=== PATIENT | female | born 2000 | race Caucasian/White ===

== ENCOUNTER 2022-01-11 17:35 | Inpatient (IN) | payer BC, SELFPAY ==
--- NOTE | ~2022-01-11 | XR_ITS ---
EXAMINATION: XR CHEST CLINICAL INFORMATION: Leukocytosis. Manic. Rule out pneumonia. COMPARISON: None TECHNIQUE: Frontal view of the chest was obtained. FINDINGS: Bilateral nipple piercing. The lungs are well expanded. There is no focal consolidation, edema, or effusion. No pneumothorax. The cardiomediastinal silhouette is within normal limits. No acute osseous abnormality. XR/XR chest 1V IMPRESSION: Clear lungs.
--- NOTE | ~2022-01-11 | CT_ITS ---
EXAMINATION: CT HEAD WITHOUT CONTRAST CLINICAL INFORMATION: Sudden onset of altered mental status. COMPARISON: None. TECHNIQUE: Contiguous axial imaging was performed from the skull base to vertex without intravenous contrast. This CT examination was performed using dose optimization techniques as appropriate, variously including the following: * Automated exposure control * Adjustment of mA and/or kV according to patient size (this includes techniques or standardized protocols for targeted exams where dose is matched to indication/reason for exam; i.e. extremities or head) Use of iterative reconstruction technique DLP: 708 mGy-cm. FINDINGS: There is no evidence of acute intracranial hemorrhage or territorial infarction. No abnormal mass effect or midline shift is seen. Cox to white matter differentiation is well preserved. No extra-axial fluid collections are identified. No hydrocephalus. Somewhat prominent cisterna magna, likely variant anatomy. No significant volume loss. There is no abnormal attenuation within the brain parenchyma. The osseous structures and soft tissues are normal. The mastoid air cells and visualized portions of the paranasal sinuses are well aerated. CT/CT head/brain wo con IMPRESSION: No acute intracranial pathology.
--- NOTE | ~2022-01-11 | MR_ITS ---
EXAMINATION: MR BRAIN WITHOUT AND WITH CONTRAST CLINICAL INFORMATION: Mental status changes. COMPARISON: CT head from 01/12/2022. TECHNIQUE: MRI of the brain was obtained using routine sequences without and following the administration of 5 mL of Gadavist intravenous contrast. FINDINGS: No focal restricted diffusion is demonstrated to suggest acute or subacute cerebral ischemia. No evidence of acute or chronic hemorrhagic products on heme-sensitive imaging. Normal parenchymal signal characteristics. The ventricles are normal in morphology and size. No midline shift. The pituitary gland is within normal limits for patient's gender and age. The suprasellar cistern remains widely patent. Normal positioning of the cerebellar tonsils. Mild prominence of the CSF space posterior to the left cerebellar hemisphere. No additional abnormal mass effect. Normal arterial and venous vascular flow voids are present. No abnormal contrast enhancement. Normal, homogeneous marrow signal. Mild mucosal thickening of the paranasal sinuses. No signal abnormalities within the mastoids. MR/MR head/brain wo/w con IMPRESSION: 1. No acute intracranial abnormalities. No abnormal intracranial enhancement. 2. No MRI abnormalities to explain the patient's symptoms.
--- NOTE | 2022-01-11 17:51 | ED.PSYCH ---
HPI - Psych General Chief Complaint: Psychiatric Symptoms <ROMEO Villa - Last Filed: 01/12/22 04:40> Stated Complaint: Psych Eval <ROMEO Villa - Last Filed: 01/12/22 04:40> Time Seen by Provider: 01/11/22 17:47 <ROMEO Villa Last Filed: 01/12/22 04:40> Source: patient and EMS <ROMEO Villa Last Filed: 01/12/22 04:40> Mode of arrival: ambulatory <ROMEO Villa Last Filed: 01/12/22 04:40> Limitations: no limitations <ROMEO Villa Last Filed: 01/12/22 04:40> History of Present Illness HPI Narrative: This is a 21-year-old female a known medical history presenting to the emergency department with complaints of suicidal ideation she was brought in via ambulance on a Section 12. Patient tells me I stopped caring for myself , patient tells me she has been like this for the past month however she has had trouble her entire life. Denies visual, auditory and tactile hallucinations. Admits suicidal ideation with no specific plan denies homicidal ideation. Tells me she is not taking her medications as prescribed and she has been lying to people telling them that she has been taking them. She tells me today she finally realized she needs a lot of help. She tells me she lives at home with her mother, father and siblings. She tells me she feels safe at home. She is very blunt with her responses and tells me that she is tired and does not want to talk right now. Denies medical complaints <ROMEO Villa - Last Filed: 01/12/22 04:40> MD complaint: suicidal ideation <ROMEO Villa Last Filed: 01/12/22 04:40> Onset (ago): month(s) (1) <ROMEO Villa Last Filed: 01/12/22 04:40> Duration: constant <ROMEO Villa Last Filed: 01/12/22 04:40> History of same: Yes <ROMEO Villa Last Filed: 01/12/22 04:40> Relieving factors: none <ROMEO Villa Last Filed: 01/12/22 04:40> Exacerbating factors: none <ROMEO Villa Last Filed: 01/12/22 04:40> Associated psychiatric symptoms: none <ROMEO Villa Last Filed: 01/12/22 04:40> Associated symptoms: denies other symptoms <ROMEO Villa Last Filed: 01/12/22 04:40> Treatments prior to arrival: none <ROMEO Villa Last Filed: 01/12/22 04:40> If self harm: admits thoughts of self harm <ROMEO Villa Last Filed: 01/12/22 04:40> Related Data Home Medications: Home Medications Medication Instructions Recorded Confirmed citalopram 20 mg tablet 1 tab PO DAILY 01/11/22 01/11/22 <ROMEO Villa Last Filed: 01/12/22 04:40> Allergies/Adverse Reactions: Allergies Allergy/AdvReac Type Severity Reaction Status Date / Time amoxicillin AdvReac Intermediate Rash Verified 01/11/22 21:42 fluoxetine [From Prozac] AdvReac Depression Verified 01/11/22 21:43 <ROMEO Villa Last Filed: 01/12/22 04:40> Review of Systems Review of Systems: Constitutional : No Fever, No Chills ENT/Mouth : No sore throat, No Rhinorrhea Eyes: No Eye Pain, No Swelling, No Redness Cardiovascular : No Chest Pain, No SOB Respiratory : No Cough, No Sputum Gastrointestinal : No Nausea, No Vomiting, No Diarrhea, No abdominal Pain Genitourinary : No Dysuria, No Hematuria Musculoskeletal : No joint pain, No Myalgias, No Joint Swelling Skin : No Skin Lesions, No rash Neuro : No Weakness, No Numbness, +headache Psych : No Anxiety, No Depression, No SI/HI/AH/VH All other systems reviewed and are negative <ROMEO Villa Last Filed: 01/12/22 04:40> Yes all other systems are reviewed and are negative <ROMEO Villa - Last Filed: 01/12/22 04:40> [facility] Past Medical History Attestation statement: The following information was validated with the patient. <ROMEO Villa - Last Filed: 01/12/22 04:40> Source: old records reviewed and nursing notes reviewed <ROMEO Villa - Last Filed: 01/12/22 04:40> Social History Social History: Social History Advance Directives: No Advance Directives Information Provided: No <ROMEO Villa - Last Filed: 01/12/22 04:40> Physical Exam Vital Signs: Vital Signs: Last Vital Signs Temp 98.2 F 01/12/22 05:04 Pulse 107 H 01/12/22 05:04 Resp 16 01/12/22 05:04 BP 132/89 01/12/22 05:04 Pulse Ox 100 01/12/22 05:04 BMI result Body Mass Index 20.1 Vital signs stable <ROMEO Villa - Last Filed: 01/12/22 04:40> Appearance: Alert.? Oriented X3.? No acute distress.? Head: Normocephalic, atraumatic, no step-offs or deformities Eyes: Pupils equal, round and reactive to light.?+ yellow/green purulent discharge eyes bilaterally and slight conjunctival injection ENT: Pharynx normal.? Neck: Normal inspection.? Neck supple.? CVS: Normal heart rate and rhythm.? Pulses normal.? Respiratory: No respiratory distress.? Breath sounds normal.? Abdomen: Soft and nontender.? Skin: Skin warm and dry.? Normal skin color.? Normal skin turgor.? Extremities: No lower extremity edema.? No calf ttp. 5/5 strength to bilateral upper and lower extremities Neuro: Oriented X 3.? No motor deficit.? No sensory deficit. CN 2-12 intact <ROMEO Villa - Last Filed: 01/12/22 04:40> Course Reevaluation(s) Reevaluation #1: Spoke to Care Team Natasha, patient was evaluated in the community by the behavioral health team. Patient has had previous suicide attempts by hanging within the past year so, patient high risk patient therefore she will be an inpatient bed search. The patient's only known medical history is anxiety. No known history of bipolar disorder schizophrenia. Patient noted to have a slightly elevated leukocytosis, no acute electrolyte abnormalities requiring intervention. Patient's bilirubin noted to be slightly elevated however no pain to palpation with abdomen. Patient is COVID negative. Toxicology pending, urine pending. <ROMEO Villa - Last Filed: 01/12/22 04:40> Time: 18:30 <ROMEO Villa - Last Filed: 01/12/22 04:40> Reevaluation #2: Patient speaking and not making sense,the care team also concerned about the rapidity of onset of psychiatric symptoms. Patient also having urinary incontinence and headache. Patient appears altered and not making sense. She tells me that she has been having headache over the past week and then she tells me that she has been having tension headaches her whole life. When I asked her if she is having right now she says not at this moment. No meningeal signs however history, physical and elevated white blood cell count concerning for meningitis/encephalitis. Although patient does appear to have a UTI by rapid urinalysis I still feel as though this presentation is abnormal for 21-year-old female must rule out other etiologies such as meningitis, encephalitis discussed this with my attending who agrees. Noted to have an elevated leukocytosis new onset neuro sx, for this reason encephalitis and meningitis are on the differential. Head CT is negative, no signs of intra cranial pressure. Discussed this case with my attending who recommends lumbar puncture as this is new in onset patient has no history of bipolar disorder, schizophrenia she is having episodes of incontinence & [place] and she is not making sense when she speaks. <ROMEO Villa Last Filed: 01/12/22 04:40> Time: 03:04 <ROMEO Villa - Last Filed: 01/12/22 04:40> Reevaluation #3: A lumbar puncture was successfully performed by myself w/Dr. Jeffries supervising. Patient tolerated procedure well. No complications. Patient gave verbal consent for the procedure although she is altered she she was made aware of the procedure I explained to her asked her if she had any questions, and answer them is appropriately After the procedure pressure was applied to the area for 2-3 minutes and she was laid flat on her back educated her and her nurse that she is to remain in a supine position without movement for about an hour. Patient did not report any numbness or tingling to the lower extremities, does not report headache, dizziness or vision changes. Will continue to monitor. Will prophylactically tx for viral and bacterial meningitis. <ROMEO Villa - Last Filed: 01/12/22 04:40> Time: 03:55 <ROMEO Villa - Last Filed: 01/12/22 04:40> Additional Reevaluation(s): 0423 Spoke to patient's mother Pattie who is patient's primary contact who gave me an abundant amount of information about this patient. She tells me that her daughter has no history of medication abuse. She currently has a girlfriend no known history of STDs. She does tell me that about a week and a half ago Divya had a significant upper respiratory infection with a productive cough of sputum, she had a T-max of 99.8 degrees at the time and tested negative for COVID. She was not evaluated by a medical professional at bedtime however mom says that it was significant so she wanted her to be evaluated. Divya has never had history is of urinary incontinence she does not have a history of UTIs. She is currently getting treated for an avulsion fracture of the left ankle she was seen at [facility] for this and she is to follow up with [facility]. Mom tells me that on 01/08 she noted that Divya use getting easily overwhelmed. She spoke to patient's PCP. The next day she called and [facility] at the time plan was for her to go to partial therapy for anxiety. At that time mom did not know any bizarre behavior. The next day on 01/10 she seemed high off life and seemed to be in a good mood she saw her therapist who met with her that day and noted nothing wrong with her clinically. On 01/11 is when mother noted that Divya seemed forgetful and at times had grandiose language per mother. She says that Divya had a full conversation with her father and she kept forgetting what her and her father talked about. On that day Divya also sent 58 text messages to her girlfriend and seemed like she was not making sense from time to time. She also mentions to me she has no history of migraine headaches or tension type headaches so her having a headache is unusual in not common for her. Mother is aware that a lumbar puncture was done she agrees with treatment plan. She was made aware of plan in tells me that she is shocked of this change in behavior suddenly, this is unlike her daughter and she reaffirms that daughter has no history of schizophrenia, bipolar disorder her only diagnosis is anxiety for which she takes Celexa for. 0435 Patient not complaining of headache, dizziness or vision changes. Patient will be admitted to the hospitalist team for further evaluation. CSF fluid pending. <ROMEO Villa - Last Filed: 01/12/22 04:40> MDM - Psych MDM Narrative Medical decision making narrative: 7710 21-year-old female presents with suicidal ideation x1 month on a Section 12 via EMS. Reports not taking her psychiatric medications. Unsure of her medical history. Physical examination significant for purulent eye discharge bilaterally, an abundant amount of discharge that is yellow/green is noted. Some conjunctival injection is also appreciated. Lungs clear. Regular rate and rhythm. Abdomen soft nontender nondistended. Neuro exam nonfocal. Patient is very soft-spoken. Plan at this time is medical clearance. I will obtain a wound culture of patient's patient's eye discharge to ensure this is not gonococcal conjunctivitis. I will also give patient erythromycin ointment to bilateral eyes. <ROMEO Villa - Last Filed: 01/12/22 04:40> Medical Records Attestation: I reviewed the patient's medical records. <ROMEO Villa Last Filed: 01/12/22 04:40> Lab Data Attestation: I reviewed the patient's lab results. <ROMEO Villa Last Filed: 01/12/22 04:40> Result diagrams: : 01/12/22 02:09 01/11/22 19:13 <ROMEO Villa Last Filed: 01/12/22 04:40> Labs: Lab Results 01/11/22 01/11/22 01/11/22 Range/Units 17:54 17:54 17:54 WBC 14.9 H (4.8-10.8) X10*3/uL RBC 5.20 (4.20-5.50) X10*6/uL Hgb 14.2 (12.0-16.0) g/dl Hct 41.9 (37.0-47.0) % MCV 80.6 (80.0-98.0) fL MCH 27.3 (27.0-33.0) pg MCHC 33.9 (31.0-35.0) g/dl RDW 14.7 (11.0-16.0) % Plt Count 348 (160-400) X10*3/uL MPV 11.4 (9.4-12.3) fL Immature Gran % (Auto) 0.4 (0.0-0.4) % Neut % (Auto) 81.7 H (45-73) % Lymph % (Auto) 10.0 L (20-40) % [place] % (Auto) 7.5 (2-11) % Eos % (Auto) 0.1 (0-4) % Baso % (Auto) 0.3 (0-2) % Lymph # (Auto) 1.5 (1.2-4.9) X10*3/uL [place] # (Auto) 1.1 (0.1-1.2) X10*3/uL Eos # (Auto) 0.0 (0.0-0.4) X10*3/uL Baso # (Auto) 0.0 (0.0-0.2) X10*3/uL Abs Immat Gran (auto) 0.06 H (0.00-0.03) X10*3/uL Absolute Neuts (auto) 12.1 H (2.0-8.3) x10*3/uL Absolute Nucleated RBC 0.000 (0.0-0.012) X10*3/uL Nucleated RBC % (auto) 0.0 (0.0-0.2) /100WBC Sodium Potassium Chloride Carbon Dioxide Anion Gap BUN Creatinine Estim Creat Clear Calc Estimated GFR Random Glucose Calcium Magnesium Total Bilirubin AST ALT Alkaline Phosphatase Total Protein Albumin Urine Color Urine Appearance Urine pH (5.0-8.0) Ur Specific [place] (1.005-1.025) Urine Protein (NEG-TRACE) MG/DL Urine Glucose (UA) (NEG) MG/DL Urine Ketones (NEG) MG/DL Urine Blood (NEG) Urine Nitrite (NEG) Ur Leukocyte Esterase (NEG) Urine RBC (0) /HPF Urine WBC (0-4) /HPF Urine WBC Clumps Ur Squamous Epith Cells /LPF Urine Bacteria /LPF Urine Test (NEGATIVE) CSF Tube Number CSF Volume ML CSF Appearance CSF Color CSF WBC MM*3 CSF RBC MM*3 CSF Lymphocytes % CSF Appearance (b) CSF Glucose mg/dL CSF Total Protein (15-45) mg/dL CSF Lyme IgG (Immblot) CSF Lyme IgG Bands Det CSF Lyme IgM (Immblot) CSF Lyme IgM Bands Det Salicylates (15-30) mg/dL Urine Opiates Screen (Not Detect) Urine Fentanyl Screen (Not Detect) Acetaminophen (<30) mcg/mL Ur Barbiturates Screen (Not Detect) Ur Phencyclidine Scrn (Not Detect) Ur Amphetamines Screen (Not Detect) U Benzodiazepines Scrn (Not Detect) Urine Cocaine Screen (Not Detect) U Marijuana (THC) Screen (Not Detect) Ethyl Alcohol < 10 mg/dL COVID-19 (VIGNESH) Negative (Negative) COVID-19 Clin Com See Note 01/11/22 01/11/22 01/11/22 Range/Units 19:13 19:13 20:40 WBC (4.8-10.8) X10*3/uL RBC (4.20-5.50) X10*6/uL Hgb (12.0-16.0) g/dl Hct (37.0-47.0) % MCV (80.0-98.0) fL MCH (27.0-33.0) pg MCHC (31.0-35.0) g/dl RDW (11.0-16.0) % Plt Count (160-400) X10*3/uL MPV (9.4-12.3) fL Immature Gran % (Auto) (0.0-0.4) % Neut % (Auto) (45-73) % Lymph % (Auto) (20-40) % [place] % (Auto) (2-11) % Eos % (Auto) (0-4) % Baso % (Auto) (0-2) % Lymph # (Auto) (1.2-4.9) X10*3/uL [place] # (Auto) (0.1-1.2) X10*3/uL Eos # (Auto) (0.0-0.4) X10*3/uL Baso # (Auto) (0.0-0.2) X10*3/uL Abs Immat Gran (auto) (0.00-0.03) X10*3/uL Absolute Neuts (auto) (2.0-8.3) x10*3/uL Absolute Nucleated RBC (0.0-0.012) X10*3/uL Nucleated RBC % (auto) (0.0-0.2) /100WBC Sodium Cancelled 138 Potassium Cancelled 4.0 Chloride Cancelled 101 Carbon Dioxide Cancelled 26 Anion Gap Cancelled 15 BUN Cancelled 14 Creatinine Cancelled 0.80 Estim Creat Clear Calc Cancelled 89.3 Estimated GFR Cancelled > 60 Random Glucose Cancelled 158 H Calcium Cancelled 9.9 Magnesium Cancelled 2.0 Total Bilirubin Cancelled 1.2 H AST Cancelled 15 ALT Cancelled 12 Alkaline Phosphatase Cancelled 50 Total Protein Cancelled 8.0 Albumin Cancelled 4.5 Urine Color YELLOW Urine Appearance CLOUDY Urine pH 6.0 (5.0-8.0) Ur Specific [place] 1.015 (1.005-1.025) Urine Protein NEG (NEG-TRACE) MG/DL Urine Glucose (UA) NEG (NEG) MG/DL Urine Ketones NEG (NEG) MG/DL Urine Blood 1+ H (NEG) Urine Nitrite POS H (NEG) Ur Leukocyte Esterase 2+ H (NEG) Urine RBC 1-4 (0) /HPF Urine WBC 76-150 H (0-4) /HPF Urine WBC Clumps NOTED Ur Squamous Epith Cells 4+ /LPF Urine Bacteria 4+ /LPF Urine Test (NEGATIVE) CSF Tube Number CSF Volume ML CSF Appearance CSF Color CSF WBC MM*3 CSF RBC MM*3 CSF Lymphocytes % CSF Appearance (b) CSF Glucose mg/dL CSF Total Protein (15-45) mg/dL CSF Lyme IgG (Immblot) CSF Lyme IgG Bands Det CSF Lyme IgM (Immblot) CSF Lyme IgM Bands Det Salicylates (15-30) mg/dL Urine Opiates Screen (Not Detect) Urine Fentanyl Screen (Not Detect) Acetaminophen (<30) mcg/mL Ur Barbiturates Screen (Not Detect) Ur Phencyclidine Scrn (Not Detect) Ur Amphetamines Screen (Not Detect) U Benzodiazepines Scrn (Not Detect) Urine Cocaine Screen (Not Detect) U Marijuana (THC) Screen (Not Detect) Ethyl Alcohol mg/dL COVID-19 (VIGNESH) (Negative) COVID-19 Clin Com 01/11/22 01/11/22 01/12/22 Range/Units 20:40 20:40 02:09 WBC 12.7 H (4.8-10.8) X10*3/uL RBC 4.98 (4.20-5.50) X10*6/uL Hgb 13.5 (12.0-16.0) g/dl Hct 40.3 (37.0-47.0) % MCV 80.9 (80.0-98.0) fL MCH 27.1 (27.0-33.0) pg MCHC 33.5 (31.0-35.0) g/dl RDW 14.6 (11.0-16.0) % Plt Count 395 (160-400) X10*3/uL MPV 10.6 (9.4-12.3) fL Immature Gran % (Auto) 0.5 H (0.0-0.4) % Neut % (Auto) 74.6 H (45-73) % Lymph % (Auto) 15.9 L (20-40) % [place] % (Auto) 8.4 (2-11) % Eos % (Auto) 0.3 (0-4) % Baso % (Auto) 0.3 (0-2) % Lymph # (Auto) 2.0 (1.2-4.9) X10*3/uL [place] # (Auto) 1.1 (0.1-1.2) X10*3/uL Eos # (Auto) 0.0 (0.0-0.4) X10*3/uL Baso # (Auto) 0.0 (0.0-0.2) X10*3/uL Abs Immat Gran (auto) 0.07 H (0.00-0.03) X10*3/uL Absolute Neuts (auto) 9.5 H (2.0-8.3) x10*3/uL Absolute Nucleated RBC 0.000 (0.0-0.012) X10*3/uL Nucleated RBC % (auto) 0.0 (0.0-0.2) /100WBC Sodium Potassium Chloride Carbon Dioxide Anion Gap BUN Creatinine Estim Creat Clear Calc Estimated GFR Random Glucose Calcium Magnesium Total Bilirubin AST ALT Alkaline Phosphatase Total Protein Albumin Urine Color Urine Appearance Urine pH (5.0-8.0) Ur Specific [place] (1.005-1.025) Urine Protein (NEG-TRACE) MG/DL Urine Glucose (UA) (NEG) MG/DL Urine Ketones (NEG) MG/DL Urine Blood (NEG) Urine Nitrite (NEG) Ur Leukocyte Esterase (NEG) Urine RBC (0) /HPF Urine WBC (0-4) /HPF Urine WBC Clumps Ur Squamous Epith Cells /LPF Urine Bacteria /LPF Urine Test NEGATIVE (NEGATIVE) CSF Tube Number CSF Volume ML CSF Appearance CSF Color CSF WBC MM*3 CSF RBC MM*3 CSF Lymphocytes % CSF Appearance (b) CSF Glucose mg/dL CSF Total Protein (15-45) mg/dL CSF Lyme IgG (Immblot) CSF Lyme IgG Bands Det CSF Lyme IgM (Immblot) CSF Lyme IgM Bands Det Salicylates (15-30) mg/dL Urine Opiates Screen Not Detected (Not Detect) Urine Fentanyl Screen Not Detected (Not Detect) Acetaminophen (<30) mcg/mL Ur Barbiturates Screen Not Detected (Not Detect) Ur Phencyclidine Scrn Not Detected (Not Detect) Ur Amphetamines Screen Not Detected (Not Detect) U Benzodiazepines Scrn Not Detected (Not Detect) Urine Cocaine Screen Not Detected (Not Detect) U Marijuana (THC) Screen Not Detected (Not Detect) Ethyl Alcohol mg/dL COVID-19 (VIGNESH) (Negative) COVID-19 Clin Com 01/12/22 01/12/22 01/12/22 Range/Units 03:57 03:57 03:57 WBC (4.8-10.8) X10*3/uL RBC (4.20-5.50) X10*6/uL Hgb (12.0-16.0) g/dl Hct (37.0-47.0) % MCV (80.0-98.0) fL MCH (27.0-33.0) pg MCHC (31.0-35.0) g/dl RDW (11.0-16.0) % Plt Count (160-400) X10*3/uL MPV (9.4-12.3) fL Immature Gran % (Auto) (0.0-0.4) % Neut % (Auto) (45-73) % Lymph % (Auto) (20-40) % [place] % (Auto) (2-11) % Eos % (Auto) (0-4) % Baso % (Auto) (0-2) % Lymph # (Auto) (1.2-4.9) X10*3/uL [place] # (Auto) (0.1-1.2) X10*3/uL Eos # (Auto) (0.0-0.4) X10*3/uL Baso # (Auto) (0.0-0.2) X10*3/uL Abs Immat Gran (auto) (0.00-0.03) X10*3/uL Absolute Neuts (auto) (2.0-8.3) x10*3/uL Absolute Nucleated RBC (0.0-0.012) X10*3/uL Nucleated RBC % (auto) (0.0-0.2) /100WBC Sodium Potassium Chloride Carbon Dioxide Anion Gap BUN Creatinine Estim Creat Clear Calc Estimated GFR Random Glucose Calcium Magnesium Total Bilirubin AST ALT Alkaline Phosphatase Total Protein Albumin Urine Color Urine Appearance Urine pH (5.0-8.0) Ur Specific [place] (1.005-1.025) Urine Protein (NEG-TRACE) MG/DL Urine Glucose (UA) (NEG) MG/DL Urine Ketones (NEG) MG/DL Urine Blood (NEG) Urine Nitrite (NEG) Ur Leukocyte Esterase (NEG) Urine RBC (0) /HPF Urine WBC (0-4) /HPF Urine WBC Clumps Ur Squamous Epith Cells /LPF Urine Bacteria /LPF Urine Test (NEGATIVE) CSF Tube Number 2 4 CSF Volume 1.0 ML CSF Appearance CLEAR CSF Color COLORLESS CSF WBC 3 MM*3 CSF RBC 1 MM*3 CSF Lymphocytes 100 % CSF Appearance (b) Clear, Colorless CSF Glucose 71 mg/dL CSF Total Protein 24.0 (15-45) mg/dL CSF Lyme IgG (Immblot) Cancelled CSF Lyme IgG Bands Det Cancelled CSF Lyme IgM (Immblot) Cancelled CSF Lyme IgM Bands Det Cancelled Salicylates (15-30) mg/dL Urine Opiates Screen (Not Detect) Urine Fentanyl Screen (Not Detect) Acetaminophen (<30) mcg/mL Ur Barbiturates Screen (Not Detect) Ur Phencyclidine Scrn (Not Detect) Ur Amphetamines Screen (Not Detect) U Benzodiazepines Scrn (Not Detect) Urine Cocaine Screen (Not Detect) U Marijuana (THC) Screen (Not Detect) Ethyl Alcohol mg/dL COVID-19 (VIGNESH) (Negative) COVID-19 Clin Com 01/12/22 Range/Units 03:59 WBC (4.8-10.8) X10*3/uL RBC (4.20-5.50) X10*6/uL Hgb (12.0-16.0) g/dl Hct (37.0-47.0) % MCV (80.0-98.0) fL MCH (27.0-33.0) pg MCHC (31.0-35.0) g/dl RDW (11.0-16.0) % Plt Count (160-400) X10*3/uL MPV (9.4-12.3) fL Immature Gran % (Auto) (0.0-0.4) % Neut % (Auto) (45-73) % Lymph % (Auto) (20-40) % [place] % (Auto) (2-11) % Eos % (Auto) (0-4) % Baso % (Auto) (0-2) % Lymph # (Auto) (1.2-4.9) X10*3/uL [place] # (Auto) (0.1-1.2) X10*3/uL Eos # (Auto) (0.0-0.4) X10*3/uL Baso # (Auto) (0.0-0.2) X10*3/uL Abs Immat Gran (auto) (0.00-0.03) X10*3/uL Absolute Neuts (auto) (2.0-8.3) x10*3/uL Absolute Nucleated RBC (0.0-0.012) X10*3/uL Nucleated RBC % (auto) (0.0-0.2) /100WBC Sodium Potassium Chloride Carbon Dioxide Anion Gap BUN Creatinine Estim Creat Clear Calc Estimated GFR Random Glucose Calcium Magnesium Total Bilirubin AST ALT Alkaline Phosphatase Total Protein Albumin Urine Color Urine Appearance Urine pH (5.0-8.0) Ur Specific [place] (1.005-1.025) Urine Protein (NEG-TRACE) MG/DL Urine Glucose (UA) (NEG) MG/DL Urine Ketones (NEG) MG/DL Urine Blood (NEG) Urine Nitrite (NEG) Ur Leukocyte Esterase (NEG) Urine RBC (0) /HPF Urine WBC (0-4) /HPF Urine WBC Clumps Ur Squamous Epith Cells /LPF Urine Bacteria /LPF Urine Test (NEGATIVE) CSF Tube Number CSF Volume ML CSF Appearance CSF Color CSF WBC MM*3 CSF RBC MM*3 CSF Lymphocytes % CSF Appearance (b) CSF Glucose mg/dL CSF Total Protein (15-45) mg/dL CSF Lyme IgG (Immblot) CSF Lyme IgG Bands Det CSF Lyme IgM (Immblot) CSF Lyme IgM Bands Det Salicylates < 5.0 L (15-30) mg/dL Urine Opiates Screen (Not Detect) Urine Fentanyl Screen (Not Detect) Acetaminophen < 1 (<30) mcg/mL Ur Barbiturates Screen (Not Detect) Ur Phencyclidine Scrn (Not Detect) Ur Amphetamines Screen (Not Detect) U Benzodiazepines Scrn (Not Detect) Urine Cocaine Screen (Not Detect) U Marijuana (THC) Screen (Not Detect) Ethyl Alcohol mg/dL COVID-19 (VIGNESH) (Negative) COVID-19 Clin Com <ROMEO Villa - Last Filed: 01/12/22 04:40> Critical Care Time Critical Care Time Critical Care Time: No <ROMEO Villa Last Filed: 01/12/22 04:40> Discharge Plan Discharge Clinical Impression: Altered mental status, Depression, Suicidal ideation, UTI (urinary tract infection) <ROMEO Villa Last Filed: 01/12/22 04:40> Patient Disposition: Admitted As Inpatient <ROMEO Villa - Last Filed: 01/12/22 04:40>
[2022-01-11 18:03] LABS: MANUAL DIFF FLAG NO
[2022-01-11 18:15] LABS: Ethanol < 10 mg/dL
[2022-01-11 18:18] LABS: Basophils Percent Auto 0.3 % (0-2); Eosinophils Percent Auto 0.1 % (0-4); Hematocrit 41.9 % (37.0-47.0); Hemoglobin 14.2 g/dl (12.0-16.0); Imm Gran Abs Auto 0.06 X10*3/uL (0.00-0.03); Imm Gran Pct Auto 0.4 % (0.0-0.4); Lymphocytes Absolute Auto 1.5 X10*3/uL (1.2-4.9); Mean Corpuscular HGB Conc 33.9 g/dl (31.0-35.0); Mean Corpuscular Hemoglobin 27.3 pg (27.0-33.0); Mean Corpuscular Volume 80.6 fL (80.0-98.0); Mean Platelet Volume 11.4 fL (9.4-12.3); Monocytes Absolute Auto 1.1 X10*3/uL (0.1-1.2); Monocytes Percent Auto 7.5 % (2-11); Neutrophils Absolute Auto 12.1 x10*3/uL (2.0-8.3); Neutrophils Percent Auto 81.7 % (45-73); Platelet Count 348 X10*3/uL (160-400); Red Cell Distribution Width 14.7 % (11.0-16.0); White Blood Count 14.9 X10*3/uL (4.8-10.8)
[2022-01-11 18:19] VITALS: BP 134/97; PULSE 102; RESP 18; TEMP 36.7; O2SAT 98; BMI 20.1
--- NOTE | 2022-01-11 18:19 | MHC.CARE ---
Pt was evaluated by [facility] prior to arrival to the ED for new onset of psychosis/jimmy symptoms marked by disorganized thought process, grandiosity, adventist preoccupation, and she disclosed a recent suicide attempt via hanging while she was in her dorm room at [employer]. She also expressed that she has been having intrusive thoughts about harming her family and is afraid that she might do so. She does not present with any aggression nor does she have a history of aggressive behavior. She lives with her parents, whom are very supportive. All above information was provided by the [facility] rewind operator that completed the pt's evaluation at her home. Pt will be presented for admission to [facility] or [facility].
[2022-01-11 18:37] LABS: COVID-19 Test Negative (Negative)
[2022-01-11 19:41] LABS: Alanine Aminotransferase 12 U/L (0-31); Albumin Level 4.5 g/dL (3.5-5.0); Alkaline Phosphatase 50 U/L (39-117); Anion Gap 15 (12-20); Aspartate Amino Transferase 15 U/L (5-31); Bilirubin Total 1.2 mg/dL (0.0-1.0); Blood Urea Nitrogen 14 mg/dL (9-16); Calcium 9.9 mg/dL (8.4-10.2); Carbon Dioxide 26 mmol/L (22-29); Chloride 101 mmol/L (96-108); Creatinine Clr Calc Pharmacy 89.3; Estimated Glomerular Filt Rate > 60; Glucose Random 158 mg/dL (60-115); Sodium 138 mmol/L (135-145)
[2022-01-11] MEDS: Erythromycin Base 0.5% Oph Oin 1 GM TUBE 1 CM EYE-BOTH (20:38)
[2022-01-11 20:48] LABS: Appearance Urine CLOUDY; Color Urine YELLOW; Glucose Urine UA NEG (NEG); Leukocyte Esterase Urine 2+ (NEG); Nitrite Urine POS (NEG); Specific Gravity - Urine 1.015 (1.005-1.025); UACC Culture Trigger YES; Urine Blood 1+ (NEG); Urine Ketones NEG (NEG); Urine Protein NEG (NEG-TRACE)
[2022-01-11 20:53] LABS: UPreg QC Valid YES; Urine Pregnancy NEGATIVE (NEGATIVE)
[2022-01-11 21:00] LABS: Bacteria Urine 4+ /LPF; Squamous Epithelial Cell Urine 4+ /LPF; WBC Clumps Urine NOTED
[2022-01-11 21:08] LABS: Amphetamine Screen Urine Not Detected (Not Detect); Barbiturates, Urine Not Detected (Not Detect); Benzodiazepines Screen Urine Not Detected (Not Detect); Cannabinoid Screen Urine Not Detected (Not Detect); Cocaine Screen Urine Not Detected (Not Detect); Fentanyl, urine Not Detected (Not Detect); Opiate Screen Urine Not Detected (Not Detect); Phencyclidine Screen Urine Not Detected (Not Detect)
[2022-01-12 02:14] LABS: MANUAL DIFF FLAG NO
[2022-01-12 02:15] LABS: Basophils Percent Auto 0.3 % (0-2); Eosinophils Percent Auto 0.3 % (0-4); Hematocrit 40.3 % (37.0-47.0); Hemoglobin 13.5 g/dl (12.0-16.0); Imm Gran Abs Auto 0.07 X10*3/uL (0.00-0.03); Imm Gran Pct Auto 0.5 % (0.0-0.4); Lymphocytes Percent Auto 15.9 % (20-40); Mean Corpuscular HGB Conc 33.5 g/dl (31.0-35.0); Mean Corpuscular Hemoglobin 27.1 pg (27.0-33.0); Mean Corpuscular Volume 80.9 fL (80.0-98.0); Mean Platelet Volume 10.6 fL (9.4-12.3); Monocytes Absolute Auto 1.1 X10*3/uL (0.1-1.2); Monocytes Percent Auto 8.4 % (2-11); Neutrophils Absolute Auto 9.5 x10*3/uL (2.0-8.3); Neutrophils Percent Auto 74.6 % (45-73); Platelet Count 395 X10*3/uL (160-400); Red Blood Count 4.98 X10*6/uL (4.20-5.50); Red Cell Distribution Width 14.6 % (11.0-16.0); White Blood Count 12.7 X10*3/uL (4.8-10.8)
[2022-01-12 02:25] VITALS: BP 132/84; PULSE 83; RESP 14; TEMP 36.8; O2SAT 98
[2022-01-12 04:26] LABS: CSF Appearance Clear, Colorless; CSF Tube # 2
[2022-01-12 04:36] LABS: Acetaminophen LAB < 1 mcg/mL (<30); Salicylate < 5.0 mg/dL (15-30)
[2022-01-12 04:37] LABS: Glucose CSF 71 mg/dL
[2022-01-12 05:04] VITALS: BP 132/89; PULSE 107; RESP 16; TEMP 36.8; O2SAT 100
[2022-01-12 05:04] LABS: Appearance CSF CLEAR; CSF Tube # 4; Color CSF COLORLESS; Red Blood Cell CSF 1 MM*3; White Blood Cell CSF 3 MM*3
[2022-01-12 05:05] LABS: Lymphocytes CSF 100 %
[2022-01-12] MEDS: Lidocaine HCl 2 % MPF 5 ML VIAL SUBCUT (05:20)
[2022-01-12] MEDS: LORazepam 0.5 MG TABLET PO (05:20)
[2022-01-12] MEDS: cefTRIAXone sodium 2 GM in 0.9 % Sodium Chloride 50 ML IV (05:39)
--- NOTE | 2022-01-12 06:43 | P.HPHOSP_ITS ---
History of Present Illness Date of Service: 01/12/22 Chief Complaint: Altered mental status 21-year-old female with a past medical history of anxiety/depression presented to the hospital with a chief complaint of altered mental status. Patient is alert and awake at the time of my interview, has tangential thoughts, unable to redirect; tells her name but goes back to talking about the world, old problems, not answering my questions appropriately. Spoke to the patient's mother Pattie who mentioned that since patient came back from the school on December 31 she has been having upper respiratory symptoms cough and sputum production along with profuse sweating; she felt fine few days later around 12 she started to be a came altered and talking erratically; and expressed ideas of suicide. Also patient's mother called the crisis team and for the past 1 day she became more words/altered hence subsequently sent to the ER for further evaluation. Patient's mother does not think patient took extra doses of her citalopram. Patient filled in citalopram 30 tablets on December 06 and she still has 14 tablets left. And does not think patient overdosed on any medications. Denies any fevers chills. Denies any falls or trauma. Denies complaining of any chest pain or palpitations. Review of all other systems is negative except mentioned above ER course: Per ER team patient on presentation noted to be altered concern for psychiatric crisis-call crisis team; later patient was noted to be more confused; on also reported headaches and suicide ideation. On observation was placed. On labs noted to have abnormal urinalysis consistent UTI. ER team also did an LP given concerns for encephalitis/meningitis. Empirically started on vancomycin, ceftriaxone, acyclovir. Admitted to the hospital for further management. Patient also noted to have conjunctivitis-given erythromycin. [facility] Social History Advance Directives: No Advance Directives Information Provided: No Meds Allergies Allergy/AdvReac Type Severity Reaction Status Date / Time amoxicillin AdvReac Intermediate Rash Verified 01/11/22 21:42 fluoxetine [From Prozac] AdvReac Depression Verified 01/11/22 21:43 Active Medications: Current Medications Erythromycin (Erythromycin Base 0.5% Oph Oin 1 Gm Tube) 1 cm EYE-BOTH BID JOHANNA Last Admin: 01/11/22 20:38 Dose: 1 cm Documented by: Escitalopram Oxalate (Escitalopram Oxalate 10 Mg Tablet) 10 mg PO DAILY [facility] Acyclovir Sodium 500 mg/ (Sodium Chloride) 110 mls @ 110 mls/hr IV Q8H [facility] Last Admin: 01/12/22 06:10 Dose: 110 mls/hr Documented by: Dextrose/Sodium Chloride (D51/2ns) 1,000 mls @ 100 mls/hr IVCONT .Q10H [facility] Melatonin (Melatonin 3 Mg Tablet) 6 mg PO BEDTIME PRN PRN Reason: Insomnia Pharmacy Consult (Consult Rx Perform Med Rec) 1 each MISCELLANE ONCE PRN PRN Reason: Consult order Senna (Sennosides 8.6 Mg Tablet) 17.2 mg PO BEDTIME PRN PRN Reason: Constipation Sodium Chloride (0.9 % Sodium Chloride Flush 3 Ml Syringe) 3 ml IVFLUSH QSHIFT [facility] Home Medications Medication Instructions Recorded Confirmed Last Taken Type citalopram 20 mg tablet 1 tab PO DAILY 01/11/22 01/11/22 Unknown History Physical Exam Vital Signs and Narrative: Vital Signs: Last Vital Signs Temp 98.2 F 01/12/22 05:04 Pulse 107 H 01/12/22 05:04 Resp 16 01/12/22 05:04 BP 132/89 01/12/22 05:04 Pulse Ox 100 01/12/22 05:04 BMI result Body Mass Index 20.1 Gen: Appears be in no acute distress HEENT: NCAT, Moist mucosa. Pulmonary: Vesicular breath sounds, fair air entry CVS: Normal S1-S2 Abdomen: BS+, Soft, Nontender Extremities: Warm well perfused Neuro: Alert and awake. Oriented x2. Grossly nonfocal. Results Labs CBC and Chem 7: 01/12/22 02:09 01/11/22 19:13 Labs: Laboratory Results - last 24 hr 01/11/22 01/11/22 01/11/22 17:54 17:54 17:54 MCV 80.6 MCH 27.3 MCHC 33.9 RDW 14.7 Plt Count 348 MPV 11.4 Immature Gran % (Auto) 0.4 Neut % (Auto) 81.7 H Lymph % (Auto) 10.0 L [place] % (Auto) 7.5 Eos % (Auto) 0.1 Baso % (Auto) 0.3 Lymph # (Auto) 1.5 [place] # (Auto) 1.1 Eos # (Auto) 0.0 Baso # (Auto) 0.0 Abs Immat Gran (auto) 0.06 H Absolute Neuts (auto) 12.1 H Absolute Nucleated RBC 0.000 Nucleated RBC % (auto) 0.0 Anion Gap Estim Creat Clear Calc Estimated GFR Random Glucose Calcium Magnesium Total Bilirubin AST ALT Alkaline Phosphatase Total Protein Albumin Urine Color Urine Appearance Urine pH Ur Specific [place] Urine Protein Urine Glucose (UA) Urine Ketones Urine Blood Urine Nitrite Ur Leukocyte Esterase Urine RBC Urine WBC Urine WBC Clumps Ur Squamous Epith Cells Urine Bacteria Urine Test CSF Tube Number CSF Volume CSF Appearance CSF Color CSF WBC CSF RBC CSF Lymphocytes CSF Appearance (b) CSF Glucose CSF Total Protein CSF Lyme IgG (Immblot) CSF Lyme IgG Bands Det CSF Lyme IgM (Immblot) CSF Lyme IgM Bands Det Salicylates Urine Opiates Screen Urine Fentanyl Screen Acetaminophen Ur Barbiturates Screen Ur Phencyclidine Scrn Ur Amphetamines Screen U Benzodiazepines Scrn Urine Cocaine Screen U Marijuana (THC) Screen Ethyl Alcohol < 10 COVID-19 (VIGNESH) Negative COVID-19 Clin Com See Note 01/11/22 01/11/22 01/11/22 19:13 19:13 20:40 MCV MCH MCHC RDW Plt Count MPV Immature Gran % (Auto) Neut % (Auto) Lymph % (Auto) [place] % (Auto) Eos % (Auto) Baso % (Auto) Lymph # (Auto) [place] # (Auto) Eos # (Auto) Baso # (Auto) Abs Immat Gran (auto) Absolute Neuts (auto) Absolute Nucleated RBC Nucleated RBC % (auto) Anion Gap Cancelled 15 Estim Creat Clear Calc Cancelled 89.3 Estimated GFR Cancelled > 60 Random Glucose Cancelled 158 H Calcium Cancelled 9.9 Magnesium Cancelled 2.0 Total Bilirubin Cancelled 1.2 H AST Cancelled 15 ALT Cancelled 12 Alkaline Phosphatase Cancelled 50 Total Protein Cancelled 8.0 Albumin Cancelled 4.5 Urine Color YELLOW Urine Appearance CLOUDY Urine pH 6.0 Ur Specific [place] 1.015 Urine Protein NEG Urine Glucose (UA) NEG Urine Ketones NEG Urine Blood 1+ H Urine Nitrite POS H Ur Leukocyte Esterase 2+ H Urine RBC 1-4 Urine WBC 76-150 H Urine WBC Clumps NOTED Ur Squamous Epith Cells 4+ Urine Bacteria 4+ Urine Test CSF Tube Number CSF Volume CSF Appearance CSF Color CSF WBC CSF RBC CSF Lymphocytes CSF Appearance (b) CSF Glucose CSF Total Protein CSF Lyme IgG (Immblot) CSF Lyme IgG Bands Det CSF Lyme IgM (Immblot) CSF Lyme IgM Bands Det Salicylates Urine Opiates Screen Urine Fentanyl Screen Acetaminophen Ur Barbiturates Screen Ur Phencyclidine Scrn Ur Amphetamines Screen U Benzodiazepines Scrn Urine Cocaine Screen U Marijuana (THC) Screen Ethyl Alcohol COVID-19 (VIGNESH) COVID-19 [employer] Com 01/11/22 01/11/22 01/12/22 20:40 20:40 02:09 MCV 80.9 MCH 27.1 MCHC 33.5 RDW 14.6 Plt Count 395 MPV 10.6 Immature Gran % (Auto) 0.5 H Neut % (Auto) 74.6 H Lymph % (Auto) 15.9 L [place] % (Auto) 8.4 Eos % (Auto) 0.3 Baso % (Auto) 0.3 Lymph # (Auto) 2.0 [place] # (Auto) 1.1 Eos # (Auto) 0.0 Baso # (Auto) 0.0 Abs Immat Gran (auto) 0.07 H Absolute Neuts (auto) 9.5 H Absolute Nucleated RBC 0.000 Nucleated RBC % (auto) 0.0 Anion Gap Estim Creat Clear Calc Estimated GFR Random Glucose Calcium Magnesium Total Bilirubin AST ALT Alkaline Phosphatase Total Protein Albumin Urine Color Urine Appearance Urine pH Ur Specific [place] Urine Protein Urine Glucose (UA) Urine Ketones Urine Blood Urine Nitrite Ur Leukocyte Esterase Urine RBC Urine WBC Urine WBC Clumps Ur Squamous Epith Cells Urine Bacteria Urine Test NEGATIVE CSF Tube Number CSF Volume CSF Appearance CSF Color CSF WBC CSF RBC CSF Lymphocytes CSF Appearance (b) CSF Glucose CSF Total Protein CSF Lyme IgG (Immblot) CSF Lyme IgG Bands Det CSF Lyme IgM (Immblot) CSF Lyme IgM Bands Det Salicylates Urine Opiates Screen Not Detected Urine Fentanyl Screen Not Detected Acetaminophen Ur Barbiturates Screen Not Detected Ur Phencyclidine Scrn Not Detected Ur Amphetamines Screen Not Detected U Benzodiazepines Scrn Not Detected Urine Cocaine Screen Not Detected U Marijuana (THC) Screen Not Detected Ethyl Alcohol COVID-19 (VIGNESH) COVID-19 [employer] Com 01/12/22 01/12/22 01/12/22 03:57 03:57 03:57 MCV MCH MCHC RDW Plt Count MPV Immature Gran % (Auto) Neut % (Auto) Lymph % (Auto) [place] % (Auto) Eos % (Auto) Baso % (Auto) Lymph # (Auto) [place] # (Auto) Eos # (Auto) Baso # (Auto) Abs Immat Gran (auto) Absolute Neuts (auto) Absolute Nucleated RBC Nucleated RBC % (auto) Anion Gap Estim Creat Clear Calc Estimated GFR Random Glucose Calcium Magnesium Total Bilirubin AST ALT Alkaline Phosphatase Total Protein Albumin Urine Color Urine Appearance Urine pH Ur Specific [place] Urine Protein Urine Glucose (UA) Urine Ketones Urine Blood Urine Nitrite Ur Leukocyte Esterase Urine RBC Urine WBC Urine WBC Clumps Ur Squamous Epith Cells Urine Bacteria Urine Test CSF Tube Number 2 4 CSF Volume 1.0 CSF Appearance CLEAR CSF Color COLORLESS CSF WBC 3 CSF RBC 1 CSF Lymphocytes 100 CSF Appearance (b) Clear, Colorless CSF Glucose 71 CSF Total Protein 24.0 CSF Lyme IgG (Immblot) Cancelled CSF Lyme IgG Bands Det Cancelled CSF Lyme IgM (Immblot) Cancelled CSF Lyme IgM Bands Det Cancelled Salicylates Urine Opiates Screen Urine Fentanyl Screen Acetaminophen Ur Barbiturates Screen Ur Phencyclidine Scrn Ur Amphetamines Screen U Benzodiazepines Scrn Urine Cocaine Screen U Marijuana (THC) Screen Ethyl Alcohol COVID-19 (VIGNESH) COVID-19 Clin Com 01/12/22 03:59 MCV MCH MCHC RDW Plt Count MPV Immature Gran % (Auto) Neut % (Auto) Lymph % (Auto) [place] % (Auto) Eos % (Auto) Baso % (Auto) Lymph # (Auto) [place] # (Auto) Eos # (Auto) Baso # (Auto) Abs Immat Gran (auto) Absolute Neuts (auto) Absolute Nucleated RBC Nucleated RBC % (auto) Anion Gap Estim Creat Clear Calc Estimated GFR Random Glucose Calcium Magnesium Total Bilirubin AST ALT Alkaline Phosphatase Total Protein Albumin Urine Color Urine Appearance Urine pH Ur Specific [place] Urine Protein Urine Glucose (UA) Urine Ketones Urine Blood Urine Nitrite Ur Leukocyte Esterase Urine RBC Urine WBC Urine WBC Clumps Ur Squamous Epith Cells Urine Bacteria Urine Test CSF Tube Number CSF Volume CSF Appearance CSF Color CSF WBC CSF RBC CSF Lymphocytes CSF Appearance (b) CSF Glucose CSF Total Protein CSF Lyme IgG (Immblot) CSF Lyme IgG Bands Det CSF Lyme IgM (Immblot) CSF Lyme IgM Bands Det Salicylates < 5.0 L Urine Opiates Screen Urine Fentanyl Screen Acetaminophen < 1 Ur Barbiturates Screen Ur Phencyclidine Scrn Ur Amphetamines Screen U Benzodiazepines Scrn Urine Cocaine Screen U Marijuana (THC) Screen Ethyl Alcohol COVID-19 (VIGNESH) COVID-19 Clin Com Imaging Radiologist's Impressions: Impressions Chest X-Ray 01/12/22 01:00 IMPRESSION: Clear lungs. Head CT 01/12/22 02:25 IMPRESSION: No acute intracranial pathology. Assessment and Plan (1) Altered mental status: Status: Acute (2) UTI (urinary tract infection): Status: Acute Plan 21-year-old female with a past medical history of anxiety, depression presented to the hospital with a chief complaint of altered mental status/SI. Altered mental status: Reportedly patient had viral prodrome about a week ago. Question encephalitis. Patient reported headaches. LP was done-results pending Empirically covered for covered with vancomycin/ceftriaxone/acyclovir. Will obtain TSH, folate, B12, RPR, Lyme titers. Viral culture added to the CSF. Id consult and Neurology consult for further recommendations Patient on citalopram at home-serotonin syndrome in the differential. Will hold citalopram for now. Ativan p.r.n. for agitation Conjunctivitis: Continue erythromycin. Suicidal ideation: Patient initially expressed suicidal ideation to the ER team. Suicide precautions. Wound observation. Psychiatric consult. UTI: Patient on ceftriaxone(patient received ceftriaxone in the ER and tolerated well) DVT prophylaxis: SCD boots Code status: Full code Quality Stroke Does the patient have a stroke diagnosis?: No VTE Prior VTE?: No VTE Risk Level:: Medical - moderate - high VTE Device Contraindication: N/A - Device Ordered VTE Drug Contraindication: Treatment Not Indicated
[2022-01-12] MEDS: 0.9 % Sodium Chloride Flush 3 ML SYRINGE IVFLUSH (07:15)
[2022-01-12] MEDS: vancomycin HCL 750 MG in 0.9 % Sodium Chloride 250 ML 265 MG IV (07:15)
--- NOTE | 2022-01-12 07:48 | PHA.MEDREC ---
Pharmacy Consult ? Medication Reconciliation Pharmacy has reviewed the medication reconciliation completed by Destinee. Roselyn Cantu, ShreeD
[2022-01-12] MEDS: Dextrose 5 % and 0.45 % NaCl 1,000 ML 100 ML IVCONT ×2 (09:01→18:29)
[2022-01-12] MEDS: Erythromycin Base 0.5% Oph Oin 1 GM TUBE 1 CM EYE-BOTH (09:15)
--- NOTE | 2022-01-12 09:24 | PC.NURSE ---
Pt disorganized, rapid speech. Denies SI or HI at this time. Tachy on tele 115, temp 99.1 Mother now at bedside and updated with plan thus far Lexapro held d/t h and p stating SSRI will be held at this time.
[2022-01-12 10:08] LABS: Cryptococcus neoformans/gattii Not Detected (Not Detect.); Enterovirus Not Detected (Not Detect.); Escherichia coli K1 Not Detected (Not Detect.); Haemophilus influenzae Not Detected (Not Detect.); Herpes simplex virus 1 Not Detected (Not Detect.); Herpes simplex virus 2 Not Detected (Not Detect.); Human herpesvirus 6 Not Detected (Not Detect.); Human parechovirus Not Detected (Not Detect.)
[2022-01-12 10:09] LABS: Listeria monocytogenes Not Detected (Not Detect.); Neisseria meningitidis Not Detected (Not Detect.); Streptococcus agalactiae Not Detected (Not Detect.); Streptococcus pneumoniae Not Detected (Not Detect.); Varicella zoster virus Not Detected (Not Detect.)
[2022-01-12 10:23] LABS: Creatinine Clr Calc Pharmacy 111.5; Estimated Glomerular Filt Rate > 60
--- NOTE | 2022-01-12 10:33 | PC.NURSE ---
Pt seen by neuro and hospitalist. Plan for psych consult and MRI. (screening form completed with mom) Pt appears to be responding to internal stimuli per mom, nodding head with and saying yes or no when no one in room speaking to pt. Pt also stating names of people not around and talking to them.
--- NOTE | 2022-01-12 10:52 | PM.NEUROCN ---
History of Present Illness Data of Consult Service Date: 01/12/22 Primary Care Provider: Pattie Short MD [facility] Reason for consult: Change in mental status 21 years old woman who I was asked to see for change in mental status per history was obtained from reading the notes of last night, talking to her, but also talking to her mother. Apparently she was not known to have any significant medical or psychological or psychiatric problem other than anxiety disorder, which her mother also suffered from. She was a student in [employer] and apparently was a good student doing well. On December 30 her family picked her up and noted that she was suffering from upper respiratory infection type of symptoms and mild fever. Soon she started to have behavioral symptoms resulting in helena confusion, making statements that did not make any sense, aggression, not able to sleep, suicidal ideation, and grandiose thoughts. With all that she came to emergency room yesterday and was being evaluated. There has been no significant change in her behavioral symptomatology. She had a noncontrast head CT that was reported okay and a lumbar puncture did not reveal any obvious abnormality. Her urinary analysis reveals signs of urinary tract infection and she was put on multiple antibiotics. There was no other obvious metabolic abnormality. Mother said that there was no history of drug use. There was no family history of psychotic disorder. Review of Systems Review of Systems: As in HPI and she was unable to provide any meaningful answers to questions. [facility] Social History Social History Alcohol intake: unknown Patient Tobacco Use Status: Tobacco use Unknown Use of substances other than those prescribed or required for medical reasons: Unknown Advance Directives: No Advance Directives Information Provided: No Meds Allergies Allergy/AdvReac Type Severity Reaction Status Date / Time amoxicillin AdvReac Intermediate Rash Verified 01/11/22 21:42 fluoxetine [From Prozac] AdvReac Depression Verified 01/11/22 21:43 Active Medications: Current Medications Erythromycin (Erythromycin Base 0.5% Oph Oin 1 Gm Tube) 1 cm EYE-BOTH BID [facility] Last Admin: 01/12/22 09:15 Dose: 1 cm Documented by: Escitalopram Oxalate (Escitalopram Oxalate 10 Mg Tablet) 10 mg PO DAILY [facility] Last Admin: 01/12/22 09:22 Dose: Not Given Documented by: Acyclovir Sodium 500 mg/ (Sodium Chloride) 110 mls @ 110 mls/hr IV Q8H [facility] Last Infusion: 01/12/22 07:14 Dose: Infused Documented by: Dextrose/Sodium Chloride (D51/2ns) 1,000 mls @ 100 mls/hr IVCONT .Q10H [facility] Last Admin: 01/12/22 09:01 Dose: 100 mls/hr Documented by: Vancomycin HCl 1,000 mg/ (Sodium Chloride) 270 mls @ 270 mls/hr IV Q12H [facility] Ceftriaxone Sodium 1 gm/ (Sodium Chloride) 50 mls @ 100 mls/hr IV Q24H [facility] Lorazepam (Lorazepam 2 Mg/Ml Vial) 0.5 mg IVPUSH Q8H PRN PRN Reason: agitation Melatonin (Melatonin 3 Mg Tablet) 6 mg PO BEDTIME PRN PRN Reason: Insomnia Pharmacy Consult (Consult Rx Perform Med Rec) 1 each MISCELLANE ONCE PRN PRN Reason: Consult order Pharmacy Consult (Consult Rx Vancomycin Dosing) 1 each MISCELLANE DAILY PRN PRN Reason: Consult order Senna (Sennosides 8.6 Mg Tablet) 17.2 mg PO BEDTIME PRN PRN Reason: Constipation Sodium Chloride (0.9 % Sodium Chloride Flush 3 Ml Syringe) 3 ml IVFLUSH QSHIFT [facility] Last Admin: 01/12/22 07:15 Dose: 3 ml Documented by: Home Medications Medication Instructions Recorded Confirmed Last Taken Type citalopram 20 mg tablet 1 tab PO DAILY 01/11/22 01/11/22 Unknown History Physical Exam Vital Signs: Vital Signs: Last Vital Signs Temp 98.2 F 01/12/22 05:04 Pulse 107 H 01/12/22 05:04 Resp 16 01/12/22 05:04 BP 132/89 01/12/22 05:04 Pulse Ox 100 01/12/22 05:04 BMI result Body Mass Index 20.1 Neuro: Other: Alert and awake and somewhat manic. She was able to comprehend but he voided giving ancestry most of the questions. She kept talking about somebody who was not there. Sometime she would look straighten my eyes and not blink and not answer any questions. When asked if she knew where she was, she did not when I had happened why she did not provide any answer. There was no obvious distress suggestive of physical pain. There was no obvious tremor or twitches or nystagmus. When I held her right hand, she preferred kept holding my hand. Face was symmetrical. There was mild asymmetry of both eye movements. Deep tendon reflexes were trace to 1+ with flexor plantars. At time she was talking and grandiose terms. Results Labs CBC & Chem 7: 01/12/22 02:09 01/12/22 10:00 Labs: Short CBC 01/11/22 01/12/22 Range/Units 17:54 02:09 WBC 14.9 H 12.7 H (4.8-10.8) X10*3/uL Hgb 14.2 13.5 (12.0-16.0) g/dl Hct 41.9 40.3 (37.0-47.0) % Plt Count 348 395 (160-400) X10*3/uL BMP 01/11/22 01/11/22 01/12/22 19:13 19:13 10:00 Sodium Cancelled 138 Potassium Cancelled 4.0 Chloride Cancelled 101 Carbon Dioxide Cancelled 26 BUN Cancelled 14 Creatinine Cancelled 0.80 0.64 Calcium Cancelled 9.9 Liver Function 01/11/22 01/11/22 Range/Units 19:13 19:13 Total Bilirubin Cancelled 1.2 H AST Cancelled 15 ALT Cancelled 12 Alkaline Phosphatase Cancelled 50 Albumin Cancelled 4.5 Urine 01/11/22 Range/Units 20:40 Urine Color YELLOW Urine Appearance CLOUDY Urine pH 6.0 (5.0-8.0) Ur Specific [place] 1.015 (1.005-1.025) Urine Protein NEG (NEG-TRACE) MG/DL Urine Glucose (UA) NEG (NEG) MG/DL Noncontrast head CT did not reveal any significant abnormality other than dilated cisterna magnum. CSF analysis so far was negative. UA was suggestive of UTI. Microbiology Microbiology Results: Microbiology 01/11/22 20:40 Urine clean catch - Urine laureano top Urine Culture - Preliminary Gram negative mely 01/12/22 03:57 Cerebrospinal Fluid Gram Stain - Final 01/12/22 03:57 Cerebrospinal Fluid CSF Examination - Final 01/12/22 03:57 Cerebrospinal Fluid Fluid Description - Final Assessment and Plan (1) Encephalopathy acute: Status: Acute 21 years old woman with previous history of anxiety disorder presented with relatively acute onset of a behavioral syndrome resulting in alteration of thought process, grandiose thoughts, and anxiety and depression. Physical examination did not reveal any significant abnormality other than mild eye movement abnormalities. Mental status examination suggested florid psychosis. Etiology was unclear. With no previous history of such illness or any family history of psychotic disorder, it would be important to rule out metabolic, toxic, infectious, genetic, rheumatological, and autoimmune causes of such illness. Many of these conditions have already been ruled out. I do not think UTI would explain her psychiatric symptomatology. I recommend decreasing antibiotic to cover only for UTI. There was no sign of infection affecting her brain or meninges at this time. I recommend obtaining an MRI of brain with and without contrast, sending autoimmune encephalitis/anti NMDA titer on CSF, and ruling out SLE. At the same time she required symptomatic treatment and for that she would probably do better on psychiatric floor with constant supervision and observation. A formal psychiatric consultation in that regard is recommended. Procedures Date of Service Date of Service: 01/12/22
--- NOTE | 2022-01-12 11:35 | PHA.PROG ---
Admission Date/Time: January 12, 2022 06:39 Indication: AMS, question encephalitis Weight in k kg Adjusted body weight in K.6 kg [place] body weight in K.1 kg Obesity Dosing Indication % IBW: N/A Serum Creatinine - Last 168 Hours 01/11/22 01/11/22 01/12/22 19:13 19:13 10:00 Creatinine Cancelled 0.80 0.64 Estimated CrCl and GFR - Last 168 Hours 01/11/22 01/11/22 01/12/22 19:13 19:13 10:00 Estim Creat Clear Calc Cancelled 89.3 111.5 Estimated GFR Cancelled > 60 > 60 Vancomycin Loading Dose: N/A Current Vancomycin Dosing Regimen: 1000 mg Q12H Date and Time for next Vancomycin Level to be drawn: 01/13 @ 1700 Pharmacist Comments on Vancomycin Plan: Frist dose given in the ED vancomycin 750 mg (15mg/kg). This is not an adequate loading dose for the patient. Will start maiteance dose vancomycin 1000 mg Q12H 01/12 @ 1900. Expected AUC 555 with a trough of 16.1 Trough to be drawn prior to 4th dose Pharmacy to monitor renal fucntion daily. Roselyn Cantu PharmD Vancomycin dosing will take advantage of [employer] as a clinical decision support tool that uses Bayesian modeling to calculate individual patient's pharmacokinetic parameters and forecast the patient's drug concentration time course with the target goal AUC 24 range of 400 - 600 mg/L/hr.
[2022-01-12 12:30] VITALS: BP 138/78; PULSE 84; RESP 13; TEMP 37.2; O2SAT 98
[2022-01-12 12:51] LABS: Syphilis Screen Nonreactive (Nonreactive)
--- NOTE | 2022-01-12 13:07 | MHC.CM.PN ---
per rounds pt will be seen by [facility]/crisis for possible inpt psych placement
--- NOTE | 2022-01-12 13:27 | PC.NURSE ---
Acyclovir started. Per mom and this RN pt appears more lucid, able to recall birthdays of self and mother. Per mom pt was able to follow commands in MRI. Less disorganized thoughts noted. Pt observer continues at bedside. HR 90-100
--- NOTE | 2022-01-12 14:00 | PC.NURSE ---
Psych at bedside for evaluation
[2022-01-12 14:02] LABS: Vitamin B12 447 pg/mL (200-900)
--- NOTE | 2022-01-12 14:39 | PM.PSYCN ---
History of Present Illness Date of Service: 01/12/2022 Chief Complaint: Altered Mental Status Reason for Consult: psychosis Requesting physician: Neeraj Castro Discussed with referring provider: Yes Sources of Information: patient interviewed, chart reviewed and crisis/core team assessment reviewed Additional Sources of Information: Mother present HPI Narrative: Patient is a 21-year-old female, PMH anxiety/ depression, presented to ED with chief complaint of AMS. She has had a history of depression and anxiety, and has been taking Celexa 20 mg daily for the past year, prescribed by her primary care provider. Patient sitting up in bed, Alert. Sitter present, mother present. Tox screen negative, has had workup including CT, LP, MRI, all noncontributory to current psychiatric sx. Upon interview patient appears manic. She reports that ?I am God. I am here to relieve every once pain ?. Patient distractible, disorganized, grandiose, with flight of ideas, and rapid, pressured speech. Nonsensical in nature, repeat reporting that ?the worm, I squished at ?. Patient denies any AH/VH, but mother reports that she has appear to be responding to internal stimuli today. Mother reports that patient has not slept for past 3 days. Most information obtained through chart review and speaking directly with mother, with patient's permission. Patient lives with parents and 2 sisters, both younger than her. She is a college student, in [place]. Her mother reports that she does not have a roommate in her dorm, but has a girlfriend on campus. Mom reports that patient came home on December 31 for mother's Day, had upper respiratory infection. Mom reports that she was mentally stable at that time, and was sleeping, eating and drinking normally. Patient had reported to parents several times that this semester has been extremely difficult for her, stressful. She had made several suicidal statements to her parents recently. When parents arrived, dorm room was disorganized. Patient had difficulty organizing move, unable to pack her belongings without assistance from parents. Upon inquiry, mother does not report any memory of patient experiencing in periods of jimmy or hypomania in her past. She states that her daughter has had bouts of depression, but had seemed to do well with Celexa. Although recently during this past week, she had called crisis due to SI statements, and had attempted to reach provider for medication dose increase. She reports that her daughter has appear disorganized, and easily overwhelmed, with increasing symptoms of jimmy and psychosis over past few days. Past Psychiatric History: Ongoing depression and anxiety for several years, receives Celexa from PCP. Has a therapist. Med trial: prozac (cried). Medical Evaluation Reviewed: Yes CT, LP, MRI completed, negative. Personal & Social History: Raised by both parents. Currently enrolled in college in [place]. Has 2 younger sisters, ages 17 and 15. Has girlfriend. Review of Systems Review of Systems A full review of systems was completed and was negative with the exception of pertinent positives noted in history of the presenting illness (HPI). Eyes: Reports no additional eye complaints Reports Normal hearing present Reports Normal hearing present Psych[facility]: [facility] Family History: Great grandmother (maternal) committed to psychiatric hospital. Paternal side of family: Distant cousin completed SI. Social History: Raised by both parents, has 2 sisters. Met developmental milestones. Graduated high school, current college student, majoring in [employer]. Substance History: None reported, tox screen negative Trauma History: Unknown Diagnostics Vital Signs (24Hr): Vital Signs - 24 hr 01/11/22 18:19 01/12/22 02:25 01/12/22 05:04 Temperature 98.1 F 98.2 F 98.2 F Pulse Rate 102 H 83 107 H Respiratory Rate 18 14 16 Blood Pressure 134/97 H 132/84 132/89 Pulse Oximetry 98 98 100 01/12/22 12:30 Temperature 98.9 F Pulse Rate 84 Respiratory Rate 13 Blood Pressure 138/78 Pulse Oximetry 98 BMI result Body Mass Index 20.1 Labs Results: 01/12/22 02:09 01/12/22 10:00 Labs: Laboratory Results - last 48 hr 01/11/22 01/11/22 01/11/22 17:54 17:54 17:54 WBC 14.9 H RBC 5.20 Hgb 14.2 Hct 41.9 MCV 80.6 MCH 27.3 MCHC 33.9 RDW 14.7 Plt Count 348 MPV 11.4 Immature Gran % (Auto) 0.4 Neut % (Auto) 81.7 H Lymph % (Auto) 10.0 L [place] % (Auto) 7.5 Eos % (Auto) 0.1 Baso % (Auto) 0.3 Lymph # (Auto) 1.5 [place] # (Auto) 1.1 Eos # (Auto) 0.0 Baso # (Auto) 0.0 Abs Immat Gran (auto) 0.06 H Absolute Neuts (auto) 12.1 H Absolute Nucleated RBC 0.000 Nucleated RBC % (auto) 0.0 Sodium Potassium Chloride Carbon Dioxide Anion Gap BUN Creatinine Estim Creat Clear Calc Estimated GFR Random Glucose Calcium Magnesium Total Bilirubin AST ALT Alkaline Phosphatase Total Protein Albumin Vitamin B12 Folate TSH Urine Color Urine Appearance Urine pH Ur Specific Mcdade Urine Protein Urine Glucose (UA) Urine Ketones Urine Blood Urine Nitrite Ur Leukocyte Esterase Urine RBC Urine WBC Urine WBC Clumps Ur Squamous Epith Cells Urine Bacteria Urine Test Fld Lyme DNA (PCR) CSF Tube Number CSF Volume CSF Appearance CSF Color CSF WBC CSF RBC CSF Lymphocytes CSF Appearance (b) CSF Glucose CSF Total Protein CSF Lyme IgG (Immblot) CSF Lyme IgG Bands Det CSF Lyme IgM (Immblot) CSF Lyme IgM Bands Det CSF C.neoform/gat PCR CSF CMV DNA (PCR) CSF Enterovirus (PCR) CSF E. coli K1 (PCR) CSF H. influenzae (PCR) CSF HSV I (PCR) CSF HSV II (PCR) CSF L.monocytogenes PCR CSF N. meningitidis PCR CSF Parechovirus (PCR) CSF S. agalactiae (PCR) CSF S. pneumoniae (PCR) CSF VZV (PCR) Salicylates Urine Opiates Screen Urine Fentanyl Screen Acetaminophen Ur Barbiturates Screen Ur Phencyclidine Scrn Ur Amphetamines Screen U Benzodiazepines Scrn Urine Cocaine Screen U Marijuana (THC) Screen Ethyl Alcohol < 10 T.pallidum Ab (EIA) Lyme Disease DNA (PCR) COVID-19 (VIGNESH) Negative COVID-19 Clin Com See Note Viral Specimen Source Viral Culture Comments HHV-6 (PCR) 01/11/22 01/11/22 01/11/22 19:13 19:13 20:40 WBC RBC Hgb Hct MCV MCH MCHC RDW Plt Count MPV Immature Gran % (Auto) Neut % (Auto) Lymph % (Auto) [place] % (Auto) Eos % (Auto) Baso % (Auto) Lymph # (Auto) [place] # (Auto) Eos # (Auto) Baso # (Auto) Abs Immat Gran (auto) Absolute Neuts (auto) Absolute Nucleated RBC Nucleated RBC % (auto) Sodium Cancelled 138 Potassium Cancelled 4.0 Chloride Cancelled 101 Carbon Dioxide Cancelled 26 Anion Gap Cancelled 15 BUN Cancelled 14 Creatinine Cancelled 0.80 Estim Creat Clear Calc Cancelled 89.3 Estimated GFR Cancelled > 60 Random Glucose Cancelled 158 H Calcium Cancelled 9.9 Magnesium Cancelled 2.0 Total Bilirubin Cancelled 1.2 H AST Cancelled 15 ALT Cancelled 12 Alkaline Phosphatase Cancelled 50 Total Protein Cancelled 8.0 Albumin Cancelled 4.5 Vitamin B12 Folate TSH Urine Color YELLOW Urine Appearance CLOUDY Urine pH 6.0 Ur Specific Mcdade 1.015 Urine Protein NEG Urine Glucose (UA) NEG Urine Ketones NEG Urine Blood 1+ H Urine Nitrite POS H Ur Leukocyte Esterase 2+ H Urine RBC 1-4 Urine WBC 76-150 H Urine WBC Clumps NOTED Ur Squamous Epith Cells 4+ Urine Bacteria 4+ Urine Test Fld Lyme DNA (PCR) CSF Tube Number CSF Volume CSF Appearance CSF Color CSF WBC CSF RBC CSF Lymphocytes CSF Appearance (b) CSF Glucose CSF Total Protein CSF Lyme IgG (Immblot) CSF Lyme IgG Bands Det CSF Lyme IgM (Immblot) CSF Lyme IgM Bands Det CSF C.neoform/gat PCR CSF CMV DNA (PCR) CSF Enterovirus (PCR) CSF E. coli K1 (PCR) CSF H. influenzae (PCR) CSF HSV I (PCR) CSF HSV II (PCR) CSF L.monocytogenes PCR CSF N. meningitidis PCR CSF Parechovirus (PCR) CSF S. agalactiae (PCR) CSF S. pneumoniae (PCR) CSF VZV (PCR) Salicylates Urine Opiates Screen Urine Fentanyl Screen Acetaminophen Ur Barbiturates Screen Ur Phencyclidine Scrn Ur Amphetamines Screen U Benzodiazepines Scrn Urine Cocaine Screen U Marijuana (THC) Screen Ethyl Alcohol T.pallidum Ab (EIA) Lyme Disease DNA (PCR) COVID-19 (VIGNESH) COVID-19 Clin Com Viral Specimen Source Viral Culture Comments HHV-6 (PCR) 01/11/22 01/11/22 01/12/22 20:40 20:40 02:09 WBC 12.7 H RBC 4.98 Hgb 13.5 Hct 40.3 MCV 80.9 MCH 27.1 MCHC 33.5 RDW 14.6 Plt Count 395 MPV 10.6 Immature Gran % (Auto) 0.5 H Neut % (Auto) 74.6 H Lymph % (Auto) 15.9 L [place] % (Auto) 8.4 Eos % (Auto) 0.3 Baso % (Auto) 0.3 Lymph # (Auto) 2.0 [place] # (Auto) 1.1 Eos # (Auto) 0.0 Baso # (Auto) 0.0 Abs Immat Gran (auto) 0.07 H Absolute Neuts (auto) 9.5 H Absolute Nucleated RBC 0.000 Nucleated RBC % (auto) 0.0 Sodium Potassium Chloride Carbon Dioxide Anion Gap BUN Creatinine Estim Creat Clear Calc Estimated GFR Random Glucose Calcium Magnesium Total Bilirubin AST ALT Alkaline Phosphatase Total Protein Albumin Vitamin B12 Folate TSH Urine Color Urine Appearance Urine pH Ur Specific Mcdade Urine Protein Urine Glucose (UA) Urine Ketones Urine Blood Urine Nitrite Ur Leukocyte Esterase Urine RBC Urine WBC Urine WBC Clumps Ur Squamous Epith Cells Urine Bacteria Urine Test NEGATIVE Fld Lyme DNA (PCR) CSF Tube Number CSF Volume CSF Appearance CSF Color CSF WBC CSF RBC CSF Lymphocytes CSF Appearance (b) CSF Glucose CSF Total Protein CSF Lyme IgG (Immblot) CSF Lyme IgG Bands Det CSF Lyme IgM (Immblot) CSF Lyme IgM Bands Det CSF C.neoform/gat PCR CSF CMV DNA (PCR) CSF Enterovirus (PCR) CSF E. coli K1 (PCR) CSF H. influenzae (PCR) CSF HSV I (PCR) CSF HSV II (PCR) CSF L.monocytogenes PCR CSF N. meningitidis PCR CSF Parechovirus (PCR) CSF S. agalactiae (PCR) CSF S. pneumoniae (PCR) CSF VZV (PCR) Salicylates Urine Opiates Screen Not Detected Urine Fentanyl Screen Not Detected Acetaminophen Ur Barbiturates Screen Not Detected Ur Phencyclidine Scrn Not Detected Ur Amphetamines Screen Not Detected U Benzodiazepines Scrn Not Detected Urine Cocaine Screen Not Detected U Marijuana (THC) Screen Not Detected Ethyl Alcohol T.pallidum Ab (EIA) Lyme Disease DNA (PCR) COVID-19 (VIGNESH) COVID-19 Clin Com Viral Specimen Source Viral Culture Comments HHV-6 (PCR) 01/12/22 01/12/22 01/12/22 03:57 03:57 03:57 WBC RBC Hgb Hct MCV MCH MCHC RDW Plt Count MPV Immature Gran % (Auto) Neut % (Auto) Lymph % (Auto) [place] % (Auto) Eos % (Auto) Baso % (Auto) Lymph # (Auto) [place] # (Auto) Eos # (Auto) Baso # (Auto) Abs Immat Gran (auto) Absolute Neuts (auto) Absolute Nucleated RBC Nucleated RBC % (auto) Sodium Potassium Chloride Carbon Dioxide Anion Gap BUN Creatinine Estim Creat Clear Calc Estimated GFR Random Glucose Calcium Magnesium Total Bilirubin AST ALT Alkaline Phosphatase Total Protein Albumin Vitamin B12 Folate TSH Urine Color Urine Appearance Urine pH Ur Specific Mcdade Urine Protein Urine Glucose (UA) Urine Ketones Urine Blood Urine Nitrite Ur Leukocyte Esterase Urine RBC Urine WBC Urine WBC Clumps Ur Squamous Epith Cells Urine Bacteria Urine Test Fld Lyme DNA (PCR) CSF Tube Number 2 4 CSF Volume 1.0 CSF Appearance CLEAR CSF Color COLORLESS CSF WBC 3 CSF RBC 1 CSF Lymphocytes 100 CSF Appearance (b) Clear, Colorless CSF Glucose 71 CSF Total Protein 24.0 CSF Lyme IgG (Immblot) Cancelled CSF Lyme IgG Bands Det Cancelled CSF Lyme IgM (Immblot) Cancelled CSF Lyme IgM Bands Det Cancelled CSF C.neoform/gat PCR CSF CMV DNA (PCR) CSF Enterovirus (PCR) CSF E. coli K1 (PCR) CSF H. influenzae (PCR) CSF HSV I (PCR) CSF HSV II (PCR) CSF L.monocytogenes PCR CSF N. meningitidis PCR CSF Parechovirus (PCR) CSF S. agalactiae (PCR) CSF S. pneumoniae (PCR) CSF VZV (PCR) Salicylates Urine Opiates Screen Urine Fentanyl Screen Acetaminophen Ur Barbiturates Screen Ur Phencyclidine Scrn Ur Amphetamines Screen U Benzodiazepines Scrn Urine Cocaine Screen U Marijuana (THC) Screen Ethyl Alcohol T.pallidum Ab (EIA) Lyme Disease DNA (PCR) COVID-19 (VIGNESH) COVID-19 Clin Com Viral Specimen Source Viral Culture Comments HHV-6 (PCR) 01/12/22 01/12/22 01/12/22 03:57 03:57 03:57 WBC RBC Hgb Hct MCV MCH MCHC RDW Plt Count MPV Immature Gran % (Auto) Neut % (Auto) Lymph % (Auto) [place] % (Auto) Eos % (Auto) Baso % (Auto) Lymph # (Auto) [place] # (Auto) Eos # (Auto) Baso # (Auto) Abs Immat Gran (auto) Absolute Neuts (auto) Absolute Nucleated RBC Nucleated RBC % (auto) Sodium Potassium Chloride Carbon Dioxide Anion Gap BUN Creatinine Estim Creat Clear Calc Estimated GFR Random Glucose Calcium Magnesium Total Bilirubin AST ALT Alkaline Phosphatase Total Protein Albumin Vitamin B12 Folate TSH Urine Color Urine Appearance Urine pH Ur Specific [place] Urine Protein Urine Glucose (UA) Urine Ketones Urine Blood Urine Nitrite Ur Leukocyte Esterase Urine RBC Urine WBC Urine WBC Clumps Ur Squamous Epith Cells Urine Bacteria Urine Test Fld Lyme DNA (PCR) Cancelled CSF Tube Number CSF Volume CSF Appearance CSF Color CSF WBC CSF RBC CSF Lymphocytes CSF Appearance (b) CSF Glucose CSF Total Protein CSF Lyme IgG (Immblot) CSF Lyme IgG Bands Det CSF Lyme IgM (Immblot) CSF Lyme IgM Bands Det CSF C.neoform/gat PCR Not Detected CSF CMV DNA (PCR) Not Detected CSF Enterovirus (PCR) Not Detected CSF E. coli K1 (PCR) Not Detected CSF H. influenzae (PCR) Not Detected CSF HSV I (PCR) Not Detected CSF HSV II (PCR) Not Detected CSF L.monocytogenes PCR Not Detected CSF N. meningitidis PCR Not Detected CSF Parechovirus (PCR) Not Detected CSF S. agalactiae (PCR) Not Detected CSF S. pneumoniae (PCR) Not Detected CSF VZV (PCR) Not Detected Salicylates Urine Opiates Screen Urine Fentanyl Screen Acetaminophen Ur Barbiturates Screen Ur Phencyclidine Scrn Ur Amphetamines Screen U Benzodiazepines Scrn Urine Cocaine Screen U Marijuana (THC) Screen Ethyl Alcohol T.pallidum Ab (EIA) Lyme Disease DNA (PCR) Cancelled COVID-19 (VIGNESH) COVID-19 Clin Com Viral Specimen Source Cancelled Viral Culture Comments Cancelled HHV-6 (PCR) Not Detected 01/12/22 01/12/22 01/12/22 03:59 03:59 03:59 WBC RBC Hgb Hct MCV MCH MCHC RDW Plt Count MPV Immature Gran % (Auto) Neut % (Auto) Lymph % (Auto) [place] % (Auto) Eos % (Auto) Baso % (Auto) Lymph # (Auto) [place] # (Auto) Eos # (Auto) Baso # (Auto) Abs Immat Gran (auto) Absolute Neuts (auto) Absolute Nucleated RBC Nucleated RBC % (auto) Sodium Potassium Chloride Carbon Dioxide Anion Gap BUN Creatinine Estim Creat Clear Calc Estimated GFR Random Glucose Calcium Magnesium Total Bilirubin AST ALT Alkaline Phosphatase Total Protein Albumin Vitamin B12 447 Folate 18.0 TSH 1.30 Urine Color Urine Appearance Urine pH Ur Specific Mcdade Urine Protein Urine Glucose (UA) Urine Ketones Urine Blood Urine Nitrite Ur Leukocyte Esterase Urine RBC Urine WBC Urine WBC Clumps Ur Squamous Epith Cells Urine Bacteria Urine Test Fld Lyme DNA (PCR) CSF Tube Number CSF Volume CSF Appearance CSF Color CSF WBC CSF RBC CSF Lymphocytes CSF Appearance (b) CSF Glucose CSF Total Protein CSF Lyme IgG (Immblot) CSF Lyme IgG Bands Det CSF Lyme IgM (Immblot) CSF Lyme IgM Bands Det CSF C.neoform/gat PCR CSF CMV DNA (PCR) CSF Enterovirus (PCR) CSF E. coli K1 (PCR) CSF H. influenzae (PCR) CSF HSV I (PCR) CSF HSV II (PCR) CSF L.monocytogenes PCR CSF N. meningitidis PCR CSF Parechovirus (PCR) CSF S. agalactiae (PCR) CSF S. pneumoniae (PCR) CSF VZV (PCR) Salicylates < 5.0 L Urine Opiates Screen Urine Fentanyl Screen Acetaminophen < 1 Ur Barbiturates Screen Ur Phencyclidine Scrn Ur Amphetamines Screen U Benzodiazepines Scrn Urine Cocaine Screen U Marijuana (THC) Screen Ethyl Alcohol T.pallidum Ab (EIA) Nonreactive Lyme Disease DNA (PCR) COVID-19 (VIGNESH) COVID-19 Clin Com Viral Specimen Source Viral Culture Comments HHV-6 (PCR) 01/12/22 10:00 WBC RBC Hgb Hct MCV MCH MCHC RDW Plt Count MPV Immature Gran % (Auto) Neut % (Auto) Lymph % (Auto) [place] % (Auto) Eos % (Auto) Baso % (Auto) Lymph # (Auto) [place] # (Auto) Eos # (Auto) Baso # (Auto) Abs Immat Gran (auto) Absolute Neuts (auto) Absolute Nucleated RBC Nucleated RBC % (auto) Sodium Potassium Chloride Carbon Dioxide Anion Gap BUN Creatinine 0.64 Estim Creat Clear Calc 111.5 Estimated GFR > 60 Random Glucose Calcium Magnesium Total Bilirubin AST ALT Alkaline Phosphatase Total Protein Albumin Vitamin B12 Folate TSH Urine Color Urine Appearance Urine pH Ur Specific [place] Urine Protein Urine Glucose (UA) Urine Ketones Urine Blood Urine Nitrite Ur Leukocyte Esterase Urine RBC Urine WBC Urine WBC Clumps Ur Squamous Epith Cells Urine Bacteria Urine Test Fld Lyme DNA (PCR) CSF Tube Number CSF Volume CSF Appearance CSF Color CSF WBC CSF RBC CSF Lymphocytes CSF Appearance (b) CSF Glucose CSF Total Protein CSF Lyme IgG (Immblot) CSF Lyme IgG Bands Det CSF Lyme IgM (Immblot) CSF Lyme IgM Bands Det CSF C.neoform/gat PCR CSF CMV DNA (PCR) CSF Enterovirus (PCR) CSF E. coli K1 (PCR) CSF H. influenzae (PCR) CSF HSV I (PCR) CSF HSV II (PCR) CSF L.monocytogenes PCR CSF N. meningitidis PCR CSF Parechovirus (PCR) CSF S. agalactiae (PCR) CSF S. pneumoniae (PCR) CSF VZV (PCR) Salicylates Urine Opiates Screen Urine Fentanyl Screen Acetaminophen Ur Barbiturates Screen Ur Phencyclidine Scrn Ur Amphetamines Screen U Benzodiazepines Scrn Urine Cocaine Screen U Marijuana (THC) Screen Ethyl Alcohol T.pallidum Ab (EIA) Lyme Disease DNA (PCR) COVID-19 (VIGNESH) COVID-19 Clin Com Viral Specimen Source Viral Culture Comments HHV-6 (PCR) Imaging Radiology Impressions: ITS Impressions Chest X-Ray 01/12/22 01:00 IMPRESSION: Clear lungs. Head CT 01/12/22 02:25 IMPRESSION: No acute intracranial pathology. Brain MRI 01/12/22 12:15 IMPRESSION: 1. No acute intracranial abnormalities. No abnormal intracranial enhancement. 2. No MRI abnormalities to explain the patient's symptoms. Mental Status Exam Mental Status Exam Narrative: Well-developed, well-nourished female, appears stated age. Sitting up in bed. Patient Appearance: Well Grooomed Patient Orientation: Person and Place Level of Consciousness: Awake Patient Behavior: Cooperative and Good Eye Contact Mood Description: Expansive Affect Description: Expansive (appears manic) Patient Cognition Impaired: No Ability to Follow Directions: Good Speech Pattern: Clear, Rambling, Rapid, Excessive and Pressured Memory Description: Intact Hallucinations: Auditory Delusions: Grandiose Perceptual Disturbances: Hallucinations Thought Process: Racing, Illogical and Distracted Thought Content: positive for Flight of Ideas, positive for Preoccupation (religiously), positive for Loose Associations and positive for Suicidal Ideation Depressive Symptoms: Increased Anxiety and Thoughts of /Suicide Judgement: Poor Medications Medications Current Medications Erythromycin (Erythromycin Base 0.5% Oph Oin 1 Gm Tube) 1 cm EYE-BOTH BID [facility] Last Admin: 01/12/22 09:15 Dose: 1 cm Documented by: Escitalopram Oxalate (Escitalopram Oxalate 10 Mg Tablet) 10 mg PO DAILY [facility] Last Admin: 01/12/22 09:22 Dose: Not Given Documented by: Acyclovir Sodium 500 mg/ (Sodium Chloride) 110 mls @ 110 mls/hr IV Q8H [facility] Last Admin: 01/12/22 13:23 Dose: 110 mls/hr Documented by: Dextrose/Sodium Chloride ([id number]) 1,000 mls @ 100 mls/hr IVCONT .Q10H [facility] Last Admin: 01/12/22 09:01 Dose: 100 mls/hr Documented by: Vancomycin HCl 1,000 mg/ (Sodium Chloride) 270 mls @ 270 mls/hr IV Q12H JOHANNA Ceftriaxone Sodium 1 gm/ (Sodium Chloride) 50 mls @ 100 mls/hr IV Q24H JOHANNA Lorazepam (Lorazepam 2 Mg/Ml Vial) 0.5 mg IVPUSH Q8H PRN PRN Reason: agitation Lorazepam (Lorazepam 1 Mg Tablet) 1 mg PO TID PRN PRN Reason: anxiety, agitation Melatonin (Melatonin 3 Mg Tablet) 6 mg PO BEDTIME PRN PRN Reason: Insomnia Pharmacy Consult (Consult Rx Perform Med Rec) 1 each MISCELLANE ONCE PRN PRN Reason: Consult order Pharmacy Consult (Consult Rx Vancomycin Dosing) 1 each MISCELLANE DAILY PRN PRN Reason: Consult order Risperidone (Risperidone 0.5 Mg Tablet) 0.5 mg PO BID JOHANNA Senna (Sennosides 8.6 Mg Tablet) 17.2 mg PO BEDTIME PRN PRN Reason: Constipation Sodium Chloride (0.9 % Sodium Chloride Flush 3 Ml Syringe) 3 ml IVFLUSH QSHIFT [facility] Last Admin: 01/12/22 07:15 Dose: 3 ml Documented by: Allergies Allergies Allergy/AdvReac Type Severity Reaction Status Date / Time amoxicillin AdvReac Intermediate Rash Verified 01/11/22 21:42 fluoxetine [From Prozac] AdvReac Depression Verified 01/11/22 21:43 Assessment & Plan Assessment & Plan (1) Suicidal ideation: Status: Acute Code(s): R45.851 - Suicidal ideations Assessment and Plan: Patient had reported to care team that she has been experiencing intrusive thoughts about harming her family. She also reported a recent suicide attempt via hanging while she was in her dorm room at [employer]. 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 Mother reports that patient has been suicidal recently. (2) Psychotic disorder with delusions: Status: Acute Code(s): F29 - Unspecified psychosis not due to a substance or known physiological condition Assessment and Plan: I was asked to meet with patient due to altered mental status, psychosis. Patient appears to be experiencing a manic episode at this time, with psychotic features. Mother reports diagnosis of depression and anxiety, but no history of bipolar disorder or psychosis. When asked if patient has ever had symptoms that would explain hypomanic episode, mother stated no, but that her daughter currently resides at college, so she cannot speak of her behavior over past semester. Patient has been receiving SSRI Celexa for past year. Mother reports increased stress recently in school, with disorganized thought, increased SI, hallucinations, grandiose behavior, no sleep past 3 days, flight of ideas, pressured speech. Patient is preoccupied religiously, states ?I am God. I am here to relieve everyone's pain ?. Patient has no history of substance use, and mother reports she is normally a healthy person. Plan Patient appears to be experiencing manic episode. She has had recent upper respiratory infection several weeks ago, which has since resolved. Multiple tests have been completed here with negative results. Tox screen negative. Differential diagnoses: Bipolar 1 disorder, brief psychotic episode. 1. Care team notified that patient will require inpatient level of care, as she is now medically cleared. 2. Start risperdal 0.5mg BID, start now. 3. Start lorazepam 1 mg t.i.d. p.r.n. for anxiety/agitation. I discussed my assessment and recommendations with provider Dr. Neeraj Castro, via telephone. I spent minutes with the patient and/or on the patient floor today, greater than?50% of which was spent counseling/coordinating care. Patient educated on: diagnosis, medication risk/benefits and therapeutic strategies Guardian/Caregiver educated on: diagnosis, medication risk/benefits and therapeutic strategies Informed Consent: understands (mother expressed understanding. )
[2022-01-12] MEDS: risperiDONE 0.5 MG TABLET PO (15:10)
--- NOTE | 2022-01-12 15:29 | P.DS_ITS ---
DS: Providers Provider Date of Service: 01/12/22 Date of admission: 01/12/22 06:39 Date of discharge: 01/12/22 Primary care physician: Pattie Short MD Consults: 01/11/22 17:48 BHN [Consult to Crisis] Stat Reason for consultation: si 01/12/22 06:39 Consult to Infectious Diseases Routine Consulting Provider: Lakia Doe Reason for consultation: AMS; ?encephalitis Consult to Neurology Routine Consulting Provider: [facility] Reason for consultation: AMS 01/12/22 06:49 Consult to Psychiatry Routine Consulting Provider: Psych Covering Reason for consultation: SI 01/12/22 11:45 Consult to Psychiatry Stat Consulting Provider: Psych Covering Reason for consultation: psychosis Has provider been notified: Yes DS: Diagnosis Discharge Diagnosis (1) Suicidal ideation: Status: Acute (2) Psychotic disorder with delusions: Status: Acute DS: Summary Hospital Course Hospital Course: 21 years old woman who I was asked to see for change in mental status per history was obtained from reading the notes of last night, talking to her, but also talking to her mother.? Apparently she was not known to have any significant medical or psychological or psychiatric problem other than anxiety disorder, which her mother also suffered from.? She was a student in [employer] and apparently was a good student doing well.? On December 30 her family picked her up and noted that she was suffering from upper respiratory infection type of symptoms and mild fever.? Soon she started to have behavioral symptoms resulting in helena confusion, making statements that did not make any sense, aggression, not able to sleep, suicidal ideation, and grandiose thoughts.? With all that she came to emergency room yesterday and was being evaluated.? There has been no significant change in her behavioral symptomatology.? She had a noncontrast head CT that was reported okay and a lumbar puncture did not reveal any obvious abnormality.? Her urinary analysis reveals signs of urinary tract infection and she was put on multiple antibiotics.? There was no other obvious metabolic abnormality.? Mother said that there was no history of drug use.? There was no family history of psychotic disorder. Hospital Course Seen by Neurology. Initial workup including a spinal tap in MRI failed to demonstrate any acute medical pathology to explain symptoms. Seen by Psychiatry who felt given patient's negative medical workup and presentation that this might be a manic episode as patient has not slept in 2 days. Medication recommended by psych implemented. Will transfer to inpatient psychiatry. Will continue to treat UTI with a course of oral Bactrim although other meds will D/C'd. At the time of discharge she is medically acceptable for transfer to psych Time Spent with Patient Time attestation: Total time spent providing and/or coordinating discharge services: Discharge coordination time: Greater than 30 minutes Quality: Safe Use of Opioids Does Pt have an Active Cancer Diagnosis on the Problem List?: No Quality: Stroke Does the patient have a stroke diagnosis?: No Physical Exam Vital Signs: Vital Signs: Last Vital Signs Temp 98.9 F 01/12/22 12:30 Pulse 84 01/12/22 12:30 Resp 13 01/12/22 12:30 BP 138/78 01/12/22 12:30 Pulse Ox 98 01/12/22 12:30 BMI result Body Mass Index 20.1 Const: Other: Awake alert speaking nonsensical Resp: Other: Clear to auscultation bilaterally no rales rhonchi or wheezes Cardio: Other: No S4; positive S1-S2; no S3 murmurs rubs gallops GI: Other: Soft nontender nondistended with normoactive bowel sounds Neuro: Other: Cranial nerves 2-12 grossly intact as tested. Motor is 5/5 all extremities. Sensation intact. Cognition is manic Extrem: Other: No edema bilaterally DS: Data Data Completed and Pending Labs on day of discharge: Laboratory Results - last 24 hr 01/11/22 01/11/22 01/11/22 17:54 17:54 17:54 WBC 14.9 H RBC 5.20 Hgb 14.2 Hct 41.9 MCV 80.6 MCH 27.3 MCHC 33.9 RDW 14.7 Plt Count 348 MPV 11.4 Immature Gran % (Auto) 0.4 Neut % (Auto) 81.7 H Lymph % (Auto) 10.0 L [place] % (Auto) 7.5 Eos % (Auto) 0.1 Baso % (Auto) 0.3 Lymph # (Auto) 1.5 [place] # (Auto) 1.1 Eos # (Auto) 0.0 Baso # (Auto) 0.0 Abs Immat Gran (auto) 0.06 H Absolute Neuts (auto) 12.1 H Absolute Nucleated RBC 0.000 Nucleated RBC % (auto) 0.0 Sodium Potassium Chloride Carbon Dioxide Anion Gap BUN Creatinine Estim Creat Clear Calc Estimated GFR Random Glucose Calcium Magnesium Total Bilirubin AST ALT Alkaline Phosphatase Total Protein Albumin Vitamin B12 Folate TSH Urine Color Urine Appearance Urine pH Ur Specific [place] Urine Protein Urine Glucose (UA) Urine Ketones Urine Blood Urine Nitrite Ur Leukocyte Esterase Urine RBC Urine WBC Urine WBC Clumps Ur Squamous Epith Cells Urine Bacteria Urine Test Fld Lyme DNA (PCR) CSF Tube Number CSF Volume CSF Appearance CSF Color CSF WBC CSF RBC CSF Lymphocytes CSF Appearance (b) CSF Glucose CSF Total Protein CSF Lyme IgG (Immblot) CSF Lyme IgG Bands Det CSF Lyme IgM (Immblot) CSF Lyme IgM Bands Det CSF C.neoform/gat PCR CSF CMV DNA (PCR) CSF Enterovirus (PCR) CSF E. coli K1 (PCR) CSF H. influenzae (PCR) CSF HSV I (PCR) CSF HSV II (PCR) CSF L.monocytogenes PCR CSF N. meningitidis PCR CSF Parechovirus (PCR) CSF S. agalactiae (PCR) CSF S. pneumoniae (PCR) CSF VZV (PCR) Salicylates Urine Opiates Screen Urine Fentanyl Screen Acetaminophen Ur Barbiturates Screen Ur Phencyclidine Scrn Ur Amphetamines Screen U Benzodiazepines Scrn Urine Cocaine Screen U Marijuana (THC) Screen Ethyl Alcohol < 10 T.pallidum Ab (EIA) Lyme Disease DNA (PCR) COVID-19 (VIGNESH) Negative COVID-19 Clin Com See Note Viral Specimen Source Viral Culture Comments HHV-6 (PCR) 01/11/22 01/11/22 01/11/22 19:13 19:13 20:40 WBC RBC Hgb Hct MCV MCH MCHC RDW Plt Count MPV Immature Gran % (Auto) Neut % (Auto) Lymph % (Auto) [place] % (Auto) Eos % (Auto) Baso % (Auto) Lymph # (Auto) [place] # (Auto) Eos # (Auto) Baso # (Auto) Abs Immat Gran (auto) Absolute Neuts (auto) Absolute Nucleated RBC Nucleated RBC % (auto) Sodium Cancelled 138 Potassium Cancelled 4.0 Chloride Cancelled 101 Carbon Dioxide Cancelled 26 Anion Gap Cancelled 15 BUN Cancelled 14 Creatinine Cancelled 0.80 Estim Creat Clear Calc Cancelled 89.3 Estimated GFR Cancelled > 60 Random Glucose Cancelled 158 H Calcium Cancelled 9.9 Magnesium Cancelled 2.0 Total Bilirubin Cancelled 1.2 H AST Cancelled 15 ALT Cancelled 12 Alkaline Phosphatase Cancelled 50 Total Protein Cancelled 8.0 Albumin Cancelled 4.5 Vitamin B12 Folate TSH Urine Color YELLOW Urine Appearance CLOUDY Urine pH 6.0 Ur Specific [place] 1.015 Urine Protein NEG Urine Glucose (UA) NEG Urine Ketones NEG Urine Blood 1+ H Urine Nitrite POS H Ur Leukocyte Esterase 2+ H Urine RBC 1-4 Urine WBC 76-150 H Urine WBC Clumps NOTED Ur Squamous Epith Cells 4+ Urine Bacteria 4+ Urine Test Fld Lyme DNA (PCR) CSF Tube Number CSF Volume CSF Appearance CSF Color CSF WBC CSF RBC CSF Lymphocytes CSF Appearance (b) CSF Glucose CSF Total Protein CSF Lyme IgG (Immblot) CSF Lyme IgG Bands Det CSF Lyme IgM (Immblot) CSF Lyme IgM Bands Det CSF C.neoform/gat PCR CSF CMV DNA (PCR) CSF Enterovirus (PCR) CSF E. coli K1 (PCR) CSF H. influenzae (PCR) CSF HSV I (PCR) CSF HSV II (PCR) CSF L.monocytogenes PCR CSF N. meningitidis PCR CSF Parechovirus (PCR) CSF S. agalactiae (PCR) CSF S. pneumoniae (PCR) CSF VZV (PCR) Salicylates Urine Opiates Screen Urine Fentanyl Screen Acetaminophen Ur Barbiturates Screen Ur Phencyclidine Scrn Ur Amphetamines Screen U Benzodiazepines Scrn Urine Cocaine Screen U Marijuana (THC) Screen Ethyl Alcohol T.pallidum Ab (EIA) Lyme Disease DNA (PCR) COVID-19 (VIGNESH) COVID-19 Clin Com Viral Specimen Source Viral Culture Comments HHV-6 (PCR) 01/11/22 01/11/22 01/12/22 20:40 20:40 02:09 WBC 12.7 H RBC 4.98 Hgb 13.5 Hct 40.3 MCV 80.9 MCH 27.1 MCHC 33.5 RDW 14.6 Plt Count 395 MPV 10.6 Immature Gran % (Auto) 0.5 H Neut % (Auto) 74.6 H Lymph % (Auto) 15.9 L [place] % (Auto) 8.4 Eos % (Auto) 0.3 Baso % (Auto) 0.3 Lymph # (Auto) 2.0 [place] # (Auto) 1.1 Eos # (Auto) 0.0 Baso # (Auto) 0.0 Abs Immat Gran (auto) 0.07 H Absolute Neuts (auto) 9.5 H Absolute Nucleated RBC 0.000 Nucleated RBC % (auto) 0.0 Sodium Potassium Chloride Carbon Dioxide Anion Gap BUN Creatinine Estim Creat Clear Calc Estimated GFR Random Glucose Calcium Magnesium Total Bilirubin AST ALT Alkaline Phosphatase Total Protein Albumin Vitamin B12 Folate TSH Urine Color Urine Appearance Urine pH Ur Specific [place] Urine Protein Urine Glucose (UA) Urine Ketones Urine Blood Urine Nitrite Ur Leukocyte Esterase Urine RBC Urine WBC Urine WBC Clumps Ur Squamous Epith Cells Urine Bacteria Urine Test NEGATIVE Fld Lyme DNA (PCR) CSF Tube Number CSF Volume CSF Appearance CSF Color CSF WBC CSF RBC CSF Lymphocytes CSF Appearance (b) CSF Glucose CSF Total Protein CSF Lyme IgG (Immblot) CSF Lyme IgG Bands Det CSF Lyme IgM (Immblot) CSF Lyme IgM Bands Det CSF C.neoform/gat PCR CSF CMV DNA (PCR) CSF Enterovirus (PCR) CSF E. coli K1 (PCR) CSF H. influenzae (PCR) CSF HSV I (PCR) CSF HSV II (PCR) CSF L.monocytogenes PCR CSF N. meningitidis PCR CSF Parechovirus (PCR) CSF S. agalactiae (PCR) CSF S. pneumoniae (PCR) CSF VZV (PCR) Salicylates Urine Opiates Screen Not Detected Urine Fentanyl Screen Not Detected Acetaminophen Ur Barbiturates Screen Not Detected Ur Phencyclidine Scrn Not Detected Ur Amphetamines Screen Not Detected U Benzodiazepines Scrn Not Detected Urine Cocaine Screen Not Detected U Marijuana (THC) Screen Not Detected Ethyl Alcohol T.pallidum Ab (EIA) Lyme Disease DNA (PCR) COVID-19 (VIGNESH) COVID-19 Clin Com Viral Specimen Source Viral Culture Comments HHV-6 (PCR) 01/12/22 01/12/22 01/12/22 03:57 03:57 03:57 WBC RBC Hgb Hct MCV MCH MCHC RDW Plt Count MPV Immature Gran % (Auto) Neut % (Auto) Lymph % (Auto) [place] % (Auto) Eos % (Auto) Baso % (Auto) Lymph # (Auto) [place] # (Auto) Eos # (Auto) Baso # (Auto) Abs Immat Gran (auto) Absolute Neuts (auto) Absolute Nucleated RBC Nucleated RBC % (auto) Sodium Potassium Chloride Carbon Dioxide Anion Gap BUN Creatinine Estim Creat Clear Calc Estimated GFR Random Glucose Calcium Magnesium Total Bilirubin AST ALT Alkaline Phosphatase Total Protein Albumin Vitamin B12 Folate TSH Urine Color Urine Appearance Urine pH Ur Specific [place] Urine Protein Urine Glucose (UA) Urine Ketones Urine Blood Urine Nitrite Ur Leukocyte Esterase Urine RBC Urine WBC Urine WBC Clumps Ur Squamous Epith Cells Urine Bacteria Urine Test Fld Lyme DNA (PCR) CSF Tube Number 2 4 CSF Volume 1.0 CSF Appearance CLEAR CSF Color COLORLESS CSF WBC 3 CSF RBC 1 CSF Lymphocytes 100 CSF Appearance (b) Clear, Colorless CSF Glucose 71 CSF Total Protein 24.0 CSF Lyme IgG (Immblot) Cancelled CSF Lyme IgG Bands Det Cancelled CSF Lyme IgM (Immblot) Cancelled CSF Lyme IgM Bands Det Cancelled CSF C.neoform/gat PCR CSF CMV DNA (PCR) CSF Enterovirus (PCR) CSF E. coli K1 (PCR) CSF H. influenzae (PCR) CSF HSV I (PCR) CSF HSV II (PCR) CSF L.monocytogenes PCR CSF N. meningitidis PCR CSF Parechovirus (PCR) CSF S. agalactiae (PCR) CSF S. pneumoniae (PCR) CSF VZV (PCR) Salicylates Urine Opiates Screen Urine Fentanyl Screen Acetaminophen Ur Barbiturates Screen Ur Phencyclidine Scrn Ur Amphetamines Screen U Benzodiazepines Scrn Urine Cocaine Screen U Marijuana (THC) Screen Ethyl Alcohol T.pallidum Ab (EIA) Lyme Disease DNA (PCR) COVID-19 (VIGNESH) COVID-19 Clin Com Viral Specimen Source Viral Culture Comments HHV-6 (PCR) 01/12/22 01/12/22 01/12/22 03:57 03:57 03:57 WBC RBC Hgb Hct MCV MCH MCHC RDW Plt Count MPV Immature Gran % (Auto) Neut % (Auto) Lymph % (Auto) [place] % (Auto) Eos % (Auto) Baso % (Auto) Lymph # (Auto) [place] # (Auto) Eos # (Auto) Baso # (Auto) Abs Immat Gran (auto) Absolute Neuts (auto) Absolute Nucleated RBC Nucleated RBC % (auto) Sodium Potassium Chloride Carbon Dioxide Anion Gap BUN Creatinine Estim Creat Clear Calc Estimated GFR Random Glucose Calcium Magnesium Total Bilirubin AST ALT Alkaline Phosphatase Total Protein Albumin Vitamin B12 Folate TSH Urine Color Urine Appearance Urine pH Ur Specific [place] Urine Protein Urine Glucose (UA) Urine Ketones Urine Blood Urine Nitrite Ur Leukocyte Esterase Urine RBC Urine WBC Urine WBC Clumps Ur Squamous Epith Cells Urine Bacteria Urine Test Fld Lyme DNA (PCR) Cancelled CSF Tube Number CSF Volume CSF Appearance CSF Color CSF WBC CSF RBC CSF Lymphocytes CSF Appearance (b) CSF Glucose CSF Total Protein CSF Lyme IgG (Immblot) CSF Lyme IgG Bands Det CSF Lyme IgM (Immblot) CSF Lyme IgM Bands Det CSF C.neoform/gat PCR Not Detected CSF CMV DNA (PCR) Not Detected CSF Enterovirus (PCR) Not Detected CSF E. coli K1 (PCR) Not Detected CSF H. influenzae (PCR) Not Detected CSF HSV I (PCR) Not Detected CSF HSV II (PCR) Not Detected CSF L.monocytogenes PCR Not Detected CSF N. meningitidis PCR Not Detected CSF Parechovirus (PCR) Not Detected CSF S. agalactiae (PCR) Not Detected CSF S. pneumoniae (PCR) Not Detected CSF VZV (PCR) Not Detected Salicylates Urine Opiates Screen Urine Fentanyl Screen Acetaminophen Ur Barbiturates Screen Ur Phencyclidine Scrn Ur Amphetamines Screen U Benzodiazepines Scrn Urine Cocaine Screen U Marijuana (THC) Screen Ethyl Alcohol T.pallidum Ab (EIA) Lyme Disease DNA (PCR) Cancelled COVID-19 (VIGNESH) COVID-19 Clin Com Viral Specimen Source Cancelled Viral Culture Comments Cancelled HHV-6 (PCR) Not Detected 01/12/22 01/12/22 01/12/22 03:59 03:59 03:59 WBC RBC Hgb Hct MCV MCH MCHC RDW Plt Count MPV Immature Gran % (Auto) Neut % (Auto) Lymph % (Auto) [place] % (Auto) Eos % (Auto) Baso % (Auto) Lymph # (Auto) [place] # (Auto) Eos # (Auto) Baso # (Auto) Abs Immat Gran (auto) Absolute Neuts (auto) Absolute Nucleated RBC Nucleated RBC % (auto) Sodium Potassium Chloride Carbon Dioxide Anion Gap BUN Creatinine Estim Creat Clear Calc Estimated GFR Random Glucose Calcium Magnesium Total Bilirubin AST ALT Alkaline Phosphatase Total Protein Albumin Vitamin B12 447 Folate 18.0 TSH 1.30 Urine Color Urine Appearance Urine pH Ur Specific [place] Urine Protein Urine Glucose (UA) Urine Ketones Urine Blood Urine Nitrite Ur Leukocyte Esterase Urine RBC Urine WBC Urine WBC Clumps Ur Squamous Epith Cells Urine Bacteria Urine Test Fld Lyme DNA (PCR) CSF Tube Number CSF Volume CSF Appearance CSF Color CSF WBC CSF RBC CSF Lymphocytes CSF Appearance (b) CSF Glucose CSF Total Protein CSF Lyme IgG (Immblot) CSF Lyme IgG Bands Det CSF Lyme IgM (Immblot) CSF Lyme IgM Bands Det CSF C.neoform/gat PCR CSF CMV DNA (PCR) CSF Enterovirus (PCR) CSF E. coli K1 (PCR) CSF H. influenzae (PCR) CSF HSV I (PCR) CSF HSV II (PCR) CSF L.monocytogenes PCR CSF N. meningitidis PCR CSF Parechovirus (PCR) CSF S. agalactiae (PCR) CSF S. pneumoniae (PCR) CSF VZV (PCR) Salicylates < 5.0 L Urine Opiates Screen Urine Fentanyl Screen Acetaminophen < 1 Ur Barbiturates Screen Ur Phencyclidine Scrn Ur Amphetamines Screen U Benzodiazepines Scrn Urine Cocaine Screen U Marijuana (THC) Screen Ethyl Alcohol T.pallidum Ab (EIA) Nonreactive Lyme Disease DNA (PCR) COVID-19 (VIGNESH) COVID-19 Clin Com Viral Specimen Source Viral Culture Comments HHV-6 (PCR) 01/12/22 10:00 WBC RBC Hgb Hct MCV MCH MCHC RDW Plt Count MPV Immature Gran % (Auto) Neut % (Auto) Lymph % (Auto) [place] % (Auto) Eos % (Auto) Baso % (Auto) Lymph # (Auto) [place] # (Auto) Eos # (Auto) Baso # (Auto) Abs Immat Gran (auto) Absolute Neuts (auto) Absolute Nucleated RBC Nucleated RBC % (auto) Sodium Potassium Chloride Carbon Dioxide Anion Gap BUN Creatinine 0.64 Estim Creat Clear Calc 111.5 Estimated GFR > 60 Random Glucose Calcium Magnesium Total Bilirubin AST ALT Alkaline Phosphatase Total Protein Albumin Vitamin B12 Folate TSH Urine Color Urine Appearance Urine pH Ur Specific [place] Urine Protein Urine Glucose (UA) Urine Ketones Urine Blood Urine Nitrite Ur Leukocyte Esterase Urine RBC Urine WBC Urine WBC Clumps Ur Squamous Epith Cells Urine Bacteria Urine Test Fld Lyme DNA (PCR) CSF Tube Number CSF Volume CSF Appearance CSF Color CSF WBC CSF RBC CSF Lymphocytes CSF Appearance (b) CSF Glucose CSF Total Protein CSF Lyme IgG (Immblot) CSF Lyme IgG Bands Det CSF Lyme IgM (Immblot) CSF Lyme IgM Bands Det CSF C.neoform/gat PCR CSF CMV DNA (PCR) CSF Enterovirus (PCR) CSF E. coli K1 (PCR) CSF H. influenzae (PCR) CSF HSV I (PCR) CSF HSV II (PCR) CSF L.monocytogenes PCR CSF N. meningitidis PCR CSF Parechovirus (PCR) CSF S. agalactiae (PCR) CSF S. pneumoniae (PCR) CSF VZV (PCR) Salicylates Urine Opiates Screen Urine Fentanyl Screen Acetaminophen Ur Barbiturates Screen Ur Phencyclidine Scrn Ur Amphetamines Screen U Benzodiazepines Scrn Urine Cocaine Screen U Marijuana (THC) Screen Ethyl Alcohol T.pallidum Ab (EIA) Lyme Disease DNA (PCR) COVID-19 (VIGNESH) COVID-19 Clin Com Viral Specimen Source Viral Culture Comments HHV-6 (PCR) Preliminary micro results at discharge 01/11/22 20:40 Urine Culture - Preliminary Urine clean catch - Urine laureano top Gram negative mely Discharge Plan Discharge Patient Disposition: Xfer Psychiatric Hosp Discharge Diagnosis: Altered Mental Status Referrals: Pattie Short MD [Primary Care Provider] - 1 Week Discharge Medications: New lorazepam 2 mg/mL Solution 0.5 mg IVPUSH Q8H PRN (Reason: agitation) Qty: 1 0RF risperidone 0.5 mg Tablet 0.5 mg PO BID Qty: 20 0RF sulfamethoxazole-trimethoprim [Bactrim DS] 800-160 mg tablet 1 tab PO BID Qty: 14 0RF Discontinued citalopram 20 mg tablet 1 tab PO DAILY 0RF Discharge Orders: Discharge Order (Routine); Ordered 01/12/22 Ordered By: Neeraj Castro Diet: advance to usual diet Activity on Discharge: As tolerated Stand Alone Forms: Patient Portal Discharge page Patient Instructions: Depression (ED), Help Prevent Suicide (ED)
--- NOTE | 2022-01-12 16:04 | PC.NURSE ---
Pt medically cleared, will be admitted to today
[2022-01-12 16:16] VITALS: BP 143/81; PULSE 108; RESP 15; O2SAT 96
[2022-01-13] MEDS: LORazepam 1 MG TABLET PO (00:39)
[2022-01-13] MEDS: traZODone HCL 50 MG TABLET PO (00:39)
[2022-01-13] MEDS: risperiDONE 0.5 MG TABLET PO ×2 (00:41→11:18)
--- NOTE | 2022-01-13 01:06 | PC.ADMIT ---
Patient is a single 21 year old Belarusian speaking female admitted as a CV admission to at 2130 01/12/22 and placed on 15 minute safety checks. Patient was medically cleared in the [facility] ED, evaluated by MILTONN at the patient's home and deemed in need of IPLOC secondary to depression, anxiety, decreased sleep, fleeting thoughts to hurt other people and a self-reported SA by hanging in her dorm at school, that was interrupted by a friend. Patient's mother had reported that her daughter has never acted this way before and has been decompensating x 2 weeks. She described her daughter as being delusional and thinking she was God . The patient was presenting to the ED with respiratory symptoms as well as being deregulated. She was given a neuro workup with labs, head CT, spinal tap and neurological consult. When all testing was seen to be within normal limits the decision to have the patient admitted for psychiatric evaluation and treatment. The patient's mother was at her bedside in the ED and was supportive of this decision. Once patient arrived on she was initially quiet and sat with another patient in the patient's kitchen area. When the patient was approached to do admission paperwork she became very tearful and screaming and crying and was unable to do any of the paperwork or answer any questions. She was given prn medications, her mattress and bedding taken down to Group Room A to decrease stimulation. Patient was starting to relax after the beginning of weight shifter.
[2022-01-13] MEDS: Escitalopram Oxalate 10 MG TABLET PO (11:17)
[2022-01-13] MEDS: Erythromycin Base 0.5% Oph Oin 1 GM TUBE 1 CM EYE-BOTH ×2 (11:18→20:49)
[2022-01-13] MEDS: Acetaminophen 325 MG TABLET 650 MG PO (11:24)
[2022-01-13 11:30] VITALS: BP 109/81; PULSE 100; RESP 16; TEMP 36.6; O2SAT 95
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
--- NOTE | 2022-01-13 15:34 | P.PNPSI_ITS ---
Subjective Subjective Reason For Visit: Altered Mental Status Diagnostics Vital Signs (24Hr): Vital Signs - 24 hr 01/12/22 16:16 01/13/22 11:30 Temperature 97.8 F Pulse Rate 108 H 100 Respiratory Rate 15 16 Blood Pressure 143/81 H 109/81 Pulse Oximetry 96 95 BMI result Body Mass Index 20.1 Labs Results: 01/12/22 02:09 01/12/22 10:00 Labs: Laboratory Results - last 48 hr 01/11/22 01/11/22 01/11/22 17:54 17:54 17:54 WBC 14.9 H RBC 5.20 Hgb 14.2 Hct 41.9 MCV 80.6 MCH 27.3 MCHC 33.9 RDW 14.7 Plt Count 348 MPV 11.4 Immature Gran % (Auto) 0.4 Neut % (Auto) 81.7 H Lymph % (Auto) 10.0 L Dickinson % (Auto) 7.5 Eos % (Auto) 0.1 Baso % (Auto) 0.3 Lymph # (Auto) 1.5 Dickinson # (Auto) 1.1 Eos # (Auto) 0.0 Baso # (Auto) 0.0 Abs Immat Gran (auto) 0.06 H Absolute Neuts (auto) 12.1 H Absolute Nucleated RBC 0.000 Nucleated RBC % (auto) 0.0 Sodium Potassium Chloride Carbon Dioxide Anion Gap BUN Creatinine Estim Creat Clear Calc Estimated GFR Random Glucose Calcium Magnesium Total Bilirubin AST ALT Alkaline Phosphatase Total Protein Albumin Vitamin B12 Folate TSH Urine Color Urine Appearance Urine pH Ur Specific [place] Urine Protein Urine Glucose (UA) Urine Ketones Urine Blood Urine Nitrite Ur Leukocyte Esterase Urine RBC Urine WBC Urine WBC Clumps Ur Squamous Epith Cells Urine Bacteria Urine Test Fld Lyme DNA (PCR) CSF Tube Number CSF Volume CSF Appearance CSF Color CSF WBC CSF RBC CSF Lymphocytes CSF Appearance (b) CSF Glucose CSF Total Protein CSF Lyme IgG (Immblot) CSF Lyme IgG Bands Det CSF Lyme IgM (Immblot) CSF Lyme IgM Bands Det CSF C.neoform/gat PCR CSF CMV DNA (PCR) CSF Enterovirus (PCR) CSF E. coli K1 (PCR) CSF H. influenzae (PCR) CSF HSV I (PCR) CSF HSV II (PCR) CSF L.monocytogenes PCR CSF N. meningitidis PCR CSF Parechovirus (PCR) CSF S. agalactiae (PCR) CSF S. pneumoniae (PCR) CSF VZV (PCR) Salicylates Urine Opiates Screen Urine Fentanyl Screen Acetaminophen Ur Barbiturates Screen Ur Phencyclidine Scrn Ur Amphetamines Screen U Benzodiazepines Scrn Urine Cocaine Screen U Marijuana (THC) Screen Ethyl Alcohol < 10 T.pallidum Ab (EIA) Lyme Disease DNA (PCR) COVID-19 (VIGNESH) Negative COVID-19 Clin Com See Note Viral Specimen Source Viral Culture Comments HHV-6 (PCR) 01/11/22 01/11/22 01/11/22 19:13 19:13 20:40 WBC RBC Hgb Hct MCV MCH MCHC RDW Plt Count MPV Immature Gran % (Auto) Neut % (Auto) Lymph % (Auto) Dickinson % (Auto) Eos % (Auto) Baso % (Auto) Lymph # (Auto) Dickinson # (Auto) Eos # (Auto) Baso # (Auto) Abs Immat Gran (auto) Absolute Neuts (auto) Absolute Nucleated RBC Nucleated RBC % (auto) Sodium Cancelled 138 Potassium Cancelled 4.0 Chloride Cancelled 101 Carbon Dioxide Cancelled 26 Anion Gap Cancelled 15 BUN Cancelled 14 Creatinine Cancelled 0.80 Estim Creat Clear Calc Cancelled 89.3 Estimated GFR Cancelled > 60 Random Glucose Cancelled 158 H Calcium Cancelled 9.9 Magnesium Cancelled 2.0 Total Bilirubin Cancelled 1.2 H AST Cancelled 15 ALT Cancelled 12 Alkaline Phosphatase Cancelled 50 Total Protein Cancelled 8.0 Albumin Cancelled 4.5 Vitamin B12 Folate TSH Urine Color YELLOW Urine Appearance CLOUDY Urine pH 6.0 Ur Specific [place] 1.015 Urine Protein NEG Urine Glucose (UA) NEG Urine Ketones NEG Urine Blood 1+ H Urine Nitrite POS H Ur Leukocyte Esterase 2+ H Urine RBC 1-4 Urine WBC 76-150 H Urine WBC Clumps NOTED Ur Squamous Epith Cells 4+ Urine Bacteria 4+ Urine Test Fld Lyme DNA (PCR) CSF Tube Number CSF Volume CSF Appearance CSF Color CSF WBC CSF RBC CSF Lymphocytes CSF Appearance (b) CSF Glucose CSF Total Protein CSF Lyme IgG (Immblot) CSF Lyme IgG Bands Det CSF Lyme IgM (Immblot) CSF Lyme IgM Bands Det CSF C.neoform/gat PCR CSF CMV DNA (PCR) CSF Enterovirus (PCR) CSF E. coli K1 (PCR) CSF H. influenzae (PCR) CSF HSV I (PCR) CSF HSV II (PCR) CSF L.monocytogenes PCR CSF N. meningitidis PCR CSF Parechovirus (PCR) CSF S. agalactiae (PCR) CSF S. pneumoniae (PCR) CSF VZV (PCR) Salicylates Urine Opiates Screen Urine Fentanyl Screen Acetaminophen Ur Barbiturates Screen Ur Phencyclidine Scrn Ur Amphetamines Screen U Benzodiazepines Scrn Urine Cocaine Screen U Marijuana (THC) Screen Ethyl Alcohol T.pallidum Ab (EIA) Lyme Disease DNA (PCR) COVID-19 (VIGNESH) COVID-19 Clin Com Viral Specimen Source Viral Culture Comments HHV-6 (PCR) 01/11/22 01/11/22 01/12/22 20:40 20:40 02:09 WBC 12.7 H RBC 4.98 Hgb 13.5 Hct 40.3 MCV 80.9 MCH 27.1 MCHC 33.5 RDW 14.6 Plt Count 395 MPV 10.6 Immature Gran % (Auto) 0.5 H Neut % (Auto) 74.6 H Lymph % (Auto) 15.9 L Dickinson % (Auto) 8.4 Eos % (Auto) 0.3 Baso % (Auto) 0.3 Lymph # (Auto) 2.0 Dickinson # (Auto) 1.1 Eos # (Auto) 0.0 Baso # (Auto) 0.0 Abs Immat Gran (auto) 0.07 H Absolute Neuts (auto) 9.5 H Absolute Nucleated RBC 0.000 Nucleated RBC % (auto) 0.0 Sodium Potassium Chloride Carbon Dioxide Anion Gap BUN Creatinine Estim Creat Clear Calc Estimated GFR Random Glucose Calcium Magnesium Total Bilirubin AST ALT Alkaline Phosphatase Total Protein Albumin Vitamin B12 Folate TSH Urine Color Urine Appearance Urine pH Ur Specific [place] Urine Protein Urine Glucose (UA) Urine Ketones Urine Blood Urine Nitrite Ur Leukocyte Esterase Urine RBC Urine WBC Urine WBC Clumps Ur Squamous Epith Cells Urine Bacteria Urine Test NEGATIVE Fld Lyme DNA (PCR) CSF Tube Number CSF Volume CSF Appearance CSF Color CSF WBC CSF RBC CSF Lymphocytes CSF Appearance (b) CSF Glucose CSF Total Protein CSF Lyme IgG (Immblot) CSF Lyme IgG Bands Det CSF Lyme IgM (Immblot) CSF Lyme IgM Bands Det CSF C.neoform/gat PCR CSF CMV DNA (PCR) CSF Enterovirus (PCR) CSF E. coli K1 (PCR) CSF H. influenzae (PCR) CSF HSV I (PCR) CSF HSV II (PCR) CSF L.monocytogenes PCR CSF N. meningitidis PCR CSF Parechovirus (PCR) CSF S. agalactiae (PCR) CSF S. pneumoniae (PCR) CSF VZV (PCR) Salicylates Urine Opiates Screen Not Detected Urine Fentanyl Screen Not Detected Acetaminophen Ur Barbiturates Screen Not Detected Ur Phencyclidine Scrn Not Detected Ur Amphetamines Screen Not Detected U Benzodiazepines Scrn Not Detected Urine Cocaine Screen Not Detected U Marijuana (THC) Screen Not Detected Ethyl Alcohol T.pallidum Ab (EIA) Lyme Disease DNA (PCR) COVID-19 (VIGNESH) COVID-19 Clin Com Viral Specimen Source Viral Culture Comments HHV-6 (PCR) 01/12/22 01/12/22 01/12/22 03:57 03:57 03:57 WBC RBC Hgb Hct MCV MCH MCHC RDW Plt Count MPV Immature Gran % (Auto) Neut % (Auto) Lymph % (Auto) Dickinson % (Auto) Eos % (Auto) Baso % (Auto) Lymph # (Auto) Dickinson # (Auto) Eos # (Auto) Baso # (Auto) Abs Immat Gran (auto) Absolute Neuts (auto) Absolute Nucleated RBC Nucleated RBC % (auto) Sodium Potassium Chloride Carbon Dioxide Anion Gap BUN Creatinine Estim Creat Clear Calc Estimated GFR Random Glucose Calcium Magnesium Total Bilirubin AST ALT Alkaline Phosphatase Total Protein Albumin Vitamin B12 Folate TSH Urine Color Urine Appearance Urine pH Ur Specific [place] Urine Protein Urine Glucose (UA) Urine Ketones Urine Blood Urine Nitrite Ur Leukocyte Esterase Urine RBC Urine WBC Urine WBC Clumps Ur Squamous Epith Cells Urine Bacteria Urine Test Fld Lyme DNA (PCR) CSF Tube Number 2 4 CSF Volume 1.0 CSF Appearance CLEAR CSF Color COLORLESS CSF WBC 3 CSF RBC 1 CSF Lymphocytes 100 CSF Appearance (b) Clear, Colorless CSF Glucose 71 CSF Total Protein 24.0 CSF Lyme IgG (Immblot) Cancelled CSF Lyme IgG Bands Det Cancelled CSF Lyme IgM (Immblot) Cancelled CSF Lyme IgM Bands Det Cancelled CSF C.neoform/gat PCR CSF CMV DNA (PCR) CSF Enterovirus (PCR) CSF E. coli K1 (PCR) CSF H. influenzae (PCR) CSF HSV I (PCR) CSF HSV II (PCR) CSF L.monocytogenes PCR CSF N. meningitidis PCR CSF Parechovirus (PCR) CSF S. agalactiae (PCR) CSF S. pneumoniae (PCR) CSF VZV (PCR) Salicylates Urine Opiates Screen Urine Fentanyl Screen Acetaminophen Ur Barbiturates Screen Ur Phencyclidine Scrn Ur Amphetamines Screen U Benzodiazepines Scrn Urine Cocaine Screen U Marijuana (THC) Screen Ethyl Alcohol T.pallidum Ab (EIA) Lyme Disease DNA (PCR) COVID-19 (VIGNESH) [employer] Com Viral Specimen Source Viral Culture Comments HHV-6 (PCR) 01/12/22 01/12/22 01/12/22 03:57 03:57 03:57 WBC RBC Hgb Hct MCV MCH MCHC RDW Plt Count MPV Immature Gran % (Auto) Neut % (Auto) Lymph % (Auto) Dickinson % (Auto) Eos % (Auto) Baso % (Auto) Lymph # (Auto) Dickinson # (Auto) Eos # (Auto) Baso # (Auto) Abs Immat Gran (auto) Absolute Neuts (auto) Absolute Nucleated RBC Nucleated RBC % (auto) Sodium Potassium Chloride Carbon Dioxide Anion Gap BUN Creatinine Estim Creat Clear Calc Estimated GFR Random Glucose Calcium Magnesium Total Bilirubin AST ALT Alkaline Phosphatase Total Protein Albumin Vitamin B12 Folate TSH Urine Color Urine Appearance Urine pH Ur Specific [place] Urine Protein Urine Glucose (UA) Urine Ketones Urine Blood Urine Nitrite Ur Leukocyte Esterase Urine RBC Urine WBC Urine WBC Clumps Ur Squamous Epith Cells Urine Bacteria Urine Test Fld Lyme DNA (PCR) Cancelled CSF Tube Number CSF Volume CSF Appearance CSF Color CSF WBC CSF RBC CSF Lymphocytes CSF Appearance (b) CSF Glucose CSF Total Protein CSF Lyme IgG (Immblot) CSF Lyme IgG Bands Det CSF Lyme IgM (Immblot) CSF Lyme IgM Bands Det CSF C.neoform/gat PCR Not Detected CSF CMV DNA (PCR) Not Detected CSF Enterovirus (PCR) Not Detected CSF E. coli K1 (PCR) Not Detected CSF H. influenzae (PCR) Not Detected CSF HSV I (PCR) Not Detected CSF HSV II (PCR) Not Detected CSF L.monocytogenes PCR Not Detected CSF N. meningitidis PCR Not Detected CSF Parechovirus (PCR) Not Detected CSF S. agalactiae (PCR) Not Detected CSF S. pneumoniae (PCR) Not Detected CSF VZV (PCR) Not Detected Salicylates Urine Opiates Screen Urine Fentanyl Screen Acetaminophen Ur Barbiturates Screen Ur Phencyclidine Scrn Ur Amphetamines Screen U Benzodiazepines Scrn Urine Cocaine Screen U Marijuana (THC) Screen Ethyl Alcohol T.pallidum Ab (EIA) Lyme Disease DNA (PCR) Cancelled COVID-19 (VIGNESH) COVID-19 Clin Com Viral Specimen Source Cancelled Viral Culture Comments Cancelled HHV-6 (PCR) Not Detected 01/12/22 01/12/22 01/12/22 03:59 03:59 03:59 WBC RBC Hgb Hct MCV MCH MCHC RDW Plt Count MPV Immature Gran % (Auto) Neut % (Auto) Lymph % (Auto) Dickinson % (Auto) Eos % (Auto) Baso % (Auto) Lymph # (Auto) Dickinson # (Auto) Eos # (Auto) Baso # (Auto) Abs Immat Gran (auto) Absolute Neuts (auto) Absolute Nucleated RBC Nucleated RBC % (auto) Sodium Potassium Chloride Carbon Dioxide Anion Gap BUN Creatinine Estim Creat Clear Calc Estimated GFR Random Glucose Calcium Magnesium Total Bilirubin AST ALT Alkaline Phosphatase Total Protein Albumin Vitamin B12 447 Folate 18.0 TSH 1.30 Urine Color Urine Appearance Urine pH Ur Specific [place] Urine Protein Urine Glucose (UA) Urine Ketones Urine Blood Urine Nitrite Ur Leukocyte Esterase Urine RBC Urine WBC Urine WBC Clumps Ur Squamous Epith Cells Urine Bacteria Urine Test Fld Lyme DNA (PCR) CSF Tube Number CSF Volume CSF Appearance CSF Color CSF WBC CSF RBC CSF Lymphocytes CSF Appearance (b) CSF Glucose CSF Total Protein CSF Lyme IgG (Immblot) CSF Lyme IgG Bands Det CSF Lyme IgM (Immblot) CSF Lyme IgM Bands Det CSF C.neoform/gat PCR CSF CMV DNA (PCR) CSF Enterovirus (PCR) CSF E. coli K1 (PCR) CSF H. influenzae (PCR) CSF HSV I (PCR) CSF HSV II (PCR) CSF L.monocytogenes PCR CSF N. meningitidis PCR CSF Parechovirus (PCR) CSF S. agalactiae (PCR) CSF S. pneumoniae (PCR) CSF VZV (PCR) Salicylates < 5.0 L Urine Opiates Screen Urine Fentanyl Screen Acetaminophen < 1 Ur Barbiturates Screen Ur Phencyclidine Scrn Ur Amphetamines Screen U Benzodiazepines Scrn Urine Cocaine Screen U Marijuana (THC) Screen Ethyl Alcohol T.pallidum Ab (EIA) Nonreactive Lyme Disease DNA (PCR) COVID-19 (VIGNESH) COVID-19 Clin Com Viral Specimen Source Viral Culture Comments HHV-6 (PCR) 01/12/22 10:00 WBC RBC Hgb Hct MCV MCH MCHC RDW Plt Count MPV Immature Gran % (Auto) Neut % (Auto) Lymph % (Auto) Dickinson % (Auto) Eos % (Auto) Baso % (Auto) Lymph # (Auto) Dickinson # (Auto) Eos # (Auto) Baso # (Auto) Abs Immat Gran (auto) Absolute Neuts (auto) Absolute Nucleated RBC Nucleated RBC % (auto) Sodium Potassium Chloride Carbon Dioxide Anion Gap BUN Creatinine 0.64 Estim Creat Clear Calc 111.5 Estimated GFR > 60 Random Glucose Calcium Magnesium Total Bilirubin AST ALT Alkaline Phosphatase Total Protein Albumin Vitamin B12 Folate TSH Urine Color Urine Appearance Urine pH Ur Specific [place] Urine Protein Urine Glucose (UA) Urine Ketones Urine Blood Urine Nitrite Ur Leukocyte Esterase Urine RBC Urine WBC Urine WBC Clumps Ur Squamous Epith Cells Urine Bacteria Urine Test Fld Lyme DNA (PCR) CSF Tube Number CSF Volume CSF Appearance CSF Color CSF WBC CSF RBC CSF Lymphocytes CSF Appearance (b) CSF Glucose CSF Total Protein CSF Lyme IgG (Immblot) CSF Lyme IgG Bands Det CSF Lyme IgM (Immblot) CSF Lyme IgM Bands Det CSF C.neoform/gat PCR CSF CMV DNA (PCR) CSF Enterovirus (PCR) CSF E. coli K1 (PCR) CSF H. influenzae (PCR) CSF HSV I (PCR) CSF HSV II (PCR) CSF L.monocytogenes PCR CSF N. meningitidis PCR CSF Parechovirus (PCR) CSF S. agalactiae (PCR) CSF S. pneumoniae (PCR) CSF VZV (PCR) Salicylates Urine Opiates Screen Urine Fentanyl Screen Acetaminophen Ur Barbiturates Screen Ur Phencyclidine Scrn Ur Amphetamines Screen U Benzodiazepines Scrn Urine Cocaine Screen U Marijuana (THC) Screen Ethyl Alcohol T.pallidum Ab (EIA) Lyme Disease DNA (PCR) COVID-19 (VIGNESH) COVID-19 Clin Com Viral Specimen Source Viral Culture Comments HHV-6 (PCR) Imaging Radiology Impressions: ITS Impressions Chest X-Ray 01/12/22 01:00 IMPRESSION: Clear lungs. Head CT 01/12/22 02:25 IMPRESSION: No acute intracranial pathology. Brain MRI 01/12/22 12:15 IMPRESSION: 1. No acute intracranial abnormalities. No abnormal intracranial enhancement. 2. No MRI abnormalities to explain the patient's symptoms. Medications Medications Current Medications Acetaminophen (Acetaminophen 325 Mg Tablet) 650 mg PO Q6H PRN PRN Reason: Headache/Pain Mild Scale (1-3) Last Admin: 01/13/22 11:24 Dose: 650 mg Documented by: Al Hydroxide/Mg Hydroxide (Magnesium Hydrox/Alum Hydrox 30 Ml Oral.Susp) 30 ml PO Q6H PRN PRN Reason: Heartburn/Nausea Erythromycin (Erythromycin Base 0.5% Oph Oin 1 Gm Tube) 1 cm EYE-BOTH BID FORMERLY [facility], 1928–1983 Last Admin: 01/13/22 11:18 Dose: 1 cm Documented by: Escitalopram Oxalate (Escitalopram Oxalate 10 Mg Tablet) 10 mg PO DAILY [facility]LY [facility], [facility]1983 Last Admin: 01/13/22 11:17 Dose: 10 mg Documented by: Hydroxyzine HCl (Hydroxyzine Hcl 25 Mg Tablet) 25 mg PO BEDTIME PRN PRN Reason: Anxiety Lorazepam (Lorazepam 1 Mg Tablet) 1 mg PO TID PRN PRN Reason: anxiety, agitation Last Admin: 01/13/22 00:39 Dose: 1 mg Documented by: Magnesium Hydroxide (Milk Of Magnesia 30 Ml Oral.Susp) 30 ml PO DAILY PRN PRN Reason: Constipation Melatonin (Melatonin 3 Mg Tablet) 6 mg PO BEDTIME PRN PRN Reason: Insomnia Risperidone (Risperidone 0.5 Mg Tablet) 0.5 mg PO BID [facility], [facility] Last Admin: 01/13/22 11:18 Dose: 0.5 mg Documented by: Senna (Sennosides 8.6 Mg Tablet) 17.2 mg PO BEDTIME PRN PRN Reason: Constipation Trazodone HCl (Trazodone Hcl 50 Mg Tablet) 50 mg PO BEDTIME PRN PRN Reason: Insomnia Last Admin: 01/13/22 00:39 Dose: 50 mg Documented by: Allergies Allergies Allergy/AdvReac Type Severity Reaction Status Date / Time amoxicillin AdvReac Intermediate Rash Verified 01/11/22 21:42 fluoxetine [From Prozac] AdvReac Depression Verified 01/11/22 21:43 Assessment & Plan Assessment & Plan (1) Suicidal ideation: Status: Acute Code(s): R45.851 - Suicidal ideations Assessment and Plan: Patient had reported to care team that she has been experiencing intrusive thoughts about harming her family. She also reported a recent suicide attempt via hanging while she was in her dorm room at [employer]. Patient did not engage in discussion regarding thoughts of harm to self or others with this blog writer. Mother reports that patient has been suicidal recently. (2) Psychotic disorder with delusions: Status: Acute Code(s): F29 - Unspecified psychosis not due to a substance or known physiological condition Assessment and Plan: I was asked to meet with patient due to altered mental status, psychosis. Patient appears to be experiencing a manic episode at this time, with psychotic features. Mother reports diagnosis of depression and anxiety, but no history of bipolar disorder or psychosis. When asked if patient has ever had symptoms that would explain hypomanic episode, mother stated no, but that her daughter currently resides at college, so she cannot speak of her behavior over past semester. Patient has been receiving SSRI Celexa for past year. Mother reports increased stress recently in school, with disorganized thought, increased SI, hallucinations, grandiose behavior, no sleep past 3 days, flight of ideas, pressured speech. Patient is preoccupied religiously, states ?I am God. I am here to relieve everyone's pain ?. Patient has no history of substance use, and mother reports she is normally a healthy person. Plan Patient appears to be experiencing manic episode. She has had recent upper respiratory infection several weeks ago, which has since resolved. Multiple tests have been completed here with negative results. Tox screen negative. Differential diagnoses: Bipolar 1 disorder, brief psychotic episode. 1. Care team notified that patient will require inpatient level of care, as she is now medically cleared. 2. Start risperdal 0.5mg BID, start now. 3. Start lorazepam 1 mg t.i.d. p.r.n. for anxiety/agitation. I discussed my assessment and recommendations with provider Dr. Neeraj Castro, via telephone. I spent minutes with the patient and/or on the patient floor today, greater than?50% of which was spent counseling/coordinating care.
[2022-01-13 20:47] VITALS: BP 139/93; PULSE 125; RESP 18; TEMP 36.7; O2SAT 96
[2022-01-13] MEDS: risperiDONE 1 MG TABLET PO (20:49)
[2022-01-13] MEDS: Divalproex Sodium 500 MG TABLET.DR PO (20:49)
[2022-01-14 06:00] VITALS: BP 128/66; PULSE 92; RESP 14; TEMP 36; O2SAT 97
[2022-01-14] MEDS: risperiDONE 1 MG TABLET PO ×2 (08:45→21:30)
--- NOTE | 2022-01-14 13:51 | PC.NURSE ---
pt not able to complete the risk assessment as she is not able to answer the questions appropriately. responded to questions with can i give you a hug? . though doesnt smoke.
[2022-01-14] MEDS: HaloperidoL 5 MG TABLET PO (18:37)
[2022-01-14] MEDS: Sulfamethox/Trimeth 800/160 TABLET 1 TAB PO (18:37)
--- NOTE | 2022-01-14 19:33 | HO.PSYCHPN ---
Subjective Subjective Date of Service: 01/14/22 Reason For Visit: Altered Mental Status Interim History: Divya continues with jimmy, psychosis. Refused a.m. Valproate, will consolidate dosing tonight and return to bid on 01/15. Mom visited. Review of all diagnostics, med regime. Met with pt and mother. Mother believes pt has worsened from ER eval. Discussed recent med increases on 01/13 and the potential need to change regime. Pt per team is disorganized, pouring water in her shoes, not wearing her supportive boot on L ankle. Decided with mom to treat UTI with Bactrim DS. Medication Compliance: Intermittent Side effects from medications: No Attending Groups: No Review of Systems Acute medical concerns: No UTI Medical Review of Systems: unchanged Review of Systems Review of Systems Yes Unobtainable due to mental status Reports behavioral changes and Reports confusion Psychiatric: Reports abnormal sleep pattern, Reports anxiety, Reports behavioral changes, Reports confusion, Reports depression, Reports difficulty concentrating, Reports hopelessness, Reports irritability, Reports anhedonia, Reports mood swings, Reports paranoia, Reports homicidal ideation and Reports suicidal ideation Mental Status Exam Mental Status Exam Patient Appearance: Fatigued Patient Orientation: Person Level of Consciousness: Alert Patient Behavior: Guarded, Talkative, Cooperative, Anxious, Fearful, Avoidant, Fatigued, Distractible, Impulsive and Poor Eye Contact Mood Description: Labile Affect Description: Labile Patient Cognition Impaired: Yes Ability to Follow Directions: Fair Speech Pattern: Spontaneous Speech Memory Description: Remote Impaired and Episodic Impaired Hallucinations: None (denies) Delusions: Paranoid Ideation and Grandiose Perceptual Disturbances: Depersonalization and Derealization Thought Process: Racing, Illogical and Distracted Thought Content: positive for Flight of Ideas, positive for Racing, positive for Tangential, positive for Suicidal Ideation and positive for Homicidal Ideation Depressive Symptoms: Difficulty Sleeping, Isolating-Friends/Family, Thoughts of /Suicide and Difficulty Concentrating Abnormal Motor Activity Signs and Symptoms: Restlessness Judgement: Poor Diagnostics Vital Signs (24Hr): Vital Signs - 24 hr 01/13/22 20:47 01/14/22 06:00 Temperature 98.0 F 96.8 F Pulse Rate 125 H 92 Respiratory Rate 18 14 Blood Pressure 139/93 H 128/66 Pulse Oximetry 96 97 BMI result Body Mass Index 20.1 Labs Results: 01/12/22 02:09 01/12/22 10:00 Imaging Radiology Impressions: ITS Impressions Chest X-Ray 01/12/22 01:00 IMPRESSION: Clear lungs. Head CT 01/12/22 02:25 IMPRESSION: No acute intracranial pathology. Brain MRI 01/12/22 12:15 IMPRESSION: 1. No acute intracranial abnormalities. No abnormal intracranial enhancement. 2. No MRI abnormalities to explain the patient's symptoms. Medications Medications Current Medications Acetaminophen (Acetaminophen 325 Mg Tablet) 650 mg PO Q6H PRN PRN Reason: Headache/Pain Mild Scale (1-3) Last Admin: 01/13/22 11:24 Dose: 650 mg Documented by: Al Hydroxide/Mg Hydroxide (Magnesium Hydrox/Alum Hydrox 30 Ml Oral.Susp) 30 ml PO Q6H PRN PRN Reason: Heartburn/Nausea Divalproex Sodium (Divalproex Sodium 500 Mg Tablet.) 500 mg PO BID [facility] Last Admin: 01/14/22 08:48 Dose: Not Given Documented by: Divalproex Sodium (Divalproex Sodium 500 Mg Tablet.) 1,000 mg PO ONCE@2100 ONE Stop: 01/14/22 21:01 Erythromycin (Erythromycin Base 0.5% Oph Oin 1 Gm Tube) 1 cm EYE-BOTH BID [facility] Last Admin: 01/14/22 08:45 Dose: Not Given Documented by: Haloperidol (Haloperidol 5 Mg Tablet) 5 mg PO TID PRN PRN Reason: jimmy, psychosis Last Admin: 01/14/22 18:37 Dose: 5 mg Documented by: Hydroxyzine HCl (Hydroxyzine Hcl 25 Mg Tablet) 25 mg PO BEDTIME PRN PRN Reason: Anxiety Ibuprofen (Ibuprofen 800 Mg Tablet) 800 mg PO Q8H PRN PRN Reason: Pain, Mild (Pain Scale 1-3) Lorazepam (Lorazepam 1 Mg Tablet) 1 mg PO TID PRN PRN Reason: anxiety, agitation Last Admin: 01/13/22 00:39 Dose: 1 mg Documented by: Magnesium Hydroxide (Milk Of Magnesia 30 Ml Oral.Susp) 30 ml PO DAILY PRN PRN Reason: Constipation Melatonin (Melatonin 3 Mg Tablet) 6 mg PO BEDTIME PRN PRN Reason: Insomnia Risperidone (Risperidone 1 Mg Tablet) 1 mg PO BID [facility] Last Admin: 01/14/22 08:45 Dose: 1 mg Documented by: Senna (Sennosides 8.6 Mg Tablet) 17.2 mg PO BEDTIME PRN PRN Reason: Constipation Trazodone HCl (Trazodone Hcl 50 Mg Tablet) 50 mg PO BEDTIME PRN PRN Reason: Insomnia Last Admin: 01/13/22 00:39 Dose: 50 mg Documented by: Trimethoprim/Sulfamethoxazole (Sulfamethox/Trimeth 800/160 Tablet) 1 tab PO Q12H JOHANNA Stop: 01/17/22 16:59 Last Admin: 01/14/22 18:37 Dose: 1 tab Documented by: Allergies Allergies Allergy/AdvReac Type Severity Reaction Status Date / Time amoxicillin AdvReac Intermediate Rash Verified 01/11/22 21:42 fluoxetine [From Prozac] AdvReac Depression Verified 01/11/22 21:43 Assessment & Plan Assessment & Plan (1) Mood disorder: Status: Acute Code(s): F39 - Unspecified mood [affective] disorder Plan 21 yo female, hx of anxiety, depression, presents with symptoms of jimmy with psychosis. Thorough medical eval with no positive findings for meningitis, but with UTI, leukocytosis. Pt today is presenting with psychosis, jimmy. Plan: Increase Risperdal to 1 mg bid Depakote 500 mg bid 01/14/22- Continue current regime. I spent minutes with the patient and/or on the patient floor today, greater than?50% of which was spent counseling/coordinating care. Informed Consent: does not understand Reason for contiued inpatient stay Substantial Risk for: harm to self, harm to others, inability to function and rapid decompensation
[2022-01-14] MEDS: Divalproex Sodium 500 MG TABLET.DR 1000 MG PO (21:28)
[2022-01-14] MEDS: traZODone HCL 50 MG TABLET PO (21:29)
[2022-01-14] MEDS: LORazepam 1 MG TABLET PO (21:29)
[2022-01-14] MEDS: Erythromycin Base 0.5% Oph Oin 1 GM TUBE 1 CM EYE-BOTH (21:30)
[2022-01-15] MEDS: Erythromycin Base 0.5% Oph Oin 1 GM TUBE 1 CM EYE-BOTH ×2 (12:16→21:12)
[2022-01-15] MEDS: risperiDONE 1 MG TABLET PO ×2 (12:16→21:12)
[2022-01-15] MEDS: Divalproex Sodium 500 MG TABLET.DR PO ×2 (12:16→21:12)
[2022-01-15] MEDS: Sulfamethox/Trimeth 800/160 TABLET 1 TAB PO ×2 (12:16→21:12)
[2022-01-15] MEDS: HaloperidoL 5 MG TABLET PO (17:06)
[2022-01-15 17:54] VITALS: BP 113/80; PULSE 117; RESP 18; TEMP 36.6; O2SAT 97
[2022-01-15] MEDS: LORazepam 1 MG TABLET PO (21:12)
[2022-01-15] MEDS: Melatonin 3 MG TABLET 6 MG PO (22:09)
[2022-01-15] MEDS: traZODone HCL 50 MG TABLET PO (22:10)
--- NOTE | 2022-01-15 23:31 | PC.NURSE ---
The pt threw up at about 2200. Prior to this incident, pt had taken some lebron farhat, a sandwich and a bottle of ensure. Staff reported that the pt had gulped down her ensure and had immediately started to complain of nausea. She had also received prn Trazodone and Melatonin before she threw up. Vital signs taken: T 98.0, BP 120/77, HR 120, 02 98%. Pt was given lebron farhat and advised to remain seated. She told this RN that she felt better after throwing up and that she wanted to go to bed. The pt is sleeping soundly at the time of this note.
--- NOTE | 2022-01-15 23:49 | P.PNPSI_ITS ---
Subjective Subjective Date of Service: 01/15/22 Reason For Visit: Altered Mental Status Subjective Notes: Shields Warning and Conditional Voluntary Healthcare Proxy: No Guardianship: No Medical Problems Affecting Mental Status: No Interim History: Patient seen and discussed with team. She went into someone?s room last night and was throwing things. Patient evaluated today and upon interview pt is psychotic. She has loose associations, spontaneous and disorganized speech. Says Im not a patient. Says her sleep is wonderful. Says she feels very calm, very nice, on risperdal, brain feels very relaxed. No side effects. Denies SI/SIB. Says I feel safe. Pt says I have all the energy. In the milieu, pt is safe but intrusive in behavior. Denies irritability or assaultive ideation. Medication Compliance: Yes Side effects from medications: No Attending Groups: No Review of Systems Acute medical concerns: No Medical Review of Systems: unchanged Mental Status Exam Mental Status Exam Narrative: Patient Appearance:?Fatigued Patient Orientation:?Person Level of Consciousness:?Alert Patient Behavior:?Guarded, Talkative, Cooperative, Anxious, Fearful, Avoidant, Fatigued, Distractible, Impulsive and Poor Eye Contact Mood Description:?Labile Affect Description:?Labile Patient Cognition Impaired:?Yes Ability to Follow Directions:?Fair Speech Pattern:?Spontaneous Speech Memory Description:?Remote Impaired and Episodic Impaired Hallucinations:?None (denies) Delusions:?Paranoid Ideation and Grandiose Perceptual Disturbances:?Depersonalization and Derealization Thought Process:?Racing, Illogical and Distracted Thought Content:?positive for Flight of Ideas, positive for Racing, positive for Tangential, positive for Suicidal Ideation and positive for Homicidal Ideation Depressive Symptoms:?Difficulty Sleeping, Isolating-Friends/Family, Thoughts of /Suicide and Difficulty Concentrating Abnormal Motor Activity Signs and Symptoms:?Restlessness Judgment:?Poor Diagnostics Vital Signs (24Hr): Vital Signs - 24 hr 01/15/22 17:54 Temperature 97.8 F Pulse Rate 117 H Respiratory Rate 18 Blood Pressure 113/80 Pulse Oximetry 97 BMI result Body Mass Index 20.1 Labs Results: 01/12/22 02:09 01/12/22 10:00 Imaging Radiology Impressions: ITS Impressions Chest X-Ray 01/12/22 01:00 IMPRESSION: Clear lungs. Head CT 01/12/22 02:25 IMPRESSION: No acute intracranial pathology. Brain MRI 01/12/22 12:15 IMPRESSION: 1. No acute intracranial abnormalities. No abnormal intracranial enhancement. 2. No MRI abnormalities to explain the patient's symptoms. Medications Medications Current Medications Acetaminophen (Acetaminophen 325 Mg Tablet) 650 mg PO Q6H PRN PRN Reason: Headache/Pain Mild Scale (1-3) Last Admin: 01/13/22 11:24 Dose: 650 mg Documented by: Al Hydroxide/Mg Hydroxide (Magnesium Hydrox/Alum Hydrox 30 Ml Oral.Susp) 30 ml PO Q6H PRN PRN Reason: Heartburn/Nausea Divalproex Sodium (Divalproex Sodium 500 Mg Tablet.Dr) 500 mg PO BID [facility] Last Admin: 01/15/22 21:12 Dose: 500 mg Documented by: Erythromycin (Erythromycin Base 0.5% Oph Oin 1 Gm Tube) 1 cm EYE-BOTH BID [facility] Last Admin: 01/15/22 21:12 Dose: 1 cm Documented by: Haloperidol (Haloperidol 5 Mg Tablet) 5 mg PO TID PRN PRN Reason: jimmy, psychosis Last Admin: 01/15/22 17:06 Dose: 5 mg Documented by: Hydroxyzine HCl (Hydroxyzine Hcl 25 Mg Tablet) 25 mg PO BEDTIME PRN PRN Reason: Anxiety Ibuprofen (Ibuprofen 800 Mg Tablet) 800 mg PO Q8H PRN PRN Reason: Pain, Mild (Pain Scale 1-3) Lorazepam (Lorazepam 1 Mg Tablet) 1 mg PO TID PRN PRN Reason: anxiety, agitation Last Admin: 01/15/22 21:12 Dose: 1 mg Documented by: Magnesium Hydroxide (Milk Of Magnesia 30 Ml Oral.Susp) 30 ml PO DAILY PRN PRN Reason: Constipation Melatonin (Melatonin 3 Mg Tablet) 6 mg PO BEDTIME PRN PRN Reason: Insomnia Last Admin: 01/15/22 22:09 Dose: 6 mg Documented by: Risperidone (Risperidone 1 Mg Tablet) 1 mg PO BID [facility] Last Admin: 01/15/22 21:12 Dose: 1 mg Documented by: Senna (Sennosides 8.6 Mg Tablet) 17.2 mg PO BEDTIME PRN PRN Reason: Constipation Trazodone HCl (Trazodone Hcl 50 Mg Tablet) 50 mg PO BEDTIME PRN PRN Reason: Insomnia Last Admin: 05/21/22 22:10 Dose: 50 mg Documented by: Trimethoprim/Sulfamethoxazole (Sulfamethox/Trimeth 800/160 Tablet) 1 tab PO Q12H JOHANNA Stop: 01/17/22 20:59 Last Admin: 01/15/22 21:12 Dose: 1 tab Documented by: Allergies Allergies Allergy/AdvReac Type Severity Reaction Status Date / Time amoxicillin AdvReac Intermediate Rash Verified 01/11/22 21:42 fluoxetine [From Prozac] AdvReac Depression Verified 01/11/22 21:43 Assessment & Plan Assessment & Plan (1) Mood disorder: Status: Acute Code(s): F39 - Unspecified mood [affective] disorder Plan 21 yo female, hx of anxiety, depression, presents with symptoms of jimmy with psychosis. Thorough medical eval with no positive findings for meningitis, but with UTI, leukocytosis. Pt today is presenting with psychosis, jimmy. Plan: Increase Risperdal to 1 mg bid Depakote 500 mg bid 01/14/22- Continue current regime. 01/15/22- Pt continues to be psychotic I spent minutes with the patient and/or on the patient floor today, greater than?50% of which was spent counseling/coordinating care. Patient educated on: therapeutic strategies Reason for contiued inpatient stay Substantial Risk for: inability to function, rapid decompensation and med/psych decompensation
[2022-01-16] MEDS: Divalproex Sodium 500 MG TABLET.DR PO ×2 (09:37→20:18)
[2022-01-16] MEDS: risperiDONE 1 MG TABLET PO ×2 (09:37→20:18)
[2022-01-16] MEDS: Sulfamethox/Trimeth 800/160 TABLET 1 TAB PO ×2 (09:37→20:18)
[2022-01-16 18:00] VITALS: BP 107/54; PULSE 88; RESP 18; TEMP 36.4; O2SAT 99
[2022-01-16] MEDS: Melatonin 3 MG TABLET 6 MG PO (20:16)
[2022-01-16] MEDS: HaloperidoL 5 MG TABLET PO (20:19)
[2022-01-16] MEDS: Erythromycin Base 0.5% Oph Oin 1 GM TUBE 1 CM EYE-BOTH (20:19)
[2022-01-16] MEDS: LORazepam 1 MG TABLET PO (21:26)
[2022-01-17] MEDS: risperiDONE 1 MG TABLET PO (11:25)
[2022-01-17] MEDS: Erythromycin Base 0.5% Oph Oin 1 GM TUBE 1 CM EYE-BOTH (11:25)
[2022-01-17] MEDS: Sulfamethox/Trimeth 800/160 TABLET 1 TAB PO (11:25)
[2022-01-17] MEDS: Divalproex Sodium 500 MG TABLET.DR PO ×2 (11:25→21:30)
--- NOTE | 2022-01-17 16:57 | HO.PSYCHPN ---
Subjective Subjective Date of Service: 01/17/22 Reason For Visit: Altered Mental Status Subjective Notes: Conditional Voluntary Healthcare Proxy: No Guardianship: No Medical Problems Affecting Mental Status: No Interim History: Continues with lability of mood, delusional content, disinhibition, confusion. Five minute checks maintained. Team reports sleep continues to be variable. Compliant with depakote, risperdal without much efficacy. Medication Compliance: Yes Side effects from medications: No Attending Groups: No Review of Systems Acute medical concerns: No S/P UTI Medical Review of Systems: unchanged Review of Systems Reports behavioral changes, Reports confusion and Reports memory loss Psychiatric: Reports abnormal sleep pattern, Reports behavioral changes, Reports change in appetite, Reports confusion, Reports difficulty concentrating, Reports auditory hallucinations, Reports irritability, Reports anhedonia, Reports memory loss, Reports mood swings and Reports hallucinations Mental Status Exam Mental Status Exam Patient Appearance: Disheveled Patient Orientation: Person Level of Consciousness: Awake, Restless and Alert Patient Behavior: Talkative, Hyperactive (at times), Cooperative, Restless, Wandering, Fatigued, Distractible, Confused, Good Eye Contact and Impulsive Mood Description: Euphoric, Happy, Cheerful, Labile and Expansive Affect Description: Labile Patient Cognition Impaired: Yes Ability to Follow Directions: Good Speech Pattern: Spontaneous Speech, Rambling, Soft-Spoken, Cofabulation, Rapid, Animated, Pressured and Excited Memory Description: Remote Impaired and Episodic Impaired Hallucinations: Auditory Delusions: Paranoid Ideation, Grandiose and Present Perceptual Disturbances: Depersonalization, Derealization and Hallucinations Thought Process: Disoriented, Racing, Illogical, Distracted and Confusion Thought Content: positive for Flight of Ideas, positive for Racing, positive for Circumstantial, positive for Loose Associations, positive for Tangential, positive for Disorganized, positive for Suicidal Ideation (denies) and positive for Homicidal Ideation (denies) Depressive Symptoms: Diff. Making Decisions, Difficulty Sleeping, Changes in Appetite and Difficulty Concentrating Abnormal Motor Activity Signs and Symptoms: Hyperactivity and Restlessness Judgement: Poor Diagnostics Vital Signs (24Hr): Vital Signs - 24 hr 01/16/22 18:00 Temperature 97.6 F Pulse Rate 88 Respiratory Rate 18 Blood Pressure 107/54 L Pulse Oximetry 99 BMI result Body Mass Index 20.1 Labs Results: 01/12/22 02:09 01/12/22 10:00 Imaging Radiology Impressions: ITS Impressions Chest X-Ray 01/12/22 01:00 IMPRESSION: Clear lungs. Head CT 01/12/22 02:25 IMPRESSION: No acute intracranial pathology. Brain MRI 01/12/22 12:15 IMPRESSION: 1. No acute intracranial abnormalities. No abnormal intracranial enhancement. 2. No MRI abnormalities to explain the patient's symptoms. Medications Medications Current Medications Acetaminophen (Acetaminophen 325 Mg Tablet) 650 mg PO Q6H PRN PRN Reason: Headache/Pain Mild Scale (1-3) Last Admin: 01/13/22 11:24 Dose: 650 mg Documented by: Al Hydroxide/Mg Hydroxide (Magnesium Hydrox/Alum Hydrox 30 Ml Oral.Susp) 30 ml PO Q6H PRN PRN Reason: Heartburn/Nausea Divalproex Sodium (Divalproex Sodium 500 Mg Tablet.Dr) 500 mg PO BID [facility] Last Admin: 01/17/22 11:25 Dose: 500 mg Documented by: Erythromycin (Erythromycin Base 0.5% Oph Oin 1 Gm Tube) 1 cm EYE-BOTH BID [facility] Last Admin: 01/17/22 11:25 Dose: 1 cm Documented by: Haloperidol (Haloperidol 5 Mg Tablet) 5 mg PO TID PRN PRN Reason: daksha, psychosis Last Admin: 01/16/22 20:19 Dose: 5 mg Documented by: Haloperidol (Haloperidol 5 Mg Tablet) 5 mg PO BID [facility] Hydroxyzine HCl (Hydroxyzine Hcl 25 Mg Tablet) 25 mg PO BEDTIME PRN PRN Reason: Anxiety Ibuprofen (Ibuprofen 800 Mg Tablet) 800 mg PO Q8H PRN PRN Reason: Pain, Mild (Pain Scale 1-3) Lorazepam (Lorazepam 1 Mg Tablet) 1 mg PO Q4H PRN PRN Reason: agitation, daksha Magnesium Hydroxide (Milk Of Magnesia 30 Ml Oral.Susp) 30 ml PO DAILY PRN PRN Reason: Constipation Melatonin (Melatonin 3 Mg Tablet) 6 mg PO BEDTIME PRN PRN Reason: Insomnia Last Admin: 01/16/22 20:16 Dose: 6 mg Documented by: Senna (Sennosides 8.6 Mg Tablet) 17.2 mg PO BEDTIME PRN PRN Reason: Constipation Trazodone HCl (Trazodone Hcl 50 Mg Tablet) 50 mg PO BEDTIME PRN PRN Reason: Insomnia Last Admin: 01/15/22 22:10 Dose: 50 mg Documented by: Trimethoprim/Sulfamethoxazole (Sulfamethox/Trimeth 800/160 Tablet) 1 tab PO Q12H JOHANNA Stop: 01/17/22 20:59 Last Admin: 01/17/22 11:25 Dose: 1 tab Documented by: Allergies Allergies Allergy/AdvReac Type Severity Reaction Status Date / Time amoxicillin AdvReac Intermediate Rash Verified 01/11/22 21:42 fluoxetine [From Prozac] AdvReac Depression Verified 01/11/22 21:43 Assessment & Plan Assessment & Plan (1) Mood disorder: Status: Acute Code(s): F39 - Unspecified mood [affective] disorder Plan 21 yo female, hx of anxiety, depression, presents with symptoms of daksha with psychosis. Thorough medical eval with no positive findings for meningitis, but with UTI, leukocytosis. Pt today is presenting with psychosis, daksha. Plan: Increase Risperdal to 1 mg bid Depakote 500 mg bid 01/14/22- Continue current regime. 01/17/22- Daksha/psychosis sx remain. Discontinue Risperdal Haldol 5 mg bid Lorazepam 1 mg po q 4hours prn I spent minutes with the patient and/or on the patient floor today, greater than?50% of which was spent counseling/coordinating care. Informed Consent: does not understand Reason for contiued inpatient stay Substantial Risk for: harm to self, harm to others, inability to function and rapid decompensation
[2022-01-17 19:00] VITALS: BP 103/50; PULSE 92; RESP 17; TEMP 37.3; O2SAT 99
[2022-01-17] MEDS: HaloperidoL 5 MG TABLET PO (21:30)
--- NOTE | 2022-01-18 00:51 | P.PNPSI_ITS ---
Subjective Subjective Date of Service: 01/16/22 Reason For Visit: Altered Mental Status Subjective Notes: Shields Warning and Conditional Voluntary Healthcare Proxy: No Guardianship: No Medical Problems Affecting Mental Status: No Interim History: Patient seen and discussed with team. Pt was sitting in the nude on her roommate's bed, on 5 min checks. Patient evaluated today and upon interview she was found naked in her room, had cleaned herself in the sink. She was redirectable, put clothes on. Says she slept last night. Pt is psychotic, disorganized, disoriented, says she is gonna go on a date with her . Worries about mom being safe. Denies physical or emotional pain. Says she wants to see my and that she is coming from [place], [place]. Pt says she loves classical music.? In the milieu, patient is safe but intrusive in behavior. Denies SI/SIB/HI upon inquiry. Denies irritability or assaultive ideation. Says she feels safe. Medication Compliance: Yes Side effects from medications: No Attending Groups: No Review of Systems Acute medical concerns: No Medical Review of Systems: unchanged Mental Status Exam Mental Status Exam Narrative: Patient Appearance:?Fatigued Patient Orientation:?Person Level of Consciousness:?Alert Patient Behavior:?Guarded, Talkative, Cooperative, Anxious, Fearful, Avoidant, Fatigued, Distractible, Impulsive and Poor Eye Contact Mood Description:?Labile Affect Description:?Labile Patient Cognition Impaired:?Yes Ability to Follow Directions:?Fair Speech Pattern:?Spontaneous Speech Memory Description:?Remote Impaired and Episodic Impaired Hallucinations:?None (denies) Delusions:?Paranoid Ideation and Grandiose Perceptual Disturbances:?Depersonalization and Derealization Thought Process:?Racing, Illogical and Distracted Thought Content:?positive for Flight of Ideas, positive for Racing, positive for Tangential, positive for Suicidal Ideation and positive for Homicidal Ideation Depressive Symptoms:?Difficulty Sleeping, Isolating-Friends/Family, Thoughts of /Suicide and Difficulty Concentrating Abnormal Motor Activity Signs and Symptoms:?Restlessness Judgment:?Poor Diagnostics Vital Signs (24Hr): Vital Signs - 24 hr 01/17/22 19:00 Temperature 99.2 F Pulse Rate 92 Respiratory Rate 17 Blood Pressure 103/50 L Pulse Oximetry 99 BMI result Body Mass Index 20.1 Labs Results: 01/12/22 02:09 01/12/22 10:00 Imaging Radiology Impressions: ITS Impressions Chest X-Ray 01/12/22 01:00 IMPRESSION: Clear lungs. Head CT 01/12/22 02:25 IMPRESSION: No acute intracranial pathology. Brain MRI 01/12/22 12:15 IMPRESSION: 1. No acute intracranial abnormalities. No abnormal intracranial enhancement. 2. No MRI abnormalities to explain the patient's symptoms. Medications Medications Current Medications Acetaminophen (Acetaminophen 325 Mg Tablet) 650 mg PO Q6H PRN PRN Reason: Headache/Pain Mild Scale (1-3) Last Admin: 01/13/22 11:24 Dose: 650 mg Documented by: Al Hydroxide/Mg Hydroxide (Magnesium Hydrox/Alum Hydrox 30 Ml Oral.Susp) 30 ml PO Q6H PRN PRN Reason: Heartburn/Nausea Divalproex Sodium (Divalproex Sodium 500 Mg Tablet.Dr) 500 mg PO BID [facility] Last Admin: 01/17/22 21:30 Dose: 500 mg Documented by: Erythromycin (Erythromycin Base 0.5% Oph Oin 1 Gm Tube) 1 cm EYE-BOTH BID [facility] Last Admin: 01/17/22 21:32 Dose: Not Given Documented by: Haloperidol (Haloperidol 5 Mg Tablet) 5 mg PO TID PRN PRN Reason: jimmy, psychosis Last Admin: 01/16/22 20:19 Dose: 5 mg Documented by: Haloperidol (Haloperidol 5 Mg Tablet) 5 mg PO BID [facility] Last Admin: 01/17/22 21:30 Dose: 5 mg Documented by: Hydroxyzine HCl (Hydroxyzine Hcl 25 Mg Tablet) 25 mg PO BEDTIME PRN PRN Reason: Anxiety Ibuprofen (Ibuprofen 800 Mg Tablet) 800 mg PO Q8H PRN PRN Reason: Pain, Mild (Pain Scale 1-3) Lorazepam (Lorazepam 1 Mg Tablet) 1 mg PO Q4H PRN PRN Reason: agitation, jimmy Magnesium Hydroxide (Milk Of Magnesia 30 Ml Oral.Susp) 30 ml PO DAILY PRN PRN Reason: Constipation Melatonin (Melatonin 3 Mg Tablet) 6 mg PO BEDTIME PRN PRN Reason: Insomnia Last Admin: 01/16/22 20:16 Dose: 6 mg Documented by: Senna (Sennosides 8.6 Mg Tablet) 17.2 mg PO BEDTIME PRN PRN Reason: Constipation Trazodone HCl (Trazodone Hcl 50 Mg Tablet) 50 mg PO BEDTIME PRN PRN Reason: Insomnia Last Admin: 01/15/22 22:10 Dose: 50 mg Documented by: Allergies Allergies Allergy/AdvReac Type Severity Reaction Status Date / Time amoxicillin AdvReac Intermediate Rash Verified 01/11/22 21:42 fluoxetine [From Prozac] AdvReac Depression Verified 01/11/22 21:43 Assessment & Plan Assessment & Plan (1) Mood disorder: Status: Acute Code(s): F39 - Unspecified mood [affective] disorder Plan 21 yo female, hx of anxiety, depression, presents with symptoms of jimmy with psychosis. Thorough medical eval with no positive findings for meningitis, but with UTI, leukocytosis. Pt today is presenting with psychosis, jimmy. Plan: Increase Risperdal to 1 mg bid Depakote 500 mg bid 01/14/22- Continue current regime. 01/15/22- Pt continues to be psychotic 01/16/22- Pt continues to be disorganized I spent minutes with the patient and/or on the patient floor today, greater than?50% of which was spent counseling/coordinating care. Reason for contiued inpatient stay Substantial Risk for: inability to function, rapid decompensation and med/psych decompensation
[2022-01-18] MEDS: HaloperidoL 5 MG TABLET PO ×2 (09:56→21:14)
[2022-01-18] MEDS: Divalproex Sodium 500 MG TABLET.DR PO (09:56)
[2022-01-18 16:45] VITALS: BP 125/80; PULSE 93; TEMP 37.1
--- NOTE | 2022-01-18 17:07 | P.PNPSI_ITS ---
Subjective Subjective Date of Service: 01/18/22 Reason For Visit: Altered Mental Status Interim History: Continues with lability, intrusive thoughts. Team provided a note pt wrote to her mom indicating thoughts of suicide prior to admission via hanging. Today, denies perceptual alterations, denies SI, plan or intent-focused on going to group-especially art. Reports to team that she lost urinary continence when in bed last night. UTI rx completed. Will ask for urology consult when sx are more stable. Medication Compliance: Yes Side effects from medications: No Attending Groups: Intermittent Review of Systems Acute medical concerns: No Urinary incontinence, intermittent. Medical Review of Systems: unchanged Review of Systems Genitourinary: Reports urinary incontinence Reports behavioral changes, Reports confusion and Reports memory loss Psychiatric: Reports abnormal sleep pattern, Reports behavioral changes, Reports confusion, Reports difficulty concentrating, Reports irritability, Reports anhedonia, Reports memory loss, Reports mood swings and Reports suicidal ideation Mental Status Exam Mental Status Exam Patient Appearance: Fatigued Patient Orientation: Person and Place Level of Consciousness: Sedated and Alert Patient Behavior: Talkative, Cooperative, Restless, Wandering, Fatigued, Distractible, Confused, Good Eye Contact and Impulsive Mood Description: Labile Affect Description: Labile Patient Cognition Impaired: Yes Ability to Follow Directions: Good Speech Pattern: Spontaneous Speech and Rambling Memory Description: Remote Impaired and Episodic Impaired Hallucinations: None Delusions: Grandiose and Present Perceptual Disturbances: Depersonalization and Derealization Thought Process: Distracted Thought Content: positive for Tangential, positive for Disorganized and positive for Suicidal Ideation (denies) Depressive Symptoms: Sleeping More Than Usual (seems to be attempting to re- establish her sleep with increase today.) and Difficulty Concentrating Judgement: Poor Diagnostics Vital Signs (24Hr): Vital Signs - 24 hr 01/17/22 19:00 01/18/22 16:45 Temperature 99.2 F 98.8 F Pulse Rate 92 93 Respiratory Rate 17 Blood Pressure 103/50 L 125/80 Pulse Oximetry 99 BMI result Body Mass Index 20.1 Labs Results: 01/12/22 02:09 01/12/22 10:00 Imaging Radiology Impressions: ITS Impressions Chest X-Ray 01/12/22 01:00 IMPRESSION: Clear lungs. Head CT 01/12/22 02:25 IMPRESSION: No acute intracranial pathology. Brain MRI 01/12/22 12:15 IMPRESSION: 1. No acute intracranial abnormalities. No abnormal intracranial enhancement. 2. No MRI abnormalities to explain the patient's symptoms. Medications Medications Current Medications Acetaminophen (Acetaminophen 325 Mg Tablet) 650 mg PO Q6H PRN PRN Reason: Headache/Pain Mild Scale (1-3) Last Admin: 01/13/22 11:24 Dose: 650 mg Documented by: Al Hydroxide/Mg Hydroxide (Magnesium Hydrox/Alum Hydrox 30 Ml Oral.Susp) 30 ml PO Q6H PRN PRN Reason: Heartburn/Nausea Divalproex Sodium (Divalproex Sodium Er 500 Mg Tab.Er.24h) 1,500 mg PO BEDTIME JOHANNA Erythromycin (Erythromycin Base 0.5% Oph Oin 1 Gm Tube) 1 cm EYE-BOTH BID JOHANNA Last Admin: 01/18/22 09:56 Dose: Not Given Documented by: Haloperidol (Haloperidol 5 Mg Tablet) 5 mg PO TID PRN PRN Reason: daksha, psychosis Last Admin: 01/16/22 20:19 Dose: 5 mg Documented by: Haloperidol (Haloperidol 5 Mg Tablet) 10 mg PO BID JOHANNA Hydroxyzine HCl (Hydroxyzine Hcl 25 Mg Tablet) 25 mg PO BEDTIME PRN PRN Reason: Anxiety Ibuprofen (Ibuprofen 800 Mg Tablet) 800 mg PO Q8H PRN PRN Reason: Pain, Mild (Pain Scale 1-3) Lorazepam (Lorazepam 1 Mg Tablet) 1 mg PO Q4H PRN PRN Reason: agitation, daksha Magnesium Hydroxide (Milk Of Magnesia 30 Ml Oral.Susp) 30 ml PO DAILY PRN PRN Reason: Constipation Melatonin (Melatonin 3 Mg Tablet) 6 mg PO BEDTIME PRN PRN Reason: Insomnia Last Admin: 01/16/22 20:16 Dose: 6 mg Documented by: Senna (Sennosides 8.6 Mg Tablet) 17.2 mg PO BEDTIME PRN PRN Reason: Constipation Trazodone HCl (Trazodone Hcl 50 Mg Tablet) 50 mg PO BEDTIME PRN PRN Reason: Insomnia Last Admin: 01/15/22 22:10 Dose: 50 mg Documented by: Allergies Allergies Allergy/AdvReac Type Severity Reaction Status Date / Time amoxicillin AdvReac Intermediate Rash Verified 01/11/22 21:42 fluoxetine [From Prozac] AdvReac Depression Verified 01/11/22 21:43 Assessment & Plan Assessment & Plan (1) Mood disorder: Status: Acute Code(s): F39 - Unspecified mood [affective] disorder Plan 21 yo female, hx of anxiety, depression, presents with symptoms of daksha with psychosis. Thorough medical eval with no positive findings for meningitis, but with UTI, leukocytosis. Pt today is presenting with psychosis, daksha. Plan: Increase Risperdal to 1 mg bid Depakote 500 mg bid 01/14/22- Continue current regime. 01/17/22- Daksha/psychosis sx remain. Discontinue Risperdal Haldol 5 mg bid Lorazepam 1 mg po q 4hours prn 01/18/22- Some improvement with continued symptoms Increase Depakote to ER 1500 mg HS Increase Haldol to 10 mg bid Urology consult when sx subside for incontinence. I spent minutes with the patient and/or on the patient floor today, greater than?50% of which was spent counseling/coordinating care. Informed Consent: does not understand Reason for contiued inpatient stay Substantial Risk for: harm to self, harm to others, inability to function, rapid decompensation and med/psych decompensation
[2022-01-18] MEDS: Divalproex Sodium ER 500 MG TAB.ER.24H 1500 MG PO (21:14)
[2022-01-18] MEDS: HaloperidoL 5 MG TABLET 10 MG PO (21:14)
--- NOTE | 2022-01-18 21:57 | PC.NURSE ---
Pt submitted a Three Day Notice on Thursday 01/18 up on Sunday 01/21.
[2022-01-19] MEDS: HaloperidoL 5 MG TABLET 10 MG PO ×2 (12:41→21:16)
--- NOTE | 2022-01-19 16:45 | P.PNPSI_ITS ---
Subjective Subjective Date of Service: 01/19/22 Reason For Visit: Altered Mental Status Subjective Notes: 3 Day Healthcare Proxy: No Guardianship: No Medical Problems Affecting Mental Status: No Interim History: Pt continues with lability, psychosis, however with increase in sleep and increase moments of clarity. Reported nightmares to team. Reports she is feeling wonderful to tw- with eu phoria, grandiosity and stating she could not feel better. Medication Compliance: Yes Side effects from medications: No Attending Groups: No Review of Systems Acute medical concerns: No Medical Review of Systems: unchanged Review of Systems Reports behavioral changes and Reports confusion Psychiatric: Reports abnormal sleep pattern, Reports behavioral changes, Reports confusion, Reports difficulty concentrating, Reports auditory hallucinations, Reports irritability, Reports mood swings and Reports suicidal ideation (denies) Mental Status Exam Mental Status Exam Patient Appearance: Fatigued Patient Orientation: Person and Place Level of Consciousness: Sedated and Alert Patient Behavior: Talkative, Cooperative, Restless, Wandering, Fatigued, Distractible, Confused, Good Eye Contact and Impulsive Mood Description: Labile Affect Description: Labile Patient Cognition Impaired: Yes Ability to Follow Directions: Good Speech Pattern: Spontaneous Speech and Rambling Memory Description: Remote Impaired and Episodic Impaired Hallucinations: None Delusions: Grandiose and Present Perceptual Disturbances: Depersonalization and Derealization Thought Process: Distracted Thought Content: positive for Tangential, positive for Disorganized and positive for Suicidal Ideation (denies) Depressive Symptoms: Sleeping More Than Usual (seems to be attempting to re- establish her sleep with increase today.) and Difficulty Concentrating Judgement: Poor Diagnostics Vital Signs (24Hr): BMI result Body Mass Index 20.1 Labs Results: 01/12/22 02:09 01/12/22 10:00 Imaging Radiology Impressions: ITS Impressions Chest X-Ray 01/12/22 01:00 IMPRESSION: Clear lungs. Head CT 01/12/22 02:25 IMPRESSION: No acute intracranial pathology. Brain MRI 01/12/22 12:15 IMPRESSION: 1. No acute intracranial abnormalities. No abnormal intracranial enhancement. 2. No MRI abnormalities to explain the patient's symptoms. Medications Medications Current Medications Acetaminophen (Acetaminophen 325 Mg Tablet) 650 mg PO Q6H PRN PRN Reason: Headache/Pain Mild Scale (1-3) Last Admin: 01/13/22 11:24 Dose: 650 mg Documented by: Al Hydroxide/Mg Hydroxide (Magnesium Hydrox/Alum Hydrox 30 Ml Oral.Susp) 30 ml PO Q6H PRN PRN Reason: Heartburn/Nausea Divalproex Sodium (Divalproex Sodium Er 500 Mg Tab.Er.24h) 1,500 mg PO BEDTIME [facility] Last Admin: 01/18/22 21:14 Dose: 1,500 mg Documented by: Erythromycin (Erythromycin Base 0.5% Oph Oin 1 Gm Tube) 1 cm EYE-BOTH BID [facility] Last Admin: 01/19/22 12:45 Dose: Not Given Documented by: Haloperidol (Haloperidol 5 Mg Tablet) 5 mg PO TID PRN PRN Reason: daksha, psychosis Last Admin: 01/18/22 21:14 Dose: 5 mg Documented by: Haloperidol (Haloperidol 5 Mg Tablet) 10 mg PO BID [facility] Last Admin: 01/19/22 12:41 Dose: 10 mg Documented by: Hydroxyzine HCl (Hydroxyzine Hcl 25 Mg Tablet) 25 mg PO BEDTIME PRN PRN Reason: Anxiety Ibuprofen (Ibuprofen 800 Mg Tablet) 800 mg PO Q8H PRN PRN Reason: Pain, Mild (Pain Scale 1-3) Lorazepam (Lorazepam 1 Mg Tablet) 1 mg PO Q4H PRN PRN Reason: agitation, daksha Magnesium Hydroxide (Milk Of Magnesia 30 Ml Oral.Susp) 30 ml PO DAILY PRN PRN Reason: Constipation Melatonin (Melatonin 3 Mg Tablet) 6 mg PO BEDTIME PRN PRN Reason: Insomnia Last Admin: 01/16/22 20:16 Dose: 6 mg Documented by: Senna (Sennosides 8.6 Mg Tablet) 17.2 mg PO BEDTIME PRN PRN Reason: Constipation Trazodone HCl (Trazodone Hcl 50 Mg Tablet) 50 mg PO BEDTIME PRN PRN Reason: Insomnia Last Admin: 01/15/22 22:10 Dose: 50 mg Documented by: Allergies Allergies Allergy/AdvReac Type Severity Reaction Status Date / Time amoxicillin AdvReac Intermediate Rash Verified 01/11/22 21:42 fluoxetine [From Prozac] AdvReac Depression Verified 01/11/22 21:43 Assessment & Plan Assessment & Plan (1) Mood disorder: Status: Acute Code(s): F39 - Unspecified mood [affective] disorder Plan 21 yo female, hx of anxiety, depression, presents with symptoms of daksha with psychosis. Thorough medical eval with no positive findings for meningitis, but with UTI, leukocytosis. Pt today is presenting with psychosis, daksha. Plan: Increase Risperdal to 1 mg bid Depakote 500 mg bid 01/14/22- Continue current regime. 01/17/22- Daksha/psychosis sx remain. Discontinue Risperdal Haldol 5 mg bid Lorazepam 1 mg po q 4hours prn 01/18/22- Some improvement with continued symptoms Increase Depakote to ER 1500 mg HS Increase Haldol to 10 mg bid Urology consult when sx subside for incontinence. 01/19/22- Continue current regime I spent minutes with the patient and/or on the patient floor today, greater than?50% of which was spent counseling/coordinating care. Patient educated on: therapeutic strategies Informed Consent: does not understand Reason for contiued inpatient stay Substantial Risk for: harm to self, harm to others, inability to function and rapid decompensation
[2022-01-19 18:00] VITALS: BP 93/55; PULSE 67; RESP 18; TEMP 37.4; O2SAT 98
[2022-01-19] MEDS: Erythromycin Base 0.5% Oph Oin 1 GM TUBE 1 CM EYE-BOTH (21:15)
[2022-01-19] MEDS: Divalproex Sodium ER 500 MG TAB.ER.24H 1500 MG PO (21:15)
[2022-01-19] MEDS: Sennosides 8.6 MG TABLET 17.2 MG PO (21:17)
[2022-01-20] MEDS: HaloperidoL 5 MG TABLET 10 MG PO (10:08)
[2022-01-20] MEDS: Erythromycin Base 0.5% Oph Oin 1 GM TUBE 1 CM EYE-BOTH ×2 (10:08→21:55)
[2022-01-20] MEDS: Milk of Magnesia 30 ML ORAL.SUSP PO (11:51)
[2022-01-20] MEDS: bisacodyL 5 MG TABLET.DR 10 MG PO (13:33)
[2022-01-20 17:06] VITALS: BP 99/61; PULSE 78; RESP 18; TEMP 37.7; O2SAT 98
--- NOTE | 2022-01-20 17:44 | HO.PSYCHPN ---
Subjective Subjective Date of Service: 01/20/22 Reason For Visit: Altered Mental Status Subjective Notes: 3 Day Healthcare Proxy: No Guardianship: No Medical Problems Affecting Mental Status: No Interim History: Divya attended to her ADL's today. She discussed feeling constipate with tw and she was able to talk through a plan of care to address this. Discussed feeling tired and notes the milieu chaos that has been present this week (an accurate assessment). She states she prefers to remain in her room. Discussed her TDN and she states she will retract tomorrow in her family meeting (01/21/22 11am). Medication Compliance: Yes Side effects from medications: Yes ([place]ed[place]) Attending Groups: No Review of Systems Acute medical concerns: No Medical Review of Systems: unchanged Review of Systems Gastrointestinal: Reports constipation Reports behavioral changes, Reports confusion and Reports memory loss Psychiatric: Reports abnormal sleep pattern, Reports behavioral changes, Reports confusion, Reports difficulty concentrating, Reports memory loss, Reports mood swings and Reports suicidal ideation (denies) Mental Status Exam Mental Status Exam Patient Appearance: Fatigued Patient Orientation: Person and Place Level of Consciousness: Awake and Alert Patient Behavior: Talkative, Fatigued, Distractible and Good Eye Contact Mood Description: Flat Affect Description: Flat Patient Cognition Impaired: No Ability to Follow Directions: Good Speech Pattern: Spontaneous Speech Memory Description: Remote Impaired and Episodic Impaired Hallucinations: None Delusions: Grandiose (mild) Thought Content: positive for [place] and positive for Suicidal Ideation (denies) Depressive Symptoms: Sleeping More Than Usual, Unexplained Stomach Pain (constipation) and Loss of Energy Judgement: Poor Diagnostics Vital Signs (24Hr): Vital Signs - 24 hr 01/19/22 18:00 01/20/22 17:06 Temperature 99.4 F 99.8 F Pulse Rate 67 78 Respiratory Rate 18 18 Blood Pressure 93/55 L 99/61 Pulse Oximetry 98 98 BMI result Body Mass Index 20.1 Labs Results: 01/12/22 02:09 01/12/22 10:00 Imaging Radiology Impressions: ITS Impressions Chest X-Ray 01/12/22 01:00 IMPRESSION: Clear lungs. Head CT 01/12/22 02:25 IMPRESSION: No acute intracranial pathology. Brain MRI 01/12/22 12:15 IMPRESSION: 1. No acute intracranial abnormalities. No abnormal intracranial enhancement. 2. No MRI abnormalities to explain the patient's symptoms. Medications Medications Current Medications Acetaminophen (Acetaminophen 325 Mg Tablet) 650 mg PO Q6H PRN PRN Reason: Headache/Pain Mild Scale (1-3) Last Admin: 01/13/22 11:24 Dose: 650 mg Documented by: Al Hydroxide/Mg Hydroxide (Magnesium Hydrox/Alum Hydrox 30 Ml Oral.Susp) 30 ml PO Q6H PRN PRN Reason: Heartburn/Nausea Divalproex Sodium (Divalproex Sodium Er 500 Mg Tab.Er.24h) 1,000 mg PO BEDTIME [facility] Docusate Sodium (Docusate Sodium 100 Mg Capsule) 100 mg PO BID [facility] Erythromycin (Erythromycin Base 0.5% Oph Oin 1 Gm Tube) 1 cm EYE-BOTH BID [facility] Last Admin: 01/20/22 10:08 Dose: 1 cm Documented by: Haloperidol (Haloperidol 5 Mg Tablet) 5 mg PO TID PRN PRN Reason: daksha, psychosis Last Admin: 01/18/22 21:14 Dose: 5 mg Documented by: Haloperidol (Haloperidol 5 Mg Tablet) 7.5 mg PO BID [facility] Hydroxyzine HCl (Hydroxyzine Hcl 25 Mg Tablet) 25 mg PO BEDTIME PRN PRN Reason: Anxiety Ibuprofen (Ibuprofen 800 Mg Tablet) 800 mg PO Q8H PRN PRN Reason: Pain, Mild (Pain Scale 1-3) Lorazepam (Lorazepam 1 Mg Tablet) 1 mg PO Q4H PRN PRN Reason: agitation, daksha Magnesium Hydroxide (Milk Of Magnesia 30 Ml Oral.Susp) 30 ml PO DAILY PRN PRN Reason: Constipation Last Admin: 01/20/22 11:51 Dose: 30 ml Documented by: Melatonin (Melatonin 3 Mg Tablet) 6 mg PO BEDTIME PRN PRN Reason: Insomnia Last Admin: 01/16/22 20:16 Dose: 6 mg Documented by: Senna (Sennosides 8.6 Mg Tablet) 17.2 mg PO BEDTIME PRN PRN Reason: Constipation Last Admin: 01/19/22 21:17 Dose: 17.2 mg Documented by: Trazodone HCl (Trazodone Hcl 50 Mg Tablet) 50 mg PO BEDTIME PRN PRN Reason: Insomnia Last Admin: 01/15/22 22:10 Dose: 50 mg Documented by: Allergies Allergies Allergy/AdvReac Type Severity Reaction Status Date / Time amoxicillin AdvReac Intermediate Rash Verified 01/11/22 21:42 fluoxetine [From Prozac] AdvReac Depression Verified 01/11/22 21:43 Assessment & Plan Assessment & Plan (1) Mood disorder: Status: Acute Code(s): F39 - Unspecified mood [affective] disorder Plan 21 yo female, hx of anxiety, depression, presents with symptoms of daksha with psychosis. Thorough medical eval with no positive findings for meningitis, but with UTI, leukocytosis. Pt today is presenting with psychosis, daksha. Plan: Increase Risperdal to 1 mg bid Depakote 500 mg bid 01/14/22- Continue current regime. 01/17/22- Daksha/psychosis sx remain. Discontinue Risperdal Haldol 5 mg bid Lorazepam 1 mg po q 4hours prn 01/18/22- Some improvement with continued symptoms Increase Depakote to ER 1500 mg HS Increase Haldol to 10 mg bid Urology consult when sx subside for incontinence. 01/20/22- [place]. TDN to 01/21. Pt plans to retract in her family meeting on 01/21 with parents present. Decrease Depakote to 1000 mg HS Decrease Haldol to 7.5 mg bid Colace 100 mg bid Dulcolax 10 mg x 1-pt reports constipation I spent minutes with the patient and/or on the patient floor today, greater than?50% of which was spent counseling/coordinating care. Patient educated on: medication risk/benefits and medical condition Informed Consent: further education needed Reason for contiued inpatient stay Substantial Risk for: harm to self, harm to others, inability to function and rapid decompensation
[2022-01-20] MEDS: HaloperidoL 5 MG TABLET 7.5 MG PO (20:59)
[2022-01-20] MEDS: Docusate Sodium 100 MG CAPSULE PO (21:00)
[2022-01-20] MEDS: Divalproex Sodium ER 500 MG TAB.ER.24H 1000 MG PO (21:01)
[2022-01-21] MEDS: HaloperidoL 5 MG TABLET 7.5 MG PO (09:28)
[2022-01-21] MEDS: Docusate Sodium 100 MG CAPSULE PO ×2 (09:28→21:17)
[2022-01-21 09:33] VITALS: BP 108/61; PULSE 84; RESP 20; TEMP 36.8; O2SAT 99
[2022-01-21] MEDS: Erythromycin Base 0.5% Oph Oin 1 GM TUBE 1 CM EYE-BOTH ×2 (10:10→22:19)
--- NOTE | 2022-01-21 15:04 | HO.PSYCHPN ---
Subjective Subjective Date of Service: 01/21/22 Reason For Visit: Altered Mental Status Subjective Notes: 3 Day (retracted for Li COOK today) Healthcare Proxy: No Guardianship: No Medical Problems Affecting Mental Status: No Interim History: Met with parents and Li COOK today to review current plan of care and to address questions. Pt remains tired, however, with greater clarity and closer to baseline per parents report. Parents discussed pt's history and sx [employer]-it appears sx have been increasing since . Parents are very invested in pt's care and supportive of her recovery Medication Compliance: Yes Side effects from medications: No Attending Groups: No Review of Systems Acute medical concerns: No Medical Review of Systems: unchanged Review of Systems Psychiatric: Reports abnormal sleep pattern Mental Status Exam Mental Status Exam Patient Appearance: Fatigued Patient Orientation: Person and Place Level of Consciousness: Awake and Alert Patient Behavior: Talkative, Fatigued, Distractible and Good Eye Contact Mood Description: Flat Affect Description: Flat Patient Cognition Impaired: No Ability to Follow Directions: Good Speech Pattern: Spontaneous Speech Memory Description: Remote Impaired and Episodic Impaired Hallucinations: None Delusions: Grandiose (mild) Thought Content: positive for [place] and positive for Suicidal Ideation (denies) Depressive Symptoms: Sleeping More Than Usual, Unexplained Stomach Pain (constipation) and Loss of Energy Judgement: Poor Diagnostics Vital Signs (24Hr): Vital Signs - 24 hr 01/20/22 17:06 01/21/22 09:33 Temperature 99.8 F 98.2 F Pulse Rate 78 84 Respiratory Rate 18 20 Blood Pressure 99/61 108/61 Pulse Oximetry 98 99 BMI result Body Mass Index 20.1 Labs Results: 01/12/22 02:09 01/12/22 10:00 Imaging Radiology Impressions: ITS Impressions Chest X-Ray 01/12/22 01:00 IMPRESSION: Clear lungs. Head CT 01/12/22 02:25 IMPRESSION: No acute intracranial pathology. Brain MRI 01/12/22 12:15 IMPRESSION: 1. No acute intracranial abnormalities. No abnormal intracranial enhancement. 2. No MRI abnormalities to explain the patient's symptoms. Medications Medications Current Medications Acetaminophen (Acetaminophen 325 Mg Tablet) 650 mg PO Q6H PRN PRN Reason: Headache/Pain Mild Scale (1-3) Last Admin: 01/13/22 11:24 Dose: 650 mg Documented by: Al Hydroxide/Mg Hydroxide (Magnesium Hydrox/Alum Hydrox 30 Ml Oral.Susp) 30 ml PO Q6H PRN PRN Reason: Heartburn/Nausea Divalproex Sodium (Divalproex Sodium Er 500 Mg Tab.Er.24h) 1,000 mg PO BEDTIME [facility] Last Admin: 01/20/22 21:01 Dose: 1,000 mg Documented by: Docusate Sodium (Docusate Sodium 100 Mg Capsule) 100 mg PO BID [facility] Last Admin: 01/21/22 09:28 Dose: 100 mg Documented by: Erythromycin (Erythromycin Base 0.5% Oph Oin 1 Gm Tube) 1 cm EYE-BOTH BID [facility] Last Admin: 01/21/22 10:10 Dose: 1 cm Documented by: Haloperidol (Haloperidol 5 Mg Tablet) 5 mg PO TID PRN PRN Reason: adksha, psychosis Last Admin: 01/18/22 21:14 Dose: 5 mg Documented by: Haloperidol (Haloperidol 5 Mg Tablet) 7.5 mg PO BID [facility] Last Admin: 01/21/22 09:28 Dose: 7.5 mg Documented by: Hydroxyzine HCl (Hydroxyzine Hcl 25 Mg Tablet) 25 mg PO BEDTIME PRN PRN Reason: Anxiety Ibuprofen (Ibuprofen 800 Mg Tablet) 800 mg PO Q8H PRN PRN Reason: Pain, Mild (Pain Scale 1-3) Lorazepam (Lorazepam 1 Mg Tablet) 1 mg PO Q4H PRN PRN Reason: agitation, daksha Magnesium Hydroxide (Milk Of Magnesia 30 Ml Oral.Susp) 30 ml PO DAILY PRN PRN Reason: Constipation Last Admin: 01/20/22 11:51 Dose: 30 ml Documented by: Melatonin (Melatonin 3 Mg Tablet) 6 mg PO BEDTIME PRN PRN Reason: Insomnia Last Admin: 01/16/22 20:16 Dose: 6 mg Documented by: Senna (Sennosides 8.6 Mg Tablet) 17.2 mg PO BEDTIME PRN PRN Reason: Constipation Last Admin: 01/19/22 21:17 Dose: 17.2 mg Documented by: Trazodone HCl (Trazodone Hcl 50 Mg Tablet) 50 mg PO BEDTIME PRN PRN Reason: Insomnia Last Admin: 01/15/22 22:10 Dose: 50 mg Documented by: Allergies Allergies Allergy/AdvReac Type Severity Reaction Status Date / Time amoxicillin AdvReac Intermediate Rash Verified 01/11/22 21:42 fluoxetine [From Prozac] AdvReac Depression Verified 01/11/22 21:43 Assessment & Plan Assessment & Plan (1) Mood disorder: Status: Acute Code(s): F39 - Unspecified mood [affective] disorder Plan 21 yo female, hx of anxiety, depression, presents with symptoms of daksha with psychosis. Thorough medical eval with no positive findings for meningitis, but with UTI, leukocytosis. Pt today is presenting with psychosis, daksha. Plan: Increase Risperdal to 1 mg bid Depakote 500 mg bid 01/14/22- Continue current regime. 01/17/22- Daksha/psychosis sx remain. Discontinue Risperdal Haldol 5 mg bid Lorazepam 1 mg po q 4hours prn 01/18/22- Some improvement with continued symptoms Increase Depakote to ER 1500 mg HS Increase Haldol to 10 mg bid Urology consult when sx subside for incontinence. 01/20/22- [place]. TDN to 01/21. Pt plans to retract in her family meeting on 01/21 with parents present. Decrease Depakote to 1000 mg HS Decrease Haldol to 7.5 mg bid Colace 100 mg bid Dulcolax 10 mg x 1-pt reports constipation 01/21/22- Decrease Haldol to 5 mg bid Lamictal 25 mg daily Labs 01/22 I spent minutes with the patient and/or on the patient floor today, greater than?50% of which was spent counseling/coordinating care. Patient educated on: therapeutic strategies Guardian/Caregiver educated on: diagnosis, medication risk/benefits and therapeutic strategies Informed Consent: understands and further education needed Reason for contiued inpatient stay Substantial Risk for: harm to self, harm to others, inability to function and rapid decompensation
[2022-01-21 18:00] VITALS: BP 107/62; PULSE 116; RESP 18; TEMP 36.3; O2SAT 97
[2022-01-21] MEDS: Acetaminophen 325 MG TABLET 650 MG PO (20:24)
[2022-01-21] MEDS: Divalproex Sodium ER 500 MG TAB.ER.24H 1000 MG PO (21:15)
[2022-01-21] MEDS: lamoTRIgine 25 MG TABLET PO (21:17)
[2022-01-21] MEDS: HaloperidoL 5 MG TABLET PO (21:18)
[2022-01-22 08:26] LABS: MANUAL DIFF FLAG NO
[2022-01-22 08:28] LABS: Basophils Percent Auto 0.7 % (0-2); Eosinophils Absolute Auto 0.1 X10*3/uL (0.0-0.4); Eosinophils Percent Auto 2.2 % (0-4); Hematocrit 37.9 % (37.0-47.0); Hemoglobin 12.5 g/dl (12.0-16.0); Imm Gran Abs Auto 0.02 X10*3/uL (0.00-0.03); Imm Gran Pct Auto 0.4 % (0.0-0.4); Lymphocytes Absolute Auto 1.3 X10*3/uL (1.2-4.9); Lymphocytes Percent Auto 27.8 % (20-40); Mean Corpuscular Hemoglobin 27.4 pg (27.0-33.0); Mean Corpuscular Volume 83.1 fL (80.0-98.0); Mean Platelet Volume 11.5 fL (9.4-12.3); Monocytes Absolute Auto 0.5 X10*3/uL (0.1-1.2); Monocytes Percent Auto 11.8 % (2-11); Neutrophils Absolute Auto 2.6 x10*3/uL (2.0-8.3); Neutrophils Percent Auto 57.1 % (45-73); Platelet Count 202 X10*3/uL (160-400); Red Blood Count 4.56 X10*6/uL (4.20-5.50); Red Cell Distribution Width 14.6 % (11.0-16.0); White Blood Count 4.6 X10*3/uL (4.8-10.8)
[2022-01-22 08:50] LABS: Alanine Aminotransferase 10 U/L (0-31); Albumin Level 3.7 g/dL (3.5-5.0); Alkaline Phosphatase 42 U/L (39-117); Anion Gap 11 (12-20); Aspartate Amino Transferase 13 U/L (5-31); Bilirubin Total 0.8 mg/dL (0.0-1.0); Blood Urea Nitrogen 10 mg/dL (9-16); Calcium 9.3 mg/dL (8.4-10.2); Carbon Dioxide 28 mmol/L (22-29); Chloride 105 mmol/L (96-108); Creatinine Clr Calc Pharmacy 106.6; Estimated Glomerular Filt Rate > 60; Glucose Random 80 mg/dL (60-115); Potassium 4.9 mmol/L (3.3-5.1); Sodium 139 mmol/L (135-145); Total Protein 6.2 g/dL (6.5-8.0)
[2022-01-22 08:55] LABS: Valproate 63.3 mcg/mL (50.0-100.0)
[2022-01-22] MEDS: HaloperidoL 5 MG TABLET PO ×2 (09:14→20:40)
[2022-01-22] MEDS: Docusate Sodium 100 MG CAPSULE PO ×2 (09:14→20:40)
[2022-01-22 09:16] VITALS: BP 107/61; PULSE 61; RESP 16; TEMP 36.3; O2SAT 99
--- NOTE | 2022-01-22 13:44 | HO.PSYCHPN ---
Subjective Subjective Date of Service: 01/22/22 Reason For Visit: Altered Mental Status Interim History: Met with parents. Reports ongoing improvement and says she has been more honest about my medications and how i feel Med group earlier in the day was helpful. Patient reports some increase sleep. She wants to go back to my things I used to do when I was at home. Feels safe. Denies SI. Review of Systems Review of Systems Yes all other systems are reviewed and are negative and Unobtainable due to mental status Eyes: Reports no additional eye complaints Reports Normal hearing present Gastrointestinal: Reports constipation Reports Normal hearing present, Reports behavioral changes, Reports confusion and Reports memory loss Psychiatric: Reports as per HPI, Reports abnormal sleep pattern, Reports anxiety, Reports behavioral changes, Reports change in appetite, Reports confusion, Reports depression, Reports difficulty concentrating, Reports auditory hallucinations, Reports hopelessness, Reports irritability, Reports anhedonia, Reports memory loss, Reports mood swings, Reports paranoia, Reports hallucinations, Reports homicidal ideation and Reports suicidal ideation (denies) Mental Status Exam Mental Status Exam Narrative: Patient Appearance:?Fatigued Patient Orientation:?Person Level of Consciousness:?Alert Patient Behavior:?Guarded, Talkative, Cooperative, Anxious, Fearful, Avoidant, Fatigued, Distractible, Mood Description:? Constricted Affect Description:?Constricted Patient Cognition Impaired:?No Ability to Follow Directions:?Fair Speech Pattern:?Spontaneous Speech Memory Description:?Remote Impaired and Episodic Impaired Hallucinations:?None (denies) Delusions: Less paranoid Perceptual Disturbances:?Depersonalization and Derealization Thought Process:?More coherent Thought Content:?No SI/No HI. Depressive Symptoms:?Isolating-Friends/Family, Abnormal Motor Activity Signs and Symptoms:?Calm Judgment:?Poor Patient Appearance: Fatigued Patient Orientation: Person and Place Level of Consciousness: Awake and Alert Patient Behavior: Talkative, Fatigued and Good Eye Contact Mood Description: Constricted Patient Cognition Impaired: No Ability to Follow Directions: Good Speech Pattern: Spontaneous Speech Memory Description: Intact Judgement: Fair Diagnostics Vital Signs (24Hr): Vital Signs - 24 hr 01/21/22 18:00 01/22/22 09:16 Temperature 97.3 F 97.4 F Pulse Rate 116 H 61 Respiratory Rate 18 16 Blood Pressure 107/62 107/61 Pulse Oximetry 97 99 BMI result Body Mass Index 20.1 Labs Results: 01/22/22 07:24 01/22/22 07:24 Labs: Laboratory Results - last 48 hr 01/22/22 01/22/22 01/22/22 07:24 07:24 07:24 WBC 4.6 L RBC 4.56 Hgb 12.5 Hct 37.9 MCV 83.1 MCH 27.4 MCHC 33.0 RDW 14.6 Plt Count 202 D MPV 11.5 Immature Gran % (Auto) 0.4 Neut % (Auto) 57.1 Lymph % (Auto) 27.8 [place] % (Auto) 11.8 H Eos % (Auto) 2.2 Baso % (Auto) 0.7 Lymph # (Auto) 1.3 [place] # (Auto) 0.5 Eos # (Auto) 0.1 Baso # (Auto) 0.0 Abs Immat Gran (auto) 0.02 Absolute Neuts (auto) 2.6 Absolute Nucleated RBC 0.000 Nucleated RBC % (auto) 0.0 Sodium 139 Potassium 4.9 D Chloride 105 Carbon Dioxide 28 Anion Gap 11 L BUN 10 Creatinine 0.67 Estim Creat Clear Calc 106.6 Estimated GFR > 60 Random Glucose 80 Calcium 9.3 D Total Bilirubin 0.8 AST 13 ALT 10 Alkaline Phosphatase 42 Total Protein 6.2 L D Albumin 3.7 Valproic Acid 63.3 Imaging Radiology Impressions: ITS Impressions Chest X-Ray 01/12/22 01:00 IMPRESSION: Clear lungs. Head CT 01/12/22 02:25 IMPRESSION: No acute intracranial pathology. Brain MRI 01/12/22 12:15 IMPRESSION: 1. No acute intracranial abnormalities. No abnormal intracranial enhancement. 2. No MRI abnormalities to explain the patient's symptoms. Medications Medications Current Medications Acetaminophen (Acetaminophen 325 Mg Tablet) 650 mg PO Q6H PRN PRN Reason: Headache/Pain Mild Scale (1-3) Last Admin: 01/21/22 20:24 Dose: 650 mg Documented by: Al Hydroxide/Mg Hydroxide (Magnesium Hydrox/Alum Hydrox 30 Ml Oral.Susp) 30 ml PO Q6H PRN PRN Reason: Heartburn/Nausea Divalproex Sodium (Divalproex Sodium Er 500 Mg Tab.Er.24h) 1,000 mg PO BEDTIME JOHANNA Last Admin: 01/21/22 21:15 Dose: 1,000 mg Documented by: Docusate Sodium (Docusate Sodium 100 Mg Capsule) 100 mg PO BID [facility] Last Admin: 01/22/22 09:14 Dose: 100 mg Documented by: Haloperidol (Haloperidol 5 Mg Tablet) 5 mg PO TID PRN PRN Reason: daksha, psychosis Last Admin: 01/18/22 21:14 Dose: 5 mg Documented by: Haloperidol (Haloperidol 5 Mg Tablet) 5 mg PO BID [facility] Last Admin: 01/22/22 09:14 Dose: 5 mg Documented by: Hydroxyzine HCl (Hydroxyzine Hcl 25 Mg Tablet) 25 mg PO BEDTIME PRN PRN Reason: Anxiety Ibuprofen (Ibuprofen 800 Mg Tablet) 800 mg PO Q8H PRN PRN Reason: Pain, Mild (Pain Scale 1-3) Lamotrigine (Lamotrigine 25 Mg Tablet) 25 mg PO BEDTIME [facility] Last Admin: 01/21/22 21:17 Dose: 25 mg Documented by: Lorazepam (Lorazepam 1 Mg Tablet) 1 mg PO Q4H PRN PRN Reason: agitation, daksha Magnesium Hydroxide (Milk Of Magnesia 30 Ml Oral.Susp) 30 ml PO DAILY PRN PRN Reason: Constipation Last Admin: 01/20/22 11:51 Dose: 30 ml Documented by: Melatonin (Melatonin 3 Mg Tablet) 6 mg PO BEDTIME PRN PRN Reason: Insomnia Last Admin: 01/16/22 20:16 Dose: 6 mg Documented by: Senna (Sennosides 8.6 Mg Tablet) 17.2 mg PO BEDTIME PRN PRN Reason: Constipation Last Admin: 01/19/22 21:17 Dose: 17.2 mg Documented by: Trazodone HCl (Trazodone Hcl 50 Mg Tablet) 50 mg PO BEDTIME PRN PRN Reason: Insomnia Last Admin: 01/15/22 22:10 Dose: 50 mg Documented by: Allergies Allergies Allergy/AdvReac Type Severity Reaction Status Date / Time amoxicillin AdvReac Intermediate Rash Verified 01/11/22 21:42 harrison AdvReac Intermediate Gastrointestinal Verified 01/21/22 19:19 Upset kiwi AdvReac Intermediate gi Verified 01/21/22 19:19 Milk Containing Products AdvReac Intermediate Gastrointestinal Verified 01/21/22 19:19 Upset cheese AdvReac gi distress Verified 01/21/22 19:19 fluoxetine [From Prozac] AdvReac Depression Verified 01/11/22 21:43 Assessment & Plan Assessment & Plan (1) Mood disorder: Status: Acute Code(s): F39 - Unspecified mood [affective] disorder Plan 21 yo female, hx of anxiety, depression, presents with symptoms of daksha with psychosis. Thorough medical eval with no positive findings for meningitis, but with UTI, leukocytosis. Pt today is presenting with psychosis, daksha. Plan: Increase Risperdal to 1 mg bid Depakote 500 mg bid 01/14/22- Continue current regime. 01/17/22- Daksha/psychosis sx remain. Discontinue Risperdal Haldol 5 mg bid Lorazepam 1 mg po q 4hours prn 01/18/22- Some improvement with continued symptoms Increase Depakote to ER 1500 mg HS Increase Haldol to 10 mg bid Urology consult when sx subside for incontinence. 01/20/22- [place]. TDN to 01/21. Pt plans to retract in her family meeting on 01/21 with parents present. Decrease Depakote to 1000 mg HS Decrease Haldol to 7.5 mg bid Colace 100 mg bid Dulcolax 10 mg x 1-pt reports constipation 01/21/22- Decrease Haldol to 5 mg bid Lamictal 25 mg daily Labs 01/22 01/22: Reviewed labs. WNL. Dep level 63. I spent minutes with the patient and/or on the patient floor today, greater than?50% of which was spent counseling/coordinating care. Reason for contiued inpatient stay Substantial Risk for: harm to self, inability to function and rapid decompensation
[2022-01-22 19:31] VITALS: BP 102/57; PULSE 74
[2022-01-22] MEDS: lamoTRIgine 25 MG TABLET PO (20:40)
[2022-01-22] MEDS: Divalproex Sodium ER 500 MG TAB.ER.24H 1000 MG PO (20:40)
[2022-01-23] MEDS: HaloperidoL 5 MG TABLET PO ×2 (08:59→20:35)
[2022-01-23] MEDS: Docusate Sodium 100 MG CAPSULE PO ×2 (08:59→20:35)
[2022-01-23 10:14] VITALS: BP 111/64; PULSE 85; RESP 18; TEMP 36.3; O2SAT 99
--- NOTE | 2022-01-23 11:36 | P.PNPSI_ITS ---
Subjective Subjective Date of Service: 01/23/22 Reason For Visit: Altered Mental Status Interim History: Met with patient. I have done a lot today. Seen in her room. She was reading a poetry book by Mary Anne Steven. Says she can concentrate. She is happy about how she has improved compared to before. She says she is more active. She feels educated about her medications and their helpful effects and wants to continue them. She is denying any racing thoughts. Feels she is clearer. Not depressed. Says she talked to her parents. Engaged in milieu more. Feels safe. Denies SI. Review of Systems Review of Systems Yes all other systems are reviewed and are negative and Unobtainable due to mental status Eyes: Reports no additional eye complaints Reports Normal hearing present Gastrointestinal: Reports constipation Reports Normal hearing present, Reports behavioral changes, Reports confusion and Reports memory loss Psychiatric: Reports as per HPI, Reports abnormal sleep pattern, Reports anxiety, Reports behavioral changes, Reports change in appetite, Reports confusion, Reports depression, Reports difficulty concentrating, Reports auditory hallucinations, Reports hopelessness, Reports irritability, Reports anhedonia, Reports memory loss, Reports mood swings, Reports paranoia, Reports hallucinations, Reports homicidal ideation and Reports suicidal ideation (denies) Mental Status Exam Mental Status Exam Narrative: Patient Appearance:?Fatigued Patient Orientation:?Person Level of Consciousness:?Alert Patient Behavior:?Cooperative Mood Description:? Constricted Affect Description:?Constricted Patient Cognition Impaired:?No Ability to Follow Directions:?Fair Speech Pattern:?Spontaneous Speech Memory Description: Intact Hallucinations:?None (denies) Delusions: Not paranoid Perceptual Disturbances:?None Thought Process:?More coherent Thought Content:?No SI/No HI. Depressive Symptoms:?Isolating-Friends/Family, Abnormal Motor Activity Signs and Symptoms:?Calm Judgment:?Good improved Patient Appearance: Well Grooomed Patient Orientation: Person and Place Level of Consciousness: Awake and Alert Patient Behavior: Talkative and Good Eye Contact Mood Description: Relaxed Affect Description: Constricted Patient Cognition Impaired: No Ability to Follow Directions: Good Speech Pattern: Spontaneous Speech Memory Description: Intact Diagnostics Vital Signs (24Hr): Vital Signs - 24 hr 01/22/22 19:31 01/23/22 10:14 Temperature 97.4 F Pulse Rate 74 85 Respiratory Rate 18 Blood Pressure 102/57 L 111/64 Pulse Oximetry 99 BMI result Body Mass Index 20.1 Labs Results: 01/22/22 07:24 01/22/22 07:24 Labs: Laboratory Results - last 48 hr 01/22/22 01/22/22 01/22/22 07:24 07:24 07:24 WBC 4.6 L RBC 4.56 Hgb 12.5 Hct 37.9 MCV 83.1 MCH 27.4 MCHC 33.0 RDW 14.6 Plt Count 202 D MPV 11.5 Immature Gran % (Auto) 0.4 Neut % (Auto) 57.1 Lymph % (Auto) 27.8 [place] % (Auto) 11.8 H Eos % (Auto) 2.2 Baso % (Auto) 0.7 Lymph # (Auto) 1.3 [place] # (Auto) 0.5 Eos # (Auto) 0.1 Baso # (Auto) 0.0 Abs Immat Gran (auto) 0.02 Absolute Neuts (auto) 2.6 Absolute Nucleated RBC 0.000 Nucleated RBC % (auto) 0.0 Sodium 139 Potassium 4.9 D Chloride 105 Carbon Dioxide 28 Anion Gap 11 L BUN 10 Creatinine 0.67 Estim Creat Clear Calc 106.6 Estimated GFR > 60 Random Glucose 80 Calcium 9.3 D Total Bilirubin 0.8 AST 13 ALT 10 Alkaline Phosphatase 42 Total Protein 6.2 L D Albumin 3.7 Valproic Acid 63.3 Imaging Radiology Impressions: ITS Impressions Chest X-Ray 01/12/22 01:00 IMPRESSION: Clear lungs. Head CT 01/12/22 02:25 IMPRESSION: No acute intracranial pathology. Brain MRI 01/12/22 12:15 IMPRESSION: 1. No acute intracranial abnormalities. No abnormal intracranial enhancement. 2. No MRI abnormalities to explain the patient's symptoms. Medications Medications Current Medications Acetaminophen (Acetaminophen 325 Mg Tablet) 650 mg PO Q6H PRN PRN Reason: Headache/Pain Mild Scale (1-3) Last Admin: 01/21/22 20:24 Dose: 650 mg Documented by: Al Hydroxide/Mg Hydroxide (Magnesium Hydrox/Alum Hydrox 30 Ml Oral.Susp) 30 ml PO Q6H PRN PRN Reason: Heartburn/Nausea Divalproex Sodium (Divalproex Sodium Er 500 Mg Tab.Er.24h) 1,000 mg PO BEDTIME JOHANNA Last Admin: 01/22/22 20:40 Dose: 1,000 mg Documented by: Docusate Sodium (Docusate Sodium 100 Mg Capsule) 100 mg PO BID [facility] Last Admin: 01/23/22 08:59 Dose: 100 mg Documented by: Haloperidol (Haloperidol 5 Mg Tablet) 5 mg PO TID PRN PRN Reason: daksha, psychosis Last Admin: 01/18/22 21:14 Dose: 5 mg Documented by: Haloperidol (Haloperidol 5 Mg Tablet) 5 mg PO BID [facility] Last Admin: 01/23/22 08:59 Dose: 5 mg Documented by: Hydroxyzine HCl (Hydroxyzine Hcl 25 Mg Tablet) 25 mg PO BEDTIME PRN PRN Reason: Anxiety Ibuprofen (Ibuprofen 800 Mg Tablet) 800 mg PO Q8H PRN PRN Reason: Pain, Mild (Pain Scale 1-3) Lamotrigine (Lamotrigine 25 Mg Tablet) 25 mg PO BEDTIME [facility] Last Admin: 01/22/22 20:40 Dose: 25 mg Documented by: Magnesium Hydroxide (Milk Of Magnesia 30 Ml Oral.Susp) 30 ml PO DAILY PRN PRN Reason: Constipation Last Admin: 01/20/22 11:51 Dose: 30 ml Documented by: Melatonin (Melatonin 3 Mg Tablet) 6 mg PO BEDTIME PRN PRN Reason: Insomnia Last Admin: 01/16/22 20:16 Dose: 6 mg Documented by: Senna (Sennosides 8.6 Mg Tablet) 17.2 mg PO BEDTIME PRN PRN Reason: Constipation Last Admin: 01/19/22 21:17 Dose: 17.2 mg Documented by: Trazodone HCl (Trazodone Hcl 50 Mg Tablet) 50 mg PO BEDTIME PRN PRN Reason: Insomnia Last Admin: 01/15/22 22:10 Dose: 50 mg Documented by: Allergies Allergies Allergy/AdvReac Type Severity Reaction Status Date / Time amoxicillin AdvReac Intermediate Rash Verified 01/11/22 21:42 harrison AdvReac Intermediate Gastrointestinal Verified 01/21/22 19:19 Upset kiwi AdvReac Intermediate gi Verified 01/21/22 19:19 Milk Containing Products AdvReac Intermediate Gastrointestinal Verified 01/21/22 19:19 Upset cheese AdvReac gi distress Verified 01/21/22 19:19 fluoxetine [From Prozac] AdvReac Depression Verified 01/11/22 21:43 Assessment & Plan Assessment & Plan (1) Mood disorder: Status: Acute Code(s): F39 - Unspecified mood [affective] disorder Plan 21 yo female, hx of anxiety, depression, presents with symptoms of daksha with psychosis. Thorough medical eval with no positive findings for meningitis, but with UTI, leukocytosis. Pt today is presenting with psychosis, daksha. Plan: Increase Risperdal to 1 mg bid Depakote 500 mg bid 01/14/22- Continue current regime. 01/17/22- Daksha/psychosis sx remain. Discontinue Risperdal Haldol 5 mg bid Lorazepam 1 mg po q 4hours prn 01/18/22- Some improvement with continued symptoms Increase Depakote to ER 1500 mg HS Increase Haldol to 10 mg bid Urology consult when sx subside for incontinence. 01/20/22- [place]. TDN to 01/21. Pt plans to retract in her family meeting on 01/21 with parents present. Decrease Depakote to 1000 mg HS Decrease Haldol to 7.5 mg bid Colace 100 mg bid Dulcolax 10 mg x 1-pt reports constipation 01/21/22- Decrease Haldol to 5 mg bid Lamictal 25 mg daily Labs 01/22 01/22: Reviewed labs. WNL. Dep level 63. 01/23: Continue treatment plan. I spent minutes with the patient and/or on the patient floor today, greater than?50% of which was spent counseling/coordinating care. Reason for contiued inpatient stay Substantial Risk for: inability to function and rapid decompensation
[2022-01-23 16:07] VITALS: BP 102/58; PULSE 70
[2022-01-23] MEDS: lamoTRIgine 25 MG TABLET PO (20:35)
[2022-01-23] MEDS: Divalproex Sodium ER 500 MG TAB.ER.24H 1000 MG PO (20:35)
[2022-01-23] MEDS: Melatonin 3 MG TABLET 6 MG PO (20:35)
[2022-01-24] MEDS: HaloperidoL 5 MG TABLET PO ×2 (09:14→20:20)
[2022-01-24] MEDS: Docusate Sodium 100 MG CAPSULE PO ×2 (09:14→20:20)
[2022-01-24 09:30] VITALS: BP 107/61; PULSE 74; RESP 18; TEMP 36.6; O2SAT 99
--- NOTE | 2022-01-24 10:41 | PC.NURSE ---
Pt signed 3 day today 01/24, up on 01/27, , SW, UR aware
--- NOTE | 2022-01-24 12:55 | P.PNPSI_ITS ---
Subjective Subjective Date of Service: 01/24/22 Reason For Visit: Altered Mental Status Interim History: Met with patient. I am feeling better, I have more energy. I feel content. She reports she is expecting visitors today. denies any hallucinations. Affect continues blunted. Says she is happy today. She is happy about how she has improved compared to before. She says she is more active. She is denying any racing thoughts. Feels she is clearer. Not depressed. Engaged in milieu more. Feels safe. Denies SI. Review of Systems Review of Systems Yes all other systems are reviewed and are negative and Unobtainable due to mental status Eyes: Reports no additional eye complaints Reports Normal hearing present Gastrointestinal: Reports constipation Reports Normal hearing present, Reports behavioral changes, Reports confusion and Reports memory loss Psychiatric: Reports as per HPI, Reports abnormal sleep pattern, Reports anxiety, Reports behavioral changes, Reports change in appetite, Reports confusion, Reports depression, Reports difficulty concentrating, Reports auditory hallucinations, Reports hopelessness, Reports irritability, Reports anhedonia, Reports memory loss, Reports mood swings, Reports paranoia, Reports hallucinations, Reports homicidal ideation and Reports suicidal ideation (denies) Mental Status Exam Mental Status Exam Narrative: Patient Appearance:?Fatigued Patient Orientation:?Person Level of Consciousness:?Alert Patient Behavior:?Cooperative Mood Description:? content Affect Description:?Constricted Patient Cognition Impaired:?No Ability to Follow Directions:?Fair Speech Pattern:?Spontaneous Speech Memory Description: Intact Hallucinations:?None (denies) Delusions: Not paranoid Perceptual Disturbances:?None Thought Process:?More coherent Thought Content:?No SI/No HI. Depressive Symptoms:?Isolating-Friends/Family, Abnormal Motor Activity Signs and Symptoms:?Calm Judgment:?Good improved Patient Appearance: Well Grooomed Patient Orientation: Person and Place Level of Consciousness: Awake and Alert Patient Behavior: Talkative and Good Eye Contact Mood Description: Relaxed Affect Description: Constricted Patient Cognition Impaired: No Ability to Follow Directions: Good Speech Pattern: Spontaneous Speech Memory Description: Intact Diagnostics Vital Signs (24Hr): Vital Signs - 24 hr 01/23/22 16:07 Pulse Rate 70 Blood Pressure 102/58 L BMI result Body Mass Index 20.1 Labs Results: 01/22/22 07:24 01/22/22 07:24 Imaging Radiology Impressions: ITS Impressions Chest X-Ray 01/12/22 01:00 IMPRESSION: Clear lungs. Head CT 01/12/22 02:25 IMPRESSION: No acute intracranial pathology. Brain MRI 01/12/22 12:15 IMPRESSION: 1. No acute intracranial abnormalities. No abnormal intracranial enhancement. 2. No MRI abnormalities to explain the patient's symptoms. Medications Medications Current Medications Acetaminophen (Acetaminophen 325 Mg Tablet) 650 mg PO Q6H PRN PRN Reason: Headache/Pain Mild Scale (1-3) Last Admin: 01/21/22 20:24 Dose: 650 mg Documented by: Al Hydroxide/Mg Hydroxide (Magnesium Hydrox/Alum Hydrox 30 Ml Oral.Susp) 30 ml PO Q6H PRN PRN Reason: Heartburn/Nausea Divalproex Sodium (Divalproex Sodium Er 500 Mg Tab.Er.24h) 1,000 mg PO BEDTIME [facility] Last Admin: 01/23/22 20:35 Dose: 1,000 mg Documented by: Docusate Sodium (Docusate Sodium 100 Mg Capsule) 100 mg PO BID [facility] Last Admin: 01/24/22 09:14 Dose: 100 mg Documented by: Haloperidol (Haloperidol 5 Mg Tablet) 5 mg PO TID PRN PRN Reason: daksha, psychosis Last Admin: 01/18/22 21:14 Dose: 5 mg Documented by: Haloperidol (Haloperidol 5 Mg Tablet) 5 mg PO BID [facility] Last Admin: 01/24/22 09:14 Dose: 5 mg Documented by: Hydroxyzine HCl (Hydroxyzine Hcl 25 Mg Tablet) 25 mg PO BEDTIME PRN PRN Reason: Anxiety Ibuprofen (Ibuprofen 800 Mg Tablet) 800 mg PO Q8H PRN PRN Reason: Pain, Mild (Pain Scale 1-3) Lamotrigine (Lamotrigine 25 Mg Tablet) 25 mg PO BEDTIME JOHANNA Last Admin: 01/23/22 20:35 Dose: 25 mg Documented by: Magnesium Hydroxide (Milk Of Magnesia 30 Ml Oral.Susp) 30 ml PO DAILY PRN PRN Reason: Constipation Last Admin: 01/20/22 11:51 Dose: 30 ml Documented by: Melatonin (Melatonin 3 Mg Tablet) 6 mg PO BEDTIME PRN PRN Reason: Insomnia Last Admin: 01/23/22 20:35 Dose: 6 mg Documented by: Senna (Sennosides 8.6 Mg Tablet) 17.2 mg PO BEDTIME PRN PRN Reason: Constipation Last Admin: 01/19/22 21:17 Dose: 17.2 mg Documented by: Trazodone HCl (Trazodone Hcl 50 Mg Tablet) 50 mg PO BEDTIME PRN PRN Reason: Insomnia Last Admin: 01/15/22 22:10 Dose: 50 mg Documented by: Allergies Allergies Allergy/AdvReac Type Severity Reaction Status Date / Time amoxicillin AdvReac Intermediate Rash Verified 01/11/22 21:42 harrison AdvReac Intermediate Gastrointestinal Verified 01/21/22 19:19 Upset kiwi AdvReac Intermediate gi Verified 01/21/22 19:19 Milk Containing Products AdvReac Intermediate Gastrointestinal Verified 01/21/22 19:19 Upset cheese AdvReac gi distress Verified 01/21/22 19:19 fluoxetine [From Prozac] AdvReac Depression Verified 01/11/22 21:43 Assessment & Plan Assessment & Plan (1) Mood disorder: Status: Acute Code(s): F39 - Unspecified mood [affective] disorder Plan 21 yo female, hx of anxiety, depression, presents with symptoms of daksha with psychosis. Thorough medical eval with no positive findings for meningitis, but with UTI, leukocytosis. Pt today is presenting with psychosis, daksha. Plan: Increase Risperdal to 1 mg bid Depakote 500 mg bid 01/14/22- Continue current regime. 01/17/22- Daksha/psychosis sx remain. Discontinue Risperdal Haldol 5 mg bid Lorazepam 1 mg po q 4hours prn 01/18/22- Some improvement with continued symptoms Increase Depakote to ER 1500 mg HS Increase Haldol to 10 mg bid Urology consult when sx subside for incontinence. 01/20/22- [place]. TDN to 01/21. Pt plans to retract in her family meeting on 01/21 with parents present. Decrease Depakote to 1000 mg HS Decrease Haldol to 7.5 mg bid Colace 100 mg bid Dulcolax 10 mg x 1-pt reports constipation 01/21/22- Decrease Haldol to 5 mg bid Lamictal 25 mg daily Labs 01/22 01/22: Reviewed labs. WNL. Dep level 63. 01/23: Continue treatment plan. 01/24: Continue treatment plan. I spent minutes with the patient and/or on the patient floor today, greater than?50% of which was spent counseling/coordinating care. Reason for contiued inpatient stay Substantial Risk for: harm to self, inability to function and rapid decom pensation
[2022-01-24 18:57] VITALS: BP 94/53; PULSE 87
[2022-01-24] MEDS: Divalproex Sodium ER 500 MG TAB.ER.24H 1000 MG PO (20:20)
[2022-01-24] MEDS: lamoTRIgine 25 MG TABLET PO (20:20)
[2022-01-24] MEDS: Melatonin 3 MG TABLET 6 MG PO (21:12)
[2022-01-25 06:00] VITALS: BP 90/51; PULSE 58; RESP 17; TEMP 36.4; O2SAT 98
--- NOTE | 2022-01-25 06:18 | PC.NURSE ---
11p-7a Assessment: pt appears to have slept
[2022-01-25] MEDS: Docusate Sodium 100 MG CAPSULE PO ×2 (09:30→20:15)
[2022-01-25] MEDS: HaloperidoL 5 MG TABLET PO ×2 (09:30→20:15)
--- NOTE | 2022-01-25 17:27 | HO.PSYCHPN ---
Subjective Subjective Date of Service: 01/25/22 Reason For Visit: Altered Mental Status Subjective Notes: 3 Day Healthcare Proxy: No Guardianship: No Medical Problems Affecting Mental Status: No Interim History: Improved but with ongoing lability. Mother reports on 01/21 pt told her she was in living hell . On 01/22 mother reports pt told her I do not want to exist . On 01/23 mother reports pt told family she felt better and on 01/24 she begged family to get me out of here but a few hours later was presenting content, happy, upbeat, interactive with peers. Discussed with pt today, review of lability, bipolar disorder, mood swings, daksha depression. Pt has signed another three day notice, stating today that if you want me to stay longer I certainly will- I realize that all of you are on my side. Review of labs with pt and discussed medication plans-pt taking clear notes. Medication Compliance: Yes Side effects from medications: No Attending Groups: Intermittent Review of Systems Acute medical concerns: No constipation resolved this afternoon per pt report. Medical Review of Systems: unchanged Review of Systems Reports behavioral changes Psychiatric: Reports anxiety, Reports behavioral changes, Reports anhedonia, Reports mood swings and Reports suicidal ideation (denies) Mental Status Exam Mental Status Exam Patient Appearance: Appropriate Patient Orientation: Person, Place, Time and Situation Level of Consciousness: Alert Patient Behavior: Appropriate, Talkative, Cooperative, Distractible and Good Eye Contact Mood Description: Appropriate and Cheerful Affect Description: Constricted Patient Cognition Impaired: No Ability to Follow Directions: Good Speech Pattern: Spontaneous Speech Memory Description: Episodic Impaired Hallucinations: None Delusions: Not Present Thought Process: Intact, Goal Oriented and Linear Thought Content: positive for Goal Oriented, positive for Linear, positive for Logical and positive for Suicidal Ideation (denies) Depressive Symptoms: Thoughts of /Suicide (denies) Abnormal Motor Activity Signs and Symptoms: Restlessness (at times) Judgement: Fair Diagnostics Vital Signs (24Hr): Vital Signs - 24 hr 01/24/22 18:57 01/25/22 06:00 Temperature 97.6 F Pulse Rate 87 58 Respiratory Rate 17 Blood Pressure 94/53 L 90/51 L Pulse Oximetry 98 BMI result Body Mass Index 20.1 Labs Results: 01/22/22 07:24 01/22/22 07:24 Imaging Radiology Impressions: ITS Impressions Chest X-Ray 01/12/22 01:00 IMPRESSION: Clear lungs. Head CT 01/12/22 02:25 IMPRESSION: No acute intracranial pathology. Brain MRI 01/12/22 12:15 IMPRESSION: 1. No acute intracranial abnormalities. No abnormal intracranial enhancement. 2. No MRI abnormalities to explain the patient's symptoms. Medications Medications Current Medications Acetaminophen (Acetaminophen 325 Mg Tablet) 650 mg PO Q6H PRN PRN Reason: Headache/Pain Mild Scale (1-3) Last Admin: 01/21/22 20:24 Dose: 650 mg Documented by: Al Hydroxide/Mg Hydroxide (Magnesium Hydrox/Alum Hydrox 30 Ml Oral.Susp) 30 ml PO Q6H PRN PRN Reason: Heartburn/Nausea Divalproex Sodium (Divalproex Sodium Er 500 Mg Tab.Er.24h) 1,000 mg PO BEDTIME [facility] Last Admin: 01/24/22 20:20 Dose: 1,000 mg Documented by: Docusate Sodium (Docusate Sodium 100 Mg Capsule) 100 mg PO BID [facility] Last Admin: 01/25/22 09:30 Dose: 100 mg Documented by: Haloperidol (Haloperidol 5 Mg Tablet) 5 mg PO TID PRN PRN Reason: daksha, psychosis Last Admin: 01/18/22 21:14 Dose: 5 mg Documented by: Haloperidol (Haloperidol 5 Mg Tablet) 5 mg PO BID [facility] Last Admin: 01/25/22 09:30 Dose: 5 mg Documented by: Hydroxyzine HCl (Hydroxyzine Hcl 25 Mg Tablet) 25 mg PO BEDTIME PRN PRN Reason: Anxiety Ibuprofen (Ibuprofen 800 Mg Tablet) 800 mg PO Q8H PRN PRN Reason: Pain, Mild (Pain Scale 1-3) Lamotrigine (Lamotrigine 25 Mg Tablet) 25 mg PO BEDTIME [facility] Last Admin: 01/24/22 20:20 Dose: 25 mg Documented by: Magnesium Hydroxide (Milk Of Magnesia 30 Ml Oral.Susp) 30 ml PO DAILY PRN PRN Reason: Constipation Last Admin: 01/20/22 11:51 Dose: 30 ml Documented by: Melatonin (Melatonin 3 Mg Tablet) 6 mg PO BEDTIME PRN PRN Reason: Insomnia Last Admin: 01/24/22 21:12 Dose: 6 mg Documented by: Senna (Sennosides 8.6 Mg Tablet) 17.2 mg PO BEDTIME PRN PRN Reason: Constipation Last Admin: 01/19/22 21:17 Dose: 17.2 mg Documented by: Trazodone HCl (Trazodone Hcl 50 Mg Tablet) 50 mg PO BEDTIME PRN PRN Reason: Insomnia Last Admin: 01/15/22 22:10 Dose: 50 mg Documented by: Allergies Allergies Allergy/AdvReac Type Severity Reaction Status Date / Time amoxicillin AdvReac Intermediate Rash Verified 01/11/22 21:42 harrison AdvReac Intermediate Gastrointestinal Verified 01/21/22 19:19 Upset kiwi AdvReac Intermediate gi Verified 01/21/22 19:19 Milk Containing Products AdvReac Intermediate Gastrointestinal Verified 01/21/22 19:19 Upset cheese AdvReac gi distress Verified 01/21/22 19:19 fluoxetine [From Prozac] AdvReac Depression Verified 01/11/22 21:43 Assessment & Plan Assessment & Plan (1) Mood disorder: Status: Acute Code(s): F39 - Unspecified mood [affective] disorder Plan 21 yo female, hx of anxiety, depression, presents with symptoms of daksha with psychosis. Thorough medical eval with no positive findings for meningitis, but with UTI, leukocytosis. Pt today is presenting with psychosis, daksha. Plan: Increase Risperdal to 1 mg bid Depakote 500 mg bid 01/14/22- Continue current regime. 01/17/22- Daksha/psychosis sx remain. Discontinue Risperdal Haldol 5 mg bid Lorazepam 1 mg po q 4hours prn 01/18/22- Some improvement with continued symptoms Increase Depakote to ER 1500 mg HS Increase Haldol to 10 mg bid Urology consult when sx subside for incontinence. 01/20/22- Sed[place]. TDN to 01/21. Pt plans to retract in her family meeting on 01/21 with parents present. Decrease Depakote to 1000 mg HS Decrease Haldol to 7.5 mg bid Colace 100 mg bid Dulcolax 10 mg x 1-pt reports constipation 01/21/22- Decrease Haldol to 5 mg bid Lamictal 25 mg daily Labs 01/22 01/22: Reviewed labs. WNL. Dep level 63. 01/23: Continue treatment plan. 01/24: Continue treatment plan. 01/25/22: Increase Depakote to 1500 mg HS, continue remainder of regime TDN 01/27-will ask pt to stay to 01/28 for family meeting and potential d/c I spent minutes with the patient and/or on the patient floor today, greater than?50% of which was spent counseling/coordinating care. Patient educated on: diagnosis, medication risk/benefits and therapeutic strategies Informed Consent: understands and further education needed Reason for contiued inpatient stay Substantial Risk for: harm to self, inability to function and rapid decompensation
[2022-01-25 18:00] VITALS: BP 99/51; PULSE 67; RESP 14; TEMP 36.4; O2SAT 97
[2022-01-25] MEDS: Melatonin 3 MG TABLET 6 MG PO (20:14)
[2022-01-25] MEDS: Divalproex Sodium ER 500 MG TAB.ER.24H 1500 MG PO (20:14)
[2022-01-25] MEDS: lamoTRIgine 25 MG TABLET PO (20:15)
[2022-01-26 06:00] VITALS: BP 97/54; PULSE 70; RESP 18; TEMP 36.4; O2SAT 98
[2022-01-26] MEDS: HaloperidoL 5 MG TABLET PO ×2 (08:10→20:07)
[2022-01-26] MEDS: Docusate Sodium 100 MG CAPSULE PO ×2 (08:10→20:07)
--- NOTE | 2022-01-26 14:19 | HO.PSYCHPN ---
Subjective Subjective Date of Service: 01/26/22 Reason For Visit: Altered Mental Status Subjective Notes: 3 Day Healthcare Proxy: No Guardianship: No Medical Problems Affecting Mental Status: No Interim History: Tolerating increase in Depakote. We are looking for a stable mood with absence of lability, mood swings. Meeting with pt and family on 01/28 with possible discharge. Weekend lability needing to be addressed. No sx psychosis noted. Tangential at times. Medication Compliance: Yes Side effects from medications: No Attending Groups: No Review of Systems Acute medical concerns: No Medical Review of Systems: unchanged Review of Systems Reports behavioral changes Psychiatric: Reports behavioral changes, Reports mood swings and Reports suicidal ideation (denies) Mental Status Exam Mental Status Exam Patient Appearance: Appropriate Patient Orientation: Person, Place, Time and Situation Level of Consciousness: Alert Patient Behavior: Appropriate, Talkative, Cooperative, Distractible and Good Eye Contact Mood Description: Appropriate and Cheerful Affect Description: Constricted Patient Cognition Impaired: No Ability to Follow Directions: Good Speech Pattern: Spontaneous Speech Memory Description: Episodic Impaired Hallucinations: None Delusions: Not Present Thought Process: Intact, Goal Oriented and Linear Thought Content: positive for Goal Oriented, positive for Linear, positive for Logical and positive for Suicidal Ideation (denies) Depressive Symptoms: Thoughts of /Suicide (denies) Abnormal Motor Activity Signs and Symptoms: Restlessness (at times) Judgement: Fair Diagnostics Vital Signs (24Hr): Vital Signs - 24 hr 01/25/22 18:00 01/26/22 06:00 Temperature 97.5 F 97.6 F Pulse Rate 67 70 Respiratory Rate 14 18 Blood Pressure 99/51 L 97/54 L Pulse Oximetry 97 98 BMI result Body Mass Index 20.1 Labs Results: 01/22/22 07:24 01/22/22 07:24 Imaging Radiology Impressions: ITS Impressions Chest X-Ray 01/12/22 01:00 IMPRESSION: Clear lungs. Head CT 01/12/22 02:25 IMPRESSION: No acute intracranial pathology. Brain MRI 01/12/22 12:15 IMPRESSION: 1. No acute intracranial abnormalities. No abnormal intracranial enhancement. 2. No MRI abnormalities to explain the patient's symptoms. Medications Medications Current Medications Acetaminophen (Acetaminophen 325 Mg Tablet) 650 mg PO Q6H PRN PRN Reason: Headache/Pain Mild Scale (1-3) Last Admin: 01/21/22 20:24 Dose: 650 mg Documented by: Al Hydroxide/Mg Hydroxide (Magnesium Hydrox/Alum Hydrox 30 Ml Oral.Susp) 30 ml PO Q6H PRN PRN Reason: Heartburn/Nausea Divalproex Sodium (Divalproex Sodium Er 500 Mg Tab.Er.24h) 1,500 mg PO BEDTIME [facility] Last Admin: 01/25/22 20:14 Dose: 1,500 mg Documented by: Docusate Sodium (Docusate Sodium 100 Mg Capsule) 100 mg PO BID [facility] Last Admin: 01/26/22 08:10 Dose: 100 mg Documented by: Haloperidol (Haloperidol 5 Mg Tablet) 5 mg PO TID PRN PRN Reason: daksha, psychosis Last Admin: 01/18/22 21:14 Dose: 5 mg Documented by: Haloperidol (Haloperidol 5 Mg Tablet) 5 mg PO BID [facility] Last Admin: 01/26/22 08:10 Dose: 5 mg Documented by: Hydroxyzine HCl (Hydroxyzine Hcl 25 Mg Tablet) 25 mg PO BEDTIME PRN PRN Reason: Anxiety Ibuprofen (Ibuprofen 800 Mg Tablet) 800 mg PO Q8H PRN PRN Reason: Pain, Mild (Pain Scale 1-3) Lamotrigine (Lamotrigine 25 Mg Tablet) 25 mg PO BEDTIME [facility] Last Admin: 01/25/22 20:15 Dose: 25 mg Documented by: Magnesium Hydroxide (Milk Of Magnesia 30 Ml Oral.Susp) 30 ml PO DAILY PRN PRN Reason: Constipation Last Admin: 01/20/22 11:51 Dose: 30 ml Documented by: Melatonin (Melatonin 3 Mg Tablet) 6 mg PO BEDTIME PRN PRN Reason: Insomnia Last Admin: 01/25/22 20:14 Dose: 6 mg Documented by: Senna (Sennosides 8.6 Mg Tablet) 17.2 mg PO BEDTIME PRN PRN Reason: Constipation Last Admin: 01/19/22 21:17 Dose: 17.2 mg Documented by: Trazodone HCl (Trazodone Hcl 50 Mg Tablet) 50 mg PO BEDTIME PRN PRN Reason: Insomnia Last Admin: 01/15/22 22:10 Dose: 50 mg Documented by: Allergies Allergies Allergy/AdvReac Type Severity Reaction Status Date / Time amoxicillin AdvReac Intermediate Rash Verified 01/11/22 21:42 harrison AdvReac Intermediate Gastrointestinal Verified 01/21/22 19:19 Upset kiwi AdvReac Intermediate gi Verified 01/21/22 19:19 Milk Containing Products AdvReac Intermediate Gastrointestinal Verified 01/21/22 19:19 Upset cheese AdvReac gi distress Verified 01/21/22 19:19 fluoxetine [From Prozac] AdvReac Depression Verified 01/11/22 21:43 Assessment & Plan Assessment & Plan (1) Mood disorder: Status: Acute Code(s): F39 - Unspecified mood [affective] disorder Plan 21 yo female, hx of anxiety, depression, presents with symptoms of daksha with psychosis. Thorough medical eval with no positive findings for meningitis, but with UTI, leukocytosis. Pt today is presenting with psychosis, daksha. Plan: Increase Risperdal to 1 mg bid Depakote 500 mg bid 01/14/22- Continue current regime. 01/17/22- Daksha/psychosis sx remain. Discontinue Risperdal Haldol 5 mg bid Lorazepam 1 mg po q 4hours prn 01/18/22- Some improvement with continued symptoms Increase Depakote to ER 1500 mg HS Increase Haldol to 10 mg bid Urology consult when sx subside for incontinence. 01/20/22- [place]. TDN to 01/21. Pt plans to retract in her family meeting on 01/21 with parents present. Decrease Depakote to 1000 mg HS Decrease Haldol to 7.5 mg bid Colace 100 mg bid Dulcolax 10 mg x 1-pt reports constipation 01/21/22- Decrease Haldol to 5 mg bid Lamictal 25 mg daily Labs 01/22 01/22: Reviewed labs. WNL. Dep level 63. 01/23: Continue treatment plan. 01/24: Continue treatment plan. 01/25/22: Increase Depakote to 1500 mg HS, continue remainder of regime TDN 01/27-will ask pt to stay to 01/28 for family meeting and potential d/c 01/26/22- Tolerating Depakote increase. Family meeting 01/28 with potential d/c Monitor for lability I spent minutes with the patient and/or on the patient floor today, greater than?50% of which was spent counseling/coordinating care. Patient educated on: therapeutic strategies Informed Consent: further education needed Reason for contiued inpatient stay Substantial Risk for: harm to self, inability to function and rapid decompensation
[2022-01-26 19:07] VITALS: BP 102/61; PULSE 80
[2022-01-26] MEDS: Divalproex Sodium ER 500 MG TAB.ER.24H 1500 MG PO (20:07)
[2022-01-26] MEDS: traZODone HCL 50 MG TABLET PO (20:07)
[2022-01-26] MEDS: Melatonin 3 MG TABLET 6 MG PO (20:07)
[2022-01-26] MEDS: lamoTRIgine 25 MG TABLET PO (20:07)
[2022-01-27 06:00] VITALS: BP 102/60; PULSE 72; TEMP 36.4; O2SAT 98
[2022-01-27 07:00] VITALS: BMI 23.1
[2022-01-27] MEDS: Docusate Sodium 100 MG CAPSULE PO ×2 (07:57→20:09)
[2022-01-27] MEDS: HaloperidoL 5 MG TABLET PO ×2 (07:57→20:09)
--- NOTE | 2022-01-27 16:15 | HO.PSYCHPN ---
Subjective Subjective Date of Service: 01/27/22 Reason For Visit: Altered Mental Status Interim History: Patient reports that she is doing well. She is lying in bed but alert, cooperative and friendly. She denies any SI, HI or AVH. She said she has been feeling a little more tired with the medication change but she is not worried about it feeling confident that when she gets home and has more activities, it will resolve. Patient is planning to discharge tomorrow. She reports she is sleeping and eating well and has no complaints. Mental Status Exam Mental Status Exam Narrative: Patient Appearance:?Appropriate Patient Orientation:?Person, Place, Time and Situation Level of Consciousness:?Alert Patient Behavior:?Appropriate, Cooperative and Good Eye Contact Mood Description:?Appropriate and Cheerful Affect Description:?congruent Patient Cognition Impaired:?No Ability to Follow Directions:?Good Speech Pattern:?Spontaneous Speech Memory Description:?Episodic Impaired Hallucinations:?None Delusions:?Not Present Thought Process:?Intact, Goal Oriented and Linear Thought Content:?positive for Goal Oriented, positive for Linear, positive for Logical; denies SI/HI Depressive Symptoms:?denies Abnormal Motor Activity Signs and Symptoms:?none Judgment:?Fair Diagnostics Vital Signs (24Hr): Vital Signs - 24 hr 01/26/22 19:07 01/27/22 06:00 Temperature 97.6 F Pulse Rate 80 72 Blood Pressure 102/61 102/60 Pulse Oximetry 98 BMI result Body Mass Index 23.1 Labs Results: 01/22/22 07:24 01/22/22 07:24 Labs: Laboratory Results - last 48 hr 01/12/22 03:57 Ref Lab Test Result SEE COMMENT Imaging Radiology Impressions: ITS Impressions Chest X-Ray 01/12/22 01:00 IMPRESSION: Clear lungs. Head CT 01/12/22 02:25 IMPRESSION: No acute intracranial pathology. Brain MRI 01/12/22 12:15 IMPRESSION: 1. No acute intracranial abnormalities. No abnormal intracranial enhancement. 2. No MRI abnormalities to explain the patient's symptoms. Medications Medications Current Medications Acetaminophen (Acetaminophen 325 Mg Tablet) 650 mg PO Q6H PRN PRN Reason: Headache/Pain Mild Scale (1-3) Last Admin: 01/21/22 20:24 Dose: 650 mg Documented by: Al Hydroxide/Mg Hydroxide (Magnesium Hydrox/Alum Hydrox 30 Ml Oral.Susp) 30 ml PO Q6H PRN PRN Reason: Heartburn/Nausea Divalproex Sodium (Divalproex Sodium Er 500 Mg Tab.Er.24h) 1,500 mg PO BEDTIME [facility] Last Admin: 01/26/22 20:07 Dose: 1,500 mg Documented by: Docusate Sodium (Docusate Sodium 100 Mg Capsule) 100 mg PO BID [facility] Last Admin: 01/27/22 07:57 Dose: 100 mg Documented by: Haloperidol (Haloperidol 5 Mg Tablet) 5 mg PO TID PRN PRN Reason: daksha, psychosis Last Admin: 01/18/22 21:14 Dose: 5 mg Documented by: Haloperidol (Haloperidol 5 Mg Tablet) 5 mg PO BID [facility] Last Admin: 01/27/22 07:57 Dose: 5 mg Documented by: Hydroxyzine HCl (Hydroxyzine Hcl 25 Mg Tablet) 25 mg PO BEDTIME PRN PRN Reason: Anxiety Ibuprofen (Ibuprofen 800 Mg Tablet) 800 mg PO Q8H PRN PRN Reason: Pain, Mild (Pain Scale 1-3) Lamotrigine (Lamotrigine 25 Mg Tablet) 25 mg PO BEDTIME [facility] Last Admin: 01/26/22 20:07 Dose: 25 mg Documented by: Magnesium Hydroxide (Milk Of Magnesia 30 Ml Oral.Susp) 30 ml PO DAILY PRN PRN Reason: Constipation Last Admin: 01/20/22 11:51 Dose: 30 ml Documented by: Melatonin (Melatonin 3 Mg Tablet) 6 mg PO BEDTIME PRN PRN Reason: Insomnia Last Admin: 01/26/22 20:07 Dose: 6 mg Documented by: Senna (Sennosides 8.6 Mg Tablet) 17.2 mg PO BEDTIME PRN PRN Reason: Constipation Last Admin: 01/19/22 21:17 Dose: 17.2 mg Documented by: Trazodone HCl (Trazodone Hcl 50 Mg Tablet) 50 mg PO BEDTIME PRN PRN Reason: Insomnia Last Admin: 01/26/22 20:07 Dose: 50 mg Documented by: Allergies Allergies Allergy/AdvReac Type Severity Reaction Status Date / Time amoxicillin AdvReac Intermediate Rash Verified 01/11/22 21:42 harrison AdvReac Intermediate Gastrointestinal Verified 01/21/22 19:19 Upset kiwi AdvReac Intermediate gi Verified 01/21/22 19:19 Milk Containing Products AdvReac Intermediate Gastrointestinal Verified 01/21/22 19:19 Upset cheese AdvReac gi distress Verified 01/21/22 19:19 fluoxetine [From Prozac] AdvReac Depression Verified 01/11/22 21:43 Assessment & Plan Assessment & Plan (1) Mood disorder: Status: Acute Code(s): F39 - Unspecified mood [affective] disorder Plan 21 yo female, hx of anxiety, depression, presents with symptoms of daksha with psychosis. Thorough medical eval with no positive findings for meningitis, but with UTI, leukocytosis. Pt today is presenting with psychosis, daksha. Plan: Increase Risperdal to 1 mg bid Depakote 500 mg bid 01/14/22- Continue current regime. 01/17/22- Daksha/psychosis sx remain. Discontinue Risperdal Haldol 5 mg bid Lorazepam 1 mg po q 4hours prn 01/18/22- Some improvement with continued symptoms Increase Depakote to ER 1500 mg HS Increase Haldol to 10 mg bid Urology consult when sx subside for incontinence. 01/20/22- [place]. TDN to 01/21. Pt plans to retract in her family meeting on 01/21 with parents present. Decrease Depakote to 1000 mg HS Decrease Haldol to 7.5 mg bid Colace 100 mg bid Dulcolax 10 mg x 1-pt reports constipation 01/21/22- Decrease Haldol to 5 mg bid Lamictal 25 mg daily Labs 01/22 01/22: Reviewed labs. WNL. Dep level 63. 01/23: Continue treatment plan. 01/24: Continue treatment plan. 01/25/22: Increase Depakote to 1500 mg HS, continue remainder of regime TDN 01/27-will ask pt to stay to 01/28 for family meeting and potential d/c 01/26/22- Tolerating Depakote increase. Family meeting 01/28 with potential d/c Monitor for lability 01/27 continue current treatment plan; no changes; patient stable I spent minutes with the patient and/or on the patient floor today, greater than?50% of which was spent counseling/coordinating care. Patient educated on: medication risk/benefits Informed Consent: understands Reason for contiued inpatient stay Substantial Risk for: stable for discharge
[2022-01-27 16:45] VITALS: BP 96/55; PULSE 80
[2022-01-27] MEDS: Divalproex Sodium ER 500 MG TAB.ER.24H 1500 MG PO (20:09)
[2022-01-27] MEDS: lamoTRIgine 25 MG TABLET PO (20:09)
[2022-01-28 06:00] VITALS: BP 95/52; PULSE 76; RESP 16; TEMP 37; O2SAT 97
[2022-01-28] MEDS: HaloperidoL 5 MG TABLET PO (08:32)
[2022-01-28] MEDS: Docusate Sodium 100 MG CAPSULE PO (08:32)
--- NOTE | 2022-01-28 17:10 | P.DS_ITS ---
DS: Providers Provider Date of Service: 01/28/22 Date of admission: 01/12/22 06:39 Date of discharge: 01/28/22 Primary care physician: Pattie Short MD Admitting clinician: Vale Salvador Attending physician on admission: Loy Yanes Attending physician on discharge: Loy Yanes Discharging clinician: Vale Salvador DS: Diagnosis Discharge Diagnosis (1) Bipolar disorder: Status: Acute DS: Medications Discharge Medications Home Medications: Previous Rx's Medication Instructions Recorded divalproex 500 mg tablet,extended 1,500 mg PO BEDTIME #90 tab 01/28/22 release 24 hr docusate sodium 100 mg capsule 100 mg PO BID #60 cap 01/28/22 haloperidol 5 mg tablet 5 mg PO BID #60 tab 01/28/22 haloperidol 5 mg tablet 5 mg PO BID PRN #60 tab 01/28/22 lamotrigine 25 mg tablet 25 mg PO BEDTIME #60 tab 01/28/22 melatonin 3 mg tablet 6 mg PO BEDTIME PRN #30 tab 01/28/22 sennosides 8.6 mg tablet (Senna 17.2 mg PO BEDTIME PRN #30 tab 01/28/22 Lax) trazodone 50 mg tablet 50 mg PO BEDTIME PRN #30 tab 01/28/22 Mental Status Exam Mental Status Exam Patient Appearance: Appropriate Patient Orientation: Person, Place, Time and Situation Level of Consciousness: Alert Patient Behavior: Appropriate, Talkative, Cooperative, Distractible and Good Eye Contact Mood Description: Appropriate and Cheerful Affect Description: Constricted Patient Cognition Impaired: No Ability to Follow Directions: Good Speech Pattern: Spontaneous Speech Memory Description: Episodic Impaired Hallucinations: None Delusions: Not Present Thought Process: Intact, Goal Oriented and Linear Thought Content: positive for Goal Oriented, positive for Linear, positive for Logical and positive for Suicidal Ideation (denies) Depressive Symptoms: Thoughts of /Suicide (denies) Abnormal Motor Activity Signs and Symptoms: Restlessness (at times) Judgement: Fair Data Data Completed and Pending Completed studies during hospitalization [Text1]: 01/12/22 01/12/22 01/22/22 03:57 03:57 07:24 WBC 4.6 L RBC 4.56 Hgb 12.5 Hct 37.9 MCV 83.1 MCH 27.4 MCHC 33.0 RDW 14.6 Plt Count 202 D MPV 11.5 Immature Gran % (Auto) 0.4 Neut % (Auto) 57.1 Lymph % (Auto) 27.8 George % (Auto) 11.8 H Eos % (Auto) 2.2 Baso % (Auto) 0.7 Lymph # (Auto) 1.3 George # (Auto) 0.5 Eos # (Auto) 0.1 Baso # (Auto) 0.0 Abs Immat Gran (auto) 0.02 Absolute Neuts (auto) 2.6 Absolute Nucleated RBC 0.000 Nucleated RBC % (auto) 0.0 Sodium Potassium Chloride Carbon Dioxide Anion Gap BUN Creatinine Estim Creat Clear Calc Estimated GFR Random Glucose Calcium Total Bilirubin AST ALT Alkaline Phosphatase Total Protein Albumin CSF West Nile Virus SEE NOTE Valproic Acid Ref Lab Test Result SEE COMMENT 01/22/22 01/22/22 07:24 07:24 WBC RBC Hgb Hct MCV MCH MCHC RDW Plt Count MPV Immature Gran % (Auto) Neut % (Auto) Lymph % (Auto) George % (Auto) Eos % (Auto) Baso % (Auto) Lymph # (Auto) George # (Auto) Eos # (Auto) Baso # (Auto) Abs Immat Gran (auto) Absolute Neuts (auto) Absolute Nucleated RBC Nucleated RBC % (auto) Sodium 139 Potassium 4.9 D Chloride 105 Carbon Dioxide 28 Anion Gap 11 L BUN 10 Creatinine 0.67 Estim Creat Clear Calc 106.6 Estimated GFR > 60 Random Glucose 80 Calcium 9.3 D Total Bilirubin 0.8 AST 13 ALT 10 Alkaline Phosphatase 42 Total Protein 6.2 L D Albumin 3.7 CSF West Nile Virus Valproic Acid 63.3 Ref Lab Test Result 01/20/22 20:55 Urine clean catch - Clean Catch Midstream Urine Culture - Final 01/12/22 03:57 Cerebrospinal Fluid Gram Stain - Final 01/12/22 03:57 Cerebrospinal Fluid CSF Examination - Final 01/12/22 03:57 Cerebrospinal Fluid Fluid Description - Final 01/12/22 03:57 Cerebrospinal Fluid CSF Culture - Final No growth after 3 days. 01/11/22 21:57 Eye - Other Gram Stain - Final 01/11/22 21:57 Eye - Other Routine Culture - Final Staphylococcus aureus 01/11/22 20:40 Urine clean catch - Urine laureano top Urine Culture - Final Escherichia coli Imaging Diagnostic Imaging Impressions Chest X-Ray 01/12/22 01:00 IMPRESSION: Clear lungs. Head CT 01/12/22 02:25 IMPRESSION: No acute intracranial pathology. Brain MRI 01/12/22 12:15 IMPRESSION: 1. No acute intracranial abnormalities. No abnormal intracranial enhancement. 2. No MRI abnormalities to explain the patient's symptoms. DS: Summary Hospital Course Hospital Course: 21 years old woman who I was asked to see for change in mental status per history was obtained from reading the notes of last night, talking to her, but also talking to her mother.? Apparently she was not known to have any significant medical or psychological or psychiatric problem other than anxiety disorder, which her mother also suffered from.? She was a student in [employer] and apparently was a good student doing well.? On December 30 her family picked her up and noted that she was suffering from upper respiratory infection type of symptoms and mild fever.? Soon she started to have behavioral symptoms resulting in helena confusion, making statements that did not make any sense, aggression, not able to sleep, suicidal ideation, and grandiose thoughts.? With all that she came to emergency room yesterday and was being evaluated.? There has been no significant change in her behavioral symptomatology.? She had a noncontrast head CT that was reported okay and a lumbar puncture did not reveal any obvious abnormality.? Her urinary analysis reveals signs of urinary tract infection and she was put on multiple antibiotics.? There was no other obvious metabolic abnormality.? Mother said that there was no history of drug use.? There was no family history of psychotic disorder. Hospital Course Seen by Neurology. Initial workup including a spinal tap in MRI failed to demonstrate any acute medical pathology to explain symptoms. Seen by Psychiatry who felt given patient's negative medical workup and presentation that this might be a manic episode as patient has not slept in 2 days. Medication recommended by psych implemented. Will transfer to inpatient psychiatry. Will continue to treat UTI with a course of oral Bactrim although other meds will D/C'd. At the time of discharge she is medically acceptable for transfer to psych Admission to adult psychiatry. Symptoms of jimmy and psychosis stabilized on a regime of Depakote, Haldol, Trazodone prn, Melatonin prn. 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 Pt to attend [facility] program to continue therapeutic interventions, re- enforce coping and continue monitoring of symptoms. Time spent discussing smoking cessation with patient: 3 to 10 minutes Status at Discharge Functional status at discharge: independent ambulation Overall status at discharge: patient is progressing back to baseline Time Spent with Patient Time attestation: Total time spent providing and/or coordinating discharge services: Time spent: Greater than 30 minutes Discharge Plan Discharge Patient Disposition: Home, Self-Care Discharge Diagnosis: Bipolar Disorder with Psychotic Features Referrals: Partial Hospitalization Program: [facility] [Other] - 02/03/22 8:00 am (-Virtual sessions; you will be sent a link to your email with instructions on using the video platform and with a link to join the appointment (check your spam folder if you do not see it in your email). ) Therapy: Barbie Orozco ([facility]) [Other] - 01/31/22 3:00 pm (*In person at the office*) Psych Prescriber: Nelly Paris ([facility]) [Other] - 02/21/22 1:00 pm (Virtual-you will be sent an email with instructions to download the video platform and a link to join the appointment) Psych Prescriber: Nelly Paris ([facility]) [Other] - 03/17/22 1:20 pm (*Virtual appointment-you will be sent a link to your email to join appointment ) Pattie Short MD [Primary Care Provider] - (pt. chuck says she has an appointment in february.) Discharge Medications: New trazodone 50 mg Tablet 50 mg PO BEDTIME PRN (Reason: Insomnia) Qty: 30 0RF sennosides [Senna Lax] 8.6 mg Tablet 17.2 mg PO BEDTIME PRN (Reason: Constipation) Qty: 30 0RF melatonin 3 mg Tablet 6 mg PO BEDTIME PRN (Reason: Insomnia) Qty: 30 0RF haloperidol 5 mg tablet 5 mg PO BID PRN (Reason: agitation) Qty: 60 0RF Discontinued citalopram 20 mg tablet 1 tab PO DAILY No Action acetaminophen 325 mg Tablet 650 mg PO Q6H PRN (Reason: Pain) ibuprofen 200 mg Tablet 400 mg PO Q6H PRN (Reason: Pain) loratadine [Claritin] 10 mg Tablet 10 mg PO DAILY PRN (Reason: Allergy Symptoms) Visine Dry Eye Relief 1 % Drops 1 drp OPHTHALMIC (EYE) QID PRN (Reason: Dry Eye(S)) docusate sodium 100 mg capsule 100 mg PO BID PRN (Reason: Constipation) haloperidol 5 mg tablet 5 mg PO BEDTIME lamotrigine 25 mg tablet 50 mg PO BEDTIME divalproex 500 mg tablet extended release 24 hr 1,000 mg PO BEDTIME Discharge Orders: Discharge Order (Routine); Ordered 01/28/22 Ordered By: Vale Salvador Diet: advance to usual diet Activity on Discharge: As tolerated Stand Alone Forms: Patient Portal Discharge page, Community Support Care Plan Goals: Stabilization of Mood Self care Health Concerns: Bipolar Mood Disorder Plan of Treatment: Attend scheduled appointments Take medications as directed Crisis team if needed [phone] Call and or return as needed You initiated Lamictal 25 mg on 01/21/22. You may increase to 50 mg on 02/04/22 as tolerated. Assessment: non suicidal, non psychotic Patient Instructions: Depression (ED), Help Prevent Suicide (ED) Discharge Date/Time: 01/28/22 13:26
[2022-01-29 07:30] LABS: Other Ref Test - Misc SEE NOTES
== END 2022-01-28 13:26 | disposition home or self-care (01) | DRG 753 ==
LOC: HO.ED 01-12 04:35 → HO.EDOVER 01-12 07:33 → HO.PM5 01-13 10:45 → HO.EDOVER 01-14 14:21 → HO.PM5 01-14 14:21
PROVIDERS: Hospitalist; Physician Assistant; Psychiatry & Neurology Neurology; Admitting Provider Psychiatry & Neurology Psychiatry; Emergency Provider Emergency Medicine; PCP Pediatrics; Visit Provider Clinical Nurse Specialist Psychiatric/Mental Health, Adult
DX: F31.9 Bipolar disorder, unspecified (principal); R45.851 Suicidal ideations; Z91.14 Patient's other noncompliance with medication regimen; N39.0 Urinary tract infection, site not specified; H10.9 Unspecified conjunctivitis; Z20.822 Contact with and (suspected) exposure to COVID-19; Z88.0 Allergy status to penicillin; Z88.8 Allergy status to other drugs, medicaments and biological substances; Z79.899 Other long term (current) drug therapy
CPT/HCPCS: 36415; 70450; 70553; 71045; 80053; 80143; 80164; 80179; 80307; 81001; 81025; 82077; 82565; 82607; 82746; 82945; 83735; 84157; 84443; 85025; 86255; 86617; 86780; 87015; 87070; 87071; 87077; 87086; 87088; 87186; 87205; 87252; 87476; 87483; 87635; 89051; 96365; 96375; 99285; A9585; J0133; J0696; J3370

== ENCOUNTER 2022-02-11 09:00 | Outpatient (RCR) | payer BC, SELFPAY ==
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
--- NOTE | 2022-02-04 14:30 | PC.ADMIT ---
Patient is a 21 year old female who has a diagnosis of Bipolar disorder recent episode manic with psychotic features. Patient was referred from the inpatient unit to [facility] as step down for continued stabilization of symptoms. Per records patients mother reportedly called crisis d/t patients behavior as patient presented as disorganized, grandiose, with hypomanic symptoms and judaism preoccupation. Pt was reporting SI along with HI towards her family. This was the patient's first inpatient hospitalization. Upon admission to [facility] patients thoughts are clear, no delusional content. Has some insight as to why she was hospitalized and is feeling better compared to when she was admitted. Patient stated she was out of touch with what was going on. Denied SI, HI, AH, or VH. No paranoid thoughts noted. Patient is alert and oriented x4. Medications reconciled with patient and D/C paperwork. Patient reports she is taking medications as prescribed. [ End ]
--- NOTE | 2022-02-07 16:42 | PC.NURSE ---
Case opened in treatment team.
--- NOTE | 2022-02-08 15:39 | PC.NURSE ---
I called and spoke to pt. Reviewed treatment plan. Pt shared that the groups are going very well for her, and that she's learning a lot of helpful tools and information for her recovery. She reported feeling quite stable, and said she is sleeping well and enjoying her hobbies more than she had been. She did not display any psychosis. She acknowledged that she had brief, fleeting SI a few days ago that concerned her, but said it was when she was bored and not terrible sad or depressed. She said she's not having those thoughts now. Pt said she feels good about her assigned therapist and new med provider. She completed an intake with the therapist on 01/31/22. We set a tentative discharge date of 03/19/22.
--- NOTE | 2022-02-11 13:36 | P.PNPSP_ITS ---
Subjective Subjective Date of Service: 02/11/22 Reason For Visit: unspecified bipolar d/o Medical Problems Affecting Mental Status: No Interim History: Describes mood as ?it's been good ?. Denies any SI/HI, AH/VH. Reports feeling stable. Reports taking all medications as prescribed. Medication Compliance: Yes Side effects from medications: No Attending Groups: Yes Review of Systems Acute medical concerns: No Medical Review of Systems: unchanged Review of Systems Review of Systems Yes all other systems are reviewed and are negative Constitutional: Reports no additional constitutional complaints Mental Status Exam Mental Status Exam Narrative: NAD. Fully alert and attentive during encounter. No evidence of hypomanic/manic symptoms observed or reported. Denies SI/HI/AH/VH, no safety concern. Patient Appearance: Well Grooomed and Appropriate Patient Orientation: Person, Place, Time and Situation Level of Consciousness: Appropriate Patient Behavior: Appropriate, Cooperative and Good Eye Contact Mood Description: Appropriate Affect Description: Appropriate Patient Cognition Impaired: No Ability to Follow Directions: Good Speech Pattern: Clear, Appropriate and Coherent Memory Description: Intact Hallucinations: None Delusions: Not Present Thought Process: Intact Thought Content: positive for Intact Judgement: Fair Assessment & Plan Assessment & Plan (1) Bipolar I disorder, current or most recent episode manic, severe with mood- congruent psychotic features: Status: Acute Code(s): F31.2 - Bipolar disorder, current episode manic severe with psychotic features Assessment and Plan: Patient reports feeling stable, no mood lability reported or observed. We discussed in detail current medication regimen. She has completed 1 week of Lamictal 50 mg daily. We reviewed titration schedule, and that she will progress to 100 mg daily after 1 more week. We discussed working with an outpatient provider to help titrate Lamictal when she leaves [facility], in order to help with mood stabilization. We discussed possibility after that time that Depakote may be decreased or stopped, and that her outpatient provider going forward may wish to cross taper Haldol with anot her antipsychotic such as Latuda or another possibility. It was stressed however that these changes would most likely only be done after she has been stablized for a period of time. She stated that she understood, and believe that this would be a good plan. She meets with her new outpatient provider on MondayFebruary 14, and is looking forward to the appointment. She denies any thought of harm to self or others, denies any type of grandiosity, intrusive thoughts. She reports that she is finding groups very helpful, and that it is helping her to see that she is not alone, and she is also learning from group facilitators as well as other participants. She is learning new healthy coping skills to utilize as appropriate. She is finding these new techniques helpful. Plan 1. Continue with current [facility] plan of care. 2. Continue with current medication regimen. 3. Follow-up as per protocol. Patient educated on: diagnosis, medication risk/benefits and therapeutic strategies Informed Consent: understands Reason for contiued partial hosp. stay Substantial Risk for: harm to self, inability to function, rapid decompensation and med/psych decompensation Certification I certify that partial hospital treatment is medically necessary due to the symptoms and problems resulting from the patient's mental illness and the failure to treat the patient at the partial hospital level of care would likely result in the patient requiring inpatient psychiatric care which could not be prevented at a less intensive level of care. I spent minutes with the patient and/or on the patient floor today, greater than?50% of which was spent counseling/coordinating care. Discharge Plan Discharge Attending provider: Jose Gastelum Medications: No Action trazodone 50 mg Tablet 50 mg PO BEDTIME PRN (Reason: Insomnia) Qty: 30 0RF docusate sodium 100 mg Capsule 100 mg PO BID Qty: 60 0RF sennosides [Senna Lax] 8.6 mg Tablet 17.2 mg PO BEDTIME PRN (Reason: Constipation) Qty: 30 0RF melatonin 3 mg Tablet 6 mg PO BEDTIME PRN (Reason: Insomnia) Qty: 30 0RF haloperidol 5 mg tablet 5 mg PO BID PRN (Reason: agitation) Qty: 60 0RF haloperidol 5 mg tablet 5 mg PO BEDTIME Label Comments: Patient stated the provider decreased the dose from 5 mg BID to 5 mg at HS d/t sedation. Confirmed with Reena Salvador APRN. lamotrigine 25 mg tablet 50 mg PO BEDTIME Label Comments: Liana Jarrett PSYCHOLOGICAL OPERATIONS OFFICER increased to 50 mg at bedtime from 25 mg today. divalproex 500 mg tablet extended release 24 hr 1,000 mg PO BEDTIME Label Comments: Patient stated the dose was decreased from 1500 mg to 1000 mg d/t sedation. Confirmed this with Reena Salvador APRN. Stand Alone Forms: Patient Portal Discharge page Telehealth Telehealth Location of provider rendering services: practice address Location of patient: address on file Patient Identification confirmed using: Name, : Yes Telehealth method: video Patient verbally consented to treatment: Yes Patient verbally consented to billing insurance company: Yes Patient informed of any privacy concerns related to visit: Yes Minutes spent on Phone/Video with Pt.: 15
--- NOTE | 2022-02-14 09:11 | P.PNPSP_ITS ---
Subjective Subjective Date of Service: 02/14/22 Reason For Visit: unspecified bipolar d/o Medical Problems Affecting Mental Status: No Interim History: Decompensating, with increased grandiosity, flight of ideas, believing God is speaking to her, +AH, behaviors including praying in yard, talking to God. God sent me a message through the [employer], through my sister's dental technician . Denies SI/HI, states I'm healed, home is where your story begins . Medication Compliance: Yes Side effects from medications: No Attending Groups: Yes Review of Systems Acute medical concerns: No Medical Review of Systems: changed Review of Systems Constitutional: Reports no additional constitutional complaints Reports behavioral changes Psychiatric: Reports behavioral changes, Reports auditory hallucinations and Reports hallucinations Mental Status Exam Mental Status Exam Narrative: Met via phone. Displayed symptoms of jimmy/psychosis. Denies SI/HI. Patient Orientation: Person, Place, Time and Situation Level of Consciousness: Appropriate Patient Behavior: Cooperative Mood Description: Calm Patient Cognition Impaired: No Ability to Follow Directions: Good Speech Pattern: Clear, Rambling, Rapid, Excessive and Pressured (slightly pressured.) Memory Description: Intact Hallucinations: Auditory Delusions: Grandiose and Ideas of Reference Thought Process: Distracted Thought Content: positive for Circumstantial and positive for Loose Associations Judgement: Poor Assessment & Plan Assessment & Plan (1) Bipolar I disorder, current or most recent episode manic, severe with mood-congruent psychotic features: Status: Acute Code(s): F31.2 - Bipolar disorder, current episode manic severe with psychotic features Assessment and Plan: Received phone call from mother, spoke with mother and patient on phone, along with clinician Melina. Patient had received decreased in Haldol and Depakote upon discharge from hospital, due to sedation side effects. Mother reports that patient has slowly been decompensating, with combination of symptoms this past weekend. She describes patient actively hallucinating, grandiose, going out in the yard to pray and talk to God. Mother reports patient has been compliant with medications. Patient was rambling, flight of ideas, grandiose. Reports positive auditory hallucinations, states ?God's talking to me ?. Denies visual hallucinations at this time. She then stated that a therapist had told her she does not need medications, and that ?I am healed ?. Reports that she has been sleeping, although last evening not as much as usual. Denies SI at this time. As of note, patient had been suicidal several months ago while D compensating, and also had thoughts of harm to family. Patient has been talking to herself, making sign of cross, and praying consistently. Plan Patient appears to be decompensating, with active hallucinations, grandiosity, flight of ideas, pressured rapid speech, preoccupation with mandaeism. Spoke with mother, recommend she bring patient in to [facility] ED to be evaluated for possible admission, in order to make appropriate medication adjustments, and to prevent any further decompensation at this time. Mother and patient were agreeable to come in. Care team has been notified. Patient educated on: diagnosis, medication risk/benefits and therapeutic strategies Guardian/Caregiver educated on: diagnosis, medication risk/benefits and therapeutic strategies Informed Consent: understands Reason for contiued partial hosp. stay Substantial Risk for: harm to self, inability to function, rapid decompensation and med/psych decompensation Certification I certify that partial hospital treatment is medically necessary due to the symptoms and problems resulting from the patient's mental illness and the failure to treat the patient at the partial hospital level of care would likely result in the patient requiring inpatient psychiatric care which could not be prevented at a less intensive level of care. I spent minutes with the patient and/or on the patient floor today, greater than?50% of which was spent counseling/coordinating care. Discharge Plan Discharge Attending provider: Jose Gastelum Medications: No Action trazodone 50 mg Tablet 50 mg PO BEDTIME PRN (Reason: Insomnia) Qty: 30 0RF docusate sodium 100 mg Capsule 100 mg PO BID Qty: 60 0RF sennosides [Senna Lax] 8.6 mg Tablet 17.2 mg PO BEDTIME PRN (Reason: Constipation) Qty: 30 0RF melatonin 3 mg Tablet 6 mg PO BEDTIME PRN (Reason: Insomnia) Qty: 30 0RF haloperidol 5 mg tablet 5 mg PO BID PRN (Reason: agitation) Qty: 60 0RF haloperidol 5 mg tablet 5 mg PO BEDTIME Label Comments: Patient stated the provider decreased the dose from 5 mg BID to 5 mg at HS d/t sedation. Confirmed with Reena Salvador APRN. lamotrigine 25 mg tablet 50 mg PO BEDTIME Label Comments: Liana Jarrett GRIP increased to 50 mg at bedtime from 25 mg today. divalproex 500 mg tablet extended release 24 hr 1,000 mg PO BEDTIME Label Comments: Patient stated the dose was decreased from 1500 mg to 1000 mg d/t sedation. Confirmed this with Reena Salvador APRN. Stand Alone Forms: Patient Portal Discharge page Telehealth Telehealth Location of provider rendering services: practice address Location of patient: address on file Patient Identification confirmed using: Name, : Yes Telehealth method: voice only Patient verbally consented to treatment: Yes Patient verbally consented to billing insurance company: Yes Patient informed of any privacy concerns related to visit: Yes Minutes spent on Phone/Video with Pt.: 20
--- NOTE | 2022-02-15 14:54 | PC.NURSE ---
Patient admit to inpatient unit [facility] on 02/14/2022. Discharge from [facility] 02/11/2022.
== END 2022-02-11 23:59 | disposition home or self-care (01) ==
LOC: HO.PHPA 09:00
PROVIDERS: Visit Provider Psychiatry & Neurology Psychiatry
DX: F31.2 Bipolar disorder, current episode manic severe with psychotic features (principal); Z79.899 Other long term (current) drug therapy
CPT/HCPCS: 90791; 90853

== ENCOUNTER 2022-02-14 10:05 | Inpatient (IN) | payer BC, SELFPAY ==
--- NOTE | 2022-02-14 | ECG_ITS ---
Test Reason : MED CLEARANCE Blood Pressure : / mmHG Vent. Rate : 086 BPM Atrial Rate : 086 BPM P-R Int : 152 ms QRS Dur : 088 ms QT Int : 358 ms P-R-T Axes : 029 069 076 degrees QTc Int : 428 ms Normal sinus rhythm Normal ECG No previous ECGs available Referred By: Rachael Osborne Electronically Signed By:MIGUEL ANGEL LORA MD
[2022-02-14 10:11] VITALS: BP 139/73; PULSE 104; RESP 20; TEMP 37.1; O2SAT 97; BMI 24.7
--- NOTE | 2022-02-14 10:22 | ED.PSYCH ---
HPI - Psych General Chief Complaint: Psychiatric Symptoms Stated Complaint: crisis Time Seen by Provider: 02/14/22 10:17 Source: patient, family (mother) and old records reviewed (notes from today's psychiatric visit) Mode of arrival: ambulatory Limitations: no limitations History of Present Illness complaint: other (grandiose of ideas, + AH, talking to god, praying in her yard) Onset (ago): week(s) (slowly getting worse) Duration: getting worse History of same: Yes Relieving factors: none Exacerbating factors: none Context: other (recent admission with changes in depakote and haldol) Associated psychiatric symptoms: racing thoughts, auditory hallucinations and delusions Associated symptoms: denies other symptoms Treatments prior to arrival: none Related Data Home Medications Medication Instructions Recorded Confirmed divalproex 500 mg tablet,extended 1,000 mg PO BEDTIME 02/04/22 02/14/22 release 24 hr haloperidol 5 mg tablet 5 mg PO BEDTIME 02/04/22 02/14/22 lamotrigine 25 mg tablet 50 mg PO BEDTIME 02/04/22 02/14/22 acetaminophen 325 mg tablet 650 mg PO Q6H PRN Pain 02/14/22 02/14/22 docusate sodium 100 mg capsule 100 mg PO BID PRN Constipation 02/14/22 02/14/22 ibuprofen 200 mg tablet 400 mg PO Q6H PRN Pain 02/14/22 02/14/22 loratadine 10 mg tablet (Claritin) 10 mg PO DAILY PRN Allergy Symptoms 02/14/22 02/14/22 polyethylene glycol 400 1 % eye 1 drp ophthalmic (eye) QID PRN Dry 02/14/22 02/14/22 drops (Visine Dry Eye Relief) Eye(S) Previous Rx's Medication Instructions Recorded haloperidol 5 mg tablet 5 mg PO BID PRN agitation #60 tabs 01/28/22 melatonin 3 mg tablet 6 mg PO BEDTIME PRN Insomnia #30 01/28/22 tabs sennosides 8.6 mg tablet (Senna 17.2 mg PO BEDTIME PRN 01/28/22 Lax) Constipation #30 tabs trazodone 50 mg tablet 50 mg PO BEDTIME PRN Insomnia #30 01/28/22 tabs Allergies Allergy/AdvReac Type Severity Reaction Status Date / Time amoxicillin AdvReac Intermediate Rash Verified 01/11/22 21:42 harrison AdvReac Intermediate Gastrointestinal Verified 01/21/22 19:19 Upset kiwi AdvReac Intermediate gi Verified 01/21/22 19:19 Milk Containing Products AdvReac Intermediate Gastrointestinal Verified 01/21/22 19:19 Upset cheese AdvReac gi distress Verified 01/21/22 19:19 fluoxetine [From Prozac] AdvReac Depression Verified 01/11/22 21:43 Review of Systems Review of Systems: Constitutional : No Fever, No Chills ENT/Mouth : No Ear Pain, No Nasal Congestion, No sore throat Eyes: No Eye Pain, No Swelling, No Redness Cardiovascular : No Chest Pain, No SOB Respiratory : No Cough, No Sputum, No Dyspnea Gastrointestinal : No Nausea, No Vomiting, No Diarrhea, No Hematochezia, No Melena Genitourinary : No Dysuria, No Urinary Frequency, No Hematuria Musculoskeletal : No Myalgias Skin : No Skin Lesions, No rash Neuro : No Weakness, No Numbness, No Paresthesias, No Dizziness, No Headache Psych : no Anxiety, no Depression, no SI/HI Heme/Lymph: No Lymphadenopathy Endocrine : No Polyuria, No Polydipsia All other systems reviewed and are negative PMFSH Past Medical History Attestation statement: The following information was validated with the patient. Medical History Bipolar I disorder, current or most recent episode manic, severe with mood-congruent psychotic features Mood disorder Psychotic disorder with delusions Social History Social History Household Members: Family Housing: Unknown / Unable to assess Unable to assess alcohol history related to: Unable to respond Alcohol intake: unknown Patient Tobacco Use Status: Never used Tobacco Substance Use Type: Unknown Advance Directives: No Advance Directives Information Provided: Yes service: No Sexual orientation: Did not discuss Physical Exam Vital Signs: Vital Signs: Last Vital Signs Temp 98.8 F 02/14/22 10:11 Pulse 104 H 02/14/22 10:11 Resp 20 02/14/22 10:11 BP 139/73 02/14/22 10:11 Pulse Ox 97 02/14/22 10:11 O2 Del Method 02/14/22 10:11 BMI result Body Mass Index 24.7 Appearance: Alert. Oriented X3. No acute distress. Very upbeat and engaging, calm and cooperative, states she feels fine and is doing well Eyes: Pupils equal, round and reactive to light. ENT: Pharynx normal. Neck: Normal inspection. Neck supple. CVS: Normal heart rate and rhythm. Pulses normal. Respiratory: No respiratory distress. Breath sounds normal. Abdomen: Soft and nontender. Skin: Skin warm and dry. Normal skin color. Normal skin turgor. Extremities: No lower extremity edema. No calf ttp Neuro: Oriented X 3. No motor deficit. No sensory deficit. CN 2-12 intact Course Course Course Narrative: Physician observation started at 1126am. Patient placed in physician observation because the patient needed more time for CARE team to assess the need for psych admission. At the time observation was started the patient's vitals were stable, patient is alert and oriented but slightly anxious, Neuro: nonfocal, CV RRR, Lungs clear MDM - Psych MDM Narrative Medical decision making narrative: 21 yo female with hx of bipolar and mood disorder sent to ED by her psychiatrist for decompensation at this time will need basic labs, UA, COVID swab - CARE team consult - has no medical complaints at this time Lab Data Result diagrams: 02/14/22 10:41 02/14/22 10:41 Labs: Lab Results 02/14/22 02/14/22 02/14/22 Range/Units 10:41 10:41 10:54 WBC 8.9 (4.8-10.8) X10*3/uL RBC 4.23 (4.20-5.50) X10*6/uL Hgb 11.8 L (12.0-16.0) g/dl Hct 35.6 L (37.0-47.0) % MCV 84.2 (80.0-98.0) fL MCH 27.9 (27.0-33.0) pg MCHC 33.1 (31.0-35.0) g/dl RDW 16.0 (11.0-16.0) % Plt Count 238 (160-400) X10*3/uL MPV 10.9 (9.4-12.3) fL Immature Gran % (Auto) 0.4 (0.0-0.4) % Neut % (Auto) 74.4 H (45-73) % Lymph % (Auto) 11.9 L (20-40) % [place] % (Auto) 11.4 H (2-11) % Eos % (Auto) 1.2 (0-4) % Baso % (Auto) 0.7 (0-2) % Lymph # (Auto) 1.1 L (1.2-4.9) X10*3/uL [place] # (Auto) 1.0 (0.1-1.2) X10*3/uL Eos # (Auto) 0.1 (0.0-0.4) X10*3/uL Baso # (Auto) 0.1 (0.0-0.2) X10*3/uL Abs Immat Gran (auto) 0.04 H (0.00-0.03) X10*3/uL Absolute Neuts (auto) 6.6 (2.0-8.3) x10*3/uL Absolute Nucleated RBC 0.000 (0.0-0.012) X10*3/uL Nucleated RBC % (auto) 0.0 (0.0-0.2) /100WBC Sodium 141 (135-145) mmol/L Potassium 4.2 (3.3-5.1) mmol/L Chloride 107 (96-108) mmol/L Carbon Dioxide 27 (22-29) mmol/L Anion Gap 11 L (12-20) BUN 9 (9-16) mg/dL Creatinine 0.64 (0.5-1.4) mg/dL Estim Creat Clear Calc 113.6 Estimated GFR > 60 Random Glucose 93 (60-115) mg/dL Calcium 9.0 (8.4-10.2) mg/dL Total Bilirubin 0.6 (0.0-1.0) mg/dL Direct Bilirubin 0.2 (0.0-0.5) mg/dL AST 14 (5-31) U/L ALT 9 (0-31) U/L Alkaline Phosphatase 39 (39-117) U/L Total Protein 7.1 (6.5-8.0) g/dL Albumin 4.3 (3.5-5.0) g/dL Urine Opiates Screen Not Detected (Not Detect) Urine Fentanyl Screen POSITIVE H (Not Detect) Ur Barbiturates Screen Not Detected (Not Detect) Ur Phencyclidine Scrn Not Detected (Not Detect) Ur Amphetamines Screen Not Detected (Not Detect) U Benzodiazepines Scrn Not Detected (Not Detect) Urine Cocaine Screen Not Detected (Not Detect) U Marijuana (THC) Screen Not Detected (Not Detect) Discharge Plan Discharge Clinical Impression: Bipolar disorder Qualifiers: Active/Remission status: remission status unspecified Qualified Code(s): F31.9 - Bipolar disorder, unspecified Patient Disposition: Still a Patient Prescriptions: No Action trazodone 50 mg Tablet 50 mg PO BEDTIME PRN (Reason: Insomnia) Qty: 30 0RF sennosides [Senna Lax] 8.6 mg Tablet 17.2 mg PO BEDTIME PRN (Reason: Constipation) Qty: 30 0RF melatonin 3 mg Tablet 6 mg PO BEDTIME PRN (Reason: Insomnia) Qty: 30 0RF haloperidol 5 mg tablet 5 mg PO BID PRN (Reason: agitation) Qty: 60 0RF acetaminophen 325 mg Tablet 650 mg PO Q6H PRN (Reason: Pain) ibuprofen 200 mg Tablet 400 mg PO Q6H PRN (Reason: Pain) loratadine [Claritin] 10 mg Tablet 10 mg PO DAILY PRN (Reason: Allergy Symptoms) Visine Dry Eye Relief 1 % Drops 1 drp OPHTHALMIC (EYE) QID PRN (Reason: Dry Eye(S)) docusate sodium 100 mg capsule 100 mg PO BID PRN (Reason: Constipation) haloperidol 5 mg tablet 5 mg PO BEDTIME lamotrigine 25 mg tablet 50 mg PO BEDTIME divalproex 500 mg tablet extended release 24 hr 1,000 mg PO BEDTIME
[2022-02-14 10:50] LABS: MANUAL DIFF FLAG NO
[2022-02-14 10:52] LABS: Basophils Absolute Auto 0.1 X10*3/uL (0.0-0.2); Basophils Percent Auto 0.7 % (0-2); Eosinophils Absolute Auto 0.1 X10*3/uL (0.0-0.4); Eosinophils Percent Auto 1.2 % (0-4); Hematocrit 35.6 % (37.0-47.0); Hemoglobin 11.8 g/dl (12.0-16.0); Imm Gran Abs Auto 0.04 X10*3/uL (0.00-0.03); Imm Gran Pct Auto 0.4 % (0.0-0.4); Lymphocytes Absolute Auto 1.1 X10*3/uL (1.2-4.9); Lymphocytes Percent Auto 11.9 % (20-40); Mean Corpuscular HGB Conc 33.1 g/dl (31.0-35.0); Mean Corpuscular Hemoglobin 27.9 pg (27.0-33.0); Mean Corpuscular Volume 84.2 fL (80.0-98.0); Mean Platelet Volume 10.9 fL (9.4-12.3); Monocytes Percent Auto 11.4 % (2-11); Neutrophils Absolute Auto 6.6 x10*3/uL (2.0-8.3); Neutrophils Percent Auto 74.4 % (45-73); Platelet Count 238 X10*3/uL (160-400); Red Blood Count 4.23 X10*6/uL (4.20-5.50); White Blood Count 8.9 X10*3/uL (4.8-10.8)
[2022-02-14 11:15] LABS: Alanine Aminotransferase 9 U/L (0-31); Albumin Level 4.3 g/dL (3.5-5.0); Alkaline Phosphatase 39 U/L (39-117); Anion Gap 11 (12-20); Aspartate Amino Transferase 14 U/L (5-31); Bilirubin Direct 0.2 mg/dL (0.0-0.5); Bilirubin Total 0.6 mg/dL (0.0-1.0); Blood Urea Nitrogen 9 mg/dL (9-16); Carbon Dioxide 27 mmol/L (22-29); Chloride 107 mmol/L (96-108); Creatinine Clr Calc Pharmacy 113.6; Estimated Glomerular Filt Rate > 60; Glucose Random 93 mg/dL (60-115); Potassium 4.2 mmol/L (3.3-5.1); Sodium 141 mmol/L (135-145); Total Protein 7.1 g/dL (6.5-8.0)
[2022-02-14 11:18] LABS: Amphetamine Screen Urine Not Detected (Not Detect); Barbiturates, Urine Not Detected (Not Detect); Benzodiazepines Screen Urine Not Detected (Not Detect); Cannabinoid Screen Urine Not Detected (Not Detect); Cocaine Screen Urine Not Detected (Not Detect); Fentanyl, urine POSITIVE (Not Detect); Opiate Screen Urine Not Detected (Not Detect); Phencyclidine Screen Urine Not Detected (Not Detect)
[2022-02-14 11:26] LABS: HCG Quantitative < 2 mIU/mL
--- NOTE | 2022-02-14 11:26 | PHA.MEDREC ---
Pharmacy Consult ? Medication Reconciliation Pharmacy has completed the medication reconciliation. Confirmed all medications with patient mom. Patient now on divalproex 1000 mg at bedtime, and lamotrigene 50 mg at bedtime. Patient has haloperidol 5 mg at bedtime and 5 mg BID PRN. Reports patient has not needed stool softeners for a few days now. All OTC medications are PRN Roselyn Cantu, ShreeD
[2022-02-14 11:29] LABS: Valproate 64.6 mcg/mL (50.0-100.0)
[2022-02-14 11:46] LABS: COVID-19 Test Negative (Negative); IDNOW Serial# 16C4AD1C
[2022-02-14 15:09] VITALS: BP 119/66; PULSE 88; RESP 16; TEMP 36.9; O2SAT 98
--- NOTE | 2022-02-14 18:17 | PC.NURSE ---
Nurse to nurse given to [facility]5 staff
[2022-02-14] MEDS: lamoTRIgine 25 MG TABLET 50 MG PO (21:57)
[2022-02-14] MEDS: HaloperidoL 5 MG TABLET PO (21:58)
[2022-02-14] MEDS: Divalproex Sodium ER 500 MG TAB.ER.24H 1000 MG PO (21:58)
[2022-02-14] MEDS: Melatonin 3 MG TABLET 6 MG PO (22:00)
[2022-02-14] MEDS: traZODone HCL 50 MG TABLET PO (22:00)
--- NOTE | 2022-02-15 00:34 | PC.ADMIT ---
21yoF admitted for decompensation, jimmy, and psychosis. Pt not sleeping, not performing ADLs, religiously preoccupied, and unsafe/bizarre behaviors. Pt is intrusive, wandering, attempting to open various doors, and has poor personal boundaries. Denies SI/HI/AVH.
[2022-02-15] MEDS: LORazepam 1 MG TABLET 2 MG PO (00:38)
[2022-02-15 09:33] LABS: Magnesium 1.9 mg/dL (1.6-2.6)
[2022-02-15 09:44] LABS: Free T4 (Free Thyroxine) 1.17 ng/dL (0.71-1.85); Thyroid Stimulating Hormone 3.22 uIU/mL (0.32-4.0)
[2022-02-15 10:03] LABS: Folate 19.3 ng/mL (> or = 4.0); Vitamin B12 599 pg/mL (200-900)
[2022-02-15 10:24] VITALS: BP 122/74; PULSE 130; RESP 18; TEMP 36.9; O2SAT 97
[2022-02-15] MEDS: HaloperidoL 5 MG TABLET PO ×2 (16:13→22:23)
[2022-02-15 18:15] VITALS: BP 126/76; PULSE 114
[2022-02-15] MEDS: lamoTRIgine 25 MG TABLET 50 MG PO (19:16)
[2022-02-15] MEDS: Divalproex Sodium ER 500 MG TAB.ER.24H 1000 MG PO (19:16)
[2022-02-15] MEDS: HaloperidoL 5 MG TABLET 10 MG PO (19:16)
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
[2022-02-15] MEDS: Melatonin 3 MG TABLET 6 MG PO (21:32)
[2022-02-15] MEDS: traZODone HCL 50 MG TABLET PO (22:23)
[2022-02-16 08:34] VITALS: BP 107/80; PULSE 123; RESP 16; TEMP 36.4; O2SAT 99
[2022-02-16 16:20] VITALS: BP 99/58; PULSE 90; TEMP 36.7; O2SAT 98
[2022-02-16] MEDS: hydrOXYzine HCL 25 MG TABLET PO (18:04)
--- NOTE | 2022-02-16 18:04 | P.PNPSI_ITS ---
Subjective Subjective Date of Service: 02/16/22 Reason For Visit: Psychosis,manic Subjective Notes: Conditional Voluntary Healthcare Proxy: No Guardianship: No Medical Problems Affecting Mental Status: No Interim History: Disorganized, with poor boundaries, expansive, positive at times, negative at times and with confusion. Multiple brief interactions throughout the day. Themes of social unrest, discussion of her partner, discussion of peers, discussion of family, discussion of team and discussion of satan. Disruptive in group. Review of precipitants with pts' mother. Discussed tentative plan of care. Pt, at this time is unable to review her plan of care and fully participate due to active symptoms. Review of medications with pt's mother, and will continue current plan, add Vraylar with the LTG of use of Lamictal and Vraylar as her main agents. Medication Compliance: Yes Side effects from medications: No Attending Groups: No Review of Systems Acute medical concerns: No Medical Review of Systems: unchanged Review of Systems Reports behavioral changes and Reports confusion Psychiatric: Reports abnormal sleep pattern, Reports behavioral changes, Reports confusion, Reports difficulty concentrating, Reports mood swings, Reports paranoia, Reports hallucinations, Reports homicidal ideation (denies) and Reports suicidal ideation (denies) Mental Status Exam Mental Status Exam Patient Appearance: Appropriate Patient Orientation: Person and Place Level of Consciousness: Alert Patient Behavior: Talkative, Hyperactive, Passive, Restless, Wandering, Distractible, Confused, Good Eye Contact and Impulsive Mood Description: Happy, Relaxed, Labile, Elated and Expansive Affect Description: Labile Patient Cognition Impaired: Yes Ability to Follow Directions: Fair Speech Pattern: Spontaneous Speech, Rambling, Soft-Spoken, Cofabulation, Rapid, Excessive, Pressured and Excited Memory Description: Remote Impaired and Episodic Impaired Delusions: Paranoid Ideation and Present Perceptual Disturbances: Depersonalization and Derealization Thought Process: Racing, Illogical, Distracted and Confusion Thought Content: positive for Flight of Ideas, positive for Racing, positive for Loose Associations, positive for Tangential and positive for Disorganized Depressive Symptoms: Difficulty Sleeping Abnormal Motor Activity Signs and Symptoms: Hyperactivity and Restlessness Judgement: Poor Diagnostics Vital Signs (24Hr): Vital Signs - 24 hr 02/15/22 18:15 02/16/22 08:34 02/16/22 16:20 Temperature 97.6 F 98.1 F Pulse Rate 114 H 123 H 90 Respiratory Rate 16 Blood Pressure 126/76 107/80 99/58 L Pulse Oximetry 99 98 Oxygen Delivery Method Room Air Room Air BMI result Body Mass Index 24.7 Labs Results: 02/14/22 10:41 02/14/22 10:41 Labs: Laboratory Results - last 48 hr 02/15/22 02/15/22 08:25 08:25 Magnesium 1.9 Vitamin B12 599 Folate 19.3 TSH 3.22 Free T4 1.17 Medications Medications Current Medications Acetaminophen (Acetaminophen 325 Mg Tablet) 650 mg PO Q6H PRN PRN Reason: Headache/Pain Mild Scale (1-3) Al Hydroxide/Mg Hydroxide (Magnesium Hydrox/Alum Hydrox 30 Ml Oral.Susp) 30 ml PO Q6H PRN PRN Reason: Heartburn/Nausea Cariprazine (Cariprazine Hcl 1.5 Mg Capsule) 1.5 mg PO DAILY JOHANNA Divalproex Sodium (Divalproex Sodium Er 500 Mg Tab.Er.24h) 1,000 mg PO BEDTIME JOHANNA Divalproex Sodium (Divalproex Sodium Er 250 Mg Tab.Er.24h) 250 mg PO BEDTIME JOHANNA Haloperidol (Haloperidol 5 Mg Tablet) 5 mg PO BID PRN PRN Reason: agitation Last Admin: 02/15/22 22:23 Dose: 5 mg Haloperidol (Haloperidol 5 Mg Tablet) 10 mg PO BEDTIME JOHANNA Last Admin: 02/15/22 19:16 Dose: 10 mg Hydroxyzine HCl (Hydroxyzine Hcl 25 Mg Tablet) 25 mg PO Q6H PRN PRN Reason: Anxiety Lamotrigine (Lamotrigine 25 Mg Tablet) 50 mg PO BEDTIME JOHANNA Last Admin: 02/15/22 19:16 Dose: 50 mg Magnesium Hydroxide (Milk Of Magnesia 30 Ml Oral.Susp) 30 ml PO DAILY PRN PRN Reason: Constipation Melatonin (Melatonin 3 Mg Tablet) 6 mg PO BEDTIME PRN PRN Reason: Insomnia Last Admin: 02/15/22 21:32 Dose: 6 mg Trazodone HCl (Trazodone Hcl 50 Mg Tablet) 50 mg PO BEDTIME PRN PRN Reason: Insomnia Last Admin: 02/15/22 22:23 Dose: 50 mg Allergies Allergies Allergy/AdvReac Type Severity Reaction Status Date / Time amoxicillin AdvReac Intermediate Rash Verified 01/11/22 21:42 harrison AdvReac Intermediate Gastrointestinal Verified 01/21/22 19:19 Upset kiwi AdvReac Intermediate gi Verified 01/21/22 19:19 Milk Containing Products AdvReac Intermediate Gastrointestinal Verified 01/21/22 19:19 Upset cheese AdvReac gi distress Verified 01/21/22 19:19 fluoxetine [From Prozac] AdvReac Depression Verified 01/11/22 21:43 Assessment & Plan Assessment & Plan (1) Bipolar disorder: Qualifiers: Active/Remission status: remission status unspecified Qualified Code(s): F31.9 - Bipolar disorder, unspecified Status: Acute Code(s): F31.9 - Bipolar disorder, unspecified Plan 21 yo female, exacerbation of symptoms of bipolar disorder. Recent discharge from . Pt was attending [facility] hospital program. Plan: Reviewed in team meeting Valproate level 64.6 Increase Valproate to 1250 HS Increase Haldol to 10 mg HS Collateral contacts Family meeting to review regime and options. 02/16/21- Vraylar 1.5 mg daily I spent minutes with the patient and/or on the patient floor today, greater than?50% of which was spent counseling/coordinating care. Informed Consent: does not understand Reason for contiued inpatient stay Substantial Risk for: harm to others, inability to function and rapid decompensation
[2022-02-16] MEDS: HaloperidoL 5 MG TABLET PO (18:05)
--- NOTE | 2022-02-16 19:33 | PC.NURSE ---
Dr. Shankar notified that patient has been pulling signs off the wall and has also pulled a wooden box off the wall, exposing luevano nails. Order was put in by Dr. Shankar to change patient safety checks to 1:1.
[2022-02-16] MEDS: Divalproex Sodium ER 500 MG TAB.ER.24H 1000 MG PO (20:08)
[2022-02-16] MEDS: lamoTRIgine 25 MG TABLET 50 MG PO (20:43)
[2022-02-16] MEDS: Divalproex Sodium ER 250 MG TAB.ER.24H PO (20:44)
[2022-02-16] MEDS: HaloperidoL 5 MG TABLET 10 MG PO (20:44)
[2022-02-17 07:00] VITALS: BMI 25.2
[2022-02-17] MEDS: Cariprazine HCl 1.5 MG CAPSULE PO (08:21)
[2022-02-17 09:43] VITALS: BP 109/65; PULSE 117; RESP 18; TEMP 36.6; O2SAT 97
--- NOTE | 2022-02-17 17:30 | HO.PSYCHPN ---
Subjective Subjective Date of Service: 02/17/22 Reason For Visit: Psychosis,manic Subjective Notes: 3 Day (02/22/22) Healthcare Proxy: No Guardianship: No Medical Problems Affecting Mental Status: No Interim History: TDN to 02/22/22. One to one in place. Intermittent agitation, team reports destructive acts-pulling down signs on the unit, poor boundaries with team and peers, exit seeking, needs assist with showering, poor focus, distraction from internal stimuli. Team are consistently re-directing. Medication Compliance: Yes Side effects from medications: No Attending Groups: No Review of Systems Acute medical concerns: No Medical Review of Systems: unchanged Review of Systems Reports behavioral changes and Reports confusion Psychiatric: Reports behavioral changes, Reports confusion, Reports difficulty concentrating, Reports auditory hallucinations, Reports irritability, Reports mood swings and Reports hallucinations Mental Status Exam Mental Status Exam Patient Appearance: Disheveled Patient Orientation: Person Level of Consciousness: Alert Patient Behavior: Talkative, Suspicious, Restless, Wandering, Anxious, Fatigued, Distractible, Confused, Good Eye Contact, Impulsive and Pacing Mood Description: Labile Affect Description: Labile Patient Cognition Impaired: Yes Ability to Follow Directions: Fair Speech Pattern: Spontaneous Speech Memory Description: Remote Impaired and Episodic Impaired Hallucinations: Auditory Delusions: Grandiose and Present Perceptual Disturbances: Depersonalization and Derealization Thought Process: Illogical, Distracted and Confusion Thought Content: positive for Flight of Ideas, positive for Racing, positive for Circumstantial, positive for Loose Associations, positive for Tangential and positive for Disorganized Depressive Symptoms: Difficulty Concentrating Abnormal Motor Activity Signs and Symptoms: Agitation and Restlessness Judgement: Poor Diagnostics Vital Signs (24Hr): Vital Signs - 24 hr 02/17/22 09:43 Temperature 97.8 F Pulse Rate 117 H Respiratory Rate 18 Blood Pressure 109/65 Pulse Oximetry 97 Oxygen Delivery Method Room Air BMI result Body Mass Index 25.2 Labs Results: 02/14/22 10:41 02/14/22 10:41 Medications Medications Current Medications Acetaminophen (Acetaminophen 325 Mg Tablet) 650 mg PO Q6H PRN PRN Reason: Headache/Pain Mild Scale (1-3) Al Hydroxide/Mg Hydroxide (Magnesium Hydrox/Alum Hydrox 30 Ml Oral.Susp) 30 ml PO Q6H PRN PRN Reason: Heartburn/Nausea Cariprazine (Cariprazine Hcl 1.5 Mg Capsule) 1.5 mg PO DAILY [facility] Last Admin: 02/17/22 08:21 Dose: 1.5 mg Divalproex Sodium (Divalproex Sodium Er 500 Mg Tab.Er.24h) 1,000 mg PO BEDTIME JOHANNA Last Admin: 02/16/22 20:08 Dose: 1,000 mg Divalproex Sodium (Divalproex Sodium Er 250 Mg Tab.Er.24h) 250 mg PO BEDTIME JOHANNA Last Admin: 02/16/22 20:44 Dose: 250 mg Haloperidol (Haloperidol 5 Mg Tablet) 5 mg PO BID PRN PRN Reason: agitation Last Admin: 02/16/22 18:05 Dose: 5 mg Haloperidol (Haloperidol 5 Mg Tablet) 10 mg PO BEDTIME JOHANNA Last Admin: 02/16/22 20:44 Dose: 10 mg Hydroxyzine HCl (Hydroxyzine Hcl 25 Mg Tablet) 25 mg PO Q6H PRN PRN Reason: Anxiety Last Admin: 02/16/22 18:04 Dose: 25 mg Lamotrigine (Lamotrigine 25 Mg Tablet) 50 mg PO BEDTIME JOHANNA Last Admin: 02/16/22 20:43 Dose: 50 mg Magnesium Hydroxide (Milk Of Magnesia 30 Ml Oral.Susp) 30 ml PO DAILY PRN PRN Reason: Constipation Melatonin (Melatonin 3 Mg Tablet) 6 mg PO BEDTIME PRN PRN Reason: Insomnia Last Admin: 02/15/22 21:32 Dose: 6 mg Trazodone HCl (Trazodone Hcl 50 Mg Tablet) 50 mg PO BEDTIME PRN PRN Reason: Insomnia Last Admin: 02/15/22 22:23 Dose: 50 mg Allergies Allergies Allergy/AdvReac Type Severity Reaction Status Date / Time amoxicillin AdvReac Intermediate Rash Verified 01/11/22 21:42 harrison AdvReac Intermediate Gastrointestinal Verified 01/21/22 19:19 Upset kiwi AdvReac Intermediate gi Verified 01/21/22 19:19 Milk Containing Products AdvReac Intermediate Gastrointestinal Verified 01/21/22 19:19 Upset cheese AdvReac gi distress Verified 01/21/22 19:19 fluoxetine [From Prozac] AdvReac Depression Verified 01/11/22 21:43 Assessment & Plan Assessment & Plan (1) Bipolar disorder: Qualifiers: Active/Remission status: remission status unspecified Qualified Code(s): F31.9 - Bipolar disorder, unspecified Status: Acute Code(s): F31.9 - Bipolar disorder, unspecified Plan 21 yo female, exacerbation of symptoms of bipolar disorder. Recent discharge from . Pt was attending [facility] program. Plan: Reviewed in team meeting Valproate level 64.6 Increase Valproate to 1250 HS Increase Haldol to 10 mg HS Collateral contacts Family meeting to review regime and options. 02/16/21- Vraylar 1.5 mg daily 02/17/22- Increase Valproate to 1500 mg hs Increase Haldol to 15 mg hs I spent minutes with the patient and/or on the patient floor today, greater than?50% of which was spent counseling/coordinating care. Informed Consent: does not understand Reason for contiued inpatient stay Substantial Risk for: harm to self, harm to others, inability to function and rapid decompensation
--- NOTE | 2022-02-17 18:43 | PC.NURSE ---
Pt signed a Three Day notice on 02/17/2022 up on Monday02/22/2022.
[2022-02-17] MEDS: Divalproex Sodium ER 500 MG TAB.ER.24H PO (19:11)
[2022-02-17] MEDS: Divalproex Sodium ER 500 MG TAB.ER.24H 1000 MG PO (19:11)
[2022-02-17] MEDS: lamoTRIgine 25 MG TABLET 50 MG PO (19:11)
[2022-02-17] MEDS: HaloperidoL 5 MG TABLET 15 MG PO (19:11)
[2022-02-17] MEDS: traZODone HCL 50 MG TABLET PO (19:12)
[2022-02-17] MEDS: Milk of Magnesia 30 ML ORAL.SUSP PO (19:13)
[2022-02-17 19:31] VITALS: BP 101/60; PULSE 100
[2022-02-17] MEDS: Acetaminophen 325 MG TABLET 650 MG PO (21:22)
[2022-02-18] MEDS: Cariprazine HCl 1.5 MG CAPSULE PO (10:04)
[2022-02-18] MEDS: HaloperidoL 5 MG TABLET PO ×2 (10:22→18:25)
[2022-02-18 10:29] VITALS: BP 107/58; PULSE 111; RESP 18; TEMP 36.7; O2SAT 98
--- NOTE | 2022-02-18 15:06 | HO.PSYCHPN ---
Subjective Subjective Date of Service: 02/18/22 Reason For Visit: Psychosis,manic Subjective Notes: 3 Day Healthcare Proxy: No Guardianship: No Medical Problems Affecting Mental Status: No Interim History: Continues on one to one. Less tangential in discussion today [place] issues remain but appear decreased Confused, distracted and not able to follow conversation for a long period of time. Asking about leaving, about getting , about her TDN. Medication Compliance: Yes Side effects from medications: No Attending Groups: Yes Review of Systems Acute medical concerns: No Medical Review of Systems: unchanged Review of Systems Reports behavioral changes and Reports confusion Psychiatric: Reports behavioral changes, Reports confusion, Reports difficulty concentrating and Reports mood swings Mental Status Exam Mental Status Exam Patient Appearance: Disheveled Patient Orientation: Person Level of Consciousness: Alert Patient Behavior: Talkative, Suspicious, Restless, Wandering, Anxious, Fatigued, Distractible, Confused, Good Eye Contact, Impulsive and Pacing Mood Description: Labile Affect Description: Labile Patient Cognition Impaired: Yes Ability to Follow Directions: Fair Speech Pattern: Spontaneous Speech Memory Description: Remote Impaired and Episodic Impaired Hallucinations: Auditory Delusions: Grandiose and Present Perceptual Disturbances: Depersonalization and Derealization Thought Process: Illogical, Distracted and Confusion Thought Content: positive for Flight of Ideas, positive for Racing, positive for Circumstantial, positive for Loose Associations, positive for Tangential and positive for Disorganized Depressive Symptoms: Difficulty Concentrating Abnormal Motor Activity Signs and Symptoms: Agitation and Restlessness Judgement: Poor Diagnostics Vital Signs (24Hr): Vital Signs - 24 hr 02/17/22 19:31 02/18/22 10:29 Temperature 98.0 F Pulse Rate 100 111 H Respiratory Rate 18 Blood Pressure 101/60 107/58 L Pulse Oximetry 98 Oxygen Delivery Method Room Air BMI result Body Mass Index 25.2 Labs Results: 02/14/22 10:41 02/14/22 10:41 Medications Medications Current Medications Acetaminophen (Acetaminophen 325 Mg Tablet) 650 mg PO Q6H PRN PRN Reason: Headache/Pain Mild Scale (1-3) Last Admin: 02/17/22 21:22 Dose: 650 mg Al Hydroxide/Mg Hydroxide (Magnesium Hydrox/Alum Hydrox 30 Ml Oral.Susp) 30 ml PO Q6H PRN PRN Reason: Heartburn/Nausea Cariprazine (Cariprazine Hcl 1.5 Mg Capsule) 1.5 mg PO DAILY JOHANNA Last Admin: 02/18/22 10:04 Dose: 1.5 mg Divalproex Sodium (Divalproex Sodium Er 500 Mg Tab.Er.24h) 1,000 mg PO BEDTIME JOHANNA Last Admin: 02/17/22 19:11 Dose: 1,000 mg Divalproex Sodium (Divalproex Sodium Er 500 Mg Tab.Er.24h) 500 mg PO BEDTIME JOHANNA Last Admin: 02/17/22 19:11 Dose: 500 mg Haloperidol (Haloperidol 5 Mg Tablet) 5 mg PO BID PRN PRN Reason: agitation Last Admin: 02/16/22 18:05 Dose: 5 mg Haloperidol (Haloperidol 5 Mg Tablet) 15 mg PO BEDTIME [facility] Last Admin: 02/17/22 19:11 Dose: 15 mg Haloperidol (Haloperidol 5 Mg Tablet) 5 mg PO DAILY [facility] Last Admin: 02/18/22 10:22 Dose: 5 mg Hydroxyzine HCl (Hydroxyzine Hcl 25 Mg Tablet) 25 mg PO Q6H PRN PRN Reason: Anxiety Last Admin: 02/16/22 18:04 Dose: 25 mg Lamotrigine (Lamotrigine 25 Mg Tablet) 50 mg PO BEDTIME JOHANNA Last Admin: 02/17/22 19:11 Dose: 50 mg Magnesium Hydroxide (Milk Of Magnesia 30 Ml Oral.Susp) 30 ml PO DAILY PRN PRN Reason: Constipation Last Admin: 02/17/22 19:13 Dose: 30 ml Melatonin (Melatonin 3 Mg Tablet) 6 mg PO BEDTIME PRN PRN Reason: Insomnia Last Admin: 02/15/22 21:32 Dose: 6 mg Trazodone HCl (Trazodone Hcl 50 Mg Tablet) 50 mg PO BEDTIME PRN PRN Reason: Insomnia Last Admin: 02/17/22 19:12 Dose: 50 mg Allergies Allergies Allergy/AdvReac Type Severity Reaction Status Date / Time amoxicillin AdvReac Intermediate Rash Verified 01/11/22 21:42 harrison AdvReac Intermediate Gastrointestinal Verified 01/21/22 19:19 Upset kiwi AdvReac Intermediate gi Verified 01/21/22 19:19 Milk Containing Products AdvReac Intermediate Gastrointestinal Verified 01/21/22 19:19 Upset cheese AdvReac gi distress Verified 01/21/22 19:19 fluoxetine [From Prozac] AdvReac Depression Verified 01/11/22 21:43 Assessment & Plan Assessment & Plan (1) Bipolar disorder: Qualifiers: Active/Remission status: remission status unspecified Qualified Code(s): F31.9 - Bipolar disorder, unspecified Status: Acute Code(s): F31.9 - Bipolar disorder, unspecified Plan 21 yo female, exacerbation of symptoms of bipolar disorder. Recent discharge from . Pt was attending [facility] program. Plan: Reviewed in team meeting Valproate level 64.6 Increase Valproate to 1250 HS Increase Haldol to 10 mg HS Collateral contacts Family meeting to review regime and options. 02/16/21- Vraylar 1.5 mg daily 02/17/22- Increase Valproate to 1500 mg hs Increase Haldol to 15 mg hs 02/18/22- Continue current regime Care discussed with pt's mother today. I spent minutes with the patient and/or on the patient floor today, greater than?50% of which was spent counseling/coordinating care. Patient educated on: therapeutic strategies Informed Consent: does not understand Reason for contiued inpatient stay Substantial Risk for: rapid decompensation
[2022-02-18 18:21] VITALS: BP 105/59; PULSE 89
[2022-02-18] MEDS: Divalproex Sodium ER 500 MG TAB.ER.24H 1000 MG PO (19:16)
[2022-02-18] MEDS: HaloperidoL 5 MG TABLET 15 MG PO (19:17)
[2022-02-18] MEDS: Divalproex Sodium ER 500 MG TAB.ER.24H PO (19:17)
[2022-02-18] MEDS: lamoTRIgine 25 MG TABLET 75 MG PO (19:17)
[2022-02-18] MEDS: Melatonin 3 MG TABLET 6 MG PO (22:30)
[2022-02-18] MEDS: traZODone HCL 50 MG TABLET PO (22:30)
[2022-02-19 06:00] VITALS: BP 91/52; PULSE 61; RESP 16; TEMP 36.3; O2SAT 98
[2022-02-19] MEDS: HaloperidoL 5 MG TABLET PO (10:53)
[2022-02-19] MEDS: Cariprazine HCl 1.5 MG CAPSULE PO (10:53)
--- NOTE | 2022-02-19 13:57 | HO.PSYCHPN ---
Subjective Subjective Date of Service: 02/19/22 Reason For Visit: Psychosis,manic Subjective Notes: Conditional Voluntary Interim History: Patient's case reviewed with nursing staff patient seen. Patient somewhat withdrawn isolative anxious limited engagement in the milieu. Patient's mother reportedly guardian Mental Status Exam Mental Status Exam Patient Appearance: Disheveled Patient Orientation: Person Level of Consciousness: Alert Patient Behavior: Passive, Anxious, Fatigued, Distractible, Confused, Good Eye Contact and Impulsive Mood Description: Labile Affect Description: Labile Patient Cognition Impaired: Yes Ability to Follow Directions: Fair Speech Pattern: Spontaneous Speech Memory Description: Remote Impaired and Episodic Impaired Hallucinations: Auditory Delusions: Grandiose and Present Perceptual Disturbances: Depersonalization and Derealization Thought Process: Illogical, Distracted and Confusion Thought Content: positive for Flight of Ideas, positive for Racing, positive for Circumstantial, positive for Loose Associations, positive for Tangential and positive for Disorganized Depressive Symptoms: Increased Anxiety and Difficulty Concentrating Abnormal Motor Activity Signs and Symptoms: Agitation and Restlessness Judgement: Poor Diagnostics Vital Signs (24Hr): Vital Signs - 24 hr 02/18/22 18:21 02/19/22 06:00 Temperature 97.4 F Pulse Rate 89 61 Respiratory Rate 16 Blood Pressure 105/59 L 91/52 L Pulse Oximetry 98 BMI result Body Mass Index 25.2 Labs Results: 02/14/22 10:41 02/14/22 10:41 Medications Medications Current Medications Acetaminophen (Acetaminophen 325 Mg Tablet) 650 mg PO Q6H PRN PRN Reason: Headache/Pain Mild Scale (1-3) Last Admin: 02/17/22 21:22 Dose: 650 mg Al Hydroxide/Mg Hydroxide (Magnesium Hydrox/Alum Hydrox 30 Ml Oral.Susp) 30 ml PO Q6H PRN PRN Reason: Heartburn/Nausea Cariprazine (Cariprazine Hcl 1.5 Mg Capsule) 1.5 mg PO DAILY [facility] Last Admin: 02/19/22 10:53 Dose: 1.5 mg Divalproex Sodium (Divalproex Sodium Er 500 Mg Tab.Er.24h) 1,000 mg PO BEDTIME JOHANNA Last Admin: 02/18/22 19:16 Dose: 1,000 mg Divalproex Sodium (Divalproex Sodium Er 500 Mg Tab.Er.24h) 500 mg PO BEDTIME JOHANNA Last Admin: 02/18/22 19:17 Dose: 500 mg Haloperidol (Haloperidol 5 Mg Tablet) 5 mg PO BID PRN PRN Reason: agitation Last Admin: 02/18/22 18:25 Dose: 5 mg Haloperidol (Haloperidol 5 Mg Tablet) 15 mg PO BEDTIME JOHANNA Last Admin: 02/18/22 19:17 Dose: 15 mg Haloperidol (Haloperidol 5 Mg Tablet) 5 mg PO DAILY JOHANNA Last Admin: 02/19/22 10:53 Dose: 5 mg Hydroxyzine HCl (Hydroxyzine Hcl 25 Mg Tablet) 25 mg PO Q6H PRN PRN Reason: Anxiety Last Admin: 02/16/22 18:04 Dose: 25 mg Lamotrigine (Lamotrigine 25 Mg Tablet) 75 mg PO BEDTIME JOHANNA Last Admin: 02/18/22 19:17 Dose: 75 mg Magnesium Hydroxide (Milk Of Magnesia 30 Ml Oral.Susp) 30 ml PO DAILY PRN PRN Reason: Constipation Last Admin: 02/17/22 19:13 Dose: 30 ml Melatonin (Melatonin 3 Mg Tablet) 6 mg PO BEDTIME PRN PRN Reason: Insomnia Last Admin: 02/18/22 22:30 Dose: 6 mg Trazodone HCl (Trazodone Hcl 50 Mg Tablet) 50 mg PO BEDTIME PRN PRN Reason: Insomnia Last Admin: 02/18/22 22:30 Dose: 50 mg Allergies Allergies Allergy/AdvReac Type Severity Reaction Status Date / Time amoxicillin AdvReac Intermediate Rash Verified 01/11/22 21:42 harrison AdvReac Intermediate Gastrointestinal Verified 01/21/22 19:19 Upset kiwi AdvReac Intermediate gi Verified 01/21/22 19:19 Milk Containing Products AdvReac Intermediate Gastrointestinal Verified 01/21/22 19:19 Upset cheese AdvReac gi distress Verified 01/21/22 19:19 fluoxetine [From Prozac] AdvReac Depression Verified 01/11/22 21:43 Assessment & Plan Assessment & Plan (1) Bipolar disorder: Qualifiers: Active/Remission status: remission status unspecified Qualified Code(s): F31.9 - Bipolar disorder, unspecified Status: Acute Code(s): F31.9 - Bipolar disorder, unspecified Plan 21 yo female, exacerbation of symptoms of bipolar disorder. Recent discharge from . Pt was attending [facility] hospital program. Plan: Reviewed in team meeting Valproate level 64.6 Increase Valproate to 1250 HS Increase Haldol to 10 mg HS Collateral contacts Family meeting to review regime and options. Assessment and plan 02/19/2022 Patient withdrawn and anxious required clonidine addition p.r.n. for anxiety denies active SI I spent minutes with the patient and/or on the patient floor today, greater than?50% of which was spent counseling/coordinating care. Reason for contiued inpatient stay Substantial Risk for: inability to function and rapid decompensation
[2022-02-19] MEDS: diphenhydrAMINE HCL 25 MG TABLET PO (14:11)
[2022-02-19 15:50] VITALS: BP 98/61; PULSE 91
[2022-02-19] MEDS: Melatonin 3 MG TABLET 6 MG PO (20:20)
[2022-02-19] MEDS: traZODone HCL 50 MG TABLET PO (20:20)
[2022-02-19] MEDS: HaloperidoL 5 MG TABLET 15 MG PO (20:21)
[2022-02-19] MEDS: Divalproex Sodium ER 500 MG TAB.ER.24H 1000 MG PO (20:21)
[2022-02-19] MEDS: lamoTRIgine 25 MG TABLET 75 MG PO (20:21)
[2022-02-19] MEDS: Divalproex Sodium ER 500 MG TAB.ER.24H PO (20:21)
[2022-02-20 06:00] VITALS: BP 100/58; PULSE 64; RESP 16; TEMP 36.3; O2SAT 98
[2022-02-20] MEDS: HaloperidoL 5 MG TABLET PO (10:15)
[2022-02-20] MEDS: Cariprazine HCl 1.5 MG CAPSULE PO (10:15)
[2022-02-20] MEDS: diphenhydrAMINE HCL 25 MG TABLET PO (16:36)
[2022-02-20 18:26] VITALS: BP 122/74; PULSE 85
[2022-02-20] MEDS: Divalproex Sodium ER 500 MG TAB.ER.24H PO (18:59)
[2022-02-20] MEDS: Divalproex Sodium ER 500 MG TAB.ER.24H 1000 MG PO (18:59)
[2022-02-20] MEDS: HaloperidoL 5 MG TABLET 15 MG PO (19:00)
[2022-02-20] MEDS: traZODone HCL 50 MG TABLET PO (19:00)
[2022-02-20] MEDS: Melatonin 3 MG TABLET 6 MG PO (19:00)
--- NOTE | 2022-02-20 23:35 | P.PNPSI_ITS ---
Subjective Subjective Date of Service: 02/20/22 Reason For Visit: Psychosis,manic Subjective Notes: Conditional Voluntary Interim History: pt anxious preoccupied worried re d/c has cravings denies si Mental Status Exam Mental Status Exam Patient Appearance: Well Grooomed Patient Orientation: Person and Place Level of Consciousness: Alert Patient Behavior: Appropriate, Distractible, Confused, Good Eye Contact and Impulsive Mood Description: Relaxed, Labile and Expansive Affect Description: Happy and Labile Patient Cognition Impaired: Yes Ability to Follow Directions: Fair Speech Pattern: Spontaneous Speech Hallucinations: Auditory Delusions: Grandiose and Present Perceptual Disturbances: Depersonalization and Derealization Thought Process: Illogical and Confusion Thought Content: positive for Racing, positive for Circumstantial, positive for Tangential and positive for Disorganized Depressive Symptoms: Increased Anxiety and Difficulty Concentrating Abnormal Motor Activity Signs and Symptoms: Restlessness Judgement: Fair Judgement and Insight: Patient with less lability euphoria improved behavior less agitation no longer as intrusive or sexually preoccupied Diagnostics Vital Signs (24Hr): Vital Signs - 24 hr 02/20/22 06:00 02/20/22 18:26 Temperature 97.4 F Pulse Rate 64 85 Respiratory Rate 16 Blood Pressure 100/58 L 122/74 Pulse Oximetry 98 BMI result Body Mass Index 25.2 Labs Results: 02/14/22 10:41 02/14/22 10:41 Medications Medications Current Medications Acetaminophen (Acetaminophen 325 Mg Tablet) 650 mg PO Q6H PRN PRN Reason: Headache/Pain Mild Scale (1-3) Last Admin: 02/17/22 21:22 Dose: 650 mg Al Hydroxide/Mg Hydroxide (Magnesium Hydrox/Alum Hydrox 30 Ml Oral.Susp) 30 ml PO Q6H PRN PRN Reason: Heartburn/Nausea Cariprazine (Cariprazine Hcl 1.5 Mg Capsule) 1.5 mg PO DAILY [facility] Last Admin: 02/20/22 10:15 Dose: 1.5 mg Diphenhydramine HCl (Diphenhydramine Hcl 25 Mg Tablet) 25 mg PO Q6H PRN PRN Reason: Allergic Reaction Last Admin: 02/19/22 14:11 Dose: 25 mg Divalproex Sodium (Divalproex Sodium Er 500 Mg Tab.Er.24h) 1,000 mg PO BEDTIME [facility] Last Admin: 02/20/22 18:59 Dose: 1,000 mg Divalproex Sodium (Divalproex Sodium Er 500 Mg Tab.Er.24h) 500 mg PO BEDTIME JOHANNA Last Admin: 02/20/22 18:59 Dose: 500 mg Haloperidol (Haloperidol 5 Mg Tablet) 5 mg PO BID PRN PRN Reason: agitation Last Admin: 02/18/22 18:25 Dose: 5 mg Haloperidol (Haloperidol 5 Mg Tablet) 15 mg PO BEDTIME JOHANNA Last Admin: 02/20/22 19:00 Dose: 15 mg Haloperidol (Haloperidol 5 Mg Tablet) 5 mg PO DAILY JOHANNA Last Admin: 02/20/22 10:15 Dose: 5 mg Hydroxyzine HCl (Hydroxyzine Hcl 25 Mg Tablet) 25 mg PO Q6H PRN PRN Reason: Anxiety Last Admin: 02/16/22 18:04 Dose: 25 mg Magnesium Hydroxide (Milk Of Magnesia 30 Ml Oral.Susp) 30 ml PO DAILY PRN PRN Reason: Constipation Last Admin: 02/17/22 19:13 Dose: 30 ml Melatonin (Melatonin 3 Mg Tablet) 6 mg PO BEDTIME PRN PRN Reason: Insomnia Last Admin: 02/20/22 19:00 Dose: 6 mg Trazodone HCl (Trazodone Hcl 50 Mg Tablet) 50 mg PO BEDTIME PRN PRN Reason: Insomnia Last Admin: 02/20/22 19:00 Dose: 50 mg Allergies Allergies Allergy/AdvReac Type Severity Reaction Status Date / Time pineapple Allergy Itching Verified 02/19/22 14:09 amoxicillin AdvReac Intermediate Rash Verified 01/11/22 21:42 harrison AdvReac Intermediate Gastrointestinal Verified 01/21/22 19:19 Upset kiwi AdvReac Intermediate gi Verified 01/21/22 19:19 Milk Containing Products AdvReac Intermediate Gastrointestinal Verified 01/21/22 19:19 Upset cheese AdvReac gi distress Verified 01/21/22 19:19 fluoxetine [From Prozac] AdvReac Depression Verified 01/11/22 21:43 Assessment & Plan Assessment & Plan (1) Bipolar disorder: Qualifiers: Active/Remission status: remission status unspecified Qualified Code(s): F31.9 - Bipolar disorder, unspecified Status: Acute Code(s): F31.9 - Bipolar disorder, unspecified Plan 21 yo female, exacerbation of symptoms of bipolar disorder. Recent discharge from . Pt was attending [facility] hospital program. Plan: Reviewed in team meeting Valproate level 64.6 Increase Valproate to 1250 HS Increase Haldol to 10 mg HS Collateral contacts Family meeting to review regime and options. Assessment and plan 02/19/2022 Patient given education regarding bipolar disorder and medication she is presently taking including Vryalar handouts given question about pineapple allergy Assessment and plan for 02/20/2022 Patient seems to be cycling somewhat down more organized continue plan of care I spent minutes with the patient and/or on the patient floor today, greater than?50% of which was spent counseling/coordinating care. Reason for contiued inpatient stay Substantial Risk for: inability to function and rapid decompensation
[2022-02-21 06:00] VITALS: BP 97/58; PULSE 68; RESP 16; TEMP 36.3; O2SAT 98
[2022-02-21] MEDS: Cariprazine HCl 1.5 MG CAPSULE PO (09:12)
[2022-02-21] MEDS: HaloperidoL 5 MG TABLET PO (09:12)
[2022-02-21] MEDS: diphenhydrAMINE HCL 25 MG TABLET PO (13:56)
--- NOTE | 2022-02-21 14:03 | PC.NURSE ---
Divya retracted her previous Three Day Notice and filed a new Three Day Notice today, it will be up on 02/24/2022.
--- NOTE | 2022-02-21 16:29 | HO.PSYCHPN ---
Subjective Subjective Date of Service: 02/21/22 Reason For Visit: Psychosis,manic Subjective Notes: 3 Day Healthcare Proxy: No Guardianship: No Medical Problems Affecting Mental Status: No Interim History: Pt improving over the weekend. Rash noted by family and team-Lamictal and Vraylar are stopped. Pt believes it is strawberries. Discussed with pt's mom this a.m. who reports a good visit on Monday. Rash was noted on Tuesday 02/20- Lamictal increased 01/19-rash on hands, chest, face, in between her legs. Pt also t/a a boy who suicided in [place]axon year with mom, (they were on ski team and in the same [employer] class). Pt cried, reported to mom that he was OK now and that she had talked with him. Also told mom that sister was engaging in SIBS-discussed options to mange this sx. Met with pt x 3 today-clearer, on point, believes rash was strawberries . States that she is having anaphylaxis-but has no objective sx-later in the day she denies any symptoms. Medication Compliance: Yes Side effects from medications: No Attending Groups: Yes Review of Systems Medical Review of Systems: unchanged Review of Systems Skin/Breast: Reports rash Psychiatric: Reports auditory hallucinations, Reports visual hallucinations and Reports hallucinations Mental Status Exam Mental Status Exam Patient Appearance: Appropriate Patient Orientation: Person, Place, Time and Situation Level of Consciousness: Alert Patient Behavior: Appropriate, Talkative, Cooperative and Good Eye Contact Mood Description: Constricted Affect Description: Constricted Patient Cognition Impaired: No Ability to Follow Directions: Good Speech Pattern: Spontaneous Speech Memory Description: Intact Hallucinations: None Delusions: Grandiose Thought Process: Distracted Thought Content: positive for [place] and positive for Tangential (mild) Judgement: Poor Diagnostics Vital Signs (24Hr): Vital Signs - 24 hr 02/20/22 18:26 02/21/22 06:00 Temperature 97.4 F Pulse Rate 85 68 Respiratory Rate 16 Blood Pressure 122/74 97/58 L Pulse Oximetry 98 BMI result Body Mass Index 25.2 Labs Results: 02/14/22 10:41 02/14/22 10:41 Medications Medications Current Medications Acetaminophen (Acetaminophen 325 Mg Tablet) 650 mg PO Q6H PRN PRN Reason: Headache/Pain Mild Scale (1-3) Last Admin: 02/17/22 21:22 Dose: 650 mg Al Hydroxide/Mg Hydroxide (Magnesium Hydrox/Alum Hydrox 30 Ml Oral.Susp) 30 ml PO Q6H PRN PRN Reason: Heartburn/Nausea Diphenhydramine HCl (Diphenhydramine Hcl 25 Mg Tablet) 25 mg PO Q6H PRN PRN Reason: Allergic Reaction Last Admin: 02/21/22 13:56 Dose: 25 mg Divalproex Sodium (Divalproex Sodium Er 500 Mg Tab.Er.24h) 1,000 mg PO BEDTIME JOHANNA Last Admin: 02/20/22 18:59 Dose: 1,000 mg Divalproex Sodium (Divalproex Sodium Er 500 Mg Tab.Er.24h) 500 mg PO BEDTIME JOHANNA Last Admin: 02/20/22 18:59 Dose: 500 mg Haloperidol (Haloperidol 5 Mg Tablet) 5 mg PO BID PRN PRN Reason: agitation Last Admin: 02/18/22 18:25 Dose: 5 mg Haloperidol (Haloperidol 5 Mg Tablet) 15 mg PO BEDTIME JOHANNA Last Admin: 02/20/22 19:00 Dose: 15 mg Haloperidol (Haloperidol 5 Mg Tablet) 5 mg PO DAILY JOHANNA Last Admin: 02/21/22 09:12 Dose: 5 mg Hydroxyzine HCl (Hydroxyzine Hcl 25 Mg Tablet) 25 mg PO Q6H PRN PRN Reason: Anxiety Last Admin: 02/16/22 18:04 Dose: 25 mg Magnesium Hydroxide (Milk Of Magnesia 30 Ml Oral.Susp) 30 ml PO DAILY PRN PRN Reason: Constipation Last Admin: 02/17/22 19:13 Dose: 30 ml Melatonin (Melatonin 3 Mg Tablet) 6 mg PO BEDTIME PRN PRN Reason: Insomnia Last Admin: 02/20/22 19:00 Dose: 6 mg Trazodone HCl (Trazodone Hcl 50 Mg Tablet) 50 mg PO BEDTIME PRN PRN Reason: Insomnia Last Admin: 02/20/22 19:00 Dose: 50 mg Allergies Allergies Allergy/AdvReac Type Severity Reaction Status Date / Time lamotrigine [From Lamictal] Allergy Severe Rash Verified 02/21/22 10:44 pineapple Allergy Itching Verified 02/19/22 14:09 amoxicillin AdvReac Intermediate Rash Verified 01/11/22 21:42 harrison AdvReac Intermediate Gastrointestinal Verified 01/21/22 19:19 Upset kiwi AdvReac Intermediate gi Verified 01/21/22 19:19 Milk Containing Products AdvReac Intermediate Gastrointestinal Verified 01/21/22 19:19 Upset cheese AdvReac gi distress Verified 01/21/22 19:19 fluoxetine [From Prozac] AdvReac Depression Verified 01/11/22 21:43 Assessment & Plan Assessment & Plan (1) Bipolar disorder: Qualifiers: Active/Remission status: remission status unspecified Qualified Code(s): F31.9 - Bipolar disorder, unspecified Status: Acute Code(s): F31.9 - Bipolar disorder, unspecified Plan 21 yo female, exacerbation of symptoms of bipolar disorder. Recent discharge from . Pt was attending [facility] hospital program. Plan: Reviewed in team meeting Valproate level 64.6 Increase Valproate to 1250 HS Increase Haldol to 10 mg HS Collateral contacts Family meeting to review regime and options. Assessment and plan 02/19/2022 Patient given education regarding bipolar disorder and medication she is presently taking including Vryalar handouts given question about pineapple allergy Assessment and plan for 02/20/2022 Patient seems to be cycling somewhat down more organized continue plan of care 02/21/22 Rash-discontinue Lamictal, Vraylar I spent minutes with the patient and/or on the patient floor today, greater than?50% of which was spent counseling/coordinating care. Patient educated on: therapeutic strategies Informed Consent: further education needed Reason for contiued inpatient stay Substantial Risk for: rapid decompensation
[2022-02-21] MEDS: HaloperidoL 5 MG TABLET 15 MG PO (21:19)
[2022-02-21] MEDS: Divalproex Sodium ER 500 MG TAB.ER.24H 1000 MG PO (21:20)
[2022-02-21] MEDS: Divalproex Sodium ER 500 MG TAB.ER.24H PO (21:21)
[2022-02-22 06:27] VITALS: BP 95/47; PULSE 64; RESP 14; TEMP 36.1; O2SAT 98
[2022-02-22 08:08] LABS: MANUAL DIFF FLAG NO
[2022-02-22 08:24] LABS: Eosinophils Absolute Auto 0.4 X10*3/uL (0.0-0.4); Eosinophils Percent Auto 9.8 % (0-4); Hematocrit 36.4 % (37.0-47.0); Imm Gran Abs Auto 0.02 X10*3/uL (0.00-0.03); Imm Gran Pct Auto 0.5 % (0.0-0.4); Lymphocytes Absolute Auto 0.8 X10*3/uL (1.2-4.9); Lymphocytes Percent Auto 18.9 % (20-40); Mean Corpuscular Hemoglobin 27.8 pg (27.0-33.0); Mean Corpuscular Volume 84.3 fL (80.0-98.0); Mean Platelet Volume 11.2 fL (9.4-12.3); Monocytes Absolute Auto 0.6 X10*3/uL (0.1-1.2); Monocytes Percent Auto 14.9 % (2-11); Neutrophils Absolute Auto 2.3 x10*3/uL (2.0-8.3); Neutrophils Percent Auto 54.9 % (45-73); Platelet Count 192 X10*3/uL (160-400); Red Blood Count 4.32 X10*6/uL (4.20-5.50); Red Cell Distribution Width 15.5 % (11.0-16.0); White Blood Count 4.2 X10*3/uL (4.8-10.8)
[2022-02-22] MEDS: HaloperidoL 5 MG TABLET PO (08:37)
[2022-02-22 08:55] LABS: Alanine Aminotransferase 26 U/L (0-31); Albumin Level 3.9 g/dL (3.5-5.0); Alkaline Phosphatase 42 U/L (39-117); Anion Gap 11 (12-20); Aspartate Amino Transferase 30 U/L (5-31); Bilirubin Total 0.5 mg/dL (0.0-1.0); Blood Urea Nitrogen 13 mg/dL (9-16); Calcium 8.5 mg/dL (8.4-10.2); Carbon Dioxide 27 mmol/L (22-29); Chloride 105 mmol/L (96-108); Creatinine Clr Calc Pharmacy 107.9; Estimated Glomerular Filt Rate > 60; Glucose Random 87 mg/dL (60-115); Potassium 4.2 mmol/L (3.3-5.1); Sodium 139 mmol/L (135-145); Total Protein 6.3 g/dL (6.5-8.0); Valproate 91.1 mcg/mL (50.0-100.0)
--- NOTE | 2022-02-22 15:47 | P.PNPSI_ITS ---
Subjective Subjective Date of Service: 02/22/22 Reason For Visit: Psychosis,manic Subjective Notes: 3 Day Healthcare Proxy: No Guardianship: No Medical Problems Affecting Mental Status: No Interim History: Clearer, responding to regime and overall improved per pt, family, team. Pt has a full body rash, which is increasing today. Lamictal and Vraylar were stopped. Hospitalist consult is ordered. Discussed with mother who reports pt is NOT allergic to strawberries, as pt reported she may be, so medications are the first thought of etiology of sx. TDN to 02/24. Pt tells family she is bored and wanting to leave. Medication Compliance: Yes Side effects from medications: Yes (Rash) Attending Groups: Intermittent Review of Systems Acute medical concerns: No Generalized body rash Medical Review of Systems: unchanged Review of Systems Psychiatric: Reports no additional psychiatric complaints and Reports anhedonia Mental Status Exam Mental Status Exam Patient Appearance: Appropriate Patient Orientation: Person, Place, Time and Situation Level of Consciousness: Alert Patient Behavior: Appropriate, Talkative, Cooperative and Good Eye Contact Mood Description: Calm Affect Description: Calm Patient Cognition Impaired: No Ability to Follow Directions: Good Speech Pattern: Spontaneous Speech Memory Description: Episodic Impaired Hallucinations: None Delusions: Not Present Thought Process: Goal Oriented Thought Content: positive for Goal Oriented Abnormal Motor Activity Signs and Symptoms: Restlessness Judgement: Fair Diagnostics Vital Signs (24Hr): Vital Signs - 24 hr 02/22/22 06:27 Temperature 96.9 F Pulse Rate 64 Respiratory Rate 14 Blood Pressure 95/47 L Pulse Oximetry 98 Oxygen Delivery Method Room Air BMI result Body Mass Index 25.2 Labs Results: 02/22/22 08:02 02/22/22 08:02 Labs: Laboratory Results - last 48 hr 02/22/22 02/22/22 08:02 08:02 WBC 4.2 L RBC 4.32 Hgb 12.0 Hct 36.4 L MCV 84.3 MCH 27.8 MCHC 33.0 RDW 15.5 Plt Count 192 MPV 11.2 Immature Gran % (Auto) 0.5 H Neut % (Auto) 54.9 Lymph % (Auto) 18.9 L [place] % (Auto) 14.9 H Eos % (Auto) 9.8 H Baso % (Auto) 1.0 Lymph # (Auto) 0.8 L [place] # (Auto) 0.6 Eos # (Auto) 0.4 Baso # (Auto) 0.0 Abs Immat Gran (auto) 0.02 Absolute Neuts (auto) 2.3 Absolute Nucleated RBC 0.000 Nucleated RBC % (auto) 0.0 Sodium 139 Potassium 4.2 Chloride 105 Carbon Dioxide 27 Anion Gap 11 L BUN 13 Creatinine 0.68 Estim Creat Clear Calc 107.9 Estimated GFR > 60 Random Glucose 87 Calcium 8.5 Total Bilirubin 0.5 AST 30 D ALT 26 Alkaline Phosphatase 42 Total Protein 6.3 L Albumin 3.9 Valproic Acid 91.1 Medications Medications Current Medications Acetaminophen (Acetaminophen 325 Mg Tablet) 650 mg PO Q6H PRN PRN Reason: Headache/Pain Mild Scale (1-3) Last Admin: 02/17/22 21:22 Dose: 650 mg Al Hydroxide/Mg Hydroxide (Magnesium Hydrox/Alum Hydrox 30 Ml Oral.Susp) 30 ml PO Q6H PRN PRN Reason: Heartburn/Nausea Diphenhydramine HCl (Diphenhydramine Hcl 25 Mg Tablet) 25 mg PO Q6H PRN PRN Reason: Allergic Reaction Last Admin: 02/21/22 13:56 Dose: 25 mg Divalproex Sodium (Divalproex Sodium Er 500 Mg Tab.Er.24h) 1,000 mg PO BEDTIME JOHANNA Last Admin: 02/21/22 21:20 Dose: 1,000 mg Divalproex Sodium (Divalproex Sodium Er 500 Mg Tab.Er.24h) 500 mg PO BEDTIME JOHANNA Last Admin: 02/21/22 21:21 Dose: 500 mg Haloperidol (Haloperidol 5 Mg Tablet) 5 mg PO BID PRN PRN Reason: agitation Last Admin: 02/18/22 18:25 Dose: 5 mg Haloperidol (Haloperidol 5 Mg Tablet) 15 mg PO BEDTIME JOHANNA Last Admin: 02/21/22 21:19 Dose: 15 mg Haloperidol (Haloperidol 5 Mg Tablet) 5 mg PO DAILY JOHANNA Last Admin: 02/22/22 08:37 Dose: 5 mg Hydroxyzine HCl (Hydroxyzine Hcl 25 Mg Tablet) 25 mg PO Q6H PRN PRN Reason: Anxiety Last Admin: 02/16/22 18:04 Dose: 25 mg Magnesium Hydroxide (Milk Of Magnesia 30 Ml Oral.Susp) 30 ml PO DAILY PRN PRN Reason: Constipation Last Admin: 02/17/22 19:13 Dose: 30 ml Melatonin (Melatonin 3 Mg Tablet) 6 mg PO BEDTIME PRN PRN Reason: Insomnia Last Admin: 02/20/22 19:00 Dose: 6 mg Trazodone HCl (Trazodone Hcl 50 Mg Tablet) 50 mg PO BEDTIME PRN PRN Reason: Insomnia Last Admin: 02/20/22 19:00 Dose: 50 mg Allergies Allergies Allergy/AdvReac Type Severity Reaction Status Date / Time lamotrigine [From Lamictal] Allergy Severe Rash Verified 02/21/22 10:44 pineapple Allergy Itching Verified 02/19/22 14:09 amoxicillin AdvReac Intermediate Rash Verified 01/11/22 21:42 harrison AdvReac Intermediate Gastrointestinal Verified 01/21/22 19:19 Upset kiwi AdvReac Intermediate gi Verified 01/21/22 19:19 Milk Containing Products AdvReac Intermediate Gastrointestinal Verified 01/21/22 19:19 Upset cheese AdvReac gi distress Verified 01/21/22 19:19 fluoxetine [From Prozac] AdvReac Depression Verified 01/11/22 21:43 Assessment & Plan Assessment & Plan (1) Bipolar disorder: Qualifiers: Active/Remission status: remission status unspecified Qualified Code(s): F31.9 - Bipolar disorder, unspecified Status: Acute Code(s): F31.9 - Bipolar disorder, unspecified Plan 02/22/22-Discontinue Lamictal, Vraylar. Hospitalist consultation for generalized body rash. I spent minutes with the patient and/or on the patient floor today, greater than?50% of which was spent counseling/coordinating care. Patient educated on: medication risk/benefits and therapeutic strategies Informed Consent: understands and further education needed Reason for contiued inpatient stay Substantial Risk for: rapid decompensation and med/psych decompensation
[2022-02-22 16:58] VITALS: BP 120/66; PULSE 86; RESP 15; TEMP 36.7; O2SAT 98
[2022-02-22] MEDS: Divalproex Sodium ER 500 MG TAB.ER.24H 1000 MG PO (20:38)
[2022-02-22] MEDS: diphenhydrAMINE HCL 25 MG TABLET PO (20:39)
[2022-02-22] MEDS: HaloperidoL 5 MG TABLET 15 MG PO (20:39)
[2022-02-22] MEDS: Divalproex Sodium ER 500 MG TAB.ER.24H PO (21:29)
[2022-02-23 06:37] VITALS: BP 96/55; PULSE 64; TEMP 36.9; O2SAT 98
[2022-02-23] MEDS: HaloperidoL 5 MG TABLET PO (08:58)
--- NOTE | 2022-02-23 10:06 | PM.EVENT ---
Event Note Date of Service: 02/23/22 Event Note: Asked to see patient for diffuse rash which appeared several days ago and was worsening. Per d/w primary team (REJI Salvador) patient started on Lamictal on 01/23 and dose increased on 02/19. Vraylar started 02/16, rash noticed 02/20. Pt seen and examined in her room. Female cutter banana room is present. Pt denies any pain. Reports itchiness. Reports it was more prominant on her back yesterday. Exam Skin - diffuse papular rash on the chest/abdomen/upper back/lower extremities -- particularly inner thigh; b/l UE as well; seen on the face, not as prominent as other regions. A/P 21 yo with diffuse rash likely drug reaction -- the suspected offending agents have been discontinued will give burst prednisone 40mg x 5 days and use topical hydrocortisone minus the face. above d/w primary provider. Please reconsult if rash is worsening.
[2022-02-23] MEDS: predniSONE 20 MG TABLET 40 MG PO (10:41)
[2022-02-23] MEDS: Hydrocortisone 1 % Ointment 28.35 GM TUBE 1 APPL TOPICAL ×2 (11:05→23:04)
--- NOTE | 2022-02-23 16:01 | P.PNPSI_ITS ---
Subjective Subjective Date of Service: 02/23/22 Reason For Visit: Psychosis,manic Subjective Notes: 3 Day Healthcare Proxy: No Guardianship: No Medical Problems Affecting Mental Status: No Interim History: Mental status clearing and improved. Full spectrum body rash-evaluated by hospitalist team-topical steroids and Prednisone initiated. Family meeting 02/25 to discuss treatment planning. Medication Compliance: Yes Side effects from medications: No Attending Groups: Yes Review of Systems Acute medical concerns: No Medical Review of Systems: unchanged Review of Systems Psychiatric: Reports no additional psychiatric complaints Mental Status Exam Mental Status Exam Patient Appearance: Appropriate Patient Orientation: Person, Place, Time and Situation Level of Consciousness: Alert Patient Behavior: Appropriate, Talkative, Cooperative and Good Eye Contact Mood Description: Calm Affect Description: Calm Patient Cognition Impaired: No Ability to Follow Directions: Good Speech Pattern: Spontaneous Speech Memory Description: Episodic Impaired Hallucinations: None Delusions: Not Present Thought Process: Goal Oriented Thought Content: positive for Goal Oriented Abnormal Motor Activity Signs and Symptoms: Restlessness Judgement: Fair Diagnostics Vital Signs (24Hr): Vital Signs - 24 hr 02/22/22 16:58 02/23/22 06:37 Temperature 98.0 F 98.4 F Pulse Rate 86 64 Respiratory Rate 15 Blood Pressure 120/66 96/55 L Pulse Oximetry 98 98 Oxygen Delivery Method Room Air BMI result Body Mass Index 25.2 Labs Results: 02/22/22 08:02 02/22/22 08:02 Labs: Laboratory Results - last 48 hr 02/22/22 02/22/22 08:02 08:02 WBC 4.2 L RBC 4.32 Hgb 12.0 Hct 36.4 L MCV 84.3 MCH 27.8 MCHC 33.0 RDW 15.5 Plt Count 192 MPV 11.2 Immature Gran % (Auto) 0.5 H Neut % (Auto) 54.9 Lymph % (Auto) 18.9 L [place] % (Auto) 14.9 H Eos % (Auto) 9.8 H Baso % (Auto) 1.0 Lymph # (Auto) 0.8 L [place] # (Auto) 0.6 Eos # (Auto) 0.4 Baso # (Auto) 0.0 Abs Immat Gran (auto) 0.02 Absolute Neuts (auto) 2.3 Absolute Nucleated RBC 0.000 Nucleated RBC % (auto) 0.0 Sodium 139 Potassium 4.2 Chloride 105 Carbon Dioxide 27 Anion Gap 11 L BUN 13 Creatinine 0.68 Estim Creat Clear Calc 107.9 Estimated GFR > 60 Random Glucose 87 Calcium 8.5 Total Bilirubin 0.5 AST 30 D ALT 26 Alkaline Phosphatase 42 Total Protein 6.3 L Albumin 3.9 Valproic Acid 91.1 Medications Medications Current Medications Acetaminophen (Acetaminophen 325 Mg Tablet) 650 mg PO Q6H PRN PRN Reason: Headache/Pain Mild Scale (1-3) Last Admin: 02/17/22 21:22 Dose: 650 mg Al Hydroxide/Mg Hydroxide (Magnesium Hydrox/Alum Hydrox 30 Ml Oral.Susp) 30 ml PO Q6H PRN PRN Reason: Heartburn/Nausea Diphenhydramine HCl (Diphenhydramine Hcl 25 Mg Tablet) 25 mg PO Q6H PRN PRN Reason: Allergic Reaction Last Admin: 02/22/22 20:39 Dose: 25 mg Divalproex Sodium (Divalproex Sodium Er 500 Mg Tab.Er.24h) 1,500 mg PO BEDTIME JOHANNA Haloperidol (Haloperidol 5 Mg Tablet) 5 mg PO BID PRN PRN Reason: agitation Last Admin: 02/18/22 18:25 Dose: 5 mg Haloperidol (Haloperidol 5 Mg Tablet) 15 mg PO BEDTIME JOHANNA Last Admin: 02/22/22 20:39 Dose: 15 mg Haloperidol (Haloperidol 5 Mg Tablet) 5 mg PO DAILY JOHANNA Last Admin: 02/23/22 08:58 Dose: 5 mg Hydrocortisone (Hydrocortisone 1 % Ointment 28.35 Gm Tube) 1 appl TOPICAL BID JOHANNA; Protocol Stop: 03/02/22 10:04 Last Admin: 02/23/22 11:05 Dose: 1 appl Hydroxyzine HCl (Hydroxyzine Hcl 25 Mg Tablet) 25 mg PO Q6H PRN PRN Reason: Anxiety Last Admin: 02/16/22 18:04 Dose: 25 mg Magnesium Hydroxide (Milk Of Magnesia 30 Ml Oral.Susp) 30 ml PO DAILY PRN PRN Reason: Constipation Last Admin: 02/17/22 19:13 Dose: 30 ml Melatonin (Melatonin 3 Mg Tablet) 6 mg PO BEDTIME PRN PRN Reason: Insomnia Last Admin: 02/20/22 19:00 Dose: 6 mg Prednisone (Prednisone 20 Mg Tablet) 40 mg PO DAILY JOHANNA Stop: 02/28/22 10:14 Last Admin: 02/23/22 10:41 Dose: 40 mg Trazodone HCl (Trazodone Hcl 50 Mg Tablet) 50 mg PO BEDTIME PRN PRN Reason: Insomnia Last Admin: 02/20/22 19:00 Dose: 50 mg Allergies Allergies Allergy/AdvReac Type Severity Reaction Status Date / Time lamotrigine [From Lamictal] Allergy Severe Rash Verified 02/21/22 10:44 pineapple Allergy Itching Verified 02/19/22 14:09 amoxicillin AdvReac Intermediate Rash Verified 01/11/22 21:42 harrison AdvReac Intermediate Gastrointestinal Verified 01/21/22 19:19 Upset kiwi AdvReac Intermediate gi Verified 01/21/22 19:19 Milk Containing Products AdvReac Intermediate Gastrointestinal Verified 01/21/22 19:19 Upset cheese AdvReac gi distress Verified 01/21/22 19:19 fluoxetine [From Prozac] AdvReac Depression Verified 01/11/22 21:43 Assessment & Plan Assessment & Plan (1) Bipolar disorder: Qualifiers: Active/Remission status: remission status unspecified Qualified Code(s): F31.9 - Bipolar disorder, unspecified Status: Acute Code(s): F31.9 - Bipolar disorder, unspecified Plan 02/23/22- Continue current plan. Family meeting 02/25/22. I spent minutes with the patient and/or on the patient floor today, greater than?50% of which was spent counseling/coordinating care. Patient educated on: therapeutic strategies Informed Consent: further education needed Reason for contiued inpatient stay Substantial Risk for: inability to function and rapid decompensation
[2022-02-23 18:00] VITALS: BP 120/60; PULSE 78; TEMP 36.6; O2SAT 99
[2022-02-23] MEDS: Divalproex Sodium ER 500 MG TAB.ER.24H 1500 MG PO (22:15)
[2022-02-23] MEDS: HaloperidoL 5 MG TABLET 15 MG PO (22:16)
[2022-02-23] MEDS: diphenhydrAMINE HCL 25 MG TABLET PO (22:16)
[2022-02-24 06:42] VITALS: BP 101/49; PULSE 66; RESP 14; TEMP 37.1; O2SAT 98
[2022-02-24] MEDS: predniSONE 20 MG TABLET 40 MG PO (08:12)
[2022-02-24] MEDS: HaloperidoL 5 MG TABLET PO (08:12)
[2022-02-24 12:40] VITALS: BMI 25.3
[2022-02-24] MEDS: Hydrocortisone 1 % Ointment 28.35 GM TUBE 1 APPL TOPICAL (16:52)
--- NOTE | 2022-02-24 17:57 | HO.PSYCHPN ---
Subjective Subjective Date of Service: 02/24/22 Reason For Visit: Psychosis,manic Subjective Notes: Conditional Voluntary and 3 Day (retracted) Healthcare Proxy: No Guardianship: No Medical Problems Affecting Mental Status: No Interim History: Continues with improvement in mental status Rash persists. Steroids scheduled until 02/28. Several calls from family. Pt feeling better, wants discharge-family asking about increasing visitors, passes, dietary changes-Accomodations implemented. Medication Compliance: Yes Side effects from medications: No Attending Groups: Yes Review of Systems Acute medical concerns: No Medical Review of Systems: unchanged Review of Systems Psychiatric: Reports no additional psychiatric complaints Mental Status Exam Mental Status Exam Patient Appearance: Appropriate Patient Orientation: Person, Place, Time and Situation Level of Consciousness: Alert Patient Behavior: Appropriate, Talkative, Cooperative and Good Eye Contact Mood Description: Calm Affect Description: Calm Patient Cognition Impaired: No Ability to Follow Directions: Good Speech Pattern: Spontaneous Speech Memory Description: Episodic Impaired Hallucinations: None Delusions: Not Present Thought Process: Goal Oriented Thought Content: positive for Goal Oriented Abnormal Motor Activity Signs and Symptoms: Restlessness Judgement: Fair Diagnostics Vital Signs (24Hr): Vital Signs - 24 hr 02/23/22 18:00 02/24/22 06:42 Temperature 97.9 F 98.7 F Pulse Rate 78 66 Respiratory Rate 14 Blood Pressure 120/60 101/49 L Pulse Oximetry 99 98 Oxygen Delivery Method Room Air Room Air BMI result Body Mass Index 25.3 Labs Results: 02/22/22 08:02 02/22/22 08:02 Medications Medications Current Medications Acetaminophen (Acetaminophen 325 Mg Tablet) 650 mg PO Q6H PRN PRN Reason: Headache/Pain Mild Scale (1-3) Last Admin: 02/17/22 21:22 Dose: 650 mg Al Hydroxide/Mg Hydroxide (Magnesium Hydrox/Alum Hydrox 30 Ml Oral.Susp) 30 ml PO Q6H PRN PRN Reason: Heartburn/Nausea Diphenhydramine HCl (Diphenhydramine Hcl 25 Mg Tablet) 25 mg PO Q6H PRN PRN Reason: Allergic Reaction Last Admin: 02/23/22 22:16 Dose: 25 mg Divalproex Sodium (Divalproex Sodium Er 500 Mg Tab.Er.24h) 1,500 mg PO BEDTIME JOHANNA Last Admin: 02/23/22 22:15 Dose: 1,500 mg Haloperidol (Haloperidol 5 Mg Tablet) 5 mg PO BID PRN PRN Reason: agitation Last Admin: 02/18/22 18:25 Dose: 5 mg Haloperidol (Haloperidol 5 Mg Tablet) 15 mg PO BEDTIME JOHANNA Last Admin: 02/23/22 22:16 Dose: 15 mg Haloperidol (Haloperidol 5 Mg Tablet) 5 mg PO DAILY JOHANNA Last Admin: 02/24/22 08:12 Dose: 5 mg Hydrocortisone (Hydrocortisone 1 % Ointment 28.35 Gm Tube) 1 appl TOPICAL BID JOHANNA; Protocol Stop: 03/02/22 10:04 Last Admin: 02/24/22 16:52 Dose: 1 appl Hydroxyzine HCl (Hydroxyzine Hcl 25 Mg Tablet) 25 mg PO Q6H PRN PRN Reason: Anxiety Last Admin: 02/16/22 18:04 Dose: 25 mg Magnesium Hydroxide (Milk Of Magnesia 30 Ml Oral.Susp) 30 ml PO DAILY PRN PRN Reason: Constipation Last Admin: 02/17/22 19:13 Dose: 30 ml Melatonin (Melatonin 3 Mg Tablet) 6 mg PO BEDTIME PRN PRN Reason: Insomnia Last Admin: 02/20/22 19:00 Dose: 6 mg Prednisone (Prednisone 20 Mg Tablet) 40 mg PO DAILY JOHANNA Stop: 02/28/22 10:14 Last Admin: 02/24/22 08:12 Dose: 40 mg Trazodone HCl (Trazodone Hcl 50 Mg Tablet) 50 mg PO BEDTIME PRN PRN Reason: Insomnia Last Admin: 02/20/22 19:00 Dose: 50 mg Allergies Allergies Allergy/AdvReac Type Severity Reaction Status Date / Time lamotrigine [From Lamictal] Allergy Severe Rash Verified 02/21/22 10:44 pineapple Allergy Itching Verified 02/19/22 14:09 amoxicillin AdvReac Intermediate Rash Verified 01/11/22 21:42 harrison AdvReac Intermediate Gastrointestinal Verified 01/21/22 19:19 Upset kiwi AdvReac Intermediate gi Verified 01/21/22 19:19 cheese AdvReac gi distress Verified 01/21/22 19:19 fluoxetine [From Prozac] AdvReac Depression Verified 01/11/22 21:43 Assessment & Plan Assessment & Plan (1) Bipolar disorder: Qualifiers: Active/Remission status: remission status unspecified Qualified Code(s): F31.9 - Bipolar disorder, unspecified Status: Acute Code(s): F31.9 - Bipolar disorder, unspecified Plan 02/23/22- Continue current plan. Family meeting 02/25/22. 02/24/22- Continue current plan. I spent minutes with the patient and/or on the patient floor today, greater than?50% of which was spent counseling/coordinating care. Patient educated on: therapeutic strategies Informed Consent: further education needed Reason for contiued inpatient stay Substantial Risk for: rapid decompensation
[2022-02-24 18:00] VITALS: BP 98/56; PULSE 68; RESP 14; TEMP 36.7; O2SAT 98
[2022-02-24] MEDS: HaloperidoL 5 MG TABLET 15 MG PO (19:52)
[2022-02-24] MEDS: Divalproex Sodium ER 500 MG TAB.ER.24H 1500 MG PO (19:52)
[2022-02-24] MEDS: diphenhydrAMINE HCL 25 MG TABLET PO (19:56)
[2022-02-25 06:00] VITALS: BP 95/57; PULSE 67; RESP 18; TEMP 36.9; O2SAT 99
[2022-02-25] MEDS: HaloperidoL 5 MG TABLET PO (08:28)
[2022-02-25] MEDS: predniSONE 20 MG TABLET 40 MG PO (08:28)
[2022-02-25 12:04] LABS: HIV AB/AG Nonreactive (Nonreactive); HIV Num 1 0.05 S/CO (0.00-0.99)
[2022-02-25 12:10] LABS: Syphilis Screen Nonreactive (Nonreactive)
--- NOTE | 2022-02-25 14:03 | P.CNID_ITS ---
History of Present Illness Data of Consult Service Date: 02/25/22 Requesting physician: Vale Salvador Primary Care Provider: Unknown Physician HPI Reason for consult: rash She is in hospital for bipolar disorder with grandiose thoughts. She has areas of rash appeared 02/20 on abdomen and less on back and hands. She has itching. She was started on Lamictal on 01/23 and Vraylar on 02/16 She has no exposure to anyone with monkeypox or risk factors. Review of Systems Review of Systems: Yes all other systems are reviewed and are negative PMFSH Past Medical History Medical History (Updated 02/25/22 @ 14:06 by Lakia Doe MD) Bipolar I disorder, current or most recent episode manic, severe with mood-jayesh ruent psychotic features Mood disorder Psychotic disorder with delusions Rash Social History Social History Household Members: Unknown / Unable to assess Housing: Unknown / Unable to assess Unable to assess alcohol history related to: Unable to respond Alcohol intake: unknown Patient Tobacco Use Status: Never used Tobacco Use of substances other than those prescribed or required for medical reasons: Unable to respond Substance Use Type: Unknown Currently Displaying Signs/Symptoms of Drug Intoxication Withdrawal: No Advance Directives: No Advance Directives Information Provided: Yes Guardian: No Do you have thoughts of harming others: None Do you have a plan to hurt others: No Plan Recently lost weight without trying: Unsure Nutrition Risks: No Nutritional Risk Patient : No : No Poor oral hygiene: No service: No Sexual orientation: Lesbian/Mena/Homosexual Meds Allergies Allergy/AdvReac Type Severity Reaction Status Date / Time lamotrigine [From Lamictal] Allergy Severe Rash Verified 02/21/22 10:44 pineapple Allergy Itching Verified 02/19/22 14:09 amoxicillin AdvReac Intermediate Rash Verified 01/11/22 21:42 harrison AdvReac Intermediate Gastrointestinal Verified 01/21/22 19:19 Upset kiwi AdvReac Intermediate gi Verified 01/21/22 19:19 cheese AdvReac gi distress Verified 01/21/22 19:19 fluoxetine [From Prozac] AdvReac Depression Verified 01/11/22 21:43 Active Medications: Current Medications Acetaminophen (Acetaminophen 325 Mg Tablet) 650 mg PO Q6H PRN PRN Reason: Headache/Pain Mild Scale (1-3) Last Admin: 02/17/22 21:22 Dose: 650 mg Al Hydroxide/Mg Hydroxide (Magnesium Hydrox/Alum Hydrox 30 Ml Oral.Susp) 30 ml PO Q6H PRN PRN Reason: Heartburn/Nausea Diphenhydramine HCl (Diphenhydramine Hcl 25 Mg Tablet) 25 mg PO Q6H PRN PRN Reason: Allergic Reaction Last Admin: 02/24/22 19:56 Dose: 25 mg Divalproex Sodium (Divalproex Sodium Er 500 Mg Tab.Er.24h) 1,500 mg PO BEDTIME JOHANNA Last Admin: 02/24/22 19:52 Dose: 1,500 mg Haloperidol (Haloperidol 5 Mg Tablet) 5 mg PO BID PRN PRN Reason: agitation Last Admin: 02/18/22 18:25 Dose: 5 mg Haloperidol (Haloperidol 5 Mg Tablet) 15 mg PO BEDTIME JOHANNA Last Admin: 02/24/22 19:52 Dose: 15 mg Haloperidol (Haloperidol 5 Mg Tablet) 5 mg PO DAILY JOHANNA Last Admin: 02/25/22 08:28 Dose: 5 mg Hydrocortisone (Hydrocortisone 1 % Ointment 28.35 Gm Tube) 1 appl TOPICAL BID JOHANNA; Protocol Stop: 03/02/22 10:04 Last Admin: 02/25/22 08:38 Dose: Not Given Hydroxyzine HCl (Hydroxyzine Hcl 25 Mg Tablet) 25 mg PO Q6H PRN PRN Reason: Anxiety Last Admin: 02/16/22 18:04 Dose: 25 mg Magnesium Hydroxide (Milk Of Magnesia 30 Ml Oral.Susp) 30 ml PO DAILY PRN PRN Reason: Constipation Last Admin: 02/17/22 19:13 Dose: 30 ml Melatonin (Melatonin 3 Mg Tablet) 6 mg PO BEDTIME PRN PRN Reason: Insomnia Last Admin: 02/20/22 19:00 Dose: 6 mg Prednisone (Prednisone 20 Mg Tablet) 40 mg PO DAILY JOHANNA Stop: 02/28/22 10:14 Last Admin: 02/25/22 08:28 Dose: 40 mg Trazodone HCl (Trazodone Hcl 50 Mg Tablet) 50 mg PO BEDTIME PRN PRN Reason: Insomnia Last Admin: 02/20/22 19:00 Dose: 50 mg Home Medications Medication Instructions Recorded Confirmed Last Taken Type acetaminophen 325 mg tablet 650 mg PO Q6H PRN Pain 02/14/22 02/14/22 Unknown History ibuprofen 200 mg tablet 400 mg PO Q6H PRN Pain 02/14/22 02/14/22 Unknown History loratadine 10 mg tablet (Claritin) 10 mg PO DAILY PRN Allergy Symptoms 02/14/22 02/14/22 Unknown History polyethylene glycol 400 1 % eye 1 drp ophthalmic (eye) QID PRN Dry 02/14/22 02/14/22 Unknown History drops (Visine Dry Eye Relief) Eye(S) Physical Exam Vital Signs: Vital Signs: Last Vital Signs Temp 98.4 F 02/25/22 06:00 Pulse 67 02/25/22 06:00 Resp 18 02/25/22 06:00 BP 95/57 L 02/25/22 06:00 Pulse Ox 99 02/25/22 06:00 O2 Del Method 02/24/22 18:00 BMI result Body Mass Index 25.3 Const: General: cooperative HEENT: Head: Yes normal to inspection Face and sinus: Yes normal facial exam Mouth: Normal oral and palatal mucosa present Teeth and gingiva: dentition normal Eyes: General: appearance normal, both eyes and all related structures Pupils: Equal, round and reactive pupils present Resp: Effort & Inspection: normal respiratory effort Cardio: Rate: regular rate Rhythm: regular rhythm GI: Palpation (GI): Soft to palpation and nontender : General: Yes no CVA tenderness Back/Spine/Pelvis: Back: no CVA tenderness Skin: Other: maculopapular dense rash abdomen few maculopapular areas back fewer yet areas on hand no diffuse rash,no vesicles and no lymphadenopathy Neuro: General: moves all extremities Cranial nerves: Yes Equal, round and reactive pupils present Extrem: General: Yes normal to inspection Psych: Appearance: grossly normal Results Labs CBC & Chem 7: 02/22/22 08:02 02/22/22 08:02 Assessment and Plan (1) Rash: Status: Acute She has maculopapular areas hands and abdomen and back which are itchy. She has recent new medication ,Vraylar and lamictal (lamictal may be more likely cause) She has no evidence of antibiotic use and doesnt look like scabies (2) Bipolar disorder: Qualifiers: Active/Remission status: remission status unspecified Qualified Code(s): F31.9 - Bipolar disorder, unspecified Status: Acute Plan Prednisone as doing. Check HIV and RPR,unlikely causes.
--- NOTE | 2022-02-25 15:17 | PM.PSYDC ---
DS: Providers Provider Date of Service: 02/25/22 Date of admission: 02/14/22 19:45 Date of discharge: 02/25/22 Primary care physician: Unknown Physician Admitting clinician: Vale Salvador Attending physician on admission: Loy Yanes Consults: 02/22/22 15:50 Consult to Hospitalist Routine Consulting Provider: Hospitalist Reason For Exam: body rash-lamictal/vraylar stopped 02/21 sx increas 02/25/22 10:21 Consult to Infectious Diseases Routine Consulting Provider: Lakia Doe Reason for consultation: drug rash, not improving with steroids Has provider been notified: Yes Attending physician on discharge: Loy Yanes Discharging clinician: Vale Salvador DS: Diagnosis Discharge Diagnosis (1) Rash: Status: Acute (2) Bipolar disorder: Status: Acute DS: Medications Discharge Medications Home Medications: Home Medications Medication Instructions Recorded Confirmed acetaminophen 325 mg tablet 650 mg PO Q6H PRN Pain 02/14/22 02/14/22 ibuprofen 200 mg tablet 400 mg PO Q6H PRN Pain 02/14/22 02/14/22 loratadine 10 mg tablet (Claritin) 10 mg PO DAILY PRN Allergy Symptoms 02/14/22 02/14/22 polyethylene glycol 400 1 % eye 1 drp ophthalmic (eye) QID PRN Dry 02/14/22 02/14/22 drops (Visine Dry Eye Relief) Eye(S) Previous Rx's Medication Instructions Recorded sennosides 8.6 mg tablet (Senna 17.2 mg PO BEDTIME PRN 01/28/22 Lax) Constipation #30 tabs acetaminophen 325 mg tablet 650 mg PO Q6H PRN Headache/Pain 02/25/22 Mild Scale (1-3) #0 tabs diphenhydramine HCl 25 mg tablet 25 mg PO Q6H PRN Allergic Reaction 02/25/22 (Allergy Relief (diphenhydramine)) #60 tabs divalproex 500 mg tablet,extended 1,500 mg PO BEDTIME #90 tabs 02/25/22 release 24 hr docusate sodium 100 mg capsule 100 mg PO BID PRN Constipation #60 02/25/22 caps haloperidol 5 mg tablet 5 mg PO BID PRN agitation #60 tabs 07/01/22 haloperidol 5 mg tablet 5 mg PO DAILY #30 tabs 02/25/22 haloperidol 5 mg tablet 15 mg PO BEDTIME #90 tabs 02/25/22 hydrocortisone 1 % topical ointment 1 appl topical BID #453.6 grams 02/25/22 melatonin 3 mg tablet 6 mg PO BEDTIME PRN Insomnia #60 02/25/22 tabs prednisone 20 mg tablet 40 mg PO DAILY #4 tabs 02/25/22 Mental Status Exam Mental Status Exam Patient Appearance: Appropriate Patient Orientation: Person, Place, Time and Situation Level of Consciousness: Alert Patient Behavior: Appropriate, Talkative, Cooperative and Good Eye Contact Mood Description: Calm Affect Description: Calm Patient Cognition Impaired: No Ability to Follow Directions: Good Speech Pattern: Spontaneous Speech Memory Description: Episodic Impaired Hallucinations: None Delusions: Not Present Thought Process: Goal Oriented Thought Content: positive for Goal Oriented Abnormal Motor Activity Signs and Symptoms: Restlessness Judgement: Fair Data Data Completed and Pending Completed studies during hospitalization [Text1]: 02/22/22 02/22/22 02/25/22 08:02 08:02 11:24 WBC 4.2 L RBC 4.32 Hgb 12.0 Hct 36.4 L MCV 84.3 MCH 27.8 MCHC 33.0 RDW 15.5 Plt Count 192 MPV 11.2 Immature Gran % (Auto) 0.5 H Neut % (Auto) 54.9 Lymph % (Auto) 18.[address] % (Auto) 14.9 H Eos % (Auto) 9.8 H Baso % (Auto) 1.0 Lymph # (Auto) 0.[address] # (Auto) 0.6 Eos # (Auto) 0.4 Baso # (Auto) 0.0 Abs Immat Gran (auto) 0.02 Absolute Neuts (auto) 2.3 Absolute Nucleated RBC 0.000 Nucleated RBC % (auto) 0.0 Sodium 139 Potassium 4.2 Chloride 105 Carbon Dioxide 27 Anion Gap 11 L BUN 13 Creatinine 0.68 Estim Creat Clear Calc 107.9 Estimated GFR > 60 Random Glucose 87 Calcium 8.5 Total Bilirubin 0.5 AST 30 D ALT 26 Alkaline Phosphatase 42 Total Protein 6.3 L Albumin 3.9 Valproic Acid 91.1 T.pallidum Ab (EIA) Nonreactive HIV 1&2 Ab/P24 Ag 4thGn 02/25/22 11:24 WBC RBC Hgb Hct MCV MCH MCHC RDW Plt Count MPV Immature Gran % (Auto) Neut % (Auto) Lymph % (Auto) [place] % (Auto) Eos % (Auto) Baso % (Auto) Lymph # (Auto) [place] # (Auto) Eos # (Auto) Baso # (Auto) Abs Immat Gran (auto) Absolute Neuts (auto) Absolute Nucleated RBC Nucleated RBC % (auto) Sodium Potassium Chloride Carbon Dioxide Anion Gap BUN Creatinine Estim Creat Clear Calc Estimated GFR Random Glucose Calcium Total Bilirubin AST ALT Alkaline Phosphatase Total Protein Albumin Valproic Acid T.pallidum Ab (EIA) HIV 1&2 Ab/P24 Ag 4thGn Nonreactive DS: Summary Hospital Course Hospital Course: Pt admitted to adult psychiatry for exacerbation of symptoms of bipolar disorder. Previously discharged on 01/28/22. Pt attended PHP and had some medication decreases due to excess sedation during this time. Parents noted a decrease in sleep, appetite and decompensation with poor insight, judgment and labile mood. Depakote and Haldol were increased. Lamictal was increased at the two week interval and Vraylar was initiated in consideration of Lamictal and Vraylar being the primary agents managing symptoms. Pt developed a rash-Vraylar, Lamictal were discontinued. Hospitalist team and Dr. Doe met with and examined Divya. Both found rash to be medication induced. Steroids were initiated. As the rash was slow to clear, pt asked to discharge to home to await a new trial when she was asymptomatic. Haldol and Depakote were continued upon discharge. Time spent discussing smoking cessation with patient: 3 to 10 minutes Status at Discharge Functional status at discharge: independent ambulation Overall status at discharge: patient is progressing back to baseline Time Spent with Patient Time attestation: Total time spent providing and/or coordinating discharge services: 35 Time spent: Greater than 30 minutes Discharge Plan Discharge Patient Disposition: Home, Self-Care Discharge Diagnosis: Bipolar Disorder Referrals: Therapist: Barbie Orozco ([facility]) [Other] - 03/01/22 11:00 am (Telehealth-will call your phone ) Psych Prescriber: Nelly Paris ([facility]) [Other] - 03/16/22 10:00 am (Telehealth-you will receive an email with instructions to download the herminio they use and an email with a link to join the appointment. ) Psych Prescriber: Nelly Paris ([facility]) [Other] - 04/13/22 1:20 pm (Telehealth-watch for email with link to join appointment ) Physician,Unknown J [Primary Care Provider] - (Pt's mother to assist pt to make pcp follow up appnt) Discharge Medications: Continued acetaminophen 325 mg Tablet 650 mg PO Q6H PRN (Reason: Pain) ibuprofen 200 mg Tablet 400 mg PO Q6H PRN (Reason: Pain) Discontinued trazodone 50 mg Tablet 50 mg PO BEDTIME PRN (Reason: Insomnia) Qty: 30 0RF melatonin 3 mg Tablet 6 mg PO BEDTIME PRN (Reason: Insomnia) Qty: 30 0RF haloperidol 5 mg tablet 5 mg PO BID PRN (Reason: agitation) Qty: 60 0RF docusate sodium 100 mg capsule 100 mg PO BID PRN (Reason: Constipation) haloperidol 5 mg tablet 5 mg PO BEDTIME lamotrigine 25 mg tablet 50 mg PO BEDTIME divalproex 500 mg tablet extended release 24 hr 1,000 mg PO BEDTIME No Action risperidone 2 mg Tablet 2 mg PO BEDTIME Qty: 30 0RF divalproex 500 mg Tablet Extended Release 24 Hr 1,000 mg PO BEDTIME Qty: 60 0RF hydroxyzine HCl 25 mg Tablet 25 mg PO Q6H PRN (Reason: Anxiety) Qty: 120 0RF sennosides [Senna Lax] 8.6 mg Tablet 17.2 mg PO BEDTIME PRN (Reason: Constipation) Qty: 30 0RF hydrocortisone 1 % Ointment 1 appl topical BID Qty: 453.6 0RF Protocol: Apply to: Apply to: rash on body -- DO NOT APPLY on face melatonin 3 mg Tablet 6 mg PO BEDTIME PRN (Reason: Insomnia) Qty: 60 0RF diphenhydramine HCl [Allergy Relief(diphenhydramin)] 25 mg Tablet 25 mg PO Q6H PRN (Reason: Allergic Reaction) Qty: 120 0RF docusate sodium 100 mg capsule 100 mg PO BID PRN (Reason: Constipation) Qty: 60 0RF Visine Dry Eye Relief 1 % Drops 1 drp OPHTHALMIC (EYE) QID PRN (Reason: Dry Eye(S)) Qty: 1 0RF Discharge Orders: Discharge Order (Routine); Ordered 02/25/22 Ordered By: Vale Salvador Diet: Advance to usual diet Activity on Discharge: As tolerated Stand Alone Forms: Patient Portal Discharge page, Community Support Care Plan Goals: Mood Stabilization Health Concerns: Bipolar Disorder Generalized Rash Plan of Treatment: Take medications as directed Attend follow up appointments Monitor rash for improvement Call/return as needed Continue Prednisone/cream until 02/28/22. If symptoms of rash do not improve, please call [phone] on 03/01/22 for further planning. Return to the emergency room if symptoms of rash increase Assessment: Alert, oriented, pleased to be going home. Discharge Date/Time: 02/25/22 19:13
[2022-02-25] MEDS: Permethrin 5 % Cream 60 GM TUBE 1 APPL TOPICAL (17:29)
--- NOTE | 2022-02-25 17:39 | HO.PSYCHPN ---
Subjective Subjective Date of Service: 02/25/22 Reason For Visit: Psychosis,manic Subjective Notes: Conditional Voluntary Healthcare Proxy: No Guardianship: No Medical Problems Affecting Mental Status: No Interim History: Rash persists without improvement. Discussed with Dr. Wheeler via text-will continue steroid rx. Consult requrested with Dr. Doe- HIV, RPR ordered, Permethrin 5% cream ordered, r/o scabies. Pt seen and it appears to be a lamictal rash. Met with parents, pt, Li Shadi COOK. Pt's MSE is clear-no psychosis, no jimmy-she is bored and wanting to leave. Discussed with parents who would like to take her home. They will monitor rash. Pt cried when they visited yesterday, telling them she could not do this and the rash was harming her mental health. States she is sleeping to make the days go by. All agreed that continued hospitalization would be detrimental. Discussed an alternative plan-if rash does not improve, the next step would be a taper of Depakote and Haldol for a wash out. As pt has experienced severe manic and psychotic symptoms without medications, a return to IP would need to be considered. Pt/family agree that this is the case. Pt will return to ER if sx increase. Will re-eval rash on 03/01 for further planning of care. Discussed other medication options for mgt of bipolar disorder. Medication Compliance: Yes Side effects from medications: No Attending Groups: Intermittent Review of Systems Acute medical concerns: Yes rash Medical Review of Systems: unchanged Review of Systems Skin/Breast: Reports rash Psychiatric: Reports no additional psychiatric complaints and Reports other (stress of rash keeping her in hospital) Mental Status Exam Mental Status Exam Patient Appearance: Appropriate Patient Orientation: Person, Place, Time and Situation Level of Consciousness: Alert Patient Behavior: Appropriate, Talkative, Cooperative and Good Eye Contact Mood Description: Calm Affect Description: Calm Patient Cognition Impaired: No Ability to Follow Directions: Good Speech Pattern: Spontaneous Speech Memory Description: Episodic Impaired Hallucinations: None Delusions: Not Present Thought Process: Goal Oriented Thought Content: positive for Goal Oriented Abnormal Motor Activity Signs and Symptoms: Restlessness Judgement: Fair Diagnostics Vital Signs (24Hr): Vital Signs - 24 hr 02/24/22 18:00 02/25/22 06:00 Temperature 98.1 F 98.4 F Pulse Rate 68 67 Respiratory Rate 14 18 Blood Pressure 98/56 L 95/57 L Pulse Oximetry 98 99 Oxygen Delivery Method Room Air BMI result Body Mass Index 25.3 Labs Results: 02/22/22 08:02 02/22/22 08:02 Labs: Laboratory Results - last 48 hr 02/25/22 02/25/22 11:24 11:24 T.pallidum Ab (EIA) Nonreactive HIV 1&2 Ab/P24 Ag 4thGn Nonreactive Medications Medications Current Medications Acetaminophen (Acetaminophen 325 Mg Tablet) 650 mg PO Q6H PRN PRN Reason: Headache/Pain Mild Scale (1-3) Last Admin: 02/17/22 21:22 Dose: 650 mg Al Hydroxide/Mg Hydroxide (Magnesium Hydrox/Alum Hydrox 30 Ml Oral.Susp) 30 ml PO Q6H PRN PRN Reason: Heartburn/Nausea Diphenhydramine HCl (Diphenhydramine Hcl 25 Mg Tablet) 25 mg PO Q6H PRN PRN Reason: Allergic Reaction Last Admin: 02/24/22 19:56 Dose: 25 mg Divalproex Sodium (Divalproex Sodium Er 500 Mg Tab.Er.24h) 1,500 mg PO BEDTIME JOHANNA Last Admin: 02/24/22 19:52 Dose: 1,500 mg Haloperidol (Haloperidol 5 Mg Tablet) 5 mg PO BID PRN PRN Reason: agitation Last Admin: 02/18/22 18:25 Dose: 5 mg Haloperidol (Haloperidol 5 Mg Tablet) 15 mg PO BEDTIME JOHANNA Last Admin: 02/24/22 19:52 Dose: 15 mg Haloperidol (Haloperidol 5 Mg Tablet) 5 mg PO DAILY [facility] Last Admin: 02/25/22 08:28 Dose: 5 mg Hydrocortisone (Hydrocortisone 1 % Ointment 28.35 Gm Tube) 1 appl TOPICAL BID JOHANNA; Protocol Stop: 03/02/22 10:04 Last Admin: 02/25/22 08:38 Dose: Not Given Hydroxyzine HCl (Hydroxyzine Hcl 25 Mg Tablet) 25 mg PO Q6H PRN PRN Reason: Anxiety Last Admin: 02/16/22 18:04 Dose: 25 mg Magnesium Hydroxide (Milk Of Magnesia 30 Ml Oral.Susp) 30 ml PO DAILY PRN PRN Reason: Constipation Last Admin: 02/17/22 19:13 Dose: 30 ml Melatonin (Melatonin 3 Mg Tablet) 6 mg PO BEDTIME PRN PRN Reason: Insomnia Last Admin: 02/20/22 19:00 Dose: 6 mg Prednisone (Prednisone 20 Mg Tablet) 40 mg PO DAILY JOHANNA Stop: 02/28/22 10:14 Last Admin: 02/25/22 08:28 Dose: 40 mg Trazodone HCl (Trazodone Hcl 50 Mg Tablet) 50 mg PO BEDTIME PRN PRN Reason: Insomnia Last Admin: 02/20/22 19:00 Dose: 50 mg Allergies Allergies Allergy/AdvReac Type Severity Reaction Status Date / Time lamotrigine [From Lamictal] Allergy Severe Rash Verified 02/21/22 10:44 pineapple Allergy Itching Verified 02/19/22 14:09 amoxicillin AdvReac Intermediate Rash Verified 01/11/22 21:42 harrison AdvReac Intermediate Gastrointestinal Verified 01/21/22 19:19 Upset kiwi AdvReac Intermediate gi Verified 01/21/22 19:19 cheese AdvReac gi distress Verified 01/21/22 19:19 fluoxetine [From Prozac] AdvReac Depression Verified 01/11/22 21:43 Assessment & Plan Assessment & Plan (1) Rash: Status: Acute Code(s): R21 - Rash and other nonspecific skin eruption Assessment and Plan: She has maculopapular areas hands and abdomen and back which are itchy. She has recent new medication ,Vraylar and lamictal (lamictal may be more likely cause) She has no evidence of antibiotic use and doesnt look like scabies (2) Bipolar disorder: Qualifiers: Active/Remission status: remission status unspecified Qualified Code(s): F31.9 - Bipolar disorder, unspecified Status: Acute Code(s): F31.9 - Bipolar disorder, unspecified Plan Prednisone as doing. Check HIV and RPR,unlikely causes. 02/25/22 Discharge today Pt to return to ER as needed. Pt and parents have emergency resource numbers to use as needed. I spent minutes with the patient and/or on the patient floor today, greater than?50% of which was spent counseling/coordinating care. Patient educated on: therapeutic strategies Informed Consent: understands and further education needed Reason for contiued inpatient stay Substantial Risk for: med/psych decompensation
== END 2022-02-25 19:13 | disposition home or self-care (01) | DRG 753 ==
LOC: HO.ED 17:35 → HO.PM5 20:24
PROVIDERS: Registered Nurse; Admitting Provider Psychiatry & Neurology Psychiatry; Emergency Provider Emergency Medicine; Visit Provider Clinical Nurse Specialist Psychiatric/Mental Health, Adult
DX: F31.9 Bipolar disorder, unspecified (principal); R21 Rash and other nonspecific skin eruption; Z88.0 Allergy status to penicillin; Z88.8 Allergy status to other drugs, medicaments and biological substances; Z79.52 Long term (current) use of systemic steroids; Z79.899 Other long term (current) drug therapy
CPT/HCPCS: 36415; 80048; 80053; 80076; 80164; 80307; 82607; 82746; 83735; 84439; 84443; 84702; 85025; 86780; 87389; 87635; 93005; 99285; Q0163

== ENCOUNTER 2022-03-02 10:30 | Inpatient (IN) | payer BC, SELFPAY ==
--- NOTE | 2022-03-02 | ECG_ITS ---
Test Reason : med clearance Blood Pressure : / mmHG Vent. Rate : 063 BPM Atrial Rate : 063 BPM P-R Int : 120 ms QRS Dur : 086 ms QT Int : 404 ms P-R-T Axes : 005 068 065 degrees QTc Int : 413 ms Normal sinus rhythm Normal ECG When compared with ECG of 14-FEB-2022 18:48, No significant change was found Referred By: Olvin Doan Electronically Signed By:Emir Black
[2022-03-02 11:06] VITALS: BP 112/62; PULSE 88; RESP 18; TEMP 36.4; O2SAT 98; BMI 22.3
--- NOTE | 2022-03-02 11:26 | ED_ITS ---
HPI - Psych General Chief Complaint: Psychiatric Symptoms Stated Complaint: crisis eval Time Seen by Provider: 03/02/22 11:26 Source: RN notes reviewed History of Present Illness HPI Narrative: Patient is here for allergic rxn to her medication. So the plan is to admit her to psych for medication restart. complaint: feels depressed Onset (ago): week(s) Relieving factors: none Exacerbating factors: none Related Data Home Medications Medication Instructions Recorded Confirmed acetaminophen 325 mg tablet 650 mg PO Q6H PRN Pain 02/14/22 02/14/22 ibuprofen 200 mg tablet 400 mg PO Q6H PRN Pain 02/14/22 02/14/22 loratadine 10 mg tablet (Claritin) 10 mg PO DAILY PRN Allergy Symptoms 02/14/22 02/14/22 polyethylene glycol 400 1 % eye 1 drp ophthalmic (eye) QID PRN Dry 02/14/22 02/14/22 drops (Visine Dry Eye Relief) Eye(S) Previous Rx's Medication Instructions Recorded sennosides 8.6 mg tablet (Senna 17.2 mg PO BEDTIME PRN 01/28/22 Lax) Constipation #30 tabs acetaminophen 325 mg tablet 650 mg PO Q6H PRN Headache/Pain 02/25/22 Mild Scale (1-3) #0 tabs diphenhydramine HCl 25 mg tablet 25 mg PO Q6H PRN Allergic Reaction 02/25/22 (Allergy Relief (diphenhydramine)) #60 tabs divalproex 500 mg tablet,extended 1,500 mg PO BEDTIME #90 tabs 02/25/22 release 24 hr docusate sodium 100 mg capsule 100 mg PO BID PRN Constipation #60 02/25/22 caps haloperidol 5 mg tablet 5 mg PO BID PRN agitation #60 tabs 02/25/22 haloperidol 5 mg tablet 5 mg PO DAILY #30 tabs 02/25/22 haloperidol 5 mg tablet 15 mg PO BEDTIME #90 tabs 02/25/22 hydrocortisone 1 % topical ointment 1 appl topical BID #453.6 grams 02/25/22 melatonin 3 mg tablet 6 mg PO BEDTIME PRN Insomnia #60 02/25/22 tabs prednisone 20 mg tablet 40 mg PO DAILY #4 tabs 02/25/22 prednisone 20 mg tablet 40 mg PO DAILY #4 tabs 03/01/22 Allergies Allergy/AdvReac Type Severity Reaction Status Date / Time lamotrigine [From Lamictal] Allergy Severe Rash Verified 02/21/22 10:44 pineapple Allergy Itching Verified 02/19/22 14:09 amoxicillin AdvReac Intermediate Rash Verified 01/11/22 21:42 harrison AdvReac Intermediate Gastrointestinal Verified 01/21/22 19:19 Upset kiwi AdvReac Intermediate gi Verified 01/21/22 19:19 cheese AdvReac gi distress Verified 01/21/22 19:19 fluoxetine [From Prozac] AdvReac Depression Verified 01/11/22 21:43 Review of Systems Constitutional: Constitutional: Reports no additional constitutional complaints Eyes: Eyes: Reports no additional eye complaints ENT: Denies dizziness Cardiovascular: Cardiovascular: Reports no additional cardiovascular complaints Respiratory: Respiratory: Reports as per HPI Gastrointestinal: Gastrointestinal: Reports no additional gastrointestinal complaints Genitourinary: Genitourinary: Reports no additional female genitourinary complaints Musculoskeletal: Musculoskeletal: Reports no additional musculoskeletal complaints Integumentary/Breasts: Skin/Breast: Denies rash Neurologic: Reports system reviewed and no additional complaints, except as documented, Denies dizziness and Denies Sensory deficit (Neuro) Psychiatric: Psychiatric: Denies anxiety PMFSH Past Medical History Medical History Bipolar I disorder, current or most recent episode manic, severe with mood- congruent psychotic features Mood disorder Psychotic disorder with delusions Rash Social History Social History Household Members: Unknown / Unable to assess Housing: Unknown / Unable to assess Unable to assess alcohol history related to: Unable to respond Alcohol intake: unknown Patient Tobacco Use Status: Never used Tobacco Substance Use Type: Unknown Advance Directives: No Advance Directives Information Provided: No Healthcare Proxy: No Guardian: No service: No Sexual orientation: Lesbian/Mena/Homosexual Physical Exam Vital Signs: Vital Signs: Last Vital Signs Temp 97.5 F 03/02/22 11:06 Pulse 88 03/02/22 11:06 Resp 18 03/02/22 11:06 BP 112/62 03/02/22 11:06 Pulse Ox 98 03/02/22 11:06 O2 Del Method 03/02/22 11:06 BMI result Body Mass Index 22.3 Const: General: healthy appearing Nutritional Appearance: average body habitus Orientation/consciousness: oriented to person and patient oriented x3 Limitations: no limitations HEENT: Other: pharynx and conjunctiva are normal Head: Yes normal to inspection Ears: external ears normal General nose exam: Normal external nose present Mouth: Normal oral and palatal mucosa present and oropharynx normal Throat: Yes posterior oropharynx normal Eyes: General: appearance normal, both eyes and all related structures Neck: Other: supple Neck: Yes normal visual inspection Chest: Chest palpation & inspection: normal inspection of the chest Resp: Auscultation: clear to auscultation bilaterally Cardio: Jugular venous distension: no JVD Rate: regular rate Rhythm: regular rhythm Heart sounds: S1 normal heart sound present and S2 normal heart sound present GI: Inspection: Yes normal to inspection Palpation (GI): Soft to palpation, nontender and No hepatosplenomegaly present Auscultation: normal bowel sounds : General: Yes no CVA tenderness Back/Spine/Pelvis: Back: no CVA tenderness Skin: Other: diffuse macular rash including palms, no scaling Neuro: General: oriented to person and patient oriented x3 Cranial nerves: Yes CN's II-XII intact bilaterally Motor exam (neuro): 5/5 motor strength present throughout Sensory Exam: No Sensory deficit (Neuro) Extrem: General: Yes normal to inspection Psych: Appearance: grossly normal Course Reevaluation(s) Reevaluation #1: As planned, patient to be admitted for medication wash out on the psychiatric floor Time: 16:25 MDM - Psych Lab Data Result diagrams: 03/02/22 15:09 03/02/22 15:09 Labs: Lab Results 03/02/22 03/02/22 03/02/22 Range/Units 12:41 12:41 13:11 WBC (4.8-10.8) X10*3/uL RBC (4.20-5.50) X10*6/uL Hgb (12.0-16.0) g/dl Hct (37.0-47.0) % MCV (80.0-98.0) fL MCH (27.0-33.0) pg MCHC (31.0-35.0) g/dl RDW (11.0-16.0) % Plt Count (160-400) X10*3/uL MPV (9.4-12.3) fL Immature Gran % (Auto) (0.0-0.4) % Neut % (Auto) (45-73) % Lymph % (Auto) (20-40) % [place] % (Auto) (2-11) % Eos % (Auto) (0-4) % Baso % (Auto) (0-2) % Lymph # (Auto) (1.2-4.9) X10*3/uL [place] # (Auto) (0.1-1.2) X10*3/uL Eos # (Auto) (0.0-0.4) X10*3/uL Baso # (Auto) (0.0-0.2) X10*3/uL Abs Immat Gran (auto) (0.00-0.03) X10*3/uL Absolute Neuts (auto) (2.0-8.3) x10*3/uL Absolute Nucleated RBC (0.0-0.012) X10*3/uL Nucleated RBC % (auto) (0.0-0.2) /100WBC Sodium (135-145) mmol/L Potassium (3.3-5.1) mmol/L Chloride (96-108) mmol/L Carbon Dioxide (22-29) mmol/L Anion Gap (12-20) BUN (9-16) mg/dL Creatinine (0.5-1.4) mg/dL Estim Creat Clear Calc Estimated GFR Random Glucose (60-115) mg/dL Calcium (8.4-10.2) mg/dL Total Bilirubin (0.0-1.0) mg/dL AST (5-31) U/L ALT (0-31) U/L Alkaline Phosphatase (39-117) U/L Total Protein (6.5-8.0) g/dL Albumin (3.5-5.0) g/dL Urine Test NEGATIVE (NEGATIVE) Salicylates (15-30) mg/dL Urine Opiates Screen Not Detected (Not Detect) Urine Fentanyl Screen POSITIVE H (Not Detect) Acetaminophen (<30) mcg/mL Ur Barbiturates Screen Not Detected (Not Detect) Ur Phencyclidine Scrn Not Detected (Not Detect) Ur Amphetamines Screen Not Detected (Not Detect) U Benzodiazepines Scrn Not Detected (Not Detect) Urine Cocaine Screen Not Detected (Not Detect) U Marijuana (THC) Screen Not Detected (Not Detect) Ethyl Alcohol mg/dL COVID-19 (VIGNESH) Negative (Negative) COVID-19 Clin Com See Note 03/02/22 03/02/22 Range/Units 15:09 15:09 WBC 8.9 (4.8-10.8) X10*3/uL RBC 4.30 (4.20-5.50) X10*6/uL Hgb 12.1 (12.0-16.0) g/dl Hct 36.2 L (37.0-47.0) % MCV 84.2 (80.0-98.0) fL MCH 28.1 (27.0-33.0) pg MCHC 33.4 (31.0-35.0) g/dl RDW 15.4 (11.0-16.0) % Plt Count 157 L (160-400) X10*3/uL MPV 11.5 (9.4-12.3) fL Immature Gran % (Auto) 0.6 H (0.0-0.4) % Neut % (Auto) 85.1 H (45-73) % Lymph % (Auto) 11.0 L (20-40) % [place] % (Auto) 3.0 (2-11) % Eos % (Auto) 0.2 (0-4) % Baso % (Auto) 0.1 (0-2) % Lymph # (Auto) 1.0 L (1.2-4.9) X10*3/uL [place] # (Auto) 0.3 (0.1-1.2) X10*3/uL Eos # (Auto) 0.0 (0.0-0.4) X10*3/uL Baso # (Auto) 0.0 (0.0-0.2) X10*3/uL Abs Immat Gran (auto) 0.05 H (0.00-0.03) X10*3/uL Absolute Neuts (auto) 7.6 (2.0-8.3) x10*3/uL Absolute Nucleated RBC 0.000 (0.0-0.012) X10*3/uL Nucleated RBC % (auto) 0.0 (0.0-0.2) /100WBC Sodium 139 (135-145) mmol/L Potassium 4.5 (3.3-5.1) mmol/L Chloride 104 (96-108) mmol/L Carbon Dioxide 28 (22-29) mmol/L Anion Gap 12 (12-20) BUN 10 (9-16) mg/dL Creatinine 0.67 (0.5-1.4) mg/dL Estim Creat Clear Calc 116.6 Estimated GFR > 60 Random Glucose 121 H (60-115) mg/dL Calcium 8.8 (8.4-10.2) mg/dL Total Bilirubin 0.4 (0.0-1.0) mg/dL AST 21 (5-31) U/L ALT 35 H (0-31) U/L Alkaline Phosphatase 39 (39-117) U/L Total Protein 6.3 L (6.5-8.0) g/dL Albumin 3.9 (3.5-5.0) g/dL Urine Test (NEGATIVE) Salicylates < 5.0 L (15-30) mg/dL Urine Opiates Screen (Not Detect) Urine Fentanyl Screen (Not Detect) Acetaminophen < 1 (<30) mcg/mL Ur Barbiturates Screen (Not Detect) Ur Phencyclidine Scrn (Not Detect) Ur Amphetamines Screen (Not Detect) U Benzodiazepines Scrn (Not Detect) Urine Cocaine Screen (Not Detect) U Marijuana (THC) Screen (Not Detect) Ethyl Alcohol < 10 mg/dL COVID-19 (VIGNESH) (Negative) COVID-19 Clin Com ECG Data Attestation: I personally reviewed and interpreted this ECG as follows: Interpretation: normal sinus rate of 70, no st or twave changes Discharge Plan Discharge Clinical Impression: Rash, Bipolar disorder, Allergic reaction Patient Disposition: Admitted As Inpatient
[2022-03-02 12:50] LABS: UPreg QC Valid YES; Urine Pregnancy NEGATIVE (NEGATIVE)
[2022-03-02 13:06] LABS: Amphetamine Screen Urine Not Detected (Not Detect); Barbiturates, Urine Not Detected (Not Detect); Benzodiazepines Screen Urine Not Detected (Not Detect); Cannabinoid Screen Urine Not Detected (Not Detect); Cocaine Screen Urine Not Detected (Not Detect); Fentanyl, urine POSITIVE (Not Detect); Opiate Screen Urine Not Detected (Not Detect); Phencyclidine Screen Urine Not Detected (Not Detect)
[2022-03-02 13:47] LABS: COVID-19 Test Negative (Negative)
[2022-03-02 15:15] LABS: MANUAL DIFF FLAG NO
[2022-03-02 15:25] LABS: Basophils Percent Auto 0.1 % (0-2); Eosinophils Percent Auto 0.2 % (0-4); Hematocrit 36.2 % (37.0-47.0); Hemoglobin 12.1 g/dl (12.0-16.0); Imm Gran Abs Auto 0.05 X10*3/uL (0.00-0.03); Imm Gran Pct Auto 0.6 % (0.0-0.4); Mean Corpuscular HGB Conc 33.4 g/dl (31.0-35.0); Mean Corpuscular Hemoglobin 28.1 pg (27.0-33.0); Mean Corpuscular Volume 84.2 fL (80.0-98.0); Mean Platelet Volume 11.5 fL (9.4-12.3); Monocytes Absolute Auto 0.3 X10*3/uL (0.1-1.2); Neutrophils Absolute Auto 7.6 x10*3/uL (2.0-8.3); Neutrophils Percent Auto 85.1 % (45-73); Platelet Count 157 X10*3/uL (160-400); Red Cell Distribution Width 15.4 % (11.0-16.0); White Blood Count 8.9 X10*3/uL (4.8-10.8)
[2022-03-02 15:34] LABS: Acetaminophen LAB < 1 mcg/mL (<30); Alanine Aminotransferase 35 U/L (0-31); Albumin Level 3.9 g/dL (3.5-5.0); Alkaline Phosphatase 39 U/L (39-117); Anion Gap 12 (12-20); Aspartate Amino Transferase 21 U/L (5-31); Bilirubin Total 0.4 mg/dL (0.0-1.0); Blood Urea Nitrogen 10 mg/dL (9-16); Calcium 8.8 mg/dL (8.4-10.2); Carbon Dioxide 28 mmol/L (22-29); Chloride 104 mmol/L (96-108); Creatinine Clr Calc Pharmacy 116.6; Estimated Glomerular Filt Rate > 60; Ethanol < 10 mg/dL; Glucose Random 121 mg/dL (60-115); Potassium 4.5 mmol/L (3.3-5.1); Salicylate < 5.0 mg/dL (15-30); Sodium 139 mmol/L (135-145); Total Protein 6.3 g/dL (6.5-8.0)
[2022-03-02 16:45] VITALS: BP 109/72; PULSE 73; RESP 20; TEMP 36.1; O2SAT 97
[2022-03-02 18:40] VITALS: BP 106/68; PULSE 62; RESP 14
--- NOTE | 2022-03-02 18:41 | PC.ADMIT ---
PT is a 21 year old female that arrived on this unit via wheelchair at 17:50 from the [facility]. PT is being admitted on a conditional voluntary basis. This is pt's 3rd inpatient psychiatric admission within the last 7 weeks. PT was recently discharged on 02/25 but had developed a widespread body rash and all [facility] meds were discontinued except Depakote and patient will now be readmitted to restart a new med regimen. (Lamictal stopped 02/20, Vraylar stopped 02/21, Haldol stopped 03/01/22, and Depakote last dose was 03/01 bedtime 1500mg - hx per patient and mother). PT is alert and oriented x 3 at this time and verbalizes understanding of reason for readmission. Denies SI/HI,AH/VH, patient reoriented to unit. Reports feeling safe.
[2022-03-02 19:27] LABS: Valproate 102.7 mcg/mL (50.0-100.0)
[2022-03-02] MEDS: Divalproex Sodium ER 500 MG TAB.ER.24H 1500 MG PO (21:01)
[2022-03-03 06:00] VITALS: BP 101/58; PULSE 71; TEMP 36.6; O2SAT 97
[2022-03-03 07:00] VITALS: BMI 22.9
[2022-03-03 09:06] LABS: Estimated Average Glucose 100 mg/dL; Hemoglobin A1c % 5.1 %
[2022-03-03 09:43] LABS: Cholesterol 171 mg/dL; HDL Cholesterol 50 mg/dL; LDL Cholesterol Calculated 103 mg/dl; Magnesium 1.7 mg/dL (1.6-2.6); Triglycerides 93 mg/dL
[2022-03-03] MEDS: predniSONE 20 MG TABLET 40 MG PO (09:45)
[2022-03-03 09:54] LABS: Free T4 (Free Thyroxine) 0.75 ng/dL (0.71-1.85); Thyroid Stimulating Hormone 1.81 uIU/mL (0.32-4.0)
[2022-03-03 10:20] LABS: Folate 13.2 ng/mL (> or = 4.0); Vitamin B12 522 pg/mL (200-900)
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
[2022-03-03 18:00] VITALS: BP 104/66; PULSE 89; RESP 17; TEMP 36.2; O2SAT 99
[2022-03-03] MEDS: Divalproex Sodium ER 500 MG TAB.ER.24H 1000 MG PO (20:31)
[2022-03-03] MEDS: risperiDONE 2 MG TABLET PO (20:32)
[2022-03-03] MEDS: Melatonin 3 MG TABLET 6 MG PO (20:32)
[2022-03-04 06:00] VITALS: BP 102/59; PULSE 74; RESP 16; TEMP 36.3; O2SAT 99
[2022-03-04] MEDS: predniSONE 10 MG TABLET 30 MG PO (08:47)
[2022-03-04 09:28] LABS: Bilirubin Direct 0.2 mg/dL (0.0-0.5); Bilirubin Total 0.2 mg/dL (0.0-1.0); Calcium 8.7 mg/dL (8.4-10.2)
[2022-03-04 09:47] LABS: Erythrocyte Sedimentation Rate 2 MM/HR (0-20)
--- NOTE | 2022-03-04 15:28 | P.PNPSI_ITS ---
Subjective Subjective Date of Service: 03/04/22 Reason For Visit: bipolar s/o; rash-?medication reaction Subjective Notes: Conditional Voluntary Healthcare Proxy: No Guardianship: No Medical Problems Affecting Mental Status: No Interim History: Tolerating Risperdal. Rash appears to be decreasing Labs WNL today Prednisone tapering. Alert, oriented, clear-no psychosis or jimmy noted Pt looking to return home as soon as she can. Medication Compliance: Yes Side effects from medications: Yes (?Medication rash) Attending Groups: Intermittent Review of Systems Acute medical concerns: Yes Rash Medical Review of Systems: unchanged Review of Systems Skin/Breast: Reports rash Psychiatric: Reports anxiety, Reports depression, Reports hopelessness and Reports anhedonia Mental Status Exam Mental Status Exam Patient Appearance: Appropriate Patient Orientation: Person, Place, Time and Situation Level of Consciousness: Alert Patient Behavior: Talkative and Good Eye Contact Mood Description: Withdrawn, Depressed and Fearful Affect Description: Flat Ability to Follow Directions: Good Speech Pattern: Spontaneous Speech Memory Description: Intact Hallucinations: None Delusions: Not Present Perceptual Disturbances: Derealization Thought Process: Rumination Thought Content: positive for Circumstantial Depressive Symptoms: Increased Irritability, Hopelessness, Increased Fatigue and Loss of Energy Abnormal Motor Activity Signs and Symptoms: Restlessness Judgement: Fair Diagnostics Vital Signs (24Hr): Vital Signs - 24 hr 03/03/22 18:00 03/04/22 06:00 Temperature 97.2 F 97.4 F Pulse Rate 89 74 Respiratory Rate 17 16 Blood Pressure 104/66 102/59 L Pulse Oximetry 99 99 Oxygen Delivery Method Room Air BMI result Body Mass Index 22.9 Labs Results: 03/02/22 15:09 03/02/22 15:09 Labs: Laboratory Results - last 48 hr 03/02/22 03/02/22 03/03/22 15:09 18:52 08:05 ESR Sodium 139 Potassium 4.5 Chloride 104 Carbon Dioxide 28 Anion Gap 12 BUN 10 Creatinine 0.67 Estim Creat Clear Calc 116.6 Estimated GFR > 60 Random Glucose 121 H Estimat Average Glucose 100 Hemoglobin A1c % 5.1 Calcium 8.8 Magnesium Total Bilirubin 0.4 Direct Bilirubin AST 21 ALT 35 H Alkaline Phosphatase 39 Total Protein 6.3 L Albumin 3.9 Triglycerides Cholesterol LDL Cholesterol, Calc HDL Cholesterol Vitamin B12 Folate TSH Free T4 Salicylates < 5.0 L Acetaminophen < 1 Valproic Acid 102.7 H Ethyl Alcohol < 10 03/03/22 03/03/22 03/04/22 08:05 08:05 08:19 ESR 2 Sodium Potassium Chloride Carbon Dioxide Anion Gap BUN Creatinine Estim Creat Clear Calc Estimated GFR Random Glucose Estimat Average Glucose Hemoglobin A1c % Calcium Magnesium 1.7 Total Bilirubin Direct Bilirubin AST ALT Alkaline Phosphatase Total Protein Albumin Triglycerides 93 Cholesterol 171 LDL Cholesterol, Calc 103 HDL Cholesterol 50 Vitamin B12 522 Folate 13.2 TSH 1.81 Free T4 0.75 Salicylates Acetaminophen Valproic Acid Ethyl Alcohol 03/04/22 08:19 ESR Sodium Potassium Chloride Carbon Dioxide Anion Gap BUN Creatinine Estim Creat Clear Calc Estimated GFR Random Glucose Estimat Average Glucose Hemoglobin A1c % Calcium 8.7 Magnesium Total Bilirubin 0.2 Direct Bilirubin 0.2 AST ALT Alkaline Phosphatase Total Protein Albumin Triglycerides Cholesterol LDL Cholesterol, Calc HDL Cholesterol Vitamin B12 Folate TSH Free T4 Salicylates Acetaminophen Valproic Acid Ethyl Alcohol Medications Medications Current Medications Acetaminophen (Acetaminophen 325 Mg Tablet) 650 mg PO Q6H PRN PRN Reason: Headache/Pain Mild Scale (1-3) Al Hydroxide/Mg Hydroxide (Magnesium Hydrox/Alum Hydrox 30 Ml Oral.Susp) 30 ml PO Q6H PRN PRN Reason: Heartburn/Nausea Diphenhydramine HCl (Diphenhydramine Hcl 25 Mg Tablet) 50 mg PO Q6H PRN PRN Reason: rash, itching Divalproex Sodium (Divalproex Sodium Er 500 Mg Tab.Er.24h) 1,000 mg PO BEDTIME JOHANNA Last Admin: 03/03/22 20:31 Dose: 1,000 mg Docusate Sodium (Docusate Sodium 100 Mg Capsule) 200 mg PO DAILY PRN PRN Reason: constipation Hydrocortisone (Hydrocortisone 1 % Cream 28.35 Gm Tube) 1 appl TOPICAL BID PRN; Protocol PRN Reason: rash, itching Hydroxyzine HCl (Hydroxyzine Hcl 25 Mg Tablet) 25 mg PO Q6H PRN PRN Reason: Anxiety Magnesium Hydroxide (Milk Of Magnesia 30 Ml Oral.Susp) 30 ml PO DAILY PRN PRN Reason: Constipation Melatonin (Melatonin 3 Mg Tablet) 6 mg PO BEDTIME PRN PRN Reason: insomnia Last Admin: 03/03/22 20:32 Dose: 6 mg Prednisone (Prednisone 10 Mg Tablet) 30 mg PO DAILY JOHANNA Last Admin: 03/04/22 08:47 Dose: 30 mg Risperidone (Risperidone 2 Mg Tablet) 2 mg PO BEDTIME JOHANNA Last Admin: 03/03/22 20:32 Dose: 2 mg Senna (Sennosides 8.6 Mg Tablet) 17.2 mg PO BEDTIME PRN PRN Reason: constipation Trazodone HCl (Trazodone Hcl 50 Mg Tablet) 50 mg PO BEDTIME PRN PRN Reason: Insomnia Allergies Allergies Allergy/AdvReac Type Severity Reaction Status Date / Time lamotrigine [From Lamictal] Allergy Severe Rash Verified 02/21/22 10:44 pineapple Allergy Itching Verified 02/19/22 14:09 amoxicillin AdvReac Intermediate Rash Verified 01/11/22 21:42 harrison AdvReac Intermediate Gastrointestinal Verified 01/21/22 19:19 Upset kiwi AdvReac Intermediate gi Verified 01/21/22 19:19 cariprazine [From Vraylar] AdvReac Rash Verified 03/03/22 15:05 fluoxetine [From Prozac] AdvReac Depression Verified 01/11/22 21:43 Assessment & Plan Assessment & Plan (1) Bipolar disorder: Status: Acute Code(s): F31.9 - Bipolar disorder, unspecified (2) Rash: Status: Acute Code(s): R21 - Rash and other nonspecific skin eruption (3) Allergic reaction: Status: Acute Code(s): T78.40XA - Allergy, unspecified, initial encounter Plan 21 yo female, hx of bipolar disorder, newly diagnosed, with jimmy and psychosis presents with persistent rash>1 week, unresponsive to steroids and medication discontiuation. Primary agents Haldol/Depakote were tolerated for several weeks. Recent addition of Vraylar and Lamictal were thought to be the cause but pt with no relief since discontinuation of these. Pt admitted for washout and re- stabilization on a regime which is not precipitating of allergic response. Plan: --Decrease Depakote ER to 1000 mg HS. --Risperdal 2 mg hs --Labs-D. Bili, T. Bili, Calcium, ESR, --Consulted with hospitalist services much appreciated. Will consider punch bio psy. --Monitor for recurrence of jimmy 03/04/22 Continue current plan Risperdal may require titration over the weekend. I spent minutes with the patient and/or on the patient floor today, greater than?50% of which was spent counseling/coordinating care. Patient educated on: therapeutic strategies Informed Consent: understands and further education needed Reason for contiued inpatient stay Substantial Risk for: rapid decompensation
[2022-03-04 20:06] VITALS: BP 100/54; PULSE 75; TEMP 37; O2SAT 97
[2022-03-04] MEDS: risperiDONE 2 MG TABLET PO (20:07)
[2022-03-04] MEDS: Divalproex Sodium ER 500 MG TAB.ER.24H 1000 MG PO (20:07)
[2022-03-05 06:00] VITALS: BP 104/62; PULSE 72; RESP 16; TEMP 36.5; O2SAT 99
[2022-03-05] MEDS: predniSONE 10 MG TABLET 30 MG PO (08:47)
--- NOTE | 2022-03-05 17:05 | P.PNPSI_ITS ---
Subjective Subjective Date of Service: 03/05/22 Reason For Visit: bipolar s/o; rash-?medication reaction Interim History: Patient calm and cooperative. She says she has sleeping well. Rash is better and she says no longer itchy. 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 Patient appropriate with peers and staff Mental Status Exam Mental Status Exam Patient Appearance: Appropriate Patient Orientation: Person, Place, Time and Situation Level of Consciousness: Alert Patient Behavior: Talkative, Cooperative and Good Eye Contact Mood Description: Depressed and Anxious Affect Description: Flat Ability to Follow Directions: Good Speech Pattern: Monotone and Spontaneous Speech Memory Description: Intact Hallucinations: None Delusions: Not Present Perceptual Disturbances: Derealization Thought Process: Rumination Thought Content: positive for Circumstantial and positive for Goal Oriented Depressive Symptoms: Increased Irritability, Hopelessness, Increased Fatigue and Loss of Energy Abnormal Motor Activity Signs and Symptoms: Restlessness Judgement: Fair Diagnostics Vital Signs (24Hr): Vital Signs - 24 hr 03/04/22 20:06 03/05/22 06:00 Temperature 98.6 F 97.7 F Pulse Rate 75 72 Respiratory Rate 16 Blood Pressure 100/54 L 104/62 Pulse Oximetry 97 99 BMI result Body Mass Index 22.9 Labs Results: 03/02/22 15:09 03/02/22 15:09 Labs: Laboratory Results - last 48 hr 03/04/22 03/04/22 08:19 08:19 ESR 2 Calcium 8.7 Total Bilirubin 0.2 Direct Bilirubin 0.2 Medications Medications Current Medications Acetaminophen (Acetaminophen 325 Mg Tablet) 650 mg PO Q6H PRN PRN Reason: Headache/Pain Mild Scale (1-3) Al Hydroxide/Mg Hydroxide (Magnesium Hydrox/Alum Hydrox 30 Ml Oral.Susp) 30 ml PO Q6H PRN PRN Reason: Heartburn/Nausea Diphenhydramine HCl (Diphenhydramine Hcl 25 Mg Tablet) 50 mg PO Q6H PRN PRN Reason: rash, itching Divalproex Sodium (Divalproex Sodium Er 500 Mg Tab.Er.24h) 1,000 mg PO BEDTIME JOHANNA Last Admin: 03/04/22 20:07 Dose: 1,000 mg Docusate Sodium (Docusate Sodium 100 Mg Capsule) 200 mg PO DAILY PRN PRN Reason: constipation Hydrocortisone (Hydrocortisone 1 % Cream 28.35 Gm Tube) 1 appl TOPICAL BID PRN; Protocol PRN Reason: rash, itching Hydroxyzine HCl (Hydroxyzine Hcl 25 Mg Tablet) 25 mg PO Q6H PRN PRN Reason: Anxiety Magnesium Hydroxide (Milk Of Magnesia 30 Ml Oral.Susp) 30 ml PO DAILY PRN PRN Reason: Constipation Melatonin (Melatonin 3 Mg Tablet) 6 mg PO BEDTIME PRN PRN Reason: insomnia Last Admin: 03/03/22 20:32 Dose: 6 mg Prednisone (Prednisone 10 Mg Tablet) 30 mg PO DAILY JOHANNA Last Admin: 03/05/22 08:47 Dose: 30 mg Risperidone (Risperidone 2 Mg Tablet) 2 mg PO BEDTIME JOHANNA Last Admin: 03/04/22 20:07 Dose: 2 mg Senna (Sennosides 8.6 Mg Tablet) 17.2 mg PO BEDTIME PRN PRN Reason: constipation Trazodone HCl (Trazodone Hcl 50 Mg Tablet) 50 mg PO BEDTIME PRN PRN Reason: Insomnia Allergies Allergies Allergy/AdvReac Type Severity Reaction Status Date / Time lamotrigine [From Lamictal] Allergy Severe Rash Verified 02/21/22 10:44 pineapple Allergy Itching Verified 02/19/22 14:09 amoxicillin AdvReac Intermediate Rash Verified 01/11/22 21:42 harrison AdvReac Intermediate Gastrointestinal Verified 01/21/22 19:19 Upset kiwi AdvReac Intermediate gi Verified 01/21/22 19:19 cariprazine [From Vraylar] AdvReac Rash Verified 03/03/22 15:05 fluoxetine [From Prozac] AdvReac Depression Verified 01/11/22 21:43 Assessment & Plan Assessment & Plan (1) Bipolar disorder: Status: Acute Code(s): F31.9 - Bipolar disorder, unspecified (2) Rash: Status: Acute Code(s): R21 - Rash and other nonspecific skin eruption (3) Allergic reaction: Status: Acute Code(s): T78.40XA - Allergy, unspecified, initial encounter Plan 21 yo female, hx of bipolar disorder, newly diagnosed, with jimmy and psychosis presents with persistent rash>1 week, unresponsive to steroids and medication di scontiuation. Primary agents Haldol/Depakote were tolerated for several weeks. Recent addition of Vraylar and Lamictal were thought to be the cause but pt with no relief since discontinuation of these. Pt admitted for washout and re- stabilization on a regime which is not precipitating of allergic response. Plan: --Decrease Depakote ER to 1000 mg HS. --Risperdal 2 mg hs --Labs-D. Bili, T. Bili, Calcium, ESR, --Consulted with hospitalist services much appreciated. Will consider punch biopsy. --Monitor for recurrence of jimmy 03/04/22 Continue current plan Risperdal may require titration over the weekend. 03/05/22 Patient denies any AVH or racing thoughts. Will leave Risperdal at current dose; will monitor and titrate if clinically determined. I spent minutes with the patient and/or on the patient floor today, greater than?50% of which was spent counseling/coordinating care. Patient educated on: diagnosis, medication risk/benefits and medical condition Informed Consent: understands Reason for contiued inpatient stay Substantial Risk for: rapid decompensation
[2022-03-05 18:00] VITALS: BP 99/57; PULSE 86; RESP 14; TEMP 36.6; O2SAT 97
[2022-03-05] MEDS: Divalproex Sodium ER 500 MG TAB.ER.24H 1000 MG PO (20:07)
[2022-03-05] MEDS: risperiDONE 2 MG TABLET PO (20:07)
[2022-03-06 06:00] VITALS: BP 97/57; PULSE 79; RESP 16; TEMP 36.6; O2SAT 99
[2022-03-06] MEDS: predniSONE 20 MG TABLET PO (08:47)
--- NOTE | 2022-03-06 15:44 | HO.PSYCHPN ---
Subjective Subjective Date of Service: 03/06/22 Reason For Visit: bipolar s/o; rash-?medication reaction Interim History: Patient says she is doing well and had a good visit with her dad yesterday. She denies any AVH and says her mind is not racing; Also that her rash continues to get better. Mental Status Exam Mental Status Exam Patient Appearance: Appropriate Patient Orientation: Person, Place, Time and Situation Level of Consciousness: Alert Patient Behavior: Talkative, Cooperative and Good Eye Contact Mood Description: Depressed and Anxious Affect Description: Flat Ability to Follow Directions: Good Speech Pattern: Monotone and Spontaneous Speech Memory Description: Intact Hallucinations: None Delusions: Not Present Perceptual Disturbances: Derealization Thought Process: Rumination Thought Content: positive for Circumstantial and positive for Goal Oriented Depressive Symptoms: Increased Irritability, Hopelessness, Increased Fatigue and Loss of Energy Abnormal Motor Activity Signs and Symptoms: Restlessness Judgement: Fair Diagnostics Vital Signs (24Hr): Vital Signs - 24 hr 03/05/22 18:00 03/06/22 06:00 Temperature 97.9 F 97.9 F Pulse Rate 86 79 Respiratory Rate 14 16 Blood Pressure 99/57 L 97/57 L Pulse Oximetry 97 99 BMI result Body Mass Index 22.9 Labs Results: 03/02/22 15:09 03/02/22 15:09 Medications Medications Current Medications Acetaminophen (Acetaminophen 325 Mg Tablet) 650 mg PO Q6H PRN PRN Reason: Headache/Pain Mild Scale (1-3) Al Hydroxide/Mg Hydroxide (Magnesium Hydrox/Alum Hydrox 30 Ml Oral.Susp) 30 ml PO Q6H PRN PRN Reason: Heartburn/Nausea Diphenhydramine HCl (Diphenhydramine Hcl 25 Mg Tablet) 50 mg PO Q6H PRN PRN Reason: rash, itching Divalproex Sodium (Divalproex Sodium Er 500 Mg Tab.Er.24h) 1,000 mg PO BEDTIME JOHANNA Last Admin: 03/05/22 20:07 Dose: 1,000 mg Docusate Sodium (Docusate Sodium 100 Mg Capsule) 200 mg PO DAILY PRN PRN Reason: constipation Hydrocortisone (Hydrocortisone 1 % Cream 28.35 Gm Tube) 1 appl TOPICAL BID PRN; Protocol PRN Reason: rash, itching Hydroxyzine HCl (Hydroxyzine Hcl 25 Mg Tablet) 25 mg PO Q6H PRN PRN Reason: Anxiety Magnesium Hydroxide (Milk Of Magnesia 30 Ml Oral.Susp) 30 ml PO DAILY PRN PRN Reason: Constipation Melatonin (Melatonin 3 Mg Tablet) 6 mg PO BEDTIME PRN PRN Reason: insomnia Last Admin: 03/03/22 20:32 Dose: 6 mg Prednisone (Prednisone 20 Mg Tablet) 20 mg PO DAILY [facility] Last Admin: 03/06/22 08:47 Dose: 20 mg Risperidone (Risperidone 2 Mg Tablet) 2 mg PO BEDTIME [facility] Last Admin: 03/05/22 20:07 Dose: 2 mg Senna (Sennosides 8.6 Mg Tablet) 17.2 mg PO BEDTIME PRN PRN Reason: constipation Trazodone HCl (Trazodone Hcl 50 Mg Tablet) 50 mg PO BEDTIME PRN PRN Reason: Insomnia Allergies Allergies Allergy/AdvReac Type Severity Reaction Status Date / Time lamotrigine [From Lamictal] Allergy Severe Rash Verified 02/21/22 10:44 pineapple Allergy Itching Verified 02/19/22 14:09 amoxicillin AdvReac Intermediate Rash Verified 01/11/22 21:42 harrison AdvReac Intermediate Gastrointestinal Verified 01/21/22 19:19 Upset kiwi AdvReac Intermediate gi Verified 01/21/22 19:19 cariprazine [From Vraylar] AdvReac Rash Verified 03/03/22 15:05 fluoxetine [From Prozac] AdvReac Depression Verified 01/11/22 21:43 Assessment & Plan Assessment & Plan (1) Bipolar disorder: Status: Acute Code(s): F31.9 - Bipolar disorder, unspecified (2) Rash: Status: Acute Code(s): R21 - Rash and other nonspecific skin eruption (3) Allergic reaction: Status: Acute Code(s): T78.40XA - Allergy, unspecified, initial encounter Plan 21 yo female, hx of bipolar disorder, newly diagnosed, with jimmy and psychosis presents with persistent rash>1 week, unresponsive to steroids and medication discontiuation. Primary agents Haldol/Depakote were tolerated for several weeks. Recent addition of Vraylar and Lamictal were thought to be the cause but pt with no relief since discontinuation of these. Pt admitted for washout and re-stabilization on a regime which is not precipitating of allergic response. Plan: --Decrease Depakote ER to 1000 mg HS. --Risperdal 2 mg hs --Labs-D. Bili, T. Bili, Calcium, ESR, --Consulted with hospitalist services much appreciated. Will consider punch biopsy. --Monitor for recurrence of jimmy 03/04/22 Continue current plan Risperdal may require titration over the weekend. 03/05/22 Patient denies any AVH or racing thoughts. Will leave Risperdal at current dose; will monitor and titrate if clinically determined. 03/06/22 Patient denies any AVH or racing thoughts. Will thus leave Risperdal at current dose I spent minutes with the patient and/or on the patient floor today, greater than?50% of which was spent counseling/coordinating care. Patient educated on: diagnosis and medical condition Informed Consent: understands Reason for contiued inpatient stay Substantial Risk for: rapid decompensation
[2022-03-06 18:00] VITALS: BP 105/58; PULSE 95; RESP 14; TEMP 36.7; O2SAT 99
[2022-03-06] MEDS: Divalproex Sodium ER 500 MG TAB.ER.24H 1000 MG PO (20:04)
[2022-03-06] MEDS: risperiDONE 2 MG TABLET PO (20:04)
[2022-03-07 06:00] VITALS: BP 98/58; PULSE 73; RESP 16; TEMP 36.3; O2SAT 99
[2022-03-07] MEDS: predniSONE 20 MG TABLET PO (09:32)
--- NOTE | 2022-03-07 15:53 | P.PNPSI_ITS ---
Subjective Subjective Date of Service: 03/07/22 Reason For Visit: bipolar s/o; rash-?medication reaction Subjective Notes: Conditional Voluntary Healthcare Proxy: No Guardianship: No Medical Problems Affecting Mental Status: No Interim History: Pt and team report a good weekend with no breakthrough symptoms. Pt wanting to discuss discharge. No sx of mood lability or jimmy. No sx of psychosis Rash is present, fading, with pt reporting no sx of pruritis. Medication Compliance: Yes Side effects from medications: No (rash resolving, offending medications stopped) Attending Groups: Intermittent Review of Systems Acute medical concerns: No Medical Review of Systems: unchanged Review of Systems Psychiatric: Reports anhedonia and Reports suicidal ideation (denies) Mental Status Exam Mental Status Exam Patient Appearance: Appropriate Patient Orientation: Person, Place, Time and Situation Level of Consciousness: Alert Patient Behavior: Talkative and Good Eye Contact Mood Description: Constricted Affect Description: Constricted Patient Cognition Impaired: No Ability to Follow Directions: Good Speech Pattern: Spontaneous Speech Memory Description: Intact Hallucinations: None Delusions: Not Present Thought Process: Intact and Goal Oriented Thought Content: positive for Intact and positive for Goal Oriented Abnormal Motor Activity Signs and Symptoms: Restlessness Judgement: Good Diagnostics Vital Signs (24Hr): Vital Signs - 24 hr 03/06/22 18:00 03/07/22 06:00 Temperature 98.1 F 97.4 F Pulse Rate 95 73 Respiratory Rate 14 16 Blood Pressure 105/58 L 98/58 L Pulse Oximetry 99 99 Oxygen Delivery Method Room Air BMI result Body Mass Index 22.9 Labs Results: 03/02/22 15:09 03/02/22 15:09 Medications Medications Current Medications Acetaminophen (Acetaminophen 325 Mg Tablet) 650 mg PO Q6H PRN PRN Reason: Headache/Pain Mild Scale (1-3) Al Hydroxide/Mg Hydroxide (Magnesium Hydrox/Alum Hydrox 30 Ml Oral.Susp) 30 ml PO Q6H PRN PRN Reason: Heartburn/Nausea Diphenhydramine HCl (Diphenhydramine Hcl 25 Mg Tablet) 50 mg PO Q6H PRN PRN Reason: rash, itching Divalproex Sodium (Divalproex Sodium Er 500 Mg Tab.Er.24h) 1,000 mg PO BEDTIME JOHANNA Last Admin: 03/06/22 20:04 Dose: 1,000 mg Docusate Sodium (Docusate Sodium 100 Mg Capsule) 200 mg PO DAILY PRN PRN Reason: constipation Hydrocortisone (Hydrocortisone 1 % Cream 28.35 Gm Tube) 1 appl TOPICAL BID PRN; Protocol PRN Reason: rash, itching Hydroxyzine HCl (Hydroxyzine Hcl 25 Mg Tablet) 25 mg PO Q6H PRN PRN Reason: Anxiety Magnesium Hydroxide (Milk Of Magnesia 30 Ml Oral.Susp) 30 ml PO DAILY PRN PRN Reason: Constipation Melatonin (Melatonin 3 Mg Tablet) 6 mg PO BEDTIME PRN PRN Reason: insomnia Last Admin: 03/03/22 20:32 Dose: 6 mg Prednisone (Prednisone 20 Mg Tablet) 20 mg PO DAILY JOHANNA Last Admin: 03/07/22 09:32 Dose: 20 mg Risperidone (Risperidone 2 Mg Tablet) 2 mg PO BEDTIME JOHANNA Last Admin: 03/06/22 20:04 Dose: 2 mg Senna (Sennosides 8.6 Mg Tablet) 17.2 mg PO BEDTIME PRN PRN Reason: constipation Trazodone HCl (Trazodone Hcl 50 Mg Tablet) 50 mg PO BEDTIME PRN PRN Reason: Insomnia Allergies Allergies Allergy/AdvReac Type Severity Reaction Status Date / Time lamotrigine [From Lamictal] Allergy Severe Rash Verified 02/21/22 10:44 pineapple Allergy Itching Verified 02/19/22 14:09 amoxicillin AdvReac Intermediate Rash Verified 01/11/22 21:42 harrison AdvReac Intermediate Gastrointestinal Verified 01/21/22 19:19 Upset kiwi AdvReac Intermediate gi Verified 01/21/22 19:19 cariprazine [From Vraylar] AdvReac Rash Verified 03/03/22 15:05 fluoxetine [From Prozac] AdvReac Depression Verified 01/11/22 21:43 Assessment & Plan Assessment & Plan (1) Bipolar disorder: Status: Acute Code(s): F31.9 - Bipolar disorder, unspecified (2) Rash: Status: Acute Code(s): R21 - Rash and other nonspecific skin eruption (3) Allergic reaction: Status: Acute Code(s): T78.40XA - Allergy, unspecified, initial encounter Plan 21 yo female, hx of bipolar disorder, newly diagnosed, with jimmy and psychosis presents with persistent rash>1 week, unresponsive to steroids and medication discontiuation. Primary agents Haldol/Depakote were tolerated for several weeks. Recent addition of Vraylar and Lamictal were thought to be the cause but pt with no relief since discontinuation of these. Pt admitted for washout and re-stabilization on a regime which is not precipitating of allergic response. Plan: --Decrease Depakote ER to 1000 mg HS. --Risperdal 2 mg hs --Labs-D. Bili, T. Bili, Calcium, ESR, --Consulted with hospitalist services much appreciated. Will consider punch biopsy. --Monitor for recurrence of jimmy 03/04/22 Continue current plan Risperdal may require titration over the weekend. 03/05/22 Patient denies any AVH or racing thoughts. Will leave Risperdal at current dose; will monitor and titrate if clinically determined. 03/06/22 Patient denies any AVH or racing thoughts. Will thus leave Risperdal at current dose 03/07/22 Rash subsiding. No pruritis per pt. No paranoia, no AH, VH, no breakthrough jimmy. I spent minutes with the patient and/or on the patient floor today, grea ter than?50% of which was spent counseling/coordinating care. Patient educated on: therapeutic strategies Informed Consent: understands and further education needed Reason for contiued inpatient stay Substantial Risk for: inability to function and rapid decompensation
[2022-03-07 17:43] VITALS: BP 125/57; PULSE 101; RESP 16; TEMP 36.2; O2SAT 97
[2022-03-07] MEDS: Divalproex Sodium ER 500 MG TAB.ER.24H 1000 MG PO (20:13)
[2022-03-07] MEDS: risperiDONE 2 MG TABLET PO (20:13)
[2022-03-08 06:00] VITALS: BP 112/57; PULSE 72; RESP 16; TEMP 37; O2SAT 98
[2022-03-08] MEDS: predniSONE 10 MG TABLET PO (08:52)
--- NOTE | 2022-03-08 12:29 | P.PNPSI_ITS ---
Subjective Subjective Date of Service: 03/08/22 Reason For Visit: bipolar s/o; rash-?medication reaction Subjective Notes: Conditional Voluntary Healthcare Proxy: No Guardianship: No Medical Problems Affecting Mental Status: No Interim History: Pt continues to make progress. Discussed discharge for 03/10 which she is in agreement with. Pt's mother reports pt's mental status has been clear when visiting. She does report some intermittent staring, and dysphoria, anergy. however reports this was present prior to this episode of illness. Discussed titration of Risperdal. Pt will be seen by her new out patient prescriber next week and new PCP the week after. Discussed with pt's mother a referral to dermatology and allergy medicine which she and pt agree is in her best interest. Medication Compliance: Yes Side effects from medications: No Attending Groups: Intermittent Review of Systems Acute medical concerns: No Medical Review of Systems: unchanged Review of Systems Psychiatric: Reports anhedonia and Reports suicidal ideation (denies) Mental Status Exam Mental Status Exam Patient Appearance: Appropriate Patient Orientation: Person, Place, Time and Situation Level of Consciousness: Alert Patient Behavior: Talkative and Good Eye Contact Mood Description: Constricted Affect Description: Constricted Patient Cognition Impaired: No Ability to Follow Directions: Good Speech Pattern: Spontaneous Speech Memory Description: Intact Hallucinations: None Delusions: Not Present Thought Process: Intact and Goal Oriented Thought Content: positive for Intact and positive for Goal Oriented Abnormal Motor Activity Signs and Symptoms: Restlessness Judgement: Good Diagnostics Vital Signs (24Hr): Vital Signs - 24 hr 03/07/22 17:43 03/08/22 06:00 Temperature 97.2 F 98.6 F Pulse Rate 101 H 72 Respiratory Rate 16 16 Blood Pressure 125/57 L 112/57 L Pulse Oximetry 97 98 Oxygen Delivery Method Room Air Room Air BMI result Body Mass Index 22.9 Labs Results: 03/02/22 15:09 03/02/22 15:09 Medications Medications Current Medications Acetaminophen (Acetaminophen 325 Mg Tablet) 650 mg PO Q6H PRN PRN Reason: Headache/Pain Mild Scale (1-3) Al Hydroxide/Mg Hydroxide (Magnesium Hydrox/Alum Hydrox 30 Ml Oral.Susp) 30 ml PO Q6H PRN PRN Reason: Heartburn/Nausea Diphenhydramine HCl (Diphenhydramine Hcl 25 Mg Tablet) 50 mg PO Q6H PRN PRN Reason: rash, itching Divalproex Sodium (Divalproex Sodium Er 500 Mg Tab.Er.24h) 1,000 mg PO BEDTIME [facility] Last Admin: 03/07/22 20:13 Dose: 1,000 mg Docusate Sodium (Docusate Sodium 100 Mg Capsule) 200 mg PO DAILY PRN PRN Reason: constipation Hydrocortisone (Hydrocortisone 1 % Cream 28.35 Gm Tube) 1 appl TOPICAL BID PRN; Protocol PRN Reason: rash, itching Hydroxyzine HCl (Hydroxyzine Hcl 25 Mg Tablet) 25 mg PO Q6H PRN PRN Reason: Anxiety Magnesium Hydroxide (Milk Of Magnesia 30 Ml Oral.Susp) 30 ml PO DAILY PRN PRN Reason: Constipation Melatonin (Melatonin 3 Mg Tablet) 6 mg PO BEDTIME PRN PRN Reason: insomnia Last Admin: 03/03/22 20:32 Dose: 6 mg Prednisone (Prednisone 10 Mg Tablet) 10 mg PO DAILY [facility] Last Admin: 03/08/22 08:52 Dose: 10 mg Risperidone (Risperidone 2 Mg Tablet) 2 mg PO BEDTIME [facility] Last Admin: 03/07/22 20:13 Dose: 2 mg Senna (Sennosides 8.6 Mg Tablet) 17.2 mg PO BEDTIME PRN PRN Reason: constipation Trazodone HCl (Trazodone Hcl 50 Mg Tablet) 50 mg PO BEDTIME PRN PRN Reason: Insomnia Allergies Allergies Allergy/AdvReac Type Severity Reaction Status Date / Time lamotrigine [From Lamictal] Allergy Severe Rash Verified 02/21/22 10:44 amoxicillin Allergy Intermediate Rash Verified 03/08/22 10:05 cariprazine [From Vraylar] Allergy Rash Verified 03/08/22 10:05 pineapple Allergy Itching Verified 02/19/22 14:09 harrison AdvReac Intermediate Gastrointestinal Verified 01/21/22 19:19 Upset kiwi AdvReac Intermediate Gastrointestinal Verified 03/08/22 10:05 Upset fluoxetine [From Prozac] AdvReac Depression Verified 01/11/22 21:43 Assessment & Plan Assessment & Plan (1) Bipolar disorder: Status: Acute Code(s): F31.9 - Bipolar disorder, unspecified (2) Rash: Status: Acute Code(s): R21 - Rash and other nonspecific skin eruption (3) Allergic reaction: Status: Acute Code(s): T78.40XA - Allergy, unspecified, initial encounter Plan 21 yo female, hx of bipolar disorder, newly diagnosed, with jimmy and psychosis presents with persistent rash>1 week, unresponsive to steroids and medication discontiuation. Primary agents Haldol/Depakote were tolerated for several weeks. Recent addition of Vraylar and Lamictal were thought to be the cause but pt with no relief since discontinuation of these. Pt admitted for washout and re- stabilization on a regime which is not precipitating of allergic response. Plan: --Decrease Depakote ER to 1000 mg HS. --Risperdal 2 mg hs --Labs-D. Bili, T. Bili, Calcium, ESR, --Consulted with hospitalist services much appreciated. Will consider punch biopsy. --Monitor for recurrence of jimmy 03/04/22 Continue current plan Risperdal may require titration over the weekend. 03/05/22 Patient denies any AVH or racing thoughts. Will leave Risperdal at current dose; will monitor and titrate if clinically determined. 03/06/22 Patient denies any AVH or racing thoughts. Will thus leave Risperdal at current dose 03/07/22 Discharge 03/10/22. Prednisone taper ending prior to discharge I spent minutes with the patient and/or on the patient floor today, greater than?50% of which was spent counseling/coordinating care. Patient educated on: therapeutic strategies Informed Consent: understands and further education needed Reason for contiued inpatient stay Substantial Risk for: rapid decompensation
[2022-03-08 17:21] VITALS: BP 111/56; PULSE 83; RESP 16; TEMP 36.4; O2SAT 96
[2022-03-08] MEDS: Divalproex Sodium ER 500 MG TAB.ER.24H 1000 MG PO (20:11)
[2022-03-08] MEDS: risperiDONE 2 MG TABLET PO (20:11)
[2022-03-09 08:10] VITALS: BP 96/54; PULSE 68; TEMP 36.4
[2022-03-09] MEDS: predniSONE 10 MG TABLET PO (09:02)
--- NOTE | 2022-03-09 13:15 | P.PNPSI_ITS ---
Subjective Subjective Date of Service: 03/09/22 Reason For Visit: bipolar s/o; rash-?medication reaction Subjective Notes: Conditional Voluntary Healthcare Proxy: No Guardianship: No Medical Problems Affecting Mental Status: No Interim History: Rash continues to improve. Denies pruritis Denies sx of jimmy, depression, however tells family she is bored and her soul is broken from this experience. Plans discharge 03/11. Denies SI, sx of perceptual alterations, fears. I need to go back to school. Medication Compliance: Yes Side effects from medications: No Attending Groups: Yes Review of Systems Acute medical concerns: No Medical Review of Systems: unchanged Review of Systems Psychiatric: Reports anhedonia and Reports suicidal ideation (denies) Mental Status Exam Mental Status Exam Patient Appearance: Appropriate Patient Orientation: Person, Place, Time and Situation Level of Consciousness: Alert Patient Behavior: Talkative and Good Eye Contact Mood Description: Constricted Affect Description: Constricted Patient Cognition Impaired: No Ability to Follow Directions: Good Speech Pattern: Spontaneous Speech Memory Description: Intact Hallucinations: None Delusions: Not Present Thought Process: Intact and Goal Oriented Thought Content: positive for Intact and positive for Goal Oriented Abnormal Motor Activity Signs and Symptoms: Restlessness Judgement: Good Diagnostics Vital Signs (24Hr): Vital Signs - 24 hr 03/08/22 17:21 03/09/22 08:10 Temperature 97.6 F 97.5 F Pulse Rate 83 68 Respiratory Rate 16 Blood Pressure 111/56 L 96/54 L Pulse Oximetry 96 Oxygen Delivery Method Room Air BMI result Body Mass Index 22.9 Labs Results: 03/02/22 15:09 03/02/22 15:09 Medications Medications Current Medications Acetaminophen (Acetaminophen 325 Mg Tablet) 650 mg PO Q6H PRN PRN Reason: Headache/Pain Mild Scale (1-3) Al Hydroxide/Mg Hydroxide (Magnesium Hydrox/Alum Hydrox 30 Ml Oral.Susp) 30 ml PO Q6H PRN PRN Reason: Heartburn/Nausea Diphenhydramine HCl (Diphenhydramine Hcl 25 Mg Tablet) 50 mg PO Q6H PRN PRN Reason: rash, itching Divalproex Sodium (Divalproex Sodium Er 500 Mg Tab.Er.24h) 1,000 mg PO BEDTIME [facility] Last Admin: 03/08/22 20:11 Dose: 1,000 mg Docusate Sodium (Docusate Sodium 100 Mg Capsule) 200 mg PO DAILY PRN PRN Reason: constipation Hydrocortisone (Hydrocortisone 1 % Cream 28.35 Gm Tube) 1 appl TOPICAL BID PRN; Protocol PRN Reason: rash, itching Hydroxyzine HCl (Hydroxyzine Hcl 25 Mg Tablet) 25 mg PO Q6H PRN PRN Reason: Anxiety Magnesium Hydroxide (Milk Of Magnesia 30 Ml Oral.Susp) 30 ml PO DAILY PRN PRN Reason: Constipation Melatonin (Melatonin 3 Mg Tablet) 6 mg PO BEDTIME PRN PRN Reason: insomnia Last Admin: 03/03/22 20:32 Dose: 6 mg Prednisone (Prednisone 10 Mg Tablet) 10 mg PO DAILY [facility] Last Admin: 03/09/22 09:02 Dose: 10 mg Risperidone (Risperidone 2 Mg Tablet) 2 mg PO BEDTIME [facility] Last Admin: 03/08/22 20:11 Dose: 2 mg Senna (Sennosides 8.6 Mg Tablet) 17.2 mg PO BEDTIME PRN PRN Reason: constipation Trazodone HCl (Trazodone Hcl 50 Mg Tablet) 50 mg PO BEDTIME PRN PRN Reason: Insomnia Allergies Allergies Allergy/AdvReac Type Severity Reaction Status Date / Time lamotrigine [From Lamictal] Allergy Severe Rash Verified 02/21/22 10:44 amoxicillin Allergy Intermediate Rash Verified 03/08/22 10:05 cariprazine [From Vraylar] Allergy Rash Verified 03/08/22 10:05 pineapple Allergy Itching Verified 02/19/22 14:09 harrison AdvReac Intermediate Gastrointestinal Verified 01/21/22 19:19 Upset kiwi AdvReac Intermediate Gastrointestinal Verified 03/08/22 10:05 Upset fluoxetine [From Prozac] AdvReac Depression Verified 01/11/22 21:43 Assessment & Plan Assessment & Plan (1) Bipolar disorder: Status: Acute Code(s): F31.9 - Bipolar disorder, unspecified (2) Rash: Status: Acute Code(s): R21 - Rash and other nonspecific skin eruption (3) Allergic reaction: Status: Acute Code(s): T78.40XA - Allergy, unspecified, initial encounter Plan 21 yo female, hx of bipolar disorder, newly diagnosed, with jimmy and psychosis presents with persistent rash>1 week, unresponsive to steroids and medication discontiuation. Primary agents Haldol/Depakote were tolerated for several weeks. Recent addition of Vraylar and Lamictal were thought to be the cause but pt with no relief since discontinuation of these. Pt admitted for washout and re- stabilization on a regime which is not precipitating of allergic response. Plan: --Decrease Depakote ER to 1000 mg HS. --Risperdal 2 mg hs --Labs-D. Bili, T. Bili, Calcium, ESR, --Consulted with hospitalist services much appreciated. Will consider punch biopsy. --Monitor for recurrence of jimmy 03/04/22 Continue current plan Risperdal may require titration over the weekend. 03/05/22 Patient denies any AVH or racing thoughts. Will leave Risperdal at current dose; will monitor and titrate if clinically determined. 03/06/22 Patient denies any AVH or racing thoughts. Will thus leave Risperdal at current dose 03/07/22 Discharge 03/10/22. Prednisone taper ending prior to discharge 03/09/22 Discharge 03/10. Prednisone taper ending. I spent minutes with the patient and/or on the patient floor today, greater than?50% of which was spent counseling/coordinating care. Patient educated on: medication risk/benefits and therapeutic strategies Informed Consent: understands Reason for contiued inpatient stay Substantial Risk for: rapid decompensation
[2022-03-09 19:58] VITALS: BP 103/52; PULSE 91; TEMP 36.3
[2022-03-09] MEDS: Divalproex Sodium ER 500 MG TAB.ER.24H 1000 MG PO (20:12)
[2022-03-09] MEDS: risperiDONE 2 MG TABLET PO (20:13)
[2022-03-10 07:03] VITALS: PULSE 72; RESP 14; TEMP 36.9; O2SAT 95
[2022-03-10] MEDS: predniSONE 10 MG TABLET PO (08:48)
--- NOTE | 2022-03-10 16:08 | P.DS_ITS ---
DS: Providers Provider Date of Service: 03/10/22 Date of admission: 03/02/22 17:11 Date of discharge: 03/10/22 Primary care physician: Unknown Physician Admitting clinician: Vale Salvador Attending physician on admission: Loy Yanes Attending physician on discharge: Loy Yanes Discharging clinician: Vale Salvador DS: Diagnosis Discharge Diagnosis (1) Bipolar disorder: Status: Acute (2) Rash: Status: Acute (3) Allergic reaction: Status: Acute DS: Medications Discharge Medications Home Medications: Home Medications Medication Instructions Recorded Confirmed acetaminophen 325 mg tablet 650 mg PO Q6H PRN Pain 02/14/22 02/14/22 ibuprofen 200 mg tablet 400 mg PO Q6H PRN Pain 02/14/22 02/14/22 Previous Rx's Medication Instructions Recorded diphenhydramine HCl 25 mg tablet 25 mg PO Q6H PRN Allergic Reaction 03/10/22 (Allergy Relief (diphenhydramine)) #120 tabs divalproex 500 mg tablet,extended 1,000 mg PO BEDTIME #60 tabs 03/10/22 release 24 hr docusate sodium 100 mg capsule 100 mg PO BID PRN Constipation #60 03/10/22 caps hydrocortisone 1 % topical ointment 1 appl topical BID #453.6 grams 03/10/22 hydroxyzine HCl 25 mg tablet 25 mg PO Q6H PRN Anxiety #120 tabs 03/10/22 melatonin 3 mg tablet 6 mg PO BEDTIME PRN Insomnia #60 03/10/22 tabs polyethylene glycol 400 1 % eye 1 drp ophthalmic (eye) QID PRN Dry 03/10/22 drops (Visine Dry Eye Relief) Eye(S) #1 applicator risperidone 2 mg tablet 2 mg PO BEDTIME #30 tabs 03/10/22 sennosides 8.6 mg tablet (Senna 17.2 mg PO BEDTIME PRN 03/10/22 Lax) Constipation #30 tabs Mental Status Exam Mental Status Exam Patient Appearance: Appropriate Patient Orientation: Person, Place, Time and Situation Level of Consciousness: Alert Patient Behavior: Talkative and Good Eye Contact Mood Description: Constricted Affect Description: Constricted Patient Cognition Impaired: No Ability to Follow Directions: Good Speech Pattern: Spontaneous Speech Memory Description: Intact Hallucinations: None Delusions: Not Present Thought Process: Intact and Goal Oriented Thought Content: positive for Intact and positive for Goal Oriented Abnormal Motor Activity Signs and Symptoms: Restlessness Judgement: Good Data Data Completed and Pending Completed studies during hospitalization [Text1]: 03/04/22 03/04/22 08:19 08:19 ESR 2 Calcium 8.7 Total Bilirubin 0.2 Direct Bilirubin 0.2 DS: Summary Hospital Course Hospital Course: Admission to adult psychiatry for persistent drug rash not relieved by steroids or discontinuation of Vraylar and Lamictal. Haldol was discontinued prior to admission; Depakote was continued. Steroids were continued and tapered. Rash improved with discontinuation of Haldol. Divya was fearful of a return of psychotic symptoms experienced in her first admission. Risperdal was initiated, tolerated without decline of cognition, mood, or emergence of psychotic symptoms. Divya utilized milieu support during this transition and was able to discharge with family with symptoms managed. Time spent discussing smoking cessation with patient: 3 to 10 minutes Status at Discharge Functional status at discharge: independent ambulation Overall status at discharge: patient is progressing back to baseline Time Spent with Patient Time attestation: Total time spent providing and/or coordinating discharge services:35 Time spent: Greater than 30 minutes Discharge Plan Discharge Patient Disposition: Home, Self-Care Discharge Diagnosis: Bipolar Disorder Rash due to medication reaction-?Lamictal, ?Vraylar, ?Haldol which is resolving Referrals: Therapist: Barbie Orozco ([facility]) [Other] - 03/14/22 2:00 pm (Telehealth ) Psych Prescriber: Nelly Paris ([facility]) [Other] - 03/16/22 10:00 am (Telehealth ) Psych Prescriber: Nelly Paris ([facility]) [Other] - 04/13/22 1:20 pm (Telehealth ) Physician,Unknown J [Primary Care Provider] - 1 Week (Pt has an appointment with [facility] on 03/23/22 from previous scheduling) Discharge Medications: New risperidone 2 mg Tablet 2 mg PO BEDTIME Qty: 30 0RF divalproex 500 mg Tablet Extended Release 24 Hr 1,000 mg PO BEDTIME Qty: 60 0RF hydroxyzine HCl 25 mg Tablet 25 mg PO Q6H PRN (Reason: Anxiety) Qty: 120 0RF Continued acetaminophen 325 mg Tablet 650 mg PO Q6H PRN (Reason: Pain) ibuprofen 200 mg Tablet 400 mg PO Q6H PRN (Reason: Pain) sennosides [Senna Lax] 8.6 mg Tablet 17.2 mg PO BEDTIME PRN (Reason: Constipation) Qty: 30 0RF hydrocortisone 1 % Ointment 1 appl topical BID Qty: 453.6 0RF Protocol: Apply to: Apply to: rash on body -- DO NOT APPLY on face melatonin 3 mg Tablet 6 mg PO BEDTIME PRN (Reason: Insomnia) Qty: 60 0RF diphenhydramine HCl [Allergy Relief(diphenhydramin)] 25 mg Tablet 25 mg PO Q6H PRN (Reason: Allergic Reaction) Qty: 120 0RF docusate sodium 100 mg capsule 100 mg PO BID PRN (Reason: Constipation) Qty: 60 0RF Visine Dry Eye Relief 1 % Drops 1 drp OPHTHALMIC (EYE) QID PRN (Reason: Dry Eye(S)) Qty: 1 0RF Discontinued loratadine [Claritin] 10 mg Tablet 10 mg PO DAILY PRN (Reason: Allergy Symptoms) acetaminophen 325 mg Tablet 650 mg PO Q6H PRN (Reason: Headache/Pain Mild Scale (1-3)) Qty: 0 0RF haloperidol 5 mg Tablet 15 mg PO BEDTIME Qty: 90 0RF haloperidol 5 mg Tablet 5 mg PO DAILY Qty: 30 0RF prednisone 20 mg Tablet 40 mg PO DAILY Qty: 4 0RF divalproex 500 mg Tablet Extended Release 24 Hr 1,500 mg PO BEDTIME Qty: 90 0RF haloperidol 5 mg tablet 5 mg PO BID PRN (Reason: agitation) Qty: 60 0RF prednisone 20 mg tablet 40 mg PO DAILY Qty: 4 0RF Discharge Orders: Discharge Order (Routine); Ordered 03/10/22 Ordered By: Vale Salvador Diet: Advance to usual diet Activity on Discharge: As tolerated Stand Alone Forms: Patient Portal Discharge page, Community Support Care Plan Goals: Mood stabilization Health Concerns: Bipolar Disorder Resolving rash s/p allergic reaction Plan of Treatment: Attend follow up appointments Take medications as directed Go to the Emergency Room or Urgent Care if rash intensifies Assessment: non-psychotic non-suicidal rash improving Discharge Date/Time: 03/10/22 13:25
== END 2022-03-10 13:25 | disposition home or self-care (01) | DRG 753 ==
LOC: HO.ED 16:21 → HO.PM5 17:14
PROVIDERS: Physician Assistant Medical; Admitting Provider Psychiatry & Neurology Psychiatry; Emergency Provider Emergency Medicine; Visit Provider Clinical Nurse Specialist Psychiatric/Mental Health, Adult
DX: F31.10 Bipolar disorder, current episode manic without psychotic features, unspecified (principal); L27.0 Generalized skin eruption due to drugs and medicaments taken internally; T50.905A Adverse effect of unspecified drugs, medicaments and biological substances, initial encounter; Z20.822 Contact with and (suspected) exposure to COVID-19; Z88.0 Allergy status to penicillin; Z88.8 Allergy status to other drugs, medicaments and biological substances; Z79.899 Other long term (current) drug therapy
CPT/HCPCS: 36415; 80053; 80061; 80143; 80164; 80179; 80307; 81025; 82077; 82247; 82248; 82310; 82607; 82746; 83036; 83735; 84439; 84443; 85025; 85652; 87635; 93005; 99285